=== PATIENT | female | born 1995 | race African-American/Black ===

== ENCOUNTER 2024-12-17 04:09 | Emergency (ER) | payer OTHER, SELFPAY ==
--- OUTSIDE RECORDS SUMMARY | 2024-12-17 04:13 | XMS_ITS | Encounter Summary ---
Author Organization [facility] Address [address] [place] [address] Care Team Providers Care Pizzamaker Name Role Phone No, Physician Primary Care Provider [phone] Encounter Details Date Type Department Care Team (Late st Contact Info) Description 12/14/2024 Results Follow-Up [address] [address] [address] [address] Vaginitis panel Vaginal Social History Tobacco Use Types Packs/Day Years Used Date Smoking Tobacco: Former Cigarettes 0.2 2 Smokeless Tobacco: Never Alcohol Use Standard Drinks/Week Comments Not Currently 0 (1 standard drink = 0.6 oz pur e alcohol) PHQ-2 Answer Date Recorded PHQ-2 Score 0 01/28/2019 Personal Safety Answer Date Recorded Have you ever been in or are you currently in a harmful physical or emotional relationship or is someone making you feel afraid or unsafe? 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 documented in this encounter Plan of Treatment Not on file documented as of this encounter Visit Diagnoses Not on filedocumented in this encounter Care Teams Pizzamaker Relationship Specialty Start Date End Date No, Physician PCP - General 10/07/24 documented as of this encounter
--- OUTSIDE RECORDS SUMMARY | 2024-12-17 04:13 | XMS_ITS | Patient Health Record ---
Author Organization [facility] Address [address] [place], [place] [address] Care Team Providers Care Senior Librarian Name Role Phone Melita German Primary Care Provider Rodrick Bauman Unavailable [phone] Allergies No Known Allergies Reason For Referral No Information Medications Medication SIG (Take, Route, Frequency, Duration) Notes Start Date End Date Status Vitamins 28-0.8 MG TAKE 1 TABLET BY MOUTH EVERY DAY Oral; Duration: 90 Active Prochlorperazine 25 MG UNWRAP AND _inser t 1 SUPPOSITORY RECTALLY EVERY 12 HOURS NEEDED FOR NAUSEA Rectal; Duration: 10 Not-Taking valACYclovir HCl 1 GM TAKE 1 TABLET BY M OUTH EVERY 12 HOURS Oral; Duration: 15 Active HYDROcodone-Acetaminophen 5-325 MG TAKE 1 TABLET BY MOUTH TWICE DAILY FOR 5 DAYS FOR PAIN OR COUGH. MAY CAUSE SEDATION. TAKE IT ONLY WHEN AT HOME Oral; Duration: 5 Not-Taking Famotidine 20 MG TAKE 1 TABLET BY DARIAN TH AT BEDTIME Oral; Duration: 30 Active Naproxen 500 MG Oral; Duration: 10 Not-Taking Imiquimod 5 % External; Duration: 30 Not-Taking Omeprazole 20 MG 1 capsule 30 minutes before morning meal Orally Once a day; Duration: 30 day(s) 02/13/2022 Active Ondansetron 8 MG DISSOLVE 1 TABLET ON THE TONGUE EVERY 6 HOURS NEEDED FOR NAUSEA OR VOMITING Oral; Duration: 3 Active Etonogestrel-Ethinyl Estradiol 0.12-0.015 MG/24HR _insert 1 RING VAGINALLY FOR 3 WEEKS THEN 1 WEEK OUT Diagnosis Unavailable Vaginal; Duration: 28 Not-Taking Fluconazole 150 MG TAKE 1 TABLET BY DARIAN TH ONCE TODAY AND 1 TABLET AFTER YOU FINISH MEDICATION Oral; Duration: 2 Not-Taking Nitrofurantoin Monohyd Macro 100 MG TAKE 1 CAPSULE BY MOUTH TWICE DAILY WITH THE MORNING AND EVENING MEAL Oral; Duration: 5 Not-Taking Vitamin D3 1.25 MG (52519 UT) Oral; Duration: 28 Not-Takin g Metoclopramide HCl 10 MG TAKE 1 TABLET B Y MOUTH EVERY 8 HOURS NEEDED FOR NAUSEA Oral; Duration: 6 Not-Taking RhoGAM Ultra-Filtered Plus 1500 UNIT as directed Intramuscular once; Duration: 1 days Not-Taking RhoGAM Ultra-Filtered Plus 1500 UNIT as directed Intramuscular once; Duration: 1 days Not-Taking metroNIDAZOLE 500 MG TAKE 1 TABLET BY MO UTH EVERY 12 HOURS Oral; Duration: 7 Not-Taking Social History Tobacco Use: Social History Observation Description Date Details (start date - stop date) Never Smoker NA - NA Sex Assigned At : Social History Observation Description Sex Assigned At Female Tobacco Use/Smoking Question Answer Notes Are you a: never smoker SBIRT (2018 Edition) Question Answer Notes Patient refused/declined SBIRT screening at this time? No 1. How often do you have a drink containing alco hol? Never 3. How often do you have five or more drinks on one occasion? Never SCORE 0 Interpretation Negative How many times in the past y ear have you used an illegal drug or used a prescription medication for non-medical reasons? 0 Total Count 0 Interpretation Negative Problems Problem Type SNOMED Code ICD Code Onset Dates Problem Status W/U Status Risk Notes Problem Finding related to (378939086) related conditions, unspecified, first trimester (O26.91) Active confirm Problem test equivocal (718136749) Encounter for test, result unknown (Z32.00) Active confirmed Problem care (regime/therap y) (973814462) Encntr for suprvsn of normal preg, unsp, second trimester (Z34.92) Active confirmed Problem test performed, confirmed (Z32.01) Active confirmed Plan Of Treatment Pending Test Test Name Order Date Ultrasound : (OB) First Trimester 2019 Ultrasound : OB/ Complete After 1st Trim es 03/11/2022 Insurance Providers Payer Name Payer Address Payer Phone Subscriber Number Group Number Insured Name Patient Relationship to Insured Coverage Start Date Coverage End Date [employer] Community Medicaid HMO [address] [place] [address] [id number] Nisha Millan Self - patient is the insured 9 [employer] [address] [place] [address] [id number] Nisha Chou Self - patient is the insured 2 DENTAL MEDICAID [employer] Medicaid Dental [address] [place] [address] [id number] Nisha Chou Self - patient is the insured 9 Medications Administered Medication Instructions Date of Administration Dosage Notes RhoGAM Ultra-Filtered PLUS-300ug 02/27/2022 1 Medical (General) History Surgical History Surgery Date(Month/Year) vaginal delivery vaginal delivery
--- OUTSIDE RECORDS SUMMARY | 2024-12-17 04:13 | XMS_ITS | Referral Summary ---
Author Organization [facility] Physician Office Building [address] [place] [id number] Care Team Providers Care Book Trimmer Name Role Phone No, Physician Primary Care Provider [phone] Encounters Date Type Department Care Team Description 12/15/[address] [address] Shayna Dean, RN 12/15/[address] [address] Shayna Dean, RN 12/14/[address] [address] Shayna Dean, RN 12/14/2024 Results Follow-Up [address] [address] Juan Samson PA Vaginitis panel Vaginal 12/13/2024 2:30 AM CDT - 12/13/2024 3:25 AM CDT Emergency [address] [address] Positive test (Primary Dx); Vaginal irritation Discharge Disposition: Discharge to home or self care 10/07/2024 8:42 AM CDT - 10/07/2024 10:26 AM CDT Emergency [facility] Emergency Department 1 [place] [address] Darryl Glover MD Dysfunctional uterine bleeding (Primary Dx); Dizziness Discharge Disposition: Discharge to home or self care from Last 3 Months Allergies Active Allergy Reactions Criticality Noted Date Comments Adhesive Rash Medium 09/16/2023 Surgical adhesive tape Penicillins Hives Medium 09/16/2023 Medications HYDROcodone-lilian taminophen (NORCO) 5-325 mg per tabletIndicatio ns:Pain Take 1 tablet by mouth every 6 (six) hours as needed for pain for up to 10 doses 10 tablet 4 Active ondansetron (ZOFRAN) 4 mg tablet Take 1 tablet (4 mg total) by mouth every 4 (four) hours as needed for nausea or vomiting 15 tablet 4 Active ibuprofen (ADVIL,MOTRIN) 800 mg tablet Take 1 tablet (800 mg total) by mouth 3 (three) times a day Take with food. 30 tablet 2 12/14/19 25 Discontinu ed(Pregnan danny) Active Problems Problem Noted Date Diagnosed Date Splinter 07/20/2021 Foreign body of thumb, right 07/20/2021 Periumbilical abdominal pain 12/21/2018 Encounter for psychiatric assessment 12/24/2017 Overview (12/24/2017): Initial appointment on 12/24/2017. Chronic post-traumatic stress disorder (PTSD) Assessment & Plan (12/24/2017 5:22 PM CDT): Chronic, persistent, needs to be linked with therapist. Her Referred to [facility] for trauma focused therapy. Start Prozac 20 mg daily and follow-up in six weeks. Full informed consent provided by the patient to initiate these medications. The patient verbalized an understanding of the reason for initiate these medications including the diagnosis and target symptoms for the medication recommended, the possible benefits and/or intended outcome of treatment, and as applicable, all available procedures involved in the proposed treatment, the possible risks and side effects, (including risk of medications to women and women who are ), the possible alternatives and complementary treatments, the possible results of not taking the recommended medications, (including but not limited to worsening symptoms, psychiatric instability, and even ), the possibility that this medication dose and/or frequency may need to be adjusted over time in consultation with Dr. Guerrero. The patient verbalized an understanding of the need for ongoing medical and psychiatric monitoring on an interval basis. At this time, the patient verbalizes full consent to initiate and understands the benefits and risks and wishes to proceed with full, informed consent. Persistent depressive disorder 12/24/2017 Assessment & Plan (12/24/2017 5:24 PM CDT): The F34.1 - Persistent Depressive Disorder - moderate - chronic, persistent symptoms including several of the following: depressed mood for most of the day, for more days than not, as indicated by either subjective account or observation by others for at least 2 years, and at least the presence, while depressed, of 2 or more of the following: poor appetite or overeating, insomnia or hypersomnia, low energy or fatigue, low self-esteem, poor concentration or difficulty making decisions, feelings of hopelessness. It is additionally noted that the patient has never been without the symptoms for more than 2 months at a time. Additionally, it is noted that there has never been a manic episode or a hypomanic episode, and criteria have never been met for cyclothymic disorder. The disturbance is not better explained by a persistent schizoaffective disorder, schizophrenia, delusional disorder, or other specified or unspecified schizophrenia spectrum and other psychotic disorder. The symptoms are not attributable to the physiological effects of a substance (e.g., a drug of abuse, a medication) or another medical condition (e.g., hypothyroidism). The patient does report that the symptoms cause clinically significant distress or impairment in social, occupational, or other important areas of functioning. The patient denies current suicidal ideation. The patient denies current homicidal ideation. The patient does not endorse any symptoms of psychosis, yrn, or hypomania. Up to 3 times daily as needed for anxiety Supportive, insight-oriented counseling provided in the office today I discussed the importance of lifestyle modification with the patient today. The patient will focus on lifestyle modification including changes to diet, incorporate regularly scheduled exercise, obtain sufficient sleep/maintaining proper sleep hygiene, and reduce overall level of stress. The patient will continue the following medication (or medications): Prozac 20 mg daily hydroxyzine 25 mg The patient will return to the office in six weeks for follow-up and to continue to monitor efficacy of treatment. If the patient has any worsening symptoms, he or she will contact the office to schedule an urgent appointment - or if symptoms warrant, the patient will proceed to the nearest emergency department for evaluation. 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 Gender Identity Female 07/10/2020 2:40 PM ELECTRONIC DEVELOPMENT TECHNICIAN Sexual Orientation Straight 07/10/2020 2: 40 PM ELECTRONIC DEVELOPMENT TECHNICIAN Last Filed Vital Signs Vital Sign Reading Time Taken Comments Blood Pressure 122/89 12/13/2024 3:00 AM CDT Pulse 81 12/13/2024 3:15 AM CDT Temperature 36.9 C (98.4 F) 12/13/2024 2:08 AM CDT Respiratory Rate 16 12/13/2024 2:08 AM CDT Oxygen Saturation 100% 12/13/2024 3:15 AM CDT Inhaled Oxygen Concentration - - Weight 71.2 kg (157 lb) 10/07/2024 8:37 AM CDT Height 157.5 cm (5' 2) 10/07/2024 8:37 AM CDT Body Mass Index 28.72 10/07/2024 8:37 AM CDT Plan of Treatment Not on file Procedures Procedure Name Priority Date/Time Associated Diagnosis Comments URINALYSIS, MICROSCOPIC ONLY STAT 12/13/2024 2:30 AM CDT URINE CULTURE Routine 12/13/2024 2:30 AM CDT N. GONORRHOEAE/C. TRACHOMATIS AMPLIFICATION STAT 12/13/2024 2:30 AM CDT VAGINITIS PANEL STAT 12/13/2024 2:30 AM CDT URINALYSIS AND REFLEX TO MICROSCOPIC AND CULTURE STAT 12/13/2024 2:30 AM CDT POCT HCG, URINE Routine 12/13/2024 2:27 AM CDT HCG, BLOOD, QUANTITATIVE Add-On 10/07/2024 9:32 AM CDT ECG 12-LEAD STAT 10/07/2024 8:59 AM CDT EGFR STAT 10/07/2024 8:50 AM CDT DIFFERENTIAL AUTO STAT 10/07/2024 8: 50 AM CDT ANTIBODY SCREEN STAT 10/07/2024 8:50 AM CDT ABO/RH STAT 10/07/2024 8:50 AM CDT TYPE AND SCREEN STAT 10/07/2024 8:50 AM CDT BASIC METABOLIC PANEL STAT 10/07/2024 8:50 AM CDT CBC WITH AUTO DIFFERENTIAL STAT 10/07/2024 8:50 AM CDT from Last 3 Months Results * N. gonorrhoeae/C. trachomatis Amplification Vaginal (12/13/2024 2:30 AM CDT) C. trachomatis Not Detected Not Detected N. gonorrhoeae Not Detected Not Detected [facility] Comment: Interpretive Data This assay detects Chlamydia trachomatis and Neisseria gonorrhoeae by nucleic acid amplification testing (NAAT). This assay has been cleared by the [place] Food and Drug administration. The performance characteristics of this test have been verified by the [facility]. The performance characteristics of this test have not been evaluated in individuals less than 14 years of age. Current Interpretive Data last revised 2023. Vaginal (None) 12/13/2024 2: 30 AM CDT 12/13/2024 2:34 AM CDT us Juan COLIN LAB MICROBIOLOGY - GENERAL O RDERABLES Final Result [facility] [address] [facility] Department [place] [address] * (ABNORMAL) Vaginitis panel Vaginal (12/13/2024 2:30 AM CDT) Bacterial Vaginosis Not Detected Not Detected Comment:A negative result do es not preclude a possible infection. Results should be considered in conjunction with clinical presentation to determine the disease status. Jada group Detected(A) Not Detected [facility] Comment:Jada species can be present as commensal organisms in women; results should be considered in conjunction with clinical presentation to determine the disease status. Jada glabrata/ krusei Not Detected Not Detected [facility] Trichomonas DNA Not Detected Not Detected [facility] Vaginal 12/13/2024 2:30 AM CDT 12/13/2024 2:34 AM CDT Narrative [facility] - 12/13/2024 3:34 AM CDT The Cepheid Xpert Xpress MVP test detects DNA targets from anaerobic bacteria associated with bacterial vaginosis, Jada species associated with vulvovaginal candidiasis, and Trichomonas vaginalis by nucleic acid amplification testing (NAAT). Results should be interpreted in conjunction with other clinical data. This test cannot be used to assess therapeutic success or failure because target nucleic acids may persist following antimicrobial therapy. This test has been cleared by the [place] Food and Drug Administration to aid in the diagnosis of vaginal infections in symptomatic women ages 14 and older. The performance characteristics of this test have been verified by the [facility]. The Cepheid Xpert Xpress MVP test detects DNA targets from anaerobic bacteria associated with bacterial vaginosis, Jada species associated with vulvovaginal candidiasis, and Trichomonas vaginalis by nucleic acid amplification testing (NAAT). Results should be interpreted in conjunction with other clinical data. This test cannot be used to assess therapeutic success or failure because target nucleic acids may persist following antimicrobial therapy. This test has been cleared by the [place] Food and Drug Administration to aid in the diagnosis of vaginal infections in symptomatic women ages 14 and older. The performance characteristics of this test have been verified by the [facility]. Juan COLIN LAB MICROBIOLOGY - GENERAL O RDERABLES Final Result Performing Organization Address [facility] Co de Phone Number [facility] [address] [place] [address] * (ABNORMAL) Urinalysis reflex to microscopic and culture Urine (12/13/2024 2:30 AM CDT) Color, ur Straw Yellow Clarity, ur Cloudy(A) Clear [facility] Specific gravity, ur 1.018 1.003 - 1.030 [facility] pH, urine 6.0 [facility] Comment: Interpretive Data U rine pH is affected by diet, medications, systemic acid-base disturbances, and renal tubular function. pH may affect urinary stone formation. For example, urine pH below 6.0 may help reduce the tendency for calcium phosphate stones and pH greater than 6.0 may reduce the tendency for uric acid stone formation. Source: [facility] Current Interpretive Data was last revised on 2017 Protein, ur ql Negative Negative [facility] Glucose, ur ql Negative Negative [facility] Ketones, ur Negative Negative [facility] Bilirubin, ur Negative Negative [facility] Blood, ur 1+(A) Negative [facility] Urobilinogen, ur <2.0 <2.0 mg/dL [facility] Nitrite, ur Negative Negative [facility] Leukocyte esterase, ur 4+(A) Negative [facility] UA reflex comment Reflex to microscopic UA will be performed. [facility] Urine 12/13/2024 2:30 AM CDT 12/13/2024 2:34 AM CDT Juan Manuel Avitia DO LAB MICROBIOLOGY - GENERAL ORDERABLES Final Result Performing Organization Address [facility]/ZIP Co de Phone Number [facility] [address] [facility] [place] [address] * (ABNORMAL) Urinalysis, microscopic only (12/13/2024 2:30 AM CDT) WBC, ur 0-5 0 - 5 /HPF RBC, ur 11-20(A) 0 - 2 /HPF [facility] Epithelial cells, squamous, ur 11-20(A) 0 - 5 /HPF [facility] Comment:Suggestive of contam ination. Consider recollection by clean catch. Mucous, ur Present(A) [facility] Culture Reflex Comment Reflex conditions for urine culture (WBC >10) not met. [facility] Urine 12/13/2024 2:30 AM CDT 12/13/2024 2:34 AM CDT Juan Manuel Avitia DO LAB URINE ORDERABLES Final Result Performing Organization Address [facility] Co de Phone Number [address] [employer] [place], [place] [id number] * Urine culture Urine (12/13/2024 2:30 AM CDT) [facility] Report Final Report: Growth indicative of contamination with periurethral slava. Please submit a new specimen with special attention given to the collection process and to prompt transport to the laboratory. Comment:Testing performed by : [facility], [address] [facility], [place]., [address] Organism GROWTH INDICATES CONTAM WITH PERIURETHRAL SLAVA. [facility] Urine 12/13/2024 2:30 AM CDT 12/13/2024 9:22 AM CDT Narrative [facility] - 12/14/2024 2:33 PM CDT Testing performed by [facility]biology Laboratory ([phone]) Juan COLIN LAB MICROBIOLOGY - GENERAL O RDERABLES Final Result Performing Organization Address [facility]/ZIP Co de Phone Number [address] [employer] [address] * (ABNORMAL) POCT hCG, urine (12/13/2024 2:27 AM CDT) [facility] HCG, ur, POC Positive(A) Negative Lot Number [id number] QC Backgroud Clear Acceptable QC Control Line Acceptable Urine 12/13/2024 2:27 AM CDT Juan Manuel Avitia DO POINT OF CARE TEST ORDERABL ES Final Result * hCG, blood, quantitative (10/07/2024 9:32 AM CDT) hCG, quant <5.0 0.0 - 5.0 IUnits/L Comment: Interpretive Data Male: < 5 IU/L Non- premenopausal Female: <5 IU/L The Karl hCG Beta Quant assay procedure was used. Results from different manufacturers or methods may not be comparable. Serial testing should be performed using the same method. Interpretive Data was last revised on 2023 Blood 10/07/2024 9:32 AM CDT 10/07/2024 9:37 AM CDT Darryl Glover MD LAB BLOOD ORDERABLE S Edited Result - Final Performing Organization Address [facility] Co de Phone Number [facility] [address] Department [place] [address] * ECG 12 lead (10/07/2024 8:59 AM CDT) 10/07/2024 8:59 AM CDT Narrative [facility] - 10/07/2024 10:23 AM CDT Vent Rate: 68 bpm RR Interval: 870 msec [place] Interval: 131 msec QRS Duration: 80 msec QT Interval: 374 msec QTC Interval: 392 msec P-R-T [place]: 11 - 30 - 19 degrees IMPRESSION: SINUS RHYTHM NORMAL ECG Electronically Signed By: Antolin Min MD Darryl Glover MD ECG ORDERABLES Fin al Result Performing Organization Address [facility] Co de Phone Number [facility] [employer] [facility] * eGFR (10/07/2024 8:50 AM CDT) eGFR >90 >=60 mL/min/1. 73 m2 Comment: Interpretive Data Reference Interval Normal >/= 90 mL/min/1.73m2 Mildly decreased* 60 - 89 mL/min/1.73m2 Mildly to moderately decreased 45 - 59 mL/min/1.73m2 Moderately to severely decreased 30 - 44 mL/min/1.73m2 Severely decreased 15 - 29 mL/min/1.73m2 Kidney Failure < 15 mL/min/1.73m2 *Relative to young adult level Estimated glomerular filtration rate is determined by the 2020 CKD-EPI equation recommended by the National Kidney Foundation (A Unifying Approach to GFR Estimation: Recommendations of the NKF-ASK Task Force on Reassessing the Inclusion of Race in Diagnosing Kidney Disease, JASN 2020). The CKD-EPI equation should not be used for patients with unstable renal function and has not been validated in children and those over 70. Current interpretive data was last reviewed 2021. Blood 10/07/2024 8:50 AM CDT 10/07/2024 9:03 AM CDT us Darryl Glover MD LAB BLOOD ORDERABLE S Final Result [facility] [address] [facility] Department [place] [address] * Differential, auto (10/07/2024 8:50 AM CDT) Neutrophil abs 2.58 1.50 - 6.50 K/cumm Imm gran abs 0.01 0.00 - 0.10 K/cumm [facility] ([place]) Lymphocyte abs 1.78 0.80 - 3.30 K/cumm [facility] ([place]) Monocyte abs 0.42 0.20 - 0.80 K/cumm [facility] ([place]) Eosinophil abs 0.21 0.00 - 0.50 K/cumm [facility] ([place]) Basophil abs 0.02 0.00 - 0.10 K/cumm [facility] ([place]) Neutrophil pct 51.3 % [facility] ([place]) Comment: Interpretive Data Percent cell count reference ranges are not reported, since discordance with absolute values may lead to misinterpretation of CBC data. Current Interpretive Data was last revised on 2017. Imm gran pct 0.2 % [facility] ([place]) Comment: Interpretive Data Percent cell count reference ranges are not reported, since discordance with absolute values may lead to misinterpretation of CBC data. Current Interpretive Data was last revised on 2017. Lymphocyte pct 35.5 % [facility] ([place]) Comment: Interpretive Data Percent cell count reference ranges are not reported, since discordance with absolute values may lead to misinterpretation of CBC data. Current Interpretive Data was last revised on 2017. Monocyte pct 8.4 % [facility] ([place]) Comment: Interpretive Data Percent cell count reference ranges are not reported, since discordance with absolute values may lead to misinterpretation of CBC data. Current Interpretive Data was last revised on 2017. Eosinophil pct 4.2 % [facility] ([place]) Comment: Interpretive Data Percent cell count reference ranges are not reported, since discordance with absolute values may lead to misinterpretation of CBC data. Current Interpretive Data was last revised on 2017. Basophil pct 0.4 % [facility] ([place]) Comment: Interpretive Data Percent cell count reference ranges are not reported, since discordance with absolute values may lead to misinterpretation of CBC data. Current Interpretive Data was last revised on 2017. Blood 10/07/2024 8:50 AM CDT 10/07/2024 9:03 AM CDT us Darryl Glover MD LAB BLOOD ORDERABLE S Final Result [facility] ([place]) [address] [facility] [place] [address] * (ABNORMAL) CBC with auto differential (10/07/2024 8:50 AM CDT) WBC 5.02 3.80 - 9.90 K/cumm Hgb 12.4 11.9 - 15.5 g/dL [facility] ([place]) Hct 38.0 35.6 - 45.5 % [facility] ([place]) Plt 267 150 - 400 K/cumm [facility] ([place]) MPV 9.8 9.1 - 12.3 fL [facility] RBC 4.59 3.90 - 5.20 M/cumm [facility] MCV 82.8 81.3 - 96.4 fL [facility] MCH 27.0(L) 27.1 - 33.3 pg [facility] ([place]) MCHC 32.6 32.3 - 35.7 g/dL [facility] ([place]) RDW CV 15.5(H) 11.1 - 14.9 % [facility] RDW SD 47.3 35.7 - 48.1 fL [facility] ([place]) NRBC abs 0.00 0.00 - 0.01 K/cumm [facility] ([place]) Blood 10/07/2024 8:50 AM CDT 10/07/2024 9:03 AM CDT us Darryl Glover MD LAB BLOOD ORDERABLE S Final Result [facility] ([place]) [address] [facility] [place] [place] [address] * ABO/Rh (10/07/2024 8:50 AM CDT) ABO/Rh B Negative Blood 10/07/2024 8:50 AM CDT 10/07/2024 9:03 AM CDT Narrative [facility] ([place]) - 10/07/2024 9:40 AM CDT Has the patient had Daratumumab or Isatuximab in the past 6 months?->Unknown Darryl Glover MD LAB BLOOD BANK TEST ORDERABLES Final Result [facility] ([place]) [address] [facility] [place] [place] [address] * Antibody screen (10/07/2024 8:50 AM CDT) Pam, indirect, Gel Interpretation Negative ABSC Blood 10/07/2024 8:50 AM CDT 10/07/2024 9:03 AM CDT Narrative [facility] ([place]) - 10/07/2024 9:40 AM CDT Has the patient had Daratumumab or Isatuximab in the past 6 months?->Unknown Darryl Glover MD LAB BLOOD BANK TEST ORDERABLES Final Result Performing Organization Address City/State/[facility] Co de Phone Number [facility] ([place]) [address] [facility] [place] [address] * Basic metabolic panel (10/07/2024 8:50 AM CDT) Sodium 137 135 - 145 mmol/L Potassium, pl 4.1 3.3 - 4.9 mmol/L [facility] ([place]) Chloride 104 97 - 110 mmol/L [facility] ([place]) CO2 22 22 - 32 mmol/L [facility]) Anion gap 11 2 - 15 mmol/L [facility] ([place]) BUN 11 6 - 25 mg/dL [facility] ([place]) Creatinine 0.64 0.60 - 1.10 mg/dL [facility] ([place]) Glucose 96 70 - 199 mg/dL [facility] ([place]) Comment: Interpretive Data Fasting glucose >/= 126 mg/dl is diagnostic for diabetes. Fasting is defined as no caloric intake for at least 8 hours. Fasting glucose between 100 mg/dl to 125 mg/dl is diagnostic of prediabetes. In a patient with classic symptoms of hyperglycemia or hyperglycemic crisis, a random glucose >/= 200 mg/dl is diagnostic for diabetes. In the absence of unequivocal hyperglycemia, results should be confirmed by repeat testing. The classification and Diagnosis of Diabetes Diabetes Care 202; 46: S19-S40. Current interpretive data was last revised 2022. Calcium 9.0 8.5 - 10.3 mg/dL [facility] ([place]) Blood 10/07/2024 8:50 AM CDT 10/07/2024 9:03 AM CDT Darryl Glover MD LAB BLOOD ORDERABLE S Final Result [facility] ([place]) [address] [facility] [place] [address] from Last 3 Months Insurance [employer] Care Teams Book Trimmer Relationship Specialty Start Date End Date No, Physician PCP - General 10/07/24
--- OUTSIDE RECORDS SUMMARY | 2024-12-17 04:13 | XMS_ITS | Continuity of Care Document ---
Author Organization [id number] Address [address] [place] [address] Phone Care Team Providers Care Obstetrics Teacher Name Role Phone Hernan Lloyd DMD Unavailable [...] AN CARE, AT-RISK ENHANCED SERVICE PACKAGE (INCLUDES [id number]) OFFICE/OUTPATIENT VISIT, EST PRESCRIPTION DRUG, ORAL, NON CHEMOTHERAP EUTIC, NOS AZITHROMYCIN DIHYDRATE, ORAL, CAPSULES/P OWDER, 1 GRAM Wet beka, including preparations of va ginal, cervical or skin specimens COLLECTION OF VENOUS BLOOD BY VENIPUNCTU RE OFFICE/OUTPATIENT VISIT, EST CARE, AT-RISK ENHANCED SERVICE PACKAGE (INCLUDES [id number]) OFFICE/OUTPATIENT VISIT, EST COLLECTION OF VENOUS BLOOD BY VENIPUNCTU RE Voided Encounter care, at-risk assessment care, at-risk enhanced service; antepartum management MENTAL HEALTH ASSESSMENT, BY NON-PHYSICI AN SKIN TEST; TUBERCULOSIS, INTRADERMAL Dec OFFICE/OUTPATIENT VISIT, NEW Advance Directives Directive Yes / No Effective Date File Name No Information Encounters Encounter Description Practice Location Reason(s) For Visit Diagnoses Date Provider Providers Copied on Encounter [facility] , [address], [place], [place], [address], tel:[phone] [facility] Encounter for dental exam and cleaning w abnormal findings 7 Gabino Becerra. [address], [place], [place], [address]. tel:[phone] Referring Provider: Hernan Lloyd, [address], [place], [address]. tel:[phone] [facility] , [address], [place], [place], [address], tel:[phone] [facility] home visit (chief complaint) Routine follow-up [facility]. [address], [place], [place], [address], . tel:[phone] [facility] , [address], [place], [place], [address], tel:[phone] [facility] [place] No Information 2 [facility]. [address], [place], [place], [address], . tel:[phone] Consulting Provider: Arianne Samuels, [address], [place], [address]. tel:[phone] OFFICE/OUTPAT IENT VISIT, EST [facility] , [address], [place], [place], [address], [place] tel:[phone] [facility] [place] No Information 1 Bianca Bauman. [address], [place], [place], [address], . tel:[phone] OFFICE/OUTPAT IENT VISIT, EST [facility] , [address], [place], [place], [address], [place] tel:[phone] [facility] [place] Supervision of normal first 1 Rico Navas [address], [place], [place], [address], . tel:[phone] [facility] , [address], [place], [place], [address], tel:[phone] [facility] [place] No Information 1 Management [facility]. [address], [place], [place], [address] [place] [address], . tel:[phone] Consulting Provider: Arianne Samuels, [address], [place], [address]. tel:[phone] OFFICE/OUTPAT IENT VISIT, [facility] , [address], [place], [place], [address], tel:[phone] [facility] [place] Supervision of other normal 1 Rico Navas [address], [place], [place], [address], . tel:[phone] [facility] , [address], [place], [place], [address], [place] tel:[phone] [facility] [place] Supervision of normal first 1 Rico Navas [address], [place], [place], [address], . tel:[phone] [facility] , [address], [place], [place], [address], tel:[phone] [facility] [place] pn intake (chief complaint) No Information No Information OFFICE/OUTPAT IENT VISIT, [facility] , [address], [place], [place], [address], [place] tel:[phone] [facility] [place] Test (chief complaint)No te for school-Pregn italo (chief complaint) Irregular menstrual cycle Bianca Bauman. [address], [place], [place], [address], [place]. tel:[phone] Family History Family Member Type Diagnosis Age At Onset Father Problem (finding) hypertension Mother Problem (finding) hypertension Father Problem (finding) Maternal history of alice betes mellitus Payers Payer name Insurance type Covered constitution party ID Alpa pool(s) D Medicaid - Dental CI [id number] Social History Type Description Quantity Date Captured Comments Sex Female Smoking Status No Information Chief Complaint And Reason For Visit No Information Reason For Referral Reason For Referral No Information Plan Of Treatment Date Type Action Status Goal BMP fasting. Due on 011 due Referral Referred To: [facility] [address] [place], [phone] Ordered: Referral: [facility] [...]
--- OUTSIDE RECORDS SUMMARY | 2024-12-17 04:13 | XMS_ITS ---
Author Organization [facility] Address [address] [place], [place] [address] Care Team Providers Care Retoucher Name Role Phone German Hua Primary Care Provider [phone] Rodrick Bauman Unavailable [phone] Abran Fitzpatrick Unavailable [phone] REASON FOR VISIT WWE Social History Sex Assigned At : Social History Observation Description Sex Assigned At Female Encounters Encounter Location Date Provider Diagnosis [facility] [place], [place] [id number] 08/04/2023 Abran Fitzpatrick Plan Of Treatment No Information Progress Notes * Nisha BARNETT :1995 (29 yo F)Acc No.[id number]:08/04/2023 Patient: Nisha KLEIN Appointment Provider: SUSY Pastrana :1995 A ge:28 Y S ex:Female Date:08/04/2023 [place] [place] Pcp:German Hua Subjective: * Chief Complaints: * 1 . WWE. * Medical History: Objective: * Vitals: Assessment: Plan: * Treatment: * Billing Information: * Visit Code: * Procedure Codes: * Electronic signature of SUSY Tellez chi on 12/17/2024 at 04:12 AM CDT Sign off status: Pending * Appointment Provider: SUSY Pastrana Date: 0 08/04/2023 Generated for Molina ramirez/Betty/Micky on: 0 12/17/2024 04:12 AM CDT
--- OUTSIDE RECORDS SUMMARY | 2024-12-17 04:13 | XMS_ITS ---
Author Organization [facility] Address [address] [place], [place] [address] Care Team Providers Care Instant Print Operator Name Role Phone German Hua Primary Care Provider [phone] Rodrick Bauman Unavailable [phone] Abran Fitzpatrick Unavailable [phone] REASON FOR VISIT wwe Social History Sex Assigned At : Social History Observation Description Sex Assigned At Female Encounters Encounter Location Date Provider Diagnosis [facility] [place], [place] [address] 07/23/2023 Abran Fitzpatrick Plan Of Treatment No Information Progress Notes * Nisha BARNETT :1995 (29 yo F)Acc No.[id number]:07/23/2023 Patient: Nisha KLEIN Appointment Provider: SUSY Pastrana :1995 A ge:28 Y S ex:Female Date:07/23/2023 Address:[facility] [place], [place] Pcp:German Hua Subjective: * Chief Complaints: * 1 . Wwe. * Medical History: Objective: * Vitals: Assessment: Plan: * Treatment: * Billing Information: * Visit Code: * Procedure Codes: * Electronic signature of SUSY Tellez chi on 12/17/2024 at 04:13 AM CDT Sign off status: Pending * Appointment Provider: SUSY Pastrana Date: 0 07/23/2023 Generated for Molina ramirez/Betty/Micky on: 0 12/17/2024 04:13 AM CDT
--- OUTSIDE RECORDS SUMMARY | 2024-12-17 04:13 | XMS_ITS | Clinical Summary ---
Author Organization [facility] Address [address] [place] [address] Care Team Providers Care Water Chaser Name Role Phone [facility] Primary Care Pro vider Source Comments [facility],non-[facility] Affiliates and Associated Physician Practices is amultiple site organization consisting of ambulatory clinics and hospital sitesin [place], [place], [place] and [place]. This disclosure is being madepursuant to the Care Everywhere program and may not contain all information available regarding this patient. Last updated 18.[facility] Allergies Active Allergy Reactions Criticality Noted Date Comments Penicillins Urticaria Medium 03/25/2022 Skin Adhesives Urticaria Medium 04/18/2022 White and clear tape Medications * This document contains information received from the source organization and may not represent a complete record from that organization. * Be aware that medications may not be up to date on this document. Alwaysverify current medications with the patient. fluticasone propionate (Flonase) 50 MCG/ACT nasal spray [place] 2 (two) sprays into each nostril once daily 1 Each 03/21/2024 Active guaiFENesin ER 12hr (Mucinex) 600 MG tablet Take 1 (one) tablet by mouth every 12 hours 60 tablet 03/21/2024 Active naproxen (Naprosyn) 500 MG tablet Take 1 (one) tablet by mouth 2 times daily 30 tablet 03/21/2024 Active ondansetron (Zofran) 4 MG tablet Take 1 (one) tablet by mouth every 6 hours as needed for Nausea/Vomit ing 20 tablet 03/28/2024 Active HYDROcodone-lilian taminophen (Logan) 5-325 MG tabletIndicatio ns:Acute maxillary sinusitis, recurrence not specified Take 1 (one) tablet by mouth every 6 hours as needed for Pain 12 tablet 03/28/2024 Active diclofenac sodium EC (Voltaren) 75 MG tablet Take 1 (one) tablet by mouth every 12 hours as needed 20 tablet 05/29/2024 Active cyclobenzaprine (Flexeril) 10 MG tablet Take 1 (one) tablet by mouth every 12 hours as needed for Muscle Spasms 10 tablet 05/29/2024 Active Active Problems Problem Noted Date Diagnosed Date Encounter for test, result unknown test positive 10/22/2023 Encntr for suprvsn of normal preg, unsp, second trimester 10/22/2023 related conditions, unspecified, first trimester 10/22/2023 Uterine contractions 05/08/2022 Decreased movement aff ecting management of in third trimester 05/05/2022 36 weeks gestation of 05/05/2022 Indication for care or intervention in labor or delivery 04/19/2022 34 weeks gestation of 04/19/2022 uterine contractions in third trimester, antepartum 04/19/2022 state, incidental 04/18/2022 32 weeks gestation of 04/07/2022 Lower abdominal pain 04/07/2022 Anxiety 03/26/2022 History of shoulder dystocia in prior 03/26/2022 Hx vacuum assisted vaginal delivery 03/26/2022 Chronic migraines 03/26/2022 Intermittent asthma 03/26/2022 Rh negative state in antepartum period Rubella non-immune status, antepartum 03/26/2022 Passive anti-D from Rhogam 03/25/2022 Mild Polyhydramnios 03/25/2022 Bipolar Depression 12/24/2017 Resolved Problems Problem Noted Date Diagnosed Date Resolved Date GERD (gastroesophageal reflux disease) 04/23/2022 04/23/2022 Functional diarrhea 04/07/2022 05/05/20 Nausea and vomiting during 10/30/2021 04/23/2022 Viral illness 05/15/2021 03/25/2022 Possible exposure to STD 05/15/2021 Spontaneous 12/01/2019 022 Abdominal pain during pregna ncy in third trimester 02/23/2017 04/08/2017 Underweight 01/13/2017 04/08/2017 Anemia affecting in third trimester 12/11/19 17 04/08/2017 Overview (12/10/2016): Niferex Erx Discussed high iron diet OTC stool softner; colace, fiber Increase water intake Positive urine drug screen 08/07/2016 1 06/08/2016 Overview (09/02/2016): + MJ. Legal and social implications discussed. Supervision of other normal , antepartum 08/05/2016 04/08/2017 Overview (02/17/2017): Datinw2d ultrasound PNL: B-/I/-/-/HIV=NR Ab scr: neg Pap: NILM GC/CT: neg Urine cx: wnl UDS: + MJ H/H/P: 10.4/33.6/207 HgbE: wnl Genetics: Nuchal translucency and sequential screen. Negative. Anatomy US: female, complete, rpt 4 wks GCT: 109 GBS: 01/23 Tdap:12/10 Flu shot: Declined. Recently had influenza Feeding: Breast Contraception: Bipolar affective disorder 08/05/2016 1 06/08/2016 Overview (11/11/2016): She sees Dr. Jean at [facility]. She discontinued Seroquel with positive test. She saw her therapist on 07/24 and was started on Sertraline. Not tolerated due to nausea. She will continue her care there during this . Next appt is 11/12/16. Herpes simplex vulvovaginitis 08/05/2016 04/08/2017 Overview (08/05/2016): Treated episodically with Valtrex. Rh negative state in antepartum period 08/05/2016 04/08/2017 Overview (02/24/2017): Rhogam given: 12/10 and 02/22 post abdominal trauma Nausea and vomiting during p regnancy prior to 22 weeks gestation 08/05/2016 04/08/2017 Overview (08/05/2016): OB Triage evaluation, IV fluids, antiemetic Immunizations Immunization Administration Dates Next Due DTP, HISTORIC VACCINE 11/20/1994, 994,1993,08/08 DTaP VACCINE IM (6wk-6yrs) 01/21/1999 HEP A PED/ADULT VACCINE 06/19/2010 HEP B VACCINE 1993,1993,1993 HIB-PRP-T 4 DOSE 11/20/1994, 4,1993,08/08 INFLUENZA VACCINE 06/20/2011 INFLUENZA VACCINE, QUADR. (F LUZONE; FLULAVAL; FLUARIX; AFLURIA QUADRIVALENT; 6MO+), 0.5 ML (IIV4) 05/13/2022,02/26/2017 MENINGOCOCCAL ACWY (MCV4P) VAC IM 06/19/2010 MMR 05/13/2022 MMR VACCINE 10/12/1997,08/28/1994 POLIO OPV 1993,1993,1993 Rho D Immune Globulin 09/28/2023, 023,05/13/2022,10/15,01/28/2020,12/01/2019,02/26/2017 ,02/22/2017,12/10/2016,06/20/2011 TDAP (7yrs+) 05/13/2022(Deferred: Patient Refused - received per pt),12/10/2016,06/20/2011 TDAP, HISTORIC VACCINE 07/20/2021,02/23/2009,05/2009 VARICELLA 01/21/1999 Family History Medical History Relation Name Comments Bipolar Disorder Father Depression Father Diabetes Father Heart Failure Father Depression Mother Hypertension Mother Relation Name Status Comments Brother Alive Father Alive Mother Alive Sister Alive Social History Tobacco Use Types Packs/Day Years Used Date Smoking Tobacco: Former Cigarettes Q uit: 06/08/2018 Smokeless Tobacco: Never Alcohol Use Standard Drinks/Week Comments Yes 0 (1 standard drink = 0.6 oz pur e alcohol) about once a month AUDIT-C Answer Date Recorded Q1: How often do you have a drink containing alcohol? Never 02/10/2024 Q2: How many drinks containi ng alcohol do you have on a typical day when you are drinking? Patient does not drink Q3: How often do you have si x or more drinks on one occasion? Never 02/10/2024 Overall Financial Resource Strain (CARDIA) Answe r Date Recorded How hard is it for you to pa y for the very basics like food, housing, medical care, and heating? Not hard at all 05/11/2022 Hunger Vital Sign Answer Date Recorded Within the past 12 months, y ou worried that your food would run out before you got the money to buy more. Never true 05/11/20 22 Within the past 12 months, t he food you bought just didn't last and you didn't have money to get more. Never true 05/11/2022 PRAPARE - Transportation Answer Date Re corded In the past 12 months, has l ack of transportation kept you from medical appointments or from getting medications? No 09/2021 In the past 12 months, has l ack of transportation kept you from meetings, work, or from getting things needed for daily living? No 05/11/2022 Housing Stability Vital Sign Answer Balaji e Recorded In the last 12 months, was t here a time when you were not able to pay the mortgage or rent on time? No 05/11/2022 In the last 12 months, how many places have you lived? 1 05/11/2022 In the last 12 months, was t here a time when you did not have a steady place to sleep or slept in a [place] (including now)? No 05/11/2022 [place] Depression Scale Answer Date Recorded RETIRED: Total Score 0 05/08/2022 Last EPDS Self Harm Result Not on file 05/08 Comments No Sex and Gender Information Value Date Recorded Sex Assigned at Not on file Legal Sex Female 6:05 AM [facility] Gender Identity Not on file Sexual Orientation Not on file Last Filed Vital Signs Vital Sign Reading Time Taken Comments Blood Pressure 147/96 05/28/2024 11:26 PM [facility]TER Pulse 65 05/28/2024 11:26 PM [facility] Temperature 36.7 C (98.1 F) 05/28/2024 11:26 PM [facility]TER Respiratory Rate 18 05/28/2024 11:26 PM [facility] Oxygen Saturation 95% 05/28/2024 11:26 PM [facility] Inhaled Oxygen Concentration - - Weight 70.8 kg (156 lb) 05/28/2024 11:26 PM [facility] S[facility]TER Height 157.5 cm (5' 2) 05/28/2024 11:26 PM [facility] Body Mass Index 28.53 05/28/2024 11:26 PM [facility] Plan of Treatment Health Maintenance Due Date Last Done Comments HEPATITIS C SCREENING 05/29/2011 PNEUMOCOCCAL VACCINE (1 of 2 - PCV) 2012 PAP SMEAR 08/05/2019 08/05/2016 HPV VACCINE (1 - 3-dose SCDM series) 2020 COVID-19 VACCINE (2 - season) 2024 09/20/2020 DEPRESSION SCREENING 06/08/2024 INFLUENZA VACCINE (#1) 2025 , 02/26/2017, 06/20/2011 DTAP/TDAP/TD VACCINES (11 - Td or Tdap) 07/20/2031 07/20/2021, 12/10/2016, 06/20/2011, Additional history exists ZOSTER VACCINE (1 of 2) 2043 HEPATITIS B VACCINE Completed 1993, 1993, 1993 HIB VACCINE Completed 11/20/1994, 11/08, 1993, Additional history exists MENINGOCOCCAL GROUPS A/C/Y/W VACCINE Completed 06/19/2010 HIV SCREENING Completed 08/05/2016 MENINGOCOCCAL (Group B) VACCINE SHARED DECISION-MAKING Aged Out No longer eligible based on patient's age to complete this topic Procedures Procedure Name Priority Date/Time Associated Diagnosis Comments PAP IG RFLX HPV ASCU Routine 08/05/2016 12:37 PM CR[facility] S[facility]TER 10 weeks gestation of HIV-1 HIV-2 ANTIBODY + HIV P24 AG PANEL Routine 08/05/2016 12:35 PM CRUST S[facility]TER 10 weeks gestation of from Last 3 Months or Most Recently Relevant to Health Maintenance Results * PAP SMEAR IG RFLX HPV ASCU (PO REF LAB) (08/05/2016 12:37 PM CRUST SORTER) Diagnosis Comment 08/06/2016 9:08 PM CRUST S[facility]TER [facility] Comment:NEGATIVE FOR INTRAEP ITHELIAL LESION AND MALIGNANCY. Specimen Adequacy Comment 017 9:08 PM CRUST S[facility]TER [facility] Comment: Satisfactory for evaluation. Endocervical and/or squamous metaplastic cells (endocervical component) are present. Performed by Comment 08/06/2016 9:08 PM CRUST SORTER [facility] Comment:Rubi Medley [employer] hnologist (ASCP) Comment . 08/06/2016 9:08 PM CRUST SORTER [facility] Note Comment 08/06/2016 9:08 PM CRUST SORTER [facility] Comment: The Pap smear is a screening test designed to aid in the detection of premalignant and malignant conditions of the uterine cervix. It is not a diagnostic procedure and should not be used as the sole means of detecting cervical cancer. Both false-positive and false-negative reports do occur. IGLBP CPT Code Automation Comment 08/06/2016 9:08 PM CRUST SORTER [facility] Comment: This liquid based ThinPrep(R) pap test was screened with the use of an image guided system. Note Comment 08/06/2016 9:08 PM CRUST SORTER [facility] Comment: The HPV DNA reflex criteria were not met with this specimen result therefore, no HPV testing was performed. Pathology/Cytolo gy PART OF UTERINE CERVIX / Unknown 08/05/2016 12:37 PM CRUST SORTER 08/05/2016 1:19 PM CRUST SORTER Narrative [facility] - 08/06/2016 9:08 PM CRUST SORTER Performed at: [address] [place] [id number] Stick Inserter: Rayna Cuevas MD, Phone: [phone] Specimen Comment: Source.............Cervix Specimen Comment: No. of containers..01 CYTYC Thin Prep Vial us Gaye Stephens MD LAB - PATHOLOGY/CYTOLOGY ORDE RABILIANA Final Result [facility] ([facility]) [address] [place] [address] * HIV-1 HIV-2 ANTIBODY + HIV P24 AG PANEL (08/05/2016 12:35 PM CRUST SORTER) HIV1/2 Ab + P24 Ag Non Reactive Non Reactive 08/05/2016 6:49 PM CRUST SORTER [facility] Blood BLOOD SPECIMEN / Unknown 08/05/2016 12:35 PM CRUST SORTER 08/05/2016 1:10 PM CRUST SORTER Narrative [facility] - 08/05/2016 6:49 PM CRUST SORTER No Laboratory evidence of HIV infection. us Gaye Stephens MD LAB - CHEMISTRY ORDERABLES Fi nal Result [facility] [address] [place] [address] from Last 3 Months or Most Recently Relevant to Health Maintenance [place] [facility] COMMUNITY PLAN [place] Advance Directives * Full Code (Latest Code Status on File) Date Activated Date Inactivated Comments 05/11/2022 10:25 AM 05/13/2022 3:02 PM * Full Code Date Activated Date Inactivated Comments 04/18/2022 7:58 PM 04/19/2022 12:11 AM * Full Code Date Activated Date Inactivated Comments 04/07/2022 6:00 PM 04/07/2022 9:46 PM * Full Code Date Activated Date Inactivated Comments 10/30/2021 12:38 PM 10/30/2021 4:02 PM * Full Code Date Activated Date Inactivated Comments 02/25/2017 12:53 PM 02/27/2017 12:50 PM Care Teams Water Chaser Relationship Specialty Start Date End Date [facility] [address] [place] [address] PCP - General Clerk Funeral Detail 01/30/22
--- OUTSIDE RECORDS SUMMARY | 2024-12-17 04:13 | XMS_ITS | Clinical Summary ---
Author Organization [facility] Address [address] [place] [address] Care Team Providers Care Assistant Production Manager Name Role Phone Unavailable Primary Care Provider Unavailabl e Allergies No known active allergies Medications imiquimod (ALDARA) 5 % Cream in PacketIndicatio ns:condylomata acuminata 1 Packet by See Admin Instructions route every Thursday, Thursday, and Thursday. 12 Packet 2 2 Active Active Problems No known active problems Immunizations Immunization Administration Dates Next Due (ACTHIB/HIBERIX)(2 MOS-5 YRS /6 WKS-4 YRS) HAEMOPHILUS INFLUENZAE TYPE B VACCINE (HIB), PRP-T CONJUGATE, 4 DOSE, 0.5 ML IM 11/20/1994,1993,1993,08/08 (ADACEL/BOOSTRIX)(10 YR UP) TDAP VACCINE, 0.5ML, IM 07/20/2021,12/10/2016,06/20/2011,02/23,01/17/2009 (INFANRIX)(6 WKS-6 YRS) DIPT HERIA, TETANUS TOXOIDS, AND ACCELLULAR PERTUSSIS VACCINE (DTAP), 0.5 ML IM 01/21/1999 (M-M-R II/PRIORIX)(12 MO UP) MEASLES, MUMPS AND RUBELLA VIRUS VACCINE, 0.5 ML IM/SUBCUT 10/12/1997,08/28/1994 (VARIVAX)(12 MOS UP)VARICELL A VIRUS VACCINE (PF) 0.5 ML, SUB CUT 01/21/1999 Hepatitis A Vaccine, Unspeci fied Formulation 06/19/2010 Hepatitis B Vaccine, Unspeci fied Formulation 1993,1993,1993 INFLUENZA VACCINE QUADRIVALE NT 6 MOS UP PF IM 02/26/2017 Influenza, Unspecified Formulation 06/20/2011 Meningococcal MCV4, Unspecif ied Formulation 06/19/2010 Poliovirus Vaccine Live Oral 1993,10/10/18 94,1993 Rho (D) IMMUNE GLOBULIN 1,50 0 UNIT(300 MCG) INJECTION 01/28/2020,12/01/2019,02/26/2017,02/22,12/10/2016,06/20/2011 Social History Tobacco Use Types Packs/Day Years Used Date Smoking Tobacco: Some Days Cigarettes 0.3 5 Tobacco Cessation:Ready to Q uit: Yes Alcohol Use Standard Drinks/Week Comments Not Currently 0 (1 standard drink = 0.6 oz pur e alcohol) Comments No Sex and Gender Information Value Date Recorded Sex Assigned at Not on file Legal Sex Female 8:57 AM CDT Gender Identity Not on file Sexual Orientation Not on file Last Filed Vital Signs Vital Sign Reading Time Taken Comments Blood Pressure 110/80 08/26/2021 9:20 AM CDT Pulse 77 08/26/2021 9:20 AM CDT Temperature 37 C (98.6 F) 08/26/2021 9:20 AM CDT Respiratory Rate 16 08/26/2021 9:20 AM CDT Oxygen Saturation 99% 08/26/2021 9:20 AM CDT Inhaled Oxygen Concentration - - Weight 62.6 kg (138 lb) 08/26/2021 9:20 AM CDT Height 156.2 cm (5' 1.5) 08/26/2021 9:20 AM CDT Body Mass Index 25.65 08/26/2021 9:20 AM CDT Plan of Treatment Health Maintenance Due Date Last Done Comments HPV/Cotest (21-29) 2014 HPV/Cotest (30-65) 2023 CERVICAL CANCER SCREENING 08/26/2024 PAP SMEAR 08/26/2024 08/26/2021 INFLUENZA VACCINE (#1) 2025 02/26/2017 DTAP/TDAP/TD VACCINES (6 - Td or Tdap) 07/20/2031 07/20/2021, 12/10/2016, 06/20/2011, Additional history exists HEPATITIS B VACCINES Completed 1993, 1993, 1993 HPV VACCINES Aged Out No longer eligi ble based on patient's age to complete this topic Procedures Procedure Name Priority Date/Time Associated Diagnosis Comments CERV/VAG CYTO AGE BASED SCREEN PAP W CT/NG, TRICH Routine 08/26/2021 10:22 AM CDT Encounter for gynecological examination with abnormal finding from Last 3 Months or Most Recently Relevant to Health Maintenance Results * CERV/VAG CYTO AGE BASED SCREEN PAP W CT/NG, TRICH (08/26/2021 10:22 AM CDT) SEE NOTE [facility] Comment: This order for age-based cervical cancer and STI screening follows ACOG guidelines(PB 168, 140, FYK620). See individual assays for performing site location. CLINICAL INFORMATION [facility] Comment:Information not prov ided LAST MENSTRUAL PERIOD [facility] Comment:INFORMATION NOT PROV IDED PREV PAP: [facility] Comment:INFORMATION NOT PROV IDED PREV BX: [facility] Comment:INFORMATION NOT PROV IDED SOURCE [facility] Comment:Endocervix ADEQUACY: [facility] Comment: Satisfactory for evaluation. Endocervical/transformation zone component present. Age and/or menstrual status not provided PAP INTERP [facility] Comment:Negative for intraep ithelial lesion or malignancy. COMMENT (PAP TEST) [facility] Comment: This Pap test has been evaluated with computer assisted technology. 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 [address] SEE NOTE [facility] Comment: EXPLANATORY NOTE: The Pap is a screening test for cervical cancer. It is not a diagnostic test and is subject to false negative and false positive results. It is most reliable when a satisfactory sample, regularly obtained, is submitted with relevant clinical findings and history, and when the Pap result is evaluated along with historic and current clinical information. C TRAC RNA NOT DETECTED NOT DETECTED [facility] N.GONORRHOEAE RNA, TMA NOT DETECTED NOT DETECTED [facility] SEE NOTE [facility] Comment: The analytical performance characteristics of this assay, when used to test SurePath(TM) specimens have been determined by [employer]. The modifications have not been cleared or approved by the FDA. This assay has been validated pursuant to the CLIA regulations and is used for clinical purposes. For additional information, please refer to https://v2 Ratings.Amulyte/faq/WZQ789 (This link is being provided for information/ educational purposes only.) TRICHOMONAS VAGINALIS,QUALITAT LAYNE,PAP VIAL NOT DETECTED NOT DETECTED [facility] Comment: The analytical performance characteristics of this assay have been determined by [employer]. The modifications have not been cleared or approved by the FDA. This assay has been validated pursuant to the CLIA regulations and is used for clinical purposes. For additional information, please refer to http://v2 Ratings.Amulyte/ faq/Trichomonastma (This link is being provided for information/ educational purposes only.) Test Performed at: [facility] [address] [place] [address] Andrea Mix D.O., MPH SL Genital SWAB OF ENDOCERVIX / Unknown 08/26/2021 10:22 AM CDT 08/27/2021 4:04 AM CDT Aba Gutierrez MD PATHOLOGY/CYTOLOGY ORDERABLES Final Result Performing Organization Address City/State/[facility] Co de Phone Number [facility] [address] [place] [address] from Last 3 Months or Most Recently Relevant to Health Maintenance Insurance [facility] TRUE BLUE PPO EXCHANGE
--- OUTSIDE RECORDS SUMMARY | 2024-12-17 04:13 | XMS_ITS | Clinical Summary ---
Author Organization [facility] [address] [place] [id number] Care Team Providers Care Service Consultant Name Role Phone No, Physician Primary Care Provider [phone] Allergies Active Allergy Reactions Criticality Noted Date [...] 30 tablet 2 12/14/19 25 Discontinu ed(Pregnan cy) Active Problems Problem Noted Date Diagnosed Date Splinter 07/20/2021 Foreign body of thumb, right 07/20/2021 Periumbilical abdominal pain 12/21/2018 Encounter for psychiatric assessment 12/24/2017 Overview (12/24/2017): Initial appointment on 12/24/2017. Chronic post-traumatic stress disorder (PTSD) Assessment & Plan (12/24/2017 5:22 PM CDT): Chronic, persistent, needs to be linked with therapist. Her Referred to [facility] for trauma focused therapy. Start Prozac 20 [...] to the nearest emergency department for evaluation. Encounters Date Type Department Care Team Description 12/15/[address] [address] Shayna Dean RN 12/15/[address] [address] Shayna Dean, RN 12/14/[address] [address] Shayna Dena, RN 12/14/2024 Results Follow-Up [address] [address] Juan Samson PA Vaginitis panel Vaginal 12/13/2024 2:30 AM CDT - 12/13/2024 3:25 AM CDT Emergency [address] [address] Positive test (Primary Dx); Vaginal irritation Discharge Disposition: Discharge to home or self care 10/07/2024 8:42 AM CDT - 10/07/2024 10:26 AM CDT Emergency [facility] Emergency Department [address] [place] [address] Darryl Glover MD Dysfunctional uterine bleeding (Primary Dx); Dizziness Discharge Disposition: Discharge to home or self care from Last 3 Months Immunizations Immunization Administration Dates Next Due Tdap 07/20/2021 Surgical History Surgery Date Site/Laterality Comments DILATION AND CURETTAGE OF UTERUS 06/08/2019 - 06/07/2020 After spontaneous Ab Medical History Medical History Date Comments Bipolar 1 disorder (HCC) Depression History of gestational hypertension Trichomoniasis HSV infection Anxiety Asthma Migraine Genital warts Family History Medical History Relation Name Comments Down syndrome Brother Heart attack Father Cervical cancer Maternal Grandmother Relation Name Status Comments Brother Father Alive Maternal Grandmother Alive Mother Alive Social History Tobacco Use Types Packs/Day [...] on file Legal Sex Female 9:34 AM 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 Gender Identity Female 07/10/2020 2:40 PM 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 Sexual Orientation Straight 07/10/2020 2: 40 PM 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 Obstetrics History Para Term AB IAB SAB Ectopic Multiple Livin g Live Births 10 4 4 5 2 2 4 4 Date Outcome GA Total Labor Labor/2nd/3rd Weight Sex Type Anes PTL Sheila A1 A5 Name Clin SAB 2011 Term 40w 2d 3.121 kg (6 lb 14.1 oz) F Vag-V acuum Epidur al Livin g 8 9 WALKER ,BABY GIRL NIRANJAN Pacheco Delivery Location:[facility] 2014 AB 2016 IAB 2016 Term 39w 3d 0h 17m 0h 13m/0h 04m 2.91 kg (6 lb 6.7 oz) F Vag-S pont Epidur al N Livin g 8 9 WALKER ,BABY GIRL NIRANJAN Nj MD Complications:None Delivery Location:[facility] 2019 IAB 2020 SAB 2021 Term 37w 4d 2.745 kg (6 lb 0.8 oz) F Vag-S pont Epidur al Kathy wood Complications: Karla yamileth Hypertension Delivery Location:[facility] 2021 Term 37w 4d 0h 07m 0h 07m 2.745 kg (6 lb 0.8 oz) F Vag-S pont Epidur al N Livin g 9 9 WALKER ,BABY GIRL NIRANJAN Martino Mara wood MD Complications:None Delivery Location:[facility] ([facility] 5 LDR) Last Filed Vital Signs Vital Sign Reading [...] 10/07/2024 8:37 AM CDT Plan of Treatment Health Maintenance Due Date Last Done Comments Cervical Cancer Screening 1993 Hepatitis C Screening 1993 Varicella Vaccines (2 of 2 - 2-dose childhood series) 04/15/1999 01/21/1999 Regular Well Visit/Exam 18-64 2011 Pneumococcal vaccine <65 (1 of 2 - PCV) 2012 Depression Screening 12/22/2019 12/21/2018 Covid-19 Vaccine (2 - season) 2024 09/20/2020 Influenza Vaccine (#1) 2025 2, 02/26/2017, 06/20/2011 DTaP/Tdap/Td Vaccine (11 - Td or Tdap) 07/20/2031 07/20/2021, 12/10/2016, 06/20/2011, Additional history exists Hepatitis B Screening Completed 1993 , 1993, 1993 HPV Vaccines Aged Out No longer eligi ble based [...] 8:50 AM CDT DIFFERENTIAL AUTO STAT 10/07/2024 8:5 0 AM CDT ANTIBODY SCREEN STAT 10/07/2024 8:50 [...] Detected N. gonorrhoeae Not Detected Not Detected [facility] Comment: Interpretive Data This assay detects Chlamydia trachomatis and Neisseria gonorrhoeae by nucleic acid amplification testing (NAAT). This assay has been cleared by the [place] Food and Drug administration. The performance characteristics of this test have been verified by the [facility]. The performance characteristics of this test have not been evaluated in individuals less than 14 years of age. Current Interpretive Data last revised 2023. Vaginal (None) 12/13/2024 2: 30 AM CDT 12/13/2024 2:34 AM CDT us Juan COLIN LAB MICROBIOLOGY - GENERAL O RDERABLES Final Result [facility] [address] [facility] [place] [address] * (ABNORMAL) Vaginitis panel Vaginal (12/13/2024 2:30 AM CDT) Bacterial Vaginosis Not Detected Not Detected Comment:A negative result do es not preclude a possible infection. Results should be considered in conjunction with clinical presentation to determine the disease status. Jada group Detected(A) Not Detected [facility] Comment:Jada species can be present as commensal organisms in women; results should be considered in conjunction with clinical presentation to determine the disease status. Jada glabrata/ krusei Not Detected Not Detected [facility] Trichomonas DNA Not Detected Not Detected [facility] Vaginal 12/13/2024 2:30 AM CDT 12/13/2024 2:34 AM CDT Narrative [facility] - 12/13/2024 3:34 AM CDT The [employer] Xpert Xpress MVP test detects DNA targets [...] this test have been verified by the [facility]. The [employer] Xpert Xpress MVP test detects DNA targets [...] this test have been verified by the [facility]. Juan COLIN LAB MICROBIOLOGY - GENERAL O RDERABLES Final Result [facility] [address] [facility] [place] [address] * (ABNORMAL) Urinalysis reflex to microscopic and culture Urine (12/13/2024 2:30 AM CDT) Color, ur Straw Yellow Clarity, ur Cloudy(A) Clear [facility] Specific gravity, ur 1.018 1.003 - 1.030 [facility] pH, urine 6.0 [facility] Comment: Interpretive Data U rine pH is affected by diet, medications, systemic acid-base disturbances, and renal tubular function. pH may affect urinary stone formation. For example, urine pH below 6.0 may help reduce the tendency for calcium phosphate stones and pH greater than 6.0 may reduce the tendency for uric acid stone formation. Source: [facility] Current Interpretive Data was last revised on 2017 Protein, ur ql Negative Negative [facility] Glucose, ur ql Negative Negative [facility] Ketones, ur Negative Negative [facility] Bilirubin, ur Negative Negative [facility] Blood, ur 1+(A) Negative [facility] Urobilinogen, ur <2.0 <2.0 mg/dL [facility] Nitrite, ur Negative Negative [facility] Leukocyte esterase, ur 4+(A) Negative [facility] UA reflex comment Reflex to microscopic UA will be performed. [facility] Urine 12/13/2024 2:30 AM CDT 12/13/2024 2:34 AM CDT Juan Manuel [facility]son [facility] MICROBIOLOGY - GENERAL ORDERABLES Final Result Performing Organization Address [facility] Co de Phone Number [address] [address] * (ABNORMAL) Urinalysis, microscopic only (12/13/2024 2:30 AM CDT) WBC, ur 0-5 0 - 5 /HPF RBC, ur 11-20(A) 0 - 2 /HPF [facility] Epithelial cells, squamous, ur 11-20(A) 0 - 5 /HPF [facility] Comment:Suggestive of contam ination. Consider recollection by clean catch. Mucous, ur Present(A) [facility] Culture Reflex Comment Reflex conditions for urine culture (WBC >10) not met. [facility] Urine 12/13/2024 2:30 AM CDT 12/13/2024 2:34 AM CDT Juan Manuel Carlson [facility] URINE ORDERABLES Final Result Performing Organization Address [facility] de Phone Number [address] [address] * Urine culture Urine (12/13/2024 2:30 AM CDT) Report Final Report: Growth indicative of contamination with periurethral slava. Please submit a new specimen with special attention given to the collection process and to prompt transport to the laboratory. Comment:Testing performed by : [facility], [address] [facility], [place]., [address] Organism GROWTH INDICATES CONTAM WITH PERIURETHRAL SLAVA. [facility] Urine 12/13/2024 2:30 AM CDT 12/13/2024 9:22 AM CDT Narrative [facility] - 12/14/2024 2:33 PM CDT Testing performed by [facility] Microbiology Laboratory ([phone]) Juan COLIN LAB MICROBIOLOGY - GENERAL O RDERABLES Final Result [facility] [address] [facility] [place] [address] * (ABNORMAL) POCT hCG, urine (12/13/2024 2:27 AM CDT) Pathologist [facility] HCG, ur, POC Positive(A) Negative Lot Number [id number] QC Backgroud Clear Acceptable QC Control Line Acceptable Urine 12/13/2024 2:27 AM CDT Juan Manuel Avitia DO POINT OF CARE TEST ORDERABL ES Final Result * hCG, blood, quantitative (10/07/2024 9:32 AM CDT) Pathologist [facility] hCG, quant <5.0 0.0 - 5.0 IUnits/L [...] BLOOD ORDERABLE S Edited Result - Final [facility] [address] [facility] Department [place] [address] * ECG 12 lead (10/07/2024 8:59 AM CDT) 10/07/2024 8:59 AM CDT Narrative [facility] - 10/07/2024 10:23 AM CDT Vent Rate: 68 bpm RR Interval: 870 msec VT Interval: 131 msec QRS Duration: 80 msec QT Interval: 374 msec QTC Interval: 392 msec P-R-T [place]: 11 - 30 - 19 degrees IMPRESSION: SINUS RHYTHM NORMAL ECG Electronically Signed By: Antolin Min MD us Darryl Glover MD ECG ORDERABLES Fin al Result [facility] * eGFR (10/07/2024 8:50 AM CDT) eGFR [...] LAB BLOOD ORDERABLE S Final Result [facility] ([facility]) [address] [facility] Department of Laboratories [place], [place] [id number] * Differential, auto (10/07/2024 8:50 AM CDT) [...] LAB BLOOD ORDERABLE S Final Result [facility] [address] [facility] [place] [address] * (ABNORMAL) CBC with auto differential (10/07/2024 8:50 AM CDT) WBC 5.02 3.80 - 9.90 K/cumm Hgb 12.4 11.9 - 15.5 g/dL [facility] ([place] Hct 38.0 35.6 - 45.5 % [facility] Plt 267 150 - 400 K/cumm [facility] MPV 9.8 9.1 - 12.3 fL [facility] RBC 4.59 3.90 - 5.20 M/cumm [facility] ([place] MCV 82.8 81.3 - 96.4 fL [facility] ([place] MCH 27.0(L) 27.1 - 33.3 pg [facility] ([place] MCHC 32.6 32.3 - 35.7 g/dL [facility] ([place] RDW CV 15.5(H) 11.1 - 14.9 % [facility] ([place] RDW SD 47.3 35.7 - 48.1 fL [facility] ([place] NRBC abs 0.00 0.00 - 0.01 K/cumm [facility] ([place] Blood 10/07/2024 8:50 AM CDT 10/07/2024 9:03 AM CDT us Darryl Glover MD LAB BLOOD ORDERABLE S Final Result [facility] [address] [facility] [place] [place] [address] * ABO/Rh (10/07/2024 8:50 AM CDT) ABO/Rh B Negative Blood 10/07/2024 8:50 AM CDT 10/07/2024 9:03 AM CDT Narrative [facility] - 10/07/2024 9:40 AM CDT Has the patient had Daratumumab or Isatuximab in the past 6 months?->Unknown Darryl Glover MD LAB BLOOD BANK TEST ORDERABLES Final Result [facility] ([place]) [address] [facility] [place] [address] * Antibody screen (10/07/2024 8:50 AM CDT) Pam, indirect, Gel Interpretation Negative [facility] Blood 10/07/2024 8:50 AM CDT 10/07/2024 9:03 AM CDT Narrative [facility] ([place]) - 10/07/2024 9:40 AM CDT Has the patient had Daratumumab or Isatuximab in the past 6 months?->Unknown Darryl Glover MD LAB BLOOD BANK TEST ORDERABLES Final Result Performing Organization Address City/[facility]/ZIP Co de Phone Number [facility] ([place]) [address] [facility] [place] [address] * Basic metabolic panel (10/07/2024 8:50 AM CDT) Sodium 137 135 - 145 mmol/L Potassium, pl 4.1 3.3 - 4.9 mmol/L [facility] ([place]) Chloride 104 97 - 110 mmol/L [facility] ([place]) CO2 22 22 - 32 mmol/L [facility]) Anion gap 11 2 - 15 mmol/L [facility] ([place]) BUN 11 6 - 25 mg/dL [facility] ([place]) Creatinine 0.64 0.60 - 1.10 mg/dL [facility] ([place]) Glucose 96 70 - 199 mg/dL [facility] ([place]) Comment: Interpretive Data Fasting glucose [...] classification and Diagnosis of Diabetes Diabetes Care 2021; 46: S19-S40. Current interpretive data was last revised 2022. Calcium 9.0 8.5 - 10.3 mg/dL [facility] ([place]) Blood 10/07/2024 8:50 AM CDT 10/07/2024 9:03 AM CDT us Darryl Glover MD LAB BLOOD ORDERABLE S Final Result [facility] ([place]) [address] [facility] Department [place] [address] from Last 3 Months Insurance [employer] EXCHANGE [employer] Care Teams Service Consultant Relationship Specialty Start Date End Date No, Physician PCP - General 10/07/24
[2024-12-17 04:21] VITALS: BP 117/66; PULSE 82; RESP 13; O2SAT 100
--- OUTSIDE RECORDS SUMMARY | 2024-12-17 04:37 | XMS_ITS | Clinical Summary ---
Author Organization [facility] Physician Office Building [address] [place] [id number] Care Team Providers Care Airborne Operations Superintendent Name Role Phone No, Physician Primary Care Provider [phone] Allergies Active Allergy Reactions Criticality Noted Date [...] be linked with therapist. Her Referred to [facility] for trauma focused therapy. Start Prozac [...] Type Department Care Team Description 12/15/[address] [address] Shayna Dean RN 12/15/[address] [address] Shayna Dean, RN 12/14/[address] [address] Shayna Dean, RN 12/14/2024 Results Follow-Up [address] [address] Juan Samson PA Vaginitis panel Vaginal 12/13/2024 2:30 AM CDT - 12/13/2024 3:25 AM CDT Emergency [address] [address] Positive test (Primary Dx); Vaginal irritation Discharge Disposition: Discharge to home or self care 10/07/2024 8:42 AM CDT - 10/07/2024 10:26 AM CDT Emergency [facility] 1 [place] [address] Darryl Glover MD Dysfunctional uterine bleeding (Primary [...] on file Legal Sex Female 9:34 AM 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 Gender Identity Female 07/10/2020 2:40 PM 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 Sexual Orientation Straight 07/10/2020 2: 40 PM 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 Obstetrics History Para Term AB IAB SAB Ectopic Multiple Livin g Live Births 10 4 4 5 2 2 4 4 Date Outcome GA Total Labor Labor/2nd/3rd Weight Sex Type Anes PTL Sheila A1 A5 Name Clin SAB 2011 Term 40w 2d 3.121 kg (6 lb 14.1 oz) F Vag-V acuum Epidur al Livin g 8 9 WALKER ,BABY GIRL NIRANJAN Pacheco Delivery Location:[facility] 2014 AB 2016 IAB 2016 Term 39w 3d 0h 17m 0h 13m/0h 04m 2.91 kg (6 lb 6.7 oz) F Vag-S pont Epidur al N Livin g 8 9 WALKER ,BABY GIRL NIRANJAN Nj MD Complications:None Delivery Location:[facility] 2019 IAB 2020 SAB 2021 Term 37w 4d 2.745 kg (6 lb 0.8 oz) F Vag-S pont Epidur al Kathy wood Complications: Karla yamileth Hypertension Delivery Location:[facility] 2021 Term 37w 4d 0h 07m 0h 07m 2.745 kg (6 lb 0.8 oz) F Vag-S pont Epidur al N Livin g 9 9 WALKER ,BABY GIRL NIRANJAN Martino Mara wood MD Complications:None Delivery Location:[facility] ([facility] 5 LDR) Last Filed Vital Signs Vital [...] Detected N. gonorrhoeae Not Detected Not Detected [facility] Comment: Interpretive Data This assay detects Chlamydia trachomatis and Neisseria gonorrhoeae by nucleic acid amplification testing (NAAT). This assay has been cleared by the [place] Food and Drug administration. The performance characteristics of this test have been verified by the [facility]. The performance characteristics of this test have not been evaluated in individuals less than 14 years of age. Current Interpretive Data last revised 2023. Vaginal (None) 12/13/2024 2: 30 AM CDT 12/13/2024 2:34 AM CDT us Juan COLIN LAB MICROBIOLOGY - GENERAL O RDERABLES Final Result [facility] [address] Department [place] [address] * (ABNORMAL) Vaginitis panel Vaginal (12/13/2024 2:30 AM CDT) Bacterial Vaginosis Not Detected Not Detected Comment:A negative result do es not preclude a possible infection. Results should be considered in conjunction with clinical presentation to determine the disease status. Jada group Detected(A) Not Detected [facility] Comment:Jada species can be present as commensal organisms in women; results should be considered in conjunction with clinical presentation to determine the disease status. Jada glabrata/ krusei Not Detected Not Detected [facility] Trichomonas DNA Not Detected Not Detected [facility] Vaginal 12/13/2024 2:30 AM CDT 12/13/2024 2:34 AM CDT Narrative [facility] - 12/13/2024 3:34 AM CDT The CepSwipe Telecom[employer] Xpert Xpress MVP test detects DNA targets [...] have been verified by the [facility]. The [employer] Xpert Xpress MVP test detects DNA targets [...] have been verified by the [facility]. Juan COLIN LAB MICROBIOLOGY - GENERAL O RDERABLES Final Result [facility] [address] Department [place] [address] * (ABNORMAL) Urinalysis reflex to microscopic and culture Urine (12/13/2024 2:30 AM CDT) Color, ur Straw Yellow Clarity, ur Cloudy(A) Clear [facility] Specific gravity, ur 1.018 1.003 - 1.030 [facility] pH, urine 6.0 [facility] Comment: Interpretive Data U rine pH is affected by diet, medications, systemic acid-base disturbances, and renal tubular function. pH may affect urinary stone formation. For example, urine pH below 6.0 may help reduce the tendency for calcium phosphate stones and pH greater than 6.0 may reduce the tendency for uric acid stone formation. Source: [facility] Current Interpretive Data was last revised on 2017 Protein, ur ql Negative Negative [facility] Glucose, ur ql Negative Negative [facility] Ketones, ur Negative Negative [facility] Bilirubin, ur Negative Negative [facility] Blood, ur 1+(A) Negative [facility] Urobilinogen, ur <2.0 <2.0 mg/dL [facility] Nitrite, ur Negative Negative [facility] Leukocyte esterase, ur 4+(A) Negative [facility] UA reflex comment Reflex to microscopic UA will be performed. [facility] Urine 12/13/2024 2:30 AM CDT 12/13/2024 2:34 AM CDT Juan Manuel Carlson [facility] MICROBIOLOGY - GENERAL ORDERABLES Final Result Performing Organization Address [facility] Co de Phone Number [address] [address] * (ABNORMAL) Urinalysis, microscopic only (12/13/2024 2:30 AM CDT) WBC, ur 0-5 0 - 5 /HPF RBC, ur 11-20(A) 0 - 2 /HPF [facility] Epithelial cells, squamous, ur 11-20(A) 0 - 5 /HPF [facility] Comment:Suggestive of contam ination. Consider recollection by clean catch. Mucous, ur Present(A) [facility] Culture Reflex Comment Reflex conditions for urine culture (WBC >10) not met. [facility] Urine 12/13/2024 2:30 AM CDT 12/13/2024 2:34 AM CDT Juan Manuel Carlson [facility] URINE ORDERABLES Final Result Performing Organization Address [facility] de Phone Number [address] [address] * Urine culture Urine (12/13/2024 2:30 AM CDT) Report Final Report: Growth indicative of contamination with periurethral slava. Please submit a new specimen with special attention given to the collection process and to prompt transport to the laboratory. Comment:Testing performed by : [facility], [address] [facility], [place]., [address] Organism GROWTH INDICATES CONTAM WITH PERIURETHRAL SLAVA. [facility] Urine 12/13/2024 2:30 AM CDT 12/13/2024 9:22 AM CDT Narrative [facility] - 12/14/2024 2:33 PM CDT Testing performed by [facility] Microbiology Laboratory ([phone]) Juan COLIN LAB MICROBIOLOGY - GENERAL O RDERABLES Final Result [facility] [address] Department [place] [address] * (ABNORMAL) POCT hCG, urine (12/13/2024 2:27 AM CDT) Pathologist [facility] HCG, ur, POC Positive(A) Negative Lot Number [id number] QC Backgroud Clear Acceptable QC Control Line Acceptable Urine 12/13/2024 2:27 AM CDT Juan Manuel Avitia DO POINT OF CARE TEST ORDERABL ES Final Result * hCG, blood, quantitative (10/07/2024 9:32 AM CDT) Pathologist [facility] hCG, quant <5.0 0.0 - [...] ORDERABLE S Edited Result - Final [facility] [address] Department [place] [address] * ECG 12 lead (10/07/2024 8:59 AM CDT) 10/07/2024 8:59 AM CDT Narrative [facility] - 10/07/2024 10:23 AM CDT Vent Rate: 68 bpm RR Interval: 870 msec [place] Interval: 131 msec QRS Duration: 80 msec QT Interval: 374 msec QTC Interval: 392 msec P-R-T [place]: 11 - 30 - 19 degrees IMPRESSION: SINUS RHYTHM NORMAL ECG Electronically Signed By: Antolin Min MD us Darryl Glover MD ECG ORDERABLES Fin al Result [facility] * eGFR (10/07/2024 8:50 AM [...] BLOOD ORDERABLE S Final Result [facility] ([place]) [address] Department of Laboratories [place], [place] [id number] * Differential, auto (10/07/2024 8:50 AM CDT) [...] S Final Result [facility] ([place]) 1 [facility] [place] [address] * (ABNORMAL) CBC with auto differential (10/07/2024 [...] S Final Result [facility] ([place]) 1 [facility] [place] [address] * ABO/Rh (10/07/2024 8:50 AM CDT) ABO/Rh B Negative Blood 10/07/2024 8:50 AM CDT 10/07/2024 9:03 AM CDT Narrative [facility] ([place]) - 10/07/2024 9:40 AM CDT Has the patient had Daratumumab or Isatuximab in the past 6 months?->Unknown Darryl Glover MD LAB BLOOD BANK TEST ORDERABLES Final Result [facility] ([place]) 1 [facility] [place] [address] * Antibody screen (10/07/2024 8:50 AM CDT) Pam, indirect, Gel Interpretation Negative ABSC Blood 10/07/2024 8:50 AM CDT 10/07/2024 9:03 AM CDT Narrative [facility] ([place]) - 10/07/2024 9:40 AM CDT Has the patient had Daratumumab or Isatuximab in the past 6 months?->Unknown Darryl Glover MD LAB BLOOD BANK TEST ORDERABLES Final Result Performing Organization Address City/[facility]/ZIP Co de Phone Number [facility] ([place]) 1 [facility] [place] [address] * Basic metabolic panel (10/07/2024 8:50 AM CDT) Sodium 137 135 - 145 mmol/L Potassium, pl 4.1 3.3 - 4.9 mmol/L [facility] ([place]) Chloride 104 97 - 110 mmol/L [facility] ([place]) CO2 22 22 - 32 mmol/L [facility] ([place]) Anion gap 11 2 - 15 mmol/L [facility] ([place]) BUN 11 6 - 25 mg/dL [facility] ([place]) Creatinine 0.64 0.60 - 1.10 mg/dL [facility] ([place]) Glucose 96 70 - 199 mg/dL [facility] ([place]) Comment: Interpretive Data Fasting glucose [...] S Final Result [facility] ([place]) [address] Department [place] [address] from Last 3 Months Insurance [employer] EXCHANGE [employer] Care Teams Airborne Operations Superintendent Relationship Specialty Start Date End Date No, Physician PCP - General 10/07/24
--- OUTSIDE RECORDS SUMMARY | 2024-12-17 04:37 | XMS_ITS | Referral Summary ---
Author Organization [facility] Physician Office Building [address] [place] [id number] Care Team Providers Care Food Service Agent Name Role Phone No, Physician Primary Care Provider [phone] Encounters Date Type Department Care Team Description 12/15/[address] [address] Shayna Dean, RN 12/15/[address] [address] Shayna Dean, RN 12/14/[address] [address] Shayna Dean, RN 12/14/2024 Results Follow-Up [address] [address] Juan Samson PA Vaginitis panel Vaginal 12/13/2024 2:30 AM CDT - 12/13/2024 3:25 AM CDT Emergency [address] [address] Positive test (Primary Dx); Vaginal irritation Discharge Disposition: Discharge to home or self care 10/07/2024 8:42 AM CDT - 10/07/2024 10:26 AM CDT Emergency [facility] Emergency Department 1 [place] [address] Darryl Glover MD Dysfunctional uterine bleeding (Primary [...] be linked with therapist. Her Referred to [facility] for trauma focused therapy. 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 The performance characteristics of this test have not been evaluated in individuals less than 14 years of age. Current Interpretive Data last revised 2023. Vaginal (None) 12/13/2024 2: 30 AM CDT 12/13/2024 2:34 AM CDT us Juan COLIN LAB MICROBIOLOGY - GENERAL O RDERABLES Final Result [facility] [address] [facility] Department [place] [address] * (ABNORMAL) Vaginitis panel Vaginal (12/13/2024 2:30 AM CDT) Bacterial Vaginosis Not Detected Not Detected Comment:A negative result do es not preclude a possible infection. Results should be considered in conjunction with clinical presentation to determine the disease status. Jada group Detected(A) Not Detected [facility] Comment:Jada species can be present as commensal organisms in women; results should be considered in conjunction with clinical presentation to determine the disease status. Jada glabrata/ krusei Not Detected Not Detected [facility] Trichomonas DNA Not Detected Not Detected [facility] Vaginal 12/13/2024 2:30 AM CDT 12/13/2024 2:34 AM CDT Narrative [facility] - 12/13/2024 3:34 AM CDT [...] have been verified by the [facility]. The Cepheid Xpert Xpress MVP test [...] have been verified by the [facility]. Juan COLIN LAB MICROBIOLOGY - GENERAL O RDERABLES Final Result Performing Organization Address [facility] Co de Phone Number [facility] [address] [place] [address] * (ABNORMAL) Urinalysis reflex to microscopic and culture Urine (12/13/2024 2:30 AM CDT) Color, ur Straw Yellow Clarity, ur Cloudy(A) Clear [facility] Specific gravity, ur 1.018 1.003 - 1.030 [facility] pH, urine 6.0 [facility] Comment: Interpretive Data U rine pH is affected by diet, medications, systemic acid-base disturbances, and renal tubular function. pH may affect urinary stone formation. For example, urine pH below 6.0 may help reduce the tendency for calcium phosphate stones and pH greater than 6.0 may reduce the tendency for uric acid stone formation. Source: [facility] Current Interpretive Data was last revised on 2017 Protein, ur ql Negative Negative [facility] Glucose, ur ql Negative Negative [facility] Ketones, ur Negative Negative [facility] Bilirubin, ur Negative Negative [facility] Blood, ur 1+(A) Negative [facility] Urobilinogen, ur <2.0 <2.0 mg/dL [facility] Nitrite, ur Negative Negative [facility] Leukocyte esterase, ur 4+(A) Negative [facility] UA reflex comment Reflex to microscopic UA will be performed. [facility] Urine 12/13/2024 2:30 AM CDT 12/13/2024 2:34 AM CDT Juan Manuel Avitia DO LAB MICROBIOLOGY - GENERAL ORDERABLES Final Result Performing Organization Address [facility]/ZIP Co de Phone Number [facility] [address] [facility] [place] [address] * (ABNORMAL) Urinalysis, microscopic only (12/13/2024 2:30 AM CDT) WBC, ur 0-5 0 - 5 /HPF RBC, ur 11-20(A) 0 - 2 /HPF [facility] Epithelial cells, squamous, ur 11-20(A) 0 - 5 /HPF [facility] Comment:Suggestive of contam ination. Consider recollection by clean catch. Mucous, ur Present(A) [facility] Culture Reflex Comment Reflex conditions for urine culture (WBC >10) not met. [facility] Urine 12/13/2024 2:30 AM CDT 12/13/2024 2:34 AM CDT Juan Manuel Avitia DO LAB URINE ORDERABLES Final Result Performing Organization Address [facility] Co de Phone Number [address] [employer] [place], [place] [id number] * Urine culture Urine (12/13/2024 2:30 AM CDT) [facility] Report Final Report: Growth indicative of contamination with periurethral slava. Please submit a new specimen with special attention given to the collection process and to prompt transport to the laboratory. Comment:Testing performed by : [facility], [address], [place]., [address] Organism GROWTH INDICATES CONTAM WITH PERIURETHRAL SLAVA. [facility] Urine 12/13/2024 2:30 AM CDT 12/13/2024 9:22 AM CDT Narrative [facility] - 12/14/2024 2:33 PM CDT Testing performed by [facility] Microbiology Laboratory ([phone]) Juan COLIN LAB MICROBIOLOGY - GENERAL O RDERABLES Final Result Performing Organization Address City/[facility]/ZIP Co de Phone Number [address] [place] [address] * (ABNORMAL) POCT hCG, urine (12/13/2024 2:27 AM CDT) [facility] HCG, ur, POC Positive(A) Negative Lot Number [...] Edited Result - Final Performing Organization Address City/[facility] Co de Phone Number [facility] [address] Department [place] [address] * ECG 12 lead (10/07/2024 8:59 AM CDT) 10/07/2024 8:59 AM CDT Narrative [facility] - 10/07/2024 10:23 AM CDT Vent Rate: 68 bpm RR Interval: 870 msec [place] Interval: 131 msec QRS Duration: 80 msec QT Interval: 374 msec QTC Interval: 392 msec P-R-T [place]: 11 - 30 - 19 degrees IMPRESSION: SINUS RHYTHM NORMAL ECG Electronically Signed By: Antolin Min MD Darryl Glover MD ECG ORDERABLES Fin al Result Performing Organization Address City/[facility] Co de Phone Number [facility] * eGFR (10/07/2024 8:50 AM CDT) [...] MD LAB BLOOD ORDERABLE S Final Result [facility] ([place]) [address] [facility] [place] [address] * Differential, auto (10/07/2024 8:50 AM CDT) [...] BLOOD ORDERABLE S Final Result [facility] ([place]) 1 [facility] Department [place] [address] * (ABNORMAL) CBC with auto differential (10/07/2024 8:50 AM CDT) WBC 5.02 3.80 - 9.90 K/cumm Hgb 12.4 11.9 - 15.5 g/dL [facility] ([place]) Hct 38.0 35.6 - 45.5 % [facility] ([place]) Plt 267 150 - 400 K/cumm [facility] ([place]) MPV 9.8 9.1 - 12.3 fL [facility] ([place]) RBC 4.59 3.90 - 5.20 M/cumm [facility] ([place]) MCV 82.8 81.3 - 96.4 fL [facility] ([place]) MCH 27.0(L) 27.1 - 33.[address] [facility] ([place]) MCHC 32.6 32.3 - 35.7 g/dL [facility] ([place]) RDW CV 15.5(H) 11.1 - 14.9 % [facility] ([place]) RDW SD 47.3 35.7 - 48.[address] [facility] ([place]) NRBC abs 0.00 0.00 - 0.01 K/cumm [facility] ([place]) Blood 10/07/2024 8:50 AM CDT 10/07/2024 9:03 AM CDT us Darryl Glover MD LAB BLOOD ORDERABLE S Final Result [facility] ([place]) [address] [facility] [place] [address] * ABO/Rh (10/07/2024 8:50 AM CDT) ABO/Rh B Negative Blood 10/07/2024 8:50 AM CDT 10/07/2024 9:03 AM CDT Narrative [facility] ([place]) - 10/07/2024 9:40 AM CDT Has the patient had Daratumumab or Isatuximab in the past 6 months?->Unknown Darryl Glover MD LAB BLOOD BANK TEST ORDERABLES Final Result [facility] ([place]) [address] [facility] [place] [address] * Antibody screen (10/07/2024 8:50 AM CDT) Pam, indirect, Gel Interpretation Negative ABSC Blood 10/07/2024 8:50 AM CDT 10/07/2024 9:03 AM CDT Narrative [facility] ([place]) - 10/07/2024 9:40 AM CDT Has the patient had Daratumumab or Isatuximab in the past 6 months?->Unknown Darryl Glover MD LAB BLOOD BANK TEST ORDERABLES Final Result Performing Organization Address City/State/[facility] Co de Phone Number [facility] ([place]) 1 [facility] Department [place] [address] * Basic metabolic panel (10/07/2024 8:50 AM [...] S Final Result [facility] ([place]) [address] [facility] [place] [address] from Last 3 Months Insurance [employer] EXCHANGE [employer] Care Teams Food Service Agent Relationship Specialty Start Date End Date No, Physician PCP - General 10/07/24
--- OUTSIDE RECORDS SUMMARY | 2024-12-17 04:37 | XMS_ITS | Continuity of Care Document ---
Author Organization [facility] Address [address] [place] [address] Phone Care Team Providers Care Physician Assistant Name Role Phone Hernan Lloyd DMD Unavailable [...] AN CARE, AT-RISK ENHANCED SERVICE PACKAGE (INCLUDES [id number]) OFFICE/OUTPATIENT VISIT, EST PRESCRIPTION DRUG, ORAL, NON CHEMOTHERAP EUTIC, NOS AZITHROMYCIN DIHYDRATE, ORAL, CAPSULES/P OWDER, 1 GRAM Wet beka, including preparations of va ginal, cervical or skin specimens COLLECTION OF VENOUS BLOOD BY VENIPUNCTU RE OFFICE/OUTPATIENT VISIT, EST CARE, AT-RISK ENHANCED SERVICE PACKAGE (INCLUDES [id number]) OFFICE/OUTPATIENT VISIT, EST COLLECTION OF VENOUS BLOOD BY VENIPUNCTU RE Voided Encounter care, at-risk assessment care, at-risk enhanced service; antepartum management MENTAL HEALTH ASSESSMENT, BY NON-PHYSICI AN SKIN TEST; TUBERCULOSIS, INTRADERMAL Dec OFFICE/OUTPATIENT VISIT, NEW Advance Directives Directive Yes / No Effective Date File Name No Information Encounters Encounter Description Practice Location Reason(s) For Visit Diagnoses Date Provider Providers Copied on Encounter [facility] , [address], [place], [place], [address], tel:[phone] [facility] Encounter for dental exam and cleaning w abnormal findings 7 Gabino Becerra. [address], [place], [place], [address]. tel:[phone] Referring Provider: Hernan Lloyd, [address], [place], [address]. tel:[phone] [facility] , [address], [place], [place], [address], tel:[phone] [facility] home visit (chief complaint) Routine follow-up [facility]. [address], [place], [place], [address], . tel:[phone] [facility] , [address], [place], [place], [address], tel:[phone] [facility] No Information 2 [facility]. [address], [place], [place], [address], . tel:[phone] Consulting Provider: Arianne Samuels, [address], [place], [address]. tel:[phone] OFFICE/OUTPAT IENT VISIT, EST [facility] , [address], [place], [place], [address], [place] tel:[phone] [facility] No Information 1 Bianca Bauman. [address], [place], [place], [address], . tel:[phone] OFFICE/OUTPAT IENT VISIT, EST [facility] , [address], [place], [place], [address], [place] tel:[phone] [facility] Supervision of normal first 1 Rico Navas [address], [place], [place], [address], . tel:[phone] [facility] , [address], [place], [place], [address], tel:[phone] [facility] No Information 1 [facility]. [address], [place], [place], [address] [place] [address], . tel:[phone] Consulting Provider: Arianne Samuels, [address], [place], [address]. tel:[phone] OFFICE/OUTPAT IENT VISIT, [facility] , [address], [place], [place], [address], tel:[phone] [facility] [place] Supervision of other normal 1 Rico Navas [address], [place], [place], [address], . tel:[phone] [facility] , [address], [place], [place], [address], [place] tel:[phone] [facility] [place] Supervision of normal first 1 Rico Navas [address], [place], [place], [address], . tel:[phone] [facility] , [address], [place], [place], [address], tel:[phone] [facility] [place] pn intake (chief complaint) No Information No Information OFFICE/OUTPAT IENT VISIT, [facility] , [address], [place], [place], [address], [place] tel:[phone] [facility] [place] Test (chief complaint)No te for school-Pregn italo (chief complaint) Irregular menstrual cycle Bianca Bauman. [address], [place], [place], [address], [place]. tel:[phone] Family History Family Member Type Diagnosis Age At Onset Father Problem (finding) hypertension Mother Problem (finding) hypertension Father Problem (finding) Maternal history of alice betes mellitus Payers Payer name Insurance type Covered libertarian ID Alpa pool(s) D Medicaid - Dental CI [id number] Social History Type Description Quantity Date Captured Comments Sex Female Smoking Status No Information Chief Complaint And Reason For Visit No Information Reason For Referral Reason For Referral No Information Plan Of Treatment Date Type Action Status Goal BMP fasting. Due on 011 due Referral Referred To: [facility] [address] [place], [id number] Ordered: Referral: [facility]. Radiology. ordered Future Order: Lab [...]
--- OUTSIDE RECORDS SUMMARY | 2024-12-17 04:37 | XMS_ITS | Encounter Summary ---
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 documented in this encounter Plan of Treatment Not on file documented as of this encounter Visit Diagnoses Not on filedocumented in this encounter Care Teams Form Worker Relationship Specialty Start Date End Date No, Physician PCP - General 10/07/24 documented as of this encounter
--- OUTSIDE RECORDS SUMMARY | 2024-12-17 04:37 | XMS_ITS | Clinical Summary ---
Author Organization [facility] Address [address] [place] [address] Care Team Providers Care Transportation Job Titles Name Role Phone [facility] Primary Care Pro vider Source Comments [facility],non-[facility] Affiliates and Associated Physician Practices is amultiple site organization consisting of ambulatory clinics and hospital sitesin [place], [place], [place] and [place]. This disclosure is being madepursuant to the Care Everywhere program and may not contain all information available regarding this patient. Last updated 18.[facility] Allergies Active Allergy Reactions Criticality Noted Date [...] fluticasone propionate (Flonase) 50 MCG/ACT nasal spray [place] 2 (two) sprays into each nostril once [...] ing 20 tablet 03/28/2024 Active HYDROcodone-lilian taminophen ([place]) 5-325 MG tabletIndicatio ns:Acute maxillary sinusitis, recurrence [...] Overview (11/11/2016): She sees Dr. Jean at [facility]. She discontinued Seroquel with positive test. [...] place to sleep or slept in a senior living (including now)? No 05/11/2022 [place] Depression Scale Answer Date Recorded RETIRED: Total Score 0 05/08/2022 Last EPDS Self Harm Result Not on file 05/08 Comments No Sex and Gender Information Value Date Recorded Sex Assigned at Not on file Legal Sex Female 6:05 AM EXECUTIVE SOUS CHEF Gender Identity Not on file Sexual Orientation Not on file Last Filed Vital Signs Vital Sign Reading Time Taken Comments Blood Pressure 147/96 05/28/2024 11:26 PM EXECUTIVE SOUS CHEF Pulse 65 05/28/2024 11:26 PM EXECUTIVE SOUS CHEF Temperature 36.7 C (98.1 F) 05/28/2024 11:26 PM EXECUTIVE SOUS CHEF Respiratory Rate 18 05/28/2024 11:26 PM EXECUTIVE SOUS CHEF Oxygen Saturation 95% 05/28/2024 11:26 PM EXECUTIVE SOUS CHEF Inhaled Oxygen Concentration - - Weight 70.8 kg (156 lb) 05/28/2024 11:26 PM EXECUTIVE SOUS CHEF Height 157.5 cm (5' 2) 05/28/2024 11:26 PM EXECUTIVE SOUS CHEF Body Mass Index 28.53 05/28/2024 11:26 PM EXECUTIVE SOUS CHEF Plan of Treatment Health Maintenance Due Date [...] RFLX HPV ASCU Routine 08/05/2016 12:37 PM EXECUTIVE SOUS CHEF 10 weeks gestation of HIV-1 HIV-2 ANTIBODY + HIV P24 AG PANEL Routine 08/05/2016 12:35 PM EXECUTIVE SOUS CHEF 10 weeks gestation of from Last 3 Months or Most Recently Relevant to Health Maintenance Results * PAP SMEAR IG RFLX HPV ASCU (PO REF LAB) (08/05/2016 12:37 PM EXECUTIVE SOUS CHEF) Diagnosis Comment 08/06/2016 9:08 PM EXECUTIVE SOUS CHEF [facility] Comment:NEGATIVE FOR INTRAEP ITHELIAL LESION AND MALIGNANCY. Specimen Adequacy Comment 017 9:08 PM EXECUTIVE SOUS CHEF [facility] Comment: Satisfactory for evaluation. Endocervical and/or squamous metaplastic cells (endocervical component) are present. Performed by Comment 08/06/2016 9:08 PM EXECUTIVE SOUS CHEF [facility] Comment:Rubi Medley [employer] hnologist (ASCP) Comment . 08/06/2016 9:08 PM EXECUTIVE SOUS CHEF [facility] Note Comment 08/06/2016 9:08 PM EXECUTIVE SOUS CHEF [facility] Comment: The Pap smear is a screening test designed to aid in the detection of premalignant and malignant conditions of the uterine cervix. It is not a diagnostic procedure and should not be used as the sole means of detecting cervical cancer. Both false-positive and false-negative reports do occur. IGLBP CPT Code Automation Comment 08/06/2016 9:08 PM EXECUTIVE SOUS CHEF [facility] Comment: This liquid based ThinPrep(R) pap test was screened with the use of an image guided system. Note Comment 08/06/2016 9:08 PM EXECUTIVE SOUS CHEF [facility] Comment: The HPV DNA reflex criteria were not met with this specimen result therefore, no HPV testing was performed. Pathology/Cytolo gy PART OF UTERINE CERVIX / Unknown 08/05/2016 12:37 PM EXECUTIVE SOUS CHEF 08/05/2016 1:19 PM EXECUTIVE SOUS CHEF Narrative [facility] - 08/06/2016 9:08 PM EXECUTIVE SOUS CHEF Performed at: [address] [place] [id number] Line Fixer: Rayna Cuevas MD, Phone: [phone] Specimen Comment: Source.............Cervix Specimen Comment: No. of containers..01 CYTYC Thin Prep Vial us Gaye Stephens MD LAB - PATHOLOGY/CYTOLOGY ORDE RABILIANA Final Result [facility] ([facility]) [address] [place] [address] * HIV-1 HIV-2 ANTIBODY + HIV P24 AG PANEL (08/05/2016 12:35 PM EXECUTIVE SOUS CHEF) HIV1/2 Ab + P24 Ag Non Reactive Non Reactive 08/05/2016 6:49 PM EXECUTIVE SOUS CHEF [facility] Blood BLOOD SPECIMEN / Unknown 08/05/2016 12:35 PM EXECUTIVE SOUS CHEF 08/05/2016 1:10 PM EXECUTIVE SOUS CHEF Narrative [facility] - 08/05/2016 6:49 PM EXECUTIVE SOUS CHEF No Laboratory evidence of HIV infection. us Gaye Stephens MD LAB - CHEMISTRY ORDERABLES Fi nal Result [facility] [address] [place] [address] from Last 3 Months or Most Recently Relevant to Health Maintenance [place] MEDICA[place] - [facility] COMMUNITY PLAN [place] [...] 12:53 PM 02/27/2017 12:50 PM Care Teams Transportation Job Titles Relationship Specialty Start Date End Date [facility] [address] [place] [address] PCP - General Spanish Interpreter 01/30/22
--- OUTSIDE RECORDS SUMMARY | 2024-12-17 04:37 | XMS_ITS | Clinical Summary ---
Author Organization [facility] Address [address] [place] [address] Care Team Providers Care Studio Potter Name Role Phone Unavailable Primary Care Provider [...] TRICH (08/26/2021 10:22 AM CDT) SEE NOTE [facility] Comment: This order for age-based cervical cancer and STI screening follows ACOG guidelines(PB 168, 140, QNO629). See individual assays for performing site location. CLINICAL INFORMATION [facility] Comment:Information not prov ided LAST MENSTRUAL PERIOD [...] ithelial lesion or malignancy. COMMENT (PAP TEST) [facility] Comment: This Pap test has been evaluated with computer assisted technology. LUBRICATION SUPERVISOR: [facility] Comment: SAMAGNES(ASCP) CT screening location: [place] [address] [place] [address] SEE NOTE [facility] Comment: EXPLANATORY NOTE: [...] C TRAC RNA NOT DETECTED NOT DETECTED [facility] N.GONORRHOEAE RNA, TMA NOT DETECTED NOT DETECTED [facility] SEE NOTE [facility] Comment: The analytical performance characteristics of this assay, when used to test SurePath(TM) specimens have been determined by [facility]. The modifications have not been cleared or approved by the FDA. This assay has been validated pursuant to the CLIA regulations and is used for clinical purposes. For additional information, please refer to https://Nexgence.9facts/faq/EXT713 (This link is being provided for information/ educational purposes only.) TRICHOMONAS VAGINALIS,QUALITAT LAYNE,PAP VIAL NOT DETECTED NOT DETECTED [facility] Comment: The analytical performance characteristics of this assay have been determined by [facility]. The modifications have not been cleared or approved by the FDA. This assay has been validated pursuant to the CLIA regulations and is used for clinical purposes. For additional information, please refer to http://Nexgence.9facts/ faq/Trichomonastma (This link is being provided for information/ educational purposes only.) Test [facility]formed [facility]: [facility] [address] [place] [address] Andrea Mix D.O., MPH SL Genital SWAB OF ENDOCERVIX / Unknown 08/26/2021 10:22 AM CDT 08/27/2021 4:04 AM CDT Aba Gutierrez MD PATHOLOGY/CYTOLOGY ORDERABLES Final Result Performing Organization Address City/State/[facility] Co de Phone Number [facility] [address] [place] [address] from Last 3 Months or Most Recently Relevant to Health Maintenance Insurance [facility] TRUE BLUE PPO EXCHANGE
[2024-12-17 05:17] LABS: Hematocrit 38.6 % (37.0-47.0); Hemoglobin 12.1 g/dL (12.0-15.0); Immature Granulocyte Percent A 0.3 % (0-0.5); Immature Platelet Fraction Pct 1.8 % (0.9-11.2); Lymphocytes Absolute Auto 2.71 K/mm3 (0.9-3.2); Mean Corpuscular HGB Conc 31.3 g/dl (32-36); Mean Corpuscular Hemoglobin 26.4 pg (26-34); Mean Corpuscular Volume 84.3 fl (80-100); Nucleated Red Blood Cells Absolute Auto 0.000 K/mm3 (0.0-0.012); Nucleated Red Blood Cells Perc 0.0 % (0.0-0.2); Platelet Count Result 256 k/mm3 (150-375); Red Blood Count 4.58 M/mm3 (4.2-5.4); White Blood Count 7.1 K/mm3 (4.5-10.0)
[2024-12-17 05:22] LABS: BEDSIDEPREGUCG Positive (Negative)
[2024-12-17 05:49] LABS: Add Urine Microscopic? YES; Appearance Urine Turbid (Clear); Glucose Urine UA Negative (Negative); Leukocyte Esterase Ur Negative LEU/UL (Negative); Need Manual Microscopic Reviewed; Nitrate Urine Negative (Negative); Non Pathogenic Casts 0-2; Specific Grav Ur 1.010 (1.001-1.035)
--- NOTE | 2024-12-17 06:09 | ED_ITS ---
HPI - Female Genitourinary General Chief complaint: Vaginal Bleeding Stated complaint: Spotting / Time Seen by Provider: 12/17/24 04:15 History of Present Illness HPI Narrative: Patient is a 29-year-old female who presents to the emergency department this evening complaining of vaginal bleeding. Patient believes that she is currently , stating that her last menstrual cycle was sometime at the end of October. States that she has already had an ultrasound for this , which ruled out ectopic, but it was too early to see much in the intrauterine cavity. Patient states that she just noticed very light spotting when she wiped. She states that she has 3 kids into past miscarriages. States the bleeding started this morning but have now stopped. Denies any additional symptoms or concerns. Patient knows that she is Rh negative. Related Data Allergies Allergy/AdvReac Type Severity Reaction Status Date / Time Penicillins AdvReac edema Verified 12/17/24 04:12 Review of Systems 2 Review of Systems: All systems are reviewed and are negative unless stated otherwise in the HPI. Exam 2 Narrative: General: Alert, awake, afebrile, in no acute distress. HEENT: PERRL, no rhinorrhea, no post nasal drip, oropharynx clear. Neck: Trachea midline, no JVD, no lymphadenopathy. Cardiovascular: Regular rate and rhythm, no murmurs, rubs or gallops, no peripheral edema. Respiratory: Clear to auscultation bilaterally, no tachypnea, no wheezing, no rhonchi, no rubs, no respiratory distress. Abdomen: Soft, nontender, nondistended, no rebound, no guarding, no peritoneal signs. Musculoskeletal: No joint swelling or deformity, normal muscle tone. Skin: No rashes or petechia, no signs of infection. Psychiatric: Alert and oriented, normal behavior and judgment for situation. Neurological: Alert and oriented to person, place, and time. Follows all commands. No focal deficits, speech is clear and fluent. Course Vital Signs Vital signs: Vital Signs Pulse Rate 82 12/17/24 04:21 Respiratory Rate 12/17/24 04:21 Blood Pressure 117/66 12/17/24 04:21 Pulse Oximetry 100 12/17/24 04:21 Oxygen Delivery Room Air 12/17/24 04:21 Pulse Rate 82 12/17/24 04:21 Respiratory Rate 13 12/17/24 04:21 Blood Pressure 117/66 12/17/24 04:21 Pulse Oximetry 100 12/17/24 04:21 Oxygen Delivery Room Air 12/17/24 04:21 MDM - Female Genitourinary MDM Narrative Medical decision making narrative: The patient was evaluated by myself in the emergency department. History is obtained from patient who is an independent historian and physical exam was performed. External medical records were reviewed at this time. IV was established and pertinent tests were ordered. Patient was administered a dose of RhoGAM in the emergency department this time. Laboratory results obtained revealing no acute process. Urinalysis revealed 1+ blood and 2+ bacteria otherwise unremarkable. Beta hCG today was noted to be 6216. Differential diagnosis considerations include normal first-trimester bleeding, threatened miscarriage, missed . Comorbidities impacting this visit include history of previous miscarriages. I have evaluated and discussed social determinants of health with the patient that could potentially impact subsequent diagnosis and treatment plans. On repeat assessment of the patient, reevaluation revealed that the patient is doing well and is in no acute distress. Patient symptoms have improved since she arrived to our emergency department. Repeat vital signs were all reviewed and noted to be stable. Differential diagnosis and treatment plan were discussed with the patient at bedside. Patient agrees with discussion and after shared medical decision making agrees with discharge. All questions were answered to the patient's satisfaction. Patient will follow up with her OB as scheduled for her upcoming appointment on Thursday in 2 days. Script for nitrofurantoin was sent to patient's pharmacy to take as prescribed for her bacteriuria. Patient was provided with strict return precautions and instructed to return to the emergency department if any new or worsening symptoms develop. The patient was discharged in stable condition. Lab Data 12/17/24 05:07 12/17/24 06:02 Labs: Lab Results 12/17/24 12/17/24 12/17/24 Range/Units 05:07 05:18 05:20 WBC 7.1 (4.5-10.0) K/mm3 RBC 4.58 (4.2-5.4) M/mm3 Hgb 12.1 (12.0-15.0) g/dL Hct 38.6 (37.0-47.0) % MCV 84.3 (80-100) fl MCH 26.4 (26-34) pg MCHC 31.3 L (32-36) g/dl RDW 17.1 H (11.5-14.5) % Plt Count 256 (150-375) k/mm3 MPV 10.4 (7.4-10.4) fl Immature Gran % (Auto) 0.3 (0-0.5) % Neut % (Auto) 51.6 (45.5-73.1) % Lymph % (Auto) 38.3 (18.3-44.2) % [place] % (Auto) 7.1 (2.6-8.5) % Eos % (Auto) 2.3 (0-4.4) % Baso % (Auto) 0.4 (0.2-1.2) % Lymph # (Auto) 2.71 (0.9-3.2) K/mm3 [place] # (Auto) 0.5 (0.1-0.6) K/mm3 Eos # (Auto) 0.2 (0-0.3) K/mm3 Baso # (Auto) 0.0 (0.0-0.1) K/mm3 Abs Immat Gran (auto) 0.02 (0.00-0.031) K/mm3 Absolute Neuts (auto) 3.7 (1.3-6.7) K/mm3 Absolute Nucleated RBC 0.000 (0.0-0.012) K/mm3 Nucleated RBC % 0.0 (0.0-0.2) % % Immature Plt Fraction 1.8 (0.9-11.2) % Sodium (137-145) mmol/L Potassium (3.4-5.0) mmol/L Chloride (98-107) mmol/L Carbon Dioxide (22-30) mmol/L Anion Gap (4-12) mmol/L BUN (7-17) mg/dL Creatinine (0.7-1.0) mg/dL Estim Creat Clear Calc ml/min Estimated GFR (59 - ) Glucose (65-110) mg/dL Calcium (8.4-10.2) mg/dL Magnesium (1.6-2.3) mg/dL Total Bilirubin (0.2-1.3) mg/dL AST (14-36) U/L ALT (6-35) U/L Alkaline Phosphatase (38-126) U/L Total Protein (6.3-8.2) g/dL Albumin (3.5-5.1) g/dL Lipase (23-300) U/L Beta HCG, Quant mIU/ML Urine Color Yellow (Yellow) Urine Appearance Turbid H (Clear) Urine pH 6.0 (5.0-9.0) Ur Specific [place] 1.010 (1.001-1.035) Urine Protein Negative (Negative) mg/dL Urine Glucose (UA) Negative (Negative) mg/dL Urine Ketones Negative (Negative) mg/dL Ur Blood (Man) 1+ H (Negative) Urine Nitrate Negative (Negative) Urine Bilirubin Negative (Negative) Urine Urobilinogen 0.2 (<2.0) mg/dL Add Ur Microanalysis Reviewed Leukocyte Esterase Rfl Negative (Negative) TYE/UL Urine RBC >100 H (0-2) /hpf Urine WBC 0-5 (0-3) /hpf Ur Squamous Epith Cells Few (Few) /hpf Urine Bacteria 2+ H /hpf Urine Casts 0-2 Urine Mucus Present /lpf POC Urine HCG, Qual Positive (Negative) Blood Type B Negative Antibody Screen Negative Screen Not Reportable Baby's Blood Type Not Reportable Baby's RONALD Not Reportable Doses of RhIg Required 1 12/17/24 Range/Units 06:02 WBC (4.5-10.0) K/mm3 RBC (4.2-5.4) M/mm3 Hgb (12.0-15.0) g/dL Hct (37.0-47.0) % MCV (80-100) fl MCH (26-34) pg MCHC (32-36) g/dl RDW (11.5-14.5) % Plt Count (150-375) k/mm3 MPV (7.4-10.4) fl Immature Gran % (Auto) (0-0.5) % Neut % (Auto) (45.5-73.1) % Lymph % (Auto) (18.3-44.2) % [place] % (Auto) (2.6-8.5) % Eos % (Auto) (0-4.4) % Baso % (Auto) (0.2-1.2) % Lymph # (Auto) (0.9-3.2) K/mm3 [place] # (Auto) (0.1-0.6) K/mm3 Eos # (Auto) (0-0.3) K/mm3 Baso # (Auto) (0.0-0.1) K/mm3 Abs Immat Gran (auto) (0.00-0.031) K/mm3 Absolute Neuts (auto) (1.3-6.7) K/mm3 Absolute Nucleated RBC (0.0-0.012) K/mm3 Nucleated RBC % (0.0-0.2) % % Immature Plt Fraction (0.9-11.2) % Sodium 136 L (137-145) mmol/L Potassium 4.1 (3.4-5.0) mmol/L Chloride 108 H (98-107) mmol/L Carbon Dioxide 21 L (22-30) mmol/L Anion Gap 7 (4-12) mmol/L BUN 5 L (7-17) mg/dL Creatinine 0.57 L (0.7-1.0) mg/dL Estim Creat Clear Calc 112 ml/min Estimated GFR > 60 (59 - ) Glucose 97 (65-110) mg/dL Calcium 8.7 (8.4-10.2) mg/dL Magnesium 1.9 (1.6-2.3) mg/dL Total Bilirubin 0.2 (0.2-1.3) mg/dL AST 24 (14-36) U/L ALT 17 (6-35) U/L Alkaline Phosphatase 55 (38-126) U/L Total Protein 6.5 (6.3-8.2) g/dL Albumin 3.6 (3.5-5.1) g/dL Lipase 49 (23-300) U/L Beta HCG, Quant 6216.60 mIU/ML Urine Color (Yellow) Urine Appearance (Clear) Urine pH (5.0-9.0) Ur Specific [place] (1.001-1.035) Urine Protein (Negative) mg/dL Urine Glucose (UA) (Negative) mg/dL Urine Ketones (Negative) mg/dL Ur Blood (Man) (Negative) Urine Nitrate (Negative) Urine Bilirubin (Negative) Urine Urobilinogen (<2.0) mg/dL Add Ur Microanalysis Leukocyte Esterase Rfl (Negative) TYE/UL Urine RBC (0-2) /hpf Urine WBC (0-3) /hpf Ur Squamous Epith Cells (Few) /hpf Urine Bacteria /hpf Urine Casts Urine Mucus /lpf POC Urine HCG, Qual (Negative) Blood Type Antibody Screen Screen Baby's Blood Type Baby's RONALD Doses of RhIg Required Discharge Plan Discharge Clinical Impression: Threatened miscarriage, Bacteria in urine Patient Disposition: Home Condition: Improved Instructions: Antibiotic Form, Threatened Miscarriage (ED), Urinary Tract Infection in (ED) Additional Instructions: Please follow-up with your OB as scheduled for your upcoming appointment in 2 days. Your urine did have bacteria Na and this will need to be treated with antibiotics so please take the prescribed antibiotic as instructed. Return to the emergency department if any new or worsening symptoms develop. Your beta hCG today level was noted to be 6216. Patient Language: Setswana Prescriptions: New nitrofurantoin monohyd/m-cryst [Macrobid] 100 mg capsule 100 mg PO Q12H 5 Days Qty: 10 0RF Rx Instructions: must administer with a meal/food Follow-up/Referrals: Maribel Guerrero MD [Physician] - 2 Days PHYSICIAN,EQUAL OPPORTUNITY DIRECTOR [Primary Care Provider] - Time of Disposition: 06:13
[2024-12-17 06:25] LABS: Alanine Aminotransferase 17 U/L (6-35); Albumin Level 3.6 g/dL (3.5-5.1); Alkaline Phosphatase 55 U/L (38-126); Anion Gap 7 mmol/L (4-12); Aspartate Amino Transferase 24 U/L (14-36); Bilirubin,Total 0.2 mg/dL (0.2-1.3); Blood Urea Nitrogen 5 mg/dL (7-17); Calcium 8.7 mg/dL (8.4-10.2); Carbon Dioxide 21 mmol/L (22-30); Chloride 108 mmol/L (98-107); Estimated CRCL calculation 112 ml/min; Estimated Glomerular Filt Rate > 60; Glucose 97 mg/dL (65-110); Lipase 49 U/L (23-300); Magnesium 1.9 mg/dL (1.6-2.3); Potassium 4.1 mmol/L (3.4-5.0); Sodium 136 mmol/L (137-145); Total Protein 6.5 g/dL (6.3-8.2)
[2024-12-17 06:41] LABS: Beta HCG Quantitative 6216.60 mIU/ML
[2024-12-17] MEDS: RHO(D) IMMUNE GLOBULIN 300 MCG/2 ML SYRINGE IM (07:23)
[2024-12-17 07:26] VITALS: BP 122/79; PULSE 76; RESP 20; O2SAT 100
== END 2024-12-17 07:27 | disposition home or self-care (01) ==
PROVIDERS: Emergency Provider Emergency Medicine
DX: O20.0 Threatened abortion (principal); Z3A.00 Weeks of gestation of pregnancy not specified
CPT/HCPCS: 36415; 80053; 81001; 81025; 83690; 83735; 84702; 85025; 85055; 85461; 86850; 86900; 86901; 90384; 96372; 99283; J2790

== ENCOUNTER 2025-01-04 07:12 | Emergency (ER) | payer OTHER, MEDICAID, SELFPAY ==
--- NOTE | ~2025-01-04 | US_ITS ---
EXAMINATION: US OB <=14 wk fetus w TV DATE: 01/04/2025 08:33 INDICATION: Vaginal bleeding TECHNIQUE: Real-time transabdominal and transvaginal obstetric ultrasound. FINDINGS: No prior studies for comparison. The uterus measures 12 x 5.1 x 7.9 cm. There is an intrauterine gestational sac, with pole iden tified. There is a large subchorionic hemorrhage. The crown rump length measures 1.38 cm, which corre lates with a estimated gestational age of 7 weeks 5 days. heart tones are identified measurin g 155. Right ovary measures 2.9 x 2.7 x 1.9 cm. Left ovary measures 2.5 x 2.1 x 1.9 cm. There is a uterine f ibroid measuring 2.1 cm. IMPRESSION: 1. SL IUP with an EGA of 7 weeks, 5 days (EDC by current ultrasound of 08/18/2025). 2: Large subchorionic hemorrhage. 3: Uterine fibroid measuring 2.1 cm. Reviewed, dictated and finalized at location [] IMPRESSION: 1. SL IUP with an EGA of 7 weeks, 5 days (EDC by current ultrasound of ). 2: Large subchorionic hemorrhage. 3: Uterine fibroid measuring 2.1 cm.
--- OUTSIDE RECORDS SUMMARY | 2025-01-04 07:14 | XMS_ITS ---
Author Organization [facility] Address [address] [place], [place] [address] Care Team Providers Care Remedy Developer Name Role Phone German Hua Primary Care Provider Rodrick Bauman Unavailable [phone] Abran Fitzpatrick Unavailable [phone] REASON FOR VISIT WWE Social History Sex Assigned At : Social History Observation Description Sex Assigned At Female Encounters Encounter [facility] Date [facility] [address] [place], [place] [address] 08/04/2023 Abran Fitzpatrick Plan Of Treatment No Information Progress Notes * Nisha BARNETT :1995 (29 yo F)Acc No.[id number]:08/04/2023 Patient: Nisha KLEIN Appointment Provider: SUSY Pastrana :1995 A ge:28 Y S ex:Female Date:08/04/2023 Address:[facility] [place], [place] Pcp:German Hua Subjective: * Chief Complaints: * 1 . WWE. * Medical History: Objective: * Vitals: Assessment: Plan: * Treatment: * Billing Information: * Visit Code: * Procedure Codes: * Electronic signature of SUSY Tellez chi on 01/04/2025 at 07:14 AM CDT Sign off status: Pending * Appointment Provider: SUSY Pastrana Date: 0 08/04/2023 Generated for Molina ramirez/Betty/Micky on: 0 01/04/2025 07:14 AM CDT
--- OUTSIDE RECORDS SUMMARY | 2025-01-04 07:15 | XMS_ITS | Continuity of Care Document ---
Author Organization [facility] Address [address] [place] [address] Phone Care Team Providers Care Supervisor Costuming Name Role Phone Hernan Lloyd DMD Unavailable [...] AN CARE, AT-RISK ENHANCED SERVICE PACKAGE (INCLUDES [id number]) OFFICE/OUTPATIENT VISIT, EST PRESCRIPTION DRUG, ORAL, NON CHEMOTHERAP EUTIC, NOS AZITHROMYCIN DIHYDRATE, ORAL, CAPSULES/P OWDER, 1 GRAM Wet beka, including preparations of va ginal, cervical or skin specimens COLLECTION OF VENOUS BLOOD BY VENIPUNCTU RE OFFICE/OUTPATIENT VISIT, EST CARE, AT-RISK ENHANCED SERVICE PACKAGE (INCLUDES [id number]) OFFICE/OUTPATIENT VISIT, EST COLLECTION OF VENOUS BLOOD BY VENIPUNCTU RE Voided Encounter care, at-risk assessment care, at-risk enhanced service; antepartum management MENTAL HEALTH ASSESSMENT, BY NON-PHYSICI AN SKIN TEST; TUBERCULOSIS, INTRADERMAL Dec OFFICE/OUTPATIENT VISIT, NEW Advance Directives Directive Yes / No Effective Date File Name No Information Encounters Encounter Description Practice Location Reason(s) For Visit Diagnoses Date Provider Providers Copied on Encounter [facility] , [address], [place], [place], [address], tel:[phone] [facility] [place] Encounter for dental exam and cleaning w abnormal findings 7 Gabino Becerra. [address], [place], [place], [address]. tel:[phone] Referring Provider: Hernan Lloyd, [address], [place], [address]. tel:[phone] [facility] , [address], [place], [place], [address], tel:[phone] [facility] home visit (chief complaint) Routine follow-up [facility]. [address], [place], [place], [address], . tel:[phone] [facility] , [address], [place], [place], [address], tel:[phone] [facility] No Information 2 [facility]. [address], [place], [place], [address], . tel:[phone] Consulting Provider: Arianne Samuels, [address], [place], [address]. tel:[phone] OFFICE/OUTPAT IENT VISIT, EST [facility] , [address], [place], [place], [address], [place] tel:[phone] [facility] No Information 1 Bianca Bauman. [address], [place], [place], [address], . tel:[phone] OFFICE/OUTPAT IENT VISIT, EST [facility] , [address], [place], [place], [address], [place] tel:[phone] [facility] Supervision of normal first 1 Rico Navas [address], [place], [place], [address], . tel:[phone] [facility] , [address], [place], [place], [address], tel:[phone] [facility] [place] No Information 1 Management [facility]. [address], [place], [place], [address] [place] [address], . tel:[phone] Consulting Provider: Arianne Samuels, [address], [place], [address]. tel:[phone] OFFICE/OUTPAT IENT VISIT, [facility] , [address], [place], [place], [address], tel:[phone] [facility] [place] Supervision of other normal 1 Rico Navas [address], [place], [place], [address], . tel:[phone] [facility] , [address], [place], [place], [address], [place] tel:[phone] [facility] Supervision of normal first 1 Rico Navas [address], [place], [place], [address], . tel:[phone] [employer] , [address], [place], [place], [address], tel:[phone] [facility] pn intake (chief complaint) No Information No Information OFFICE/OUTPAT IENT VISIT, [facility] , [address], [place], [place], [address], [place] tel:[phone] [facility] Test (chief complaint)No te for school-Pregn italo (chief complaint) Irregular menstrual cycle Bianca Bauman. [address], [place], [place], [address], [place]. tel:[phone] Family History Family Member Type Diagnosis Age At Onset Father Problem (finding) hypertension Mother Problem (finding) hypertension Father Problem (finding) Maternal history of alice betes mellitus Payers Payer name Insurance type Covered alliance party ID Alpa pool(s) D Medicaid - Dental CI [id number] Social History Type Description Quantity Date Captured Comments Sex Female Smoking Status No Information Chief Complaint And Reason For Visit No Information Reason For Referral Reason For Referral No Information Plan Of Treatment Date Type Action Status Goal BMP fasting. Due on 011 due Referral Referred To: [facility] [address] [place], [phone] Ordered: Referral: [facility] [...]
--- OUTSIDE RECORDS SUMMARY | 2025-01-04 07:15 | XMS_ITS | Clinical Summary ---
Author Organization [facility] Address [address] [place] [address] Care Team Providers Care Yoker Name Role Phone Unavailable Primary Care Provider [...] Health Maintenance Due Date Last Done Comments HPV VACCINES (1 - 3-dose series) 2008 HPV/Cotest (21-29) 2014 HPV/Cotest (30-65) 2023 CERVICAL CANCER SCREENING 08/26/2024 PAP SMEAR 08/26/2024 08/26/2021 INFLUENZA VACCINE (#1) 2025 02/26/2017 DTAP/TDAP/TD VACCINES (6 - T d or Tdap) 07/20/2031 07/20/2021, 12/10/2016, 06/20/2011, Additional history exists HEPATITIS B VACCINES Completed 1993, 1995, 1995 Procedures Procedure Name Priority Date/Time Associated Diagnosis Comments CERV/VAG CYTO AGE BASED SCREEN PAP W CT/NG, TRICH Routine 08/26/2021 10:22 AM CDT Encounter for gynecological examination with abnormal finding from Last 3 Months or Most Recently Relevant to Health Maintenance Results * CERV/VAG CYTO AGE BASED SCREEN PAP W CT/NG, TRICH (08/26/2021 10:22 AM CDT) SEE NOTE [facility] Comment: This order for age-based cervical cancer and STI screening follows ACOG guidelines(PB 168, 140, SYO772). See individual assays for performing site location. CLINICAL INFORMATION [facility] Comment:Information not prov ided LAST MENSTRUAL PERIOD [facility] Comment:INFORMATION NOT PROV IDED PREV PAP: [facility] Comment:INFORMATION NOT PROV IDED PREV BX: [facility] Comment:INFORMATION NOT PROV IDED SOURCE [facility] Comment:Endocervix ADEQUACY: [facility] Comment: Satisfactory for evaluation. Endocervical/transformation zone component present. Age and/or menstrual status not provided PAP INTERP [facility] Comment:Negative for intraep ithelial lesion or malignancy. COMMENT (PAP TEST) [facility] Comment: This Pap test has been evaluated with computer assisted technology. KINDERGARTEN CLASSROOM TEACHER: [facility] Comment: SAMAGNES(ASCP) CT screening location: [place] [address] [place] [address] SEE NOTE [facility] Comment: EXPLANATORY NOTE: The Pap is [...] C TRAC RNA NOT DETECTED NOT DETECTED [facility] N.GONORRHOEAE RNA, TMA NOT DETECTED NOT DETECTED [facility] SEE NOTE [facility] Comment: The analytical performance characteristics of this assay, when used to test SurePath(TM) specimens have been determined by [employer]. The modifications have not been cleared or approved by the FDA. This assay has been validated pursuant to the CLIA regulations and is used for clinical purposes. For additional information, please refer to https://1234ENTER.Snaapiq/faq/YUF817 (This link is being provided for information/ educational purposes only.) TRICHOMONAS VAGINALIS,QUALITAT LAYNE,PAP VIAL NOT DETECTED NOT DETECTED [facility] Comment: The analytical performance characteristics of this assay have been determined by [facility] [employer] The modifications have not been cleared or approved by the FDA. This assay has been validated pursuant to the CLIA regulations and is used for clinical purposes. For additional information, please refer to http://1234ENTER.Snaapiq/ faq/Trichomonastma (This link is being provided for information/ educational purposes only.) [facility]: [facility] [address] [place] [address] nAdrea Mix D.O., MPH Genital SWAB OF ENDOCERVIX / Unknown 08/26/2021 10:22 AM CDT 08/27/2021 4:04 AM CDT Aba Gutierrez MD PATHOLOGY/CYTOLOGY ORDERABLES Final Result Performing Organization Address City/State/[facility] Co de Phone Number [facility] [address] [place] [address] from Last 3 Months or Most Recently Relevant to Health Maintenance Insurance BCBS TRUE BLUE PPO EXCHANGE
--- OUTSIDE RECORDS SUMMARY | 2025-01-04 07:15 | XMS_ITS | Clinical Summary ---
Author Organization [facility] Address [address] [place] [address] Care Team Providers Care Senior Animator Name Role Phone [facility] Primary Care Pro vider Source Comments [facility],non-[facility] Affiliates and Associated Physician Practices is amultiple site organization consisting of ambulatory clinics and hospital sitesin [place], [place], [place] and [place]. This disclosure is being madepursuant to the Care Everywhere program and may not contain all information available regarding this patient. Last updated 18.[facility] Allergies Active Allergy Reactions Criticality Noted [...] fluticasone propionate (Flonase) 50 MCG/ACT nasal spray [place] 2 (two) sprays into each nostril once [...] ing 20 tablet 03/28/2024 Active HYDROcodone-lilian taminophen (Hitchita) 5-325 MG tabletIndicatio ns:Acute maxillary sinusitis, recurrence [...] Overview (11/11/2016): She sees Dr. Jean at [facility]. She discontinued Seroquel with positive test. [...] place to sleep or slept in a halfway (including now)? No 05/11/2022 [place] Depression Scale Answer Date Recorded RETIRED: Total Score 0 05/08/2022 Last EPDS Self Harm Result Not on file 05/08 Comments No Sex and Gender Information Value Date Recorded Sex Assigned at Not on file Legal Sex Female 6:05 AM LAUNDRETTE OWNER Gender Identity Not on file Sexual Orientation Not on file Last Filed Vital Signs Vital Sign Reading Time Taken Comments Blood Pressure 147/96 05/28/2024 11:26 PM LAUNDRETTE OWNER Pulse 65 05/28/2024 11:26 PM LAUNDRETTE OWNER Temperature 36.7 C (98.1 F) 05/28/2024 11:26 PM LAUNDRETTE OWNER Respiratory Rate 18 05/28/2024 11:26 PM LAUNDRETTE OWNER Oxygen Saturation 95% 05/28/2024 11:26 PM LAUNDRETTE OWNER Inhaled Oxygen Concentration - - Weight 70.8 kg (156 lb) 05/28/2024 11:26 PM LAUNDRETTE OWNER Height 157.5 cm (5' 2) 05/28/2024 11:26 PM LAUNDRETTE OWNER Body Mass Index 28.53 05/28/2024 11:26 PM LAUNDRETTE OWNER Plan of Treatment Health Maintenance Due Date [...] RFLX HPV ASCU Routine 08/05/2016 12:37 PM LAUNDRETTE OWNER 10 weeks gestation of HIV-1 HIV-2 ANTIBODY + HIV P24 AG PANEL Routine 08/05/2016 12:35 PM LAUNDRETTE OWNER 10 weeks gestation of from Last 3 Months or Most Recently Relevant to Health Maintenance Results * PAP SMEAR IG RFLX HPV ASCU (PO REF LAB) (08/05/2016 12:37 PM LAUNDRETTE OWNER) Diagnosis Comment 08/06/2016 9:08 PM LAUNDRETTE OWNER [facility] Comment:NEGATIVE FOR INTRAEP ITHELIAL LESION AND MALIGNANCY. Specimen Adequacy Comment 017 9:08 PM LAUNDRETTE OWNER [facility] Comment: Satisfactory for evaluation. Endocervical and/or squamous metaplastic cells (endocervical component) are present. Performed by Comment 08/06/2016 9:08 PM LAUNDRETTE OWNER [facility] Comment:Rubi Medley [employer] hnologist (ASCP) Comment . 08/06/2016 9:08 PM LAUNDRETTE OWNER [facility] Note Comment 08/06/2016 9:08 PM LAUNDRETTE OWNER [facility] Comment: The Pap smear is a screening test designed to aid in the detection of premalignant and malignant conditions of the uterine cervix. It is not a diagnostic procedure and should not be used as the sole means of detecting cervical cancer. Both false-positive and false-negative reports do occur. IGLBP CPT Code Automation Comment 08/06/2016 9:08 PM LAUNDRETTE OWNER [facility] Comment: This liquid based ThinPrep(R) pap test was screened with the use of an image guided system. Note Comment 08/06/2016 9:08 PM LAUNDRETTE OWNER [facility] Comment: The HPV DNA reflex criteria were not met with this specimen result therefore, no HPV testing was performed. Pathology/Cytolo gy PART OF UTERINE CERVIX / Unknown 08/05/2016 12:37 PM LAUNDRETTE OWNER 08/05/2016 1:19 PM LAUNDRETTE OWNER Narrative [facility] - 08/06/2016 9:08 PM LAUNDRETTE OWNER Performed at: [address] [place] [id number] Residential Support Specialist: Rayna Cuevas MD, Phone: [phone] Specimen Comment: Source.............Cervix Specimen Comment: No. of containers..01 CYTYC Thin Prep Vial us Gaye Stephens MD LAB - PATHOLOGY/CYTOLOGY ORDE RABILIANA Final Result [facility] ([facility]) [address] [place] [address] * HIV-1 HIV-2 ANTIBODY + HIV P24 AG PANEL (08/05/2016 12:35 PM LAUNDRETTE OWNER) HIV1/2 Ab + P24 Ag Non Reactive Non Reactive 08/05/2016 6:49 PM LAUNDRETTE OWNER [facility] Blood BLOOD SPECIMEN / Unknown 08/05/2016 12:35 PM LAUNDRETTE OWNER 08/05/2016 1:10 PM LAUNDRETTE OWNER Narrative [facility] - 08/05/2016 6:49 PM LAUNDRETTE OWNER No Laboratory evidence of HIV infection. us Gaye Stephens MD LAB - CHEMISTRY ORDERABLES Fi nal Result [facility] [address] [place] [address] from Last 3 Months or Most Recently Relevant to Health Maintenance [place] MEDICA[place] - [facility] COMM[facility]AN MEDICAID - [place] MED[place] - [...] 12:53 PM 02/27/2017 12:50 PM Care Teams Senior Animator Relationship Specialty Start Date End Date [facility] [address] [place] [address] PCP - General Child Nutrition Manager 01/30/22
--- OUTSIDE RECORDS SUMMARY | 2025-01-04 07:15 | XMS_ITS | Encounter Summary ---
Author Organization [facility] Address [address] [place] [address] Care Team Providers Care Program Project Manager Name Role Phone No, Physician Primary Care Provider [phone] Encounter Details Date Type Department Care Team (Late st Contact Info) Description 12/14/2024 Results Follow-Up [address] [address] [address] Vaginitis panel Vaginal Social History Tobacco Use [...] on file Legal Sex Female 9:34 AM SENIOR TECHNICAL BUSINESS ANALYST Gender Identity Female 07/10/2020 2:40 PM SENIOR TECHNICAL BUSINESS ANALYST Sexual Orientation Straight 07/10/2020 2: 40 PM SENIOR TECHNICAL BUSINESS ANALYST documented as of this encounter Miscellaneous Notes * Result Encounter Note - Shayna Dean RN - 12/15/2024 12:40 PM CDT This RN spoke to patient about abnormal test results and plan of care , called prescription [facility] to [facility] [place] per patients request. documented in this encounter Plan of Treatment Not on file documented as of this encounter Visit Diagnoses Not on filedocumented in this encounter Care Teams Program Project Manager Relationship Specialty Start Date End Date No, Physician PCP - General 10/07/24 documented as of this encounter
--- OUTSIDE RECORDS SUMMARY | 2025-01-04 07:15 | XMS_ITS ---
Author Organization [facility] Address [address] [place], [place] [address] Care Team Providers Care Arson And Bomb Investigator Name Role Phone German Hua Primary Care Provider Rodrick Bauman Unavailable [phone] Abran Fitzpatrick Unavailable [phone] REASON FOR VISIT wwe Social History Sex Assigned At : Social History Observation Description Sex Assigned At Female Encounters Encounter Location Date [facility] [place], [place] [address] 07/23/2023 Abran Fitzpatrick Plan Of Treatment No Information Progress Notes * Nisha BARNETT :1995 (29 yo F)Acc No.[id number]:07/23/2023 Patient: Nisha KLEIN Appointment Provider: SUSY Pastrana :1995 A ge:28 Y S ex:Female Date:07/23/2023 Address:[facility] [place] Pcp:German Hua Subjective: * Chief Complaints: * 1 . Wwe. * Medical History: Objective: * Vitals: Assessment: Plan: * Treatment: * Billing Information: * Visit Code: * Procedure Codes: * Electronic signature of SUSY Tellez chi on 01/04/2025 at 07:15 AM CDT Sign off status: Pending * Appointment Provider: SUSY Pastrana Date: 0 07/23/2023 Generated for Molina ramirez/Betty/Micky on: 0 01/04/2025 07:15 AM CDT
--- OUTSIDE RECORDS SUMMARY | 2025-01-04 07:15 | XMS_ITS | Patient Health Record ---
Author Organization [facility] Address [address] [place], [place] [address] Care Team Providers Care Plane Tender Name Role Phone Melita German Primary Care Provider [phone] Rodrick Bauman Unavailable [phone] Allergies No Known Allergies Reason For Referral [...] Duration: 5 Not-Taking Vitamin D3 1.25 MG (51161 UT) Oral; Duration: 28 Not-Takin g Metoclopramide [...] Status Risk Notes Problem Finding related to (835779246) related conditions, unspecified, first trimester (O26.91) Active confirm Problem test equivocal (607175662) Encounter for test, result unknown (Z32.00) Active confirmed Problem care (regime/therap y) (008535415) Encntr for suprvsn of normal preg, unsp, [...] Date [employer] Community Medicaid HMO [address] [place] [address] [id number] Nisha Millan Self - patient is the insured [employer] [address] [place] [address] [id number] Nisha Chou Self - patient is the insured 2 DENTAL MEDICAID [employer] Medicaid Dental [address] [place] [address] [id number] Nisha Chou Self - patient is the insured 9 Medications Administered Medication Instructions Date of Administration Dosage Notes RhoGAM Ultra-Filtered PLUS-300ug 02/27/2022 1 Medical (General) History Surgical History Surgery Date(Month/Year) vaginal delivery vaginal delivery
--- OUTSIDE RECORDS SUMMARY | 2025-01-04 07:16 | XMS_ITS | Referral Summary ---
Author Organization [facility] Physician Office Building [address] [place] [id number] Care Team Providers Care Veterinary Epidemiologist Name Role Phone No, Physician Primary Care Provider [phone] Encounters Date Type Department Care Team Description 12/24/2024 8:46 AM CDT - 12/24/2024 11:57 AM CDT Emergency [facility] Emergency Department [address] [place] [address] Nausea and vomiting in (Primary Dx) Discharge Disposition: Discharge to home or self care 12/15/[address] [address] Shayna Dean, RN 12/15/[address] [address] Shayna Dean, RN 12/14/[address] [address] Shayna Dean RN 12/14/2024 Results Follow-Up [address] [address] Juan Samson PA Vaginitis panel Vaginal 12/13/2024 2:30 AM CDT - 12/13/2024 3:25 AM CDT Emergency [address] [address] Positive test (Primary Dx); Vaginal irritation Discharge Disposition: Discharge to home or self care 10/07/2024 8:42 AM CDT - 10/07/2024 10:26 AM CDT Emergency [facility] Emergency Department [address] [place] [id number] Darryl Glover MD Dysfunctional uterine bleeding (Primary Dx); Dizziness Discharge Disposition: Discharge to home or self care from Last 3 Months Allergies Active Allergy Reactions Criticality Noted Date Comments Adhesive Rash Medium 09/16/2023 Surgical adhesive tape Penicillins Hives Medium 09/16/2023 Medications HYDROcodone-ac etaminophen (NORCO) 5-325 mg per tabletIndicati ons:Pain Take 1 tablet by mouth every 6 (six) hours as needed for pain for up to 10 doses 10 tablet 10/16/19 24 Active ondansetron (ZOFRAN) 4 mg tablet Take 1 tablet (4 mg total) by mouth every 4 (four) hours as needed for nausea or vomiting 15 tablet 12/25/19 25 Active famotidine (PEPCID) 20 mg tablet Take 1 tablet (20 mg total) by mouth 2 (two) times a day 30 tablet 12/25/19 25 026 Active ibuprofen (ADVIL,MOTRIN) 800 mg tablet Take 1 tablet (800 mg total) by mouth 3 (three) times a day Take with food. 30 tablet 07/20/19 22 025 Discontinued(Pr egnancy) ondansetron (ZOFRAN) 4 mg tablet Take 1 tablet (4 mg total) by mouth every 4 (four) hours as needed for nausea or vomiting 15 tablet 10/16/19 24 025 Discontinued Active Problems Problem Noted Date Diagnosed Date Splinter 07/20/2021 Foreign body of thumb, right 07/20/2021 Periumbilical abdominal pain 12/21/2018 Encounter for psychiatric assessment 12/24/2017 Overview (12/24/2017): Initial appointment on 12/24/2017. Chronic post-traumatic stress disorder (PTSD) Assessment & Plan (12/24/2017 5:22 PM CDT): Chronic, persistent, needs to be linked with therapist. Her Referred to [facility] for trauma focused therapy. Start Prozac [...] to the nearest emergency department for evaluation. Comments Yes Immunizations Immunization Administration Dates Next Due Tdap [...] making you feel afraid or unsafe? 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 Sexual Orientation Straight 07/10/2020 2: 40 PM FILTERING MACHINE TENDER HELPER Last Filed Vital Signs Vital Sign Reading Time Taken Comments Blood Pressure 110/75 12/24/2024 11:40 AM CDT Pulse 73 12/24/2024 11:40 AM CDT Temperature 36.9 C (98.5 F) 12/24/2024 8:39 AM CDT Respiratory Rate 16 12/24/2024 8:39 AM CDT Oxygen Saturation 97% 12/24/2024 11:40 AM CDT Inhaled Oxygen Concentration - - Weight 70.8 kg (156 lb) 12/24/2024 8:39 AM CDT Height 157.5 cm (5' 2) 12/24/2024 8:39 AM CDT Body Mass Index 28.53 12/24/2024 8:39 AM CDT Plan of Treatment Not on file Procedures Procedure Name Priority Date/Time Associated Diagnosis Comments ED PELVIC ULTRASOUND Routine 12/24/2024 9:35 AM CDT EGFR STAT 12/24/2024 9:26 AM CDT DIFFERENTIAL AUTO STAT 12/24/2024 9:2 6 AM CDT HCG, BLOOD, QUANTITATIVE STAT 12/24/2024 9:26 AM CDT LIPASE STAT 12/24/2024 9:26 AM CDT COMPREHENSIVE METABOLIC PANEL STAT 12/24/2024 9:26 AM CDT CBC WITH AUTO DIFFERENTIAL STAT 12/24/2024 9:26 AM CDT POCT HCG, URINE Routine 12/24/2024 9:24 AM CDT URINALYSIS AND REFLEX TO MICROSCOPIC AND CULTURE STAT 12/24/2024 9:06 AM CDT URINALYSIS, MICROSCOPIC ONLY STAT 12/13/2024 2:30 AM [...] CDT from Last 3 Months Results * US Pelvic (12/24/2024 9:35 AM CDT) Narrative Yusra Wiseman NP - 12/24/2024 9:35 AM CDT Yusra Wiseman NP 12/24/2024 11:21 AM US Pelvic Date/Time: 12/24/2024 9:35 AM Performed by: Yusra Wiseman NP Authorized by: Yusra Wiseman NP Procedure details: Indications: evaluate for IUP Assess: Intrauterine Technique: Transabdominal obstetric (HCG+) exam Uterine findings: Gestational sac: identified pole: not identified heart rate: not identified Comments: Bedside US performed. Gestational sac identified. No pole or heartbeat seen on US. us Yusra Wiseman NP IN CLINIC/BEDSIDE ORDER CHIKA Final Result * eGFR (12/24/2024 9:26 AM CDT) eGFR >90 >=60 mL/min/1. 73 [...] Current interpretive data was last reviewed 2021. [facility]: [facility] [address], [place] [address] Blood 12/24/2024 9:26 AM CDT 12/24/2024 9:32 AM CDT Yusra Wiseman NP LAB BLOOD ORDERABLES nal Result [facility] [address] [address] [place] [address] * Differential, auto (12/24/2024 9:26 AM CDT) Neutrophil abs 3.98 1.50 - 6.50 K/cumm Comment:Testing performed by : [facility], [place] [address] Imm gran abs 0.02 0.00 - 0.10 K/cumm [facility] RUSSELL Comment:Testing performed by : [facility] [address] [address], [place] [address] Lymphocyte abs 2.09 0.80 - 3.30 K/cumm [facility] RUSSELL Comment:Testing performed by : [facility] [address] [address], [place] [address] Monocyte abs 0.63 0.20 - 0.80 K/cumm [facility] RUSSELL Comment:Testing performed by : [facility] [address], [place] [address] Eosinophil abs 0.18 0.00 - 0.50 K/cumm CERNER CH Comment:Testing performed by : [facility], [address] [place] [address] Basophil abs 0.01 0.00 - 0.10 K/cumm CERNER CH Comment:Testing performed by : [facility], [address] [place] [address] Neutrophil pct 57.7 % CERNER CH Comment: Interpretive Data Percent cell count reference ranges are not reported, since discordance with absolute values may lead to misinterpretation of CBC data. Current Interpretive Data was last revised on 2017. Testing performed by: [facility], [address] [place] [address] Imm gran pct 0.3 % CERNER CH Comment: Interpretive Data Percent cell count reference ranges are not reported, since discordance with absolute values may lead to misinterpretation of CBC data. Current Interpretive Data was last revised on 2017. Testing performed by: [place] [address] [place] [address] Lymphocyte pct 30.2 % CERNER CH Comment: Interpretive Data Percent cell count reference ranges are not reported, since discordance with absolute values may lead to misinterpretation of CBC data. Current Interpretive Data was last revised on 2017. Testing performed by: [place] [address] [place] [address] Monocyte pct 9.1 % CERNER CH Comment: Interpretive Data Percent cell count reference ranges are not reported, since discordance with absolute values may lead to misinterpretation of CBC data. Current Interpretive Data was last revised on 2017. Testing performed by: [place] [address] [place] [address] Eosinophil pct 2.6 % CERNER CH Comment: Interpretive Data Percent cell count reference ranges are not reported, since discordance with absolute values may lead to misinterpretation of CBC data. Current Interpretive Data was last revised on 2017. Testing performed by: [facility], [address] [place] [address] Basophil pct 0.1 % CERNER CH Comment: Interpretive Data Percent cell count reference ranges are not reported, since discordance with absolute values may lead to misinterpretation of CBC data. Current Interpretive Data was last revised on 2017. Testing performed by: [facility] [address], [place] [address] Blood 12/24/2024 9:26 AM CDT 12/24/2024 9:32 AM CDT Yusra Wismean PSYCHOLOGICAL AIDE LAB BLOOD ORDERABLES Fi nal Result [facility] [address] [address] Department [place] [address] * (ABNORMAL) CBC with auto differential (12/24/2024 9:26 AM CDT) WBC 6.91 3.80 - 9.90 K/cumm Comment:Testing performed by : [facility] [address], [place] [address] Hgb 13.2 11.9 - 15.5 g/dL CERNER CH Comment:Testing performed by : [facility] [address], [place] [address] Hct 40.0 35.6 - 45.5 % CERNER CH Comment:Testing performed by : [facility] [address], [place] [address] Plt 259 150 - 400 K/cumm CERNER CH Comment:Testing performed by : [facility] [address], [place] [address] MPV 9.1 9.1 - 12.3 fL CERNER CH Comment:Testing performed by : [facility] [address], [place] [address] RBC 4.93 3.90 - 5.20 M/cumm CERNER CH Comment:Testing performed by : [facility] [address], [place] [address] MCV 81.1(L) 81.3 - 96.4 fL CERNER CH Comment:Testing performed by : [facility] [address], [place] [address] MCH 26.8(L) 27.1 - 33.3 pg CERNER CH Comment:Testing performed by : [facility] [address] [address], [place] [address] MCHC 33.0 32.3 - 35.7 g/dL CERNER CH Comment:Testing performed by : [facility] [address], [place] [facility] RDW CV 16.1(H) 11.1 - 14.9 % [facility] Comment:Testing performed by : [facility], [place] [address] RDW SD 47.5 35.7 - 48.1 fL [facility] Comment:Testing performed by : [facility], [place] [address] NRBC abs 0.00 0.00 - 0.01 K/cumm [facility] Comment:Testing performed by : [facility], [address] [place], [facility] Blood Venous blood specimen / Unknown 12/24/2024 9:26 AM CDT 12/24/2024 9:32 AM CDT Yusra Wiseman NP LAB BLOOD ORDERABLES Fi nal Result Performing Organization Address [facility] de Phone Number [facility] [address] [address] [facility] [place] [address] * (ABNORMAL) hCG, blood, quantitative (12/24/2024 9:26 AM CDT) [facility] hCG, quant 29,188.0( H) 0.0 - 5.0 IUnits/L Comment: Interpretive Data Male: < 5 IU/L Non- premenopausal Female: <5 IU/L The Karl hCG Beta Quant assay procedure was used. Results from different manufacturers or methods may not be comparable. Serial testing should be performed using the same method. Interpretive Data was last revised on 2023 Testing performed by: [facility], [place] [address] Blood 12/24/2024 9:26 AM CDT 12/24/2024 9:32 AM CDT Yusra Wiseman NP LAB BLOOD ORDERABLES Fi nal Result Performing Organization Address [facility] Co de Phone Number [facility] [address] [address] [facility] [place] [address] * Lipase (12/24/2024 9:26 AM CDT) Lipase 14 10 - 99 Units/L Comment:Testing performed by : [facility] [address] [place] [address] Blood 12/24/2024 9:26 AM CDT 12/24/2024 9:32 AM CDT Yusra Wiseman NP LAB BLOOD ORDERABLES Fi nal Result [facility] [address] [address] Department [place] [address] * (ABNORMAL) Comprehensive metabolic panel (12/24/2024 9:26 AM CDT) Pathologist [facility] Sodium 136 135 - 145 mmol/L Comment:Testing performed by : [facility] [address], [place] [address] Potassium, pl 3.7 3.3 - 4.9 mmol/L CERNER Comment:Testing performed by : [facility] [address] [address], [place] [address] Chloride 101 97 - 110 mmol/L CERNER Comment:Testing performed by : [facility] [address], [place] [address] CO2 17(L) 22 - 32 mmol/L CERNER Comment:Testing performed by : [facility] [address], [place] [address] Anion gap 18(H) 2 - 15 mmol/L [facility] Comment:Testing performed by : [facility] [address], [place] [address] BUN 7 6 - 25 mg/dL [facility] Comment:Testing performed by : [facility] [address], [place] [address] Creatinine 0.57(L) 0.60 - 1.10 mg/dL CERNER Comment:Testing performed by : [facility] [address], [place] [address] Glucose 85 70 - 199 mg/dL [facility] Comment: Interpretive Data Fasting glucose >/= 126 [...] Current interpretive data was last revised 2022. Testing performed by: [facility] [address] [place] [address] Calcium 9.7 8.5 - 10.3 mg/dL CERNER Comment:Testing performed by : [facility] [address] [address], [place] [address] Bilirubin, total 0.4 0.1 - 1.2 mg/dL CERNER CH Comment:Testing performed by : [facility] [address] [place] [address] Protein, pl 7.4 6.5 - 8.5 g/dL CERNER CH Comment:Testing performed by : [facility] [address] [place] [address] Albumin 4.0 3.5 - 5.0 g/dL CERNER Comment:Testing performed by : [facility] [address], [place] [address] Alk phos 76 40 - 130 Units/L CERNER Comment:Testing performed by : [facility] [address], [place] [address] ALT 18 7 - 45 Units/L CERNER Comment:Testing performed by : [facility] [address] [place] [address] AST 21 10 - 45 Units/L CERNER Comment:Testing performed by : [facility] [address] [place] [address] Blood 12/24/2024 9:26 AM CDT 12/24/2024 9:32 AM CDT us Yusra Wiseman NP LAB BLOOD ORDERABLES Fi nal Result [facility] [address] [address] Department [place] [address] * (ABNORMAL) POCT hCG, urine (12/24/2024 9:24 AM CDT) HCG, ur, POC Positive(A) Negative Lot Number [id number] QC Backgroud Clear Acceptable QC Control Line Acceptable Urine 12/24/2024 9:24 AM CDT Yusra Wiseman NP POINT OF CARE TEST REBECCA ASHLEY Final Result * (ABNORMAL) Urinalysis reflex to microscopic and culture Urine (12/24/2024 9:06 AM CDT) Color, ur Yellow Yellow Comment:Testing performed by : [facility], [place] [address] Clarity, ur Clear Clear CERNER CH Comment:Testing performed by : [facility] [address], [place] [address] Specific gravity, ur 1.026 1.003 - 1.030 CERNER CH Comment:Testing performed by : [facility] [address], [place] [address] pH, urine 8.0 CERNER CH Comment: Interpretive Data U rine pH is affected by diet, medications, systemic acid-base disturbances, and renal tubular function. pH may affect urinary stone formation. For example, urine pH below 6.0 may help reduce the tendency for calcium phosphate stones and pH greater than 6.0 may reduce the tendency for uric acid stone formation. Source: [employer] Current Interpretive Data was last revised on 2017 Testing performed by: [facility] [address], [place] [address] Protein, ur ql Trace Negative CERNER CH Comment:Testing performed by : [facility] [address], [place] [address] Glucose, ur ql Negative Negative CERNER CH Comment:Testing performed by : [facility] [address], [place] [address] Ketones, ur Trace Negative CERNER CH Comment:Testing performed by : [facility] [address], [place] [address] Bilirubin, ur Negative Negative CERNER CH Comment:Testing performed by : [facility] [address], [place] [address] Blood, ur Negative Negative CERNER CH Comment:Testing performed by : [facility] [address], [place] [address] Urobilinogen, ur 2.0(A) <2.0 mg/dL CERNER CH Comment:Testing performed by : [facility], [address], [place] [address] Nitrite, ur Negative Negative [facility] RUSSELL Comment:Testing performed by : [facility], [place] [address] Leukocyte esterase, ur Negative Negative [facility] RUSSELL Comment:Testing performed by : [facility], [address], [place] [address] UA reflex comment Reflex conditions for microscopic UA and culture not met. [facility] Comment:Testing performed by : [facility], [place] [address] Urine 12/24/2024 9:06 AM CDT 12/24/2024 9:10 AM CDT Yusra Wiseman NP LAB MICROBIOLOGY - GENE RAL ORDERABLES Final Result Performing Organization Address [facility] Co de Phone Number [facility] [address] [address] Department [place] [address] * N. gonorrhoeae/C. trachomatis Amplification Vaginal (12/13/2024 2:30 AM CDT) Pathologist [facility] C. trachomatis Not Detected Not Detected N. gonorrhoeae Not Detected Not Detected [facility] Comment: Interpretive Data This assay detects Chlamydia trachomatis and Neisseria gonorrhoeae by nucleic acid amplification testing (NAAT). This assay has been cleared by the [place] Food and Drug administration. The performance characteristics of this test have been verified by the [facility]. The performance characteristics of this test have not been evaluated in individuals less than 14 years of age. Current Interpretive Data last revised 2023. Vaginal (None) 12/13/2024 2: 30 AM CDT 12/13/2024 2:34 AM CDT Juan COLIN LAB MICROBIOLOGY - GENERAL O RDERABLES Final Result Performing Organization Address City/[facility]/ZIP Co de Phone Number [facility] [address] [facility] Department [place] [address] * (ABNORMAL) Vaginitis panel Vaginal (12/13/2024 2:30 AM CDT) Bacterial Vaginosis Not Detected Not Detected Comment:A negative result do es not preclude a possible infection. Results should be considered in conjunction with clinical presentation to determine the disease status. Jada group Detected(A) Not Detected [facility] Comment:Jada species can be present as commensal organisms in women; results should be considered in conjunction with clinical presentation to determine the disease status. Jada glabrata/ krusei Not Detected Not Detected [facility] Trichomonas DNA Not Detected Not Detected [facility] Vaginal 12/13/2024 2:30 AM CDT 12/13/2024 2:34 AM CDT Narrative [facility] - 12/13/2024 3:34 AM CDT The Cepheid [...] this test have been verified by the [facility]. The Cepheid Xpert Xpress MVP test [...] this test have been verified by the [facility]. us Juan COLIN LAB MICROBIOLOGY - GENERAL O RDERABLES Final Result [facility] [address] [facility] Department [place] [address] * (ABNORMAL) Urinalysis reflex to microscopic and culture Urine (12/13/2024 2:30 AM CDT) Color, ur Straw Yellow Clarity, ur Cloudy(A) Clear [facility] Specific gravity, ur 1.018 1.003 - 1.030 [facility] pH, urine 6.0 [facility] Comment: Interpretive Data U rine [...] on 2017 Protein, ur ql Negative Negative [facility] Glucose, ur ql Negative Negative [facility] Ketones, ur Negative Negative [facility] Bilirubin, ur Negative Negative [facility] Blood, ur 1+(A) Negative [facility] Urobilinogen, ur <2.0 <2.0 mg/dL [facility] Nitrite, ur Negative Negative [facility] Leukocyte esterase, ur 4+(A) Negative [facility] UA reflex comment Reflex to microscopic UA will be performed. [facility] Urine 12/13/2024 2:30 AM CDT 12/13/2024 2:34 AM CDT Juan Manuel Avitia DO LAB MICROBIOLOGY - GENERAL ORDERABLES Final Result [place] [id number] [facility] [place] [address] * (ABNORMAL) Urinalysis, microscopic only (12/13/2024 2:30 AM CDT) WBC, ur 0-5 0 - 5 /HPF RBC, ur 11-20(A) 0 - 2 /HPF [facility] Epithelial cells, squamous, ur 11-20(A) 0 - 5 /HPF [facility] Comment:Suggestive of contam ination. Consider recollection by clean catch. Mucous, ur Present(A) [facility] Culture Reflex Comment Reflex conditions for urine culture (WBC >10) not met. [facility] Urine 12/13/2024 2:30 AM CDT 12/13/2024 2:34 AM CDT Juan Manuel Avitia DO LAB URINE ORDERABLES Final Result [facility] [place] [address] [facility] [place] [address] * Urine culture Urine (12/13/2024 2:30 AM CDT) Report Final Report: Growth indicative of contamination with periurethral slava. Please submit a new specimen with special attention given to the collection process and to prompt transport to the laboratory. Comment:Testing performed by : [facility], [address] [place] [address] Organism GROWTH INDICATES CONTAM WITH PERIURETHRAL SLAVA. [facility] Urine 12/13/2024 2:30 AM CDT 12/13/2024 9:22 AM CDT Narrative [facility] - 12/14/2024 2:33 PM CDT Testing performed by [facility] Microbiology Laboratory ([phone]) Juan COLIN LAB MICROBIOLOGY - GENERAL O RDERABLES Final Result [facility] [place] [address] [facility] Department [place] [address] * (ABNORMAL) POCT hCG, urine (12/13/2024 2:27 AM CDT) [facility] HCG, ur, POC Positive(A) Negative Lot Number [id number] QC Backgroud Clear Acceptable QC Control Line Acceptable Urine 12/13/2024 2:27 AM CDT Juan Manuel Avitia DO POINT OF CARE TEST ORDERABL ES Final Result * hCG, blood, quantitative (10/07/2024 9:32 AM CDT) [facility] hCG, quant <5.0 0.0 - [...] ORDERABLE S Edited Result - Final [facility] NARANJO (TRAPPE) [address] [facility] Department of Laboratories [place] [id number] * ECG 12 lead (10/07/2024 8:59 AM CDT) 10/07/2024 8:59 AM CDT Narrative [facility] - 10/07/2024 10:23 AM CDT Vent Rate: 68 bpm RR Interval: 870 msec OK Interval: 131 msec QRS Duration: 80 msec QT Interval: 374 msec QTC Interval: 392 msec P-R-T [place]: 11 - 30 - 19 degrees IMPRESSION: SINUS RHYTHM NORMAL ECG Electronically Signed By: Antolin Min MD Darryl Glover MD ECG ORDERABLES Fin al Result Performing Organization Address [facility] Co de Phone Number [facility] [email or web address] * eGFR (10/07/2024 [...] S Final Result [facility] (JAMES) [facility] Department [place] [address] * Differential, auto (10/07/2024 8:50 AM CDT) [...] S Final Result [facility] (JAMES) [address] [facility] Department [place] [address] * (ABNORMAL) CBC with auto differential (10/07/2024 [...] RDW SD 47.3 35.7 - 48.1 fL [facility] ([facility]) NRBC abs 0.00 0.00 - 0.01 K/cumm [facility] ([place]) Blood 10/07/2024 8:50 AM CDT 10/07/2024 9:03 AM CDT Darryl Glover MD LAB BLOOD ORDERABLE S Final Result [facility] ([place]) [address] [facility] [place] [address] * ABO/Rh (10/07/2024 8:50 AM CDT) ABO/Rh B Negative Blood 10/07/2024 8:50 AM CDT 10/07/2024 9:03 AM CDT Narrative [facility] ([place]) - 10/07/2024 9:40 AM CDT Has the patient had Daratumumab or Isatuximab in the past 6 months?->Unknown us Darryl Glover MD LAB BLOOD BANK TEST ORDERABLES Final Result Performing Organization Address [facility] Co de Phone Number [facility] ([place]) 1 [facility] [place] [address] * Antibody screen (10/07/2024 8:50 AM CDT) Pam, indirect, Gel Interpretation Negative ABSC Blood 10/07/2024 8:50 AM CDT 10/07/2024 9:03 AM CDT Narrative GAYATRILAUREN [facility] ([place]) - 10/07/2024 9:40 AM CDT Has the patient had Daratumumab or Isatuximab in the past 6 months?->Unknown Darryl Glover MD LAB BLOOD BANK TEST ORDERABLES Final Result Performing Organization Address City/[facility]/ZIP Co de Phone Number [facility] (TRAP[place]) [address] [facility] [place] [address] * Basic metabolic panel (10/07/2024 8:50 AM CDT) Sodium 137 135 - 145 mmol/L Potassium, pl 4.1 3.3 - 4.9 mmol/L [facility] ([facility]AMES) Chloride 104 97 - 110 mmol/L [facility] ([place]) CO2 22 22 - 32 mmol/L [facility] ([place]) Anion gap 11 2 - 15 mmol/L [facility] ([place]) BUN 11 6 - 25 mg/dL [facility] ([place]) Creatinine 0.64 0.60 - 1.10 mg/dL [facility] ([place]) Glucose 96 70 - 199 mg/dL [facility] ([facility]) Comment: Interpretive Data Fasting glucose [...] 2022. Calcium 9.0 8.5 - 10.3 mg/dL [facility] (JAMES) Blood 10/07/2024 8:50 AM CDT 10/07/2024 9:03 AM CDT us Darryl Glover MD LAB BLOOD ORDERABLE S Final Result [facility] (JAMES) [address] [facility] Department [place] [address] from Last 3 Months Insurance [employer] EXCHANGE BLUE [employer] EXCHANGE Care Teams Veterinary Epidemiologist Relationship Specialty Start Date End Date No, Physician PCP - General 10/07/24
--- OUTSIDE RECORDS SUMMARY | 2025-01-04 07:16 | XMS_ITS | Clinical Summary ---
Author Organization [facility] Physician [facility] [address] [place] [id number] Care Team Providers Care Internet Researcher Name Role Phone No, Physician Primary Care Provider [phone] Allergies Active Allergy Reactions Criticality Noted Date [...] with therapist. Her Referred to [facility] for trauma focused therapy. Start Prozac 20 [...] nearest emergency department for evaluation. Comments Yes Encounters Date Type Department Care Team Description 12/24/2024 8:46 AM CDT - 12/24/2024 11:57 AM CDT Emergency [facility] Emergency Department [facility] [place] [address] Nausea and vomiting in (Primary Dx) Discharge Disposition: Discharge to home or self care 12/15/[address] [address] Shayna Dean RN 12/15/[address] [address] Shayna Dean RN 12/14/[address] [address] Shayna Dean RN 12/14/2024 Results Follow-Up [place] [id number] [place] [address] Juan Samson PA Vaginitis panel Vaginal 12/13/2024 2:30 AM CDT - 12/13/2024 3:25 AM CDT Emergency [address] [address] Positive test (Primary Dx); Vaginal irritation Discharge Disposition: Discharge to home or self care 10/07/2024 8:42 AM CDT - 10/07/2024 10:26 AM CDT Emergency [facility] Emergency Department [address] [place] [address] Darryl Glover MD Dysfunctional uterine bleeding (Primary [...] on file Legal Sex Female 9:34 AM WARNING COORDINATION METEOROLOGIST Gender Identity Female 07/10/2020 2:40 PM WARNING COORDINATION METEOROLOGIST Sexual Orientation Straight 07/10/2020 2: 40 PM WARNING COORDINATION METEOROLOGIST Obstetrics History Para Term AB IAB SAB Ectopic Multiple Livin g Live Births 11 4 4 5 2 2 4 4 Date Outcome GA Total Labor Labor/2nd/3rd Weight Sex Type Anes PTL Sheila A1 A5 Name Clin SAB 2011 Term 40w 2d 3.121 kg (6 lb 14.1 oz) F Vag-V acuum Epidur al Livin g 8 9 WALKER ,BABY GIRL FRANCH ESCA Tara Delivery Location:[facility] 2013 AB 2015 IAB 2016 Term 39w 3d 0h 17m 0h 13m/0h 04m 2.91 kg (6 lb 6.7 oz) F Vag-S pont Epidur al N Livin g 8 9 WALKER ,BABY GIRL NIRANJAN ESCA Abhishek Nj MD Complications:None Delivery Location:[facility] 2018 IAB 2019 SAB 2021 Term 37w 4d 2.745 kg (6 lb 0.8 oz) F Vag-S pont Epidur al Livin bijan wood Complications: Karla yamileth Hypertension Delivery Location:[facility] 2021 Term 37w 4d 0h 07m 0h 07m 2.745 kg (6 lb 0.8 oz) F Vag-S pont Epidur al N Livin g 9 9 WALKER ,BABY GIRL FRANCSalvatore WALLACEA Salena wood MD Complications:None Delivery Location:[facility] ([facility] R) Current Last Filed Vital Signs Vital Sign Reading [...] 12/24/2024 8:39 AM CDT Plan of Treatment Health Maintenance Due Date Last Done Comments Cervical Cancer Screening 1993 Hepatitis C Screening 1993 Varicella Vaccines (2 of 2 - 2-dose childhood series) 04/15/1999 01/21/1999 Regular Well Visit/Exam 18-64 2011 Pneumococcal vaccine <65 (1 of 2 - PCV) 2012 Depression Screening 12/22/2019 12/21/2018 HPV Vaccines (1 - 3-dose SCD M series) 2020 Covid-19 Vaccine (2 - 2023-2 5 season) 2024 09/20/2020 Influenza Vaccine (#1) 2025 , 02/26/2017, 06/20/2011 DTaP/Tdap/Td Vaccine (11 - T d or Tdap) 07/20/2031 07/20/2021, 12/10/2016, 06/20/2011, Additional history exists Hepatitis B Screening Completed 1993 , 1993, 1993 Procedures Procedure Name Priority Date/Time [...] Result * eGFR (12/24/2024 9:26 AM CDT) Pathologist [facility] eGFR >90 >=60 mL/min/1. 73 m2 Comment: [...] was last reviewed 2021. Testing performed by: [facility], [facility] [address], [place] [address] Blood 12/24/2024 9:26 AM CDT 12/24/2024 9:32 AM CDT Yusra Wiseman NP LAB BLOOD ORDERABLES Fi nal Result [facility]SELL [address] [place] [address] * Differential, auto (12/24/2024 9:26 AM CDT) Pathologist [facility] Neutrophil abs 3.98 1.50 - 6.50 K/cumm Comment:Testing performed by : [facility], [facility] [address], [place] [address] Imm gran abs 0.02 0.00 - 0.10 K/cumm CERNER CH Comment:Testing performed by : [facility], [facility] [address], [place] [address] Lymphocyte abs 2.09 0.80 - 3.30 K/cumm CERNER CH Comment:Testing performed by : [facility], [facility] [address], [place] [address] Monocyte abs 0.63 0.20 - 0.80 K/cumm CERNER CH Comment:Testing performed by : [facility], [facility] [address], [place] [address] Eosinophil abs 0.18 0.00 - 0.50 K/cumm CERNER CH Comment:Testing performed by : [facility], [facility] [address], [place] [address] Basophil abs 0.01 0.00 - 0.10 K/cumm CERNER CH Comment:Testing performed by : [facility], [facility] [address], [place] [address] Neutrophil pct 57.7 % CERNER CH Comment: Interpretive Data Percent cell count reference ranges are not reported, since discordance with absolute values may lead to misinterpretation of CBC data. Current Interpretive Data was last revised on 2017. Testing performed by: [facility], [facility], [place] [address] Imm gran pct 0.3 % CERNER CH Comment: Interpretive Data Percent cell count reference ranges are not reported, since discordance with absolute values may lead to misinterpretation of CBC data. Current Interpretive Data was last revised on 2017. Testing performed by: [place] [address], [place] [address] Lymphocyte pct 30.2 % CERNER CH Comment: Interpretive Data Percent cell count reference ranges are not reported, since discordance with absolute values may lead to misinterpretation of CBC data. Current Interpretive Data was last revised on 2017. Testing performed by: [facility], [facility], [place] [address] Monocyte pct 9.1 % CERNER CH Comment: Interpretive Data Percent cell count reference ranges are not reported, since discordance with absolute values may lead to misinterpretation of CBC data. Current Interpretive Data was last revised on 2017. Testing performed [facility] [address], [place] [address] Eosinophil pct 2.6 % [facility] Comment: Interpretive Data Percent cell count reference ranges are not reported, since discordance with absolute values may lead to misinterpretation of CBC data. Current Interpretive Data was last revised on 2017. Testing performed by: [address], [place] [address] Basophil pct 0.1 % CERNER Comment: Interpretive Data Percent cell count reference ranges are not reported, since discordance with absolute values may lead to misinterpretation of CBC data. Current Interpretive Data was last revised on 2017. Testing performed by: [address], [place] [address] Blood 12/24/2024 9:26 AM CDT 12/24/2024 9:32 AM CDT Yusra Wiseman NP LAB BLOOD ORDERABLES nal Result [facility] [address] [address] [place] [address] * (ABNORMAL) CBC with auto differential (12/24/2024 9:26 AM CDT) WBC 6.91 3.80 - 9.90 K/cumm Comment:Testing performed by : [facility], [place] [address] Hgb 13.2 11.9 - 15.5 g/dL [facility] Comment:Testing performed by : [facility], [place] [address] Hct 40.0 35.6 - 45.5 % GAYATRINER Comment:Testing performed by : [address], [place] [address] Plt 259 150 - 400 K/cumm [facility] Comment:Testing performed by : [address], [place] [address] MPV 9.1 9.1 - 12.3 fL GAYATRINER Comment:Testing performed by : [facility], [address], [place] [address] RBC 4.93 3.90 - 5.20 M/cumm [facility] Comment:Testing performed by : [facility], [facility] [address] [place] [address] MCV 81.1(L) 81.3 - 96.4 fL [facility] Comment:Testing performed by : [facility] [address] [place] [address] MCH 26.8(L) 27.1 - 33.3 pg CERNER Comment:Testing performed by : [facility] [address] [place], [place] [address] MCHC 33.0 32.3 - 35.7 g/dL [facility] Comment:Testing performed by : [facility] [address] [place], [place] RDW CV 16.1(H) 11.1 - 14.9 % [facility] Comment:Testing performed by : [facility] [address] [place] [address] RDW SD 47.5 35.7 - 48.1 fL GAYATRINER Comment:Testing performed by : [facility] [address] [place], [place] [address] NRBC abs 0.00 0.00 - 0.01 K/cumm [facility] Comment:Testing performed by : [facility] [address] [place] [address] Blood Venous blood specimen / Unknown 12/24/2024 9:26 AM CDT 12/24/2024 9:32 AM CDT Yusra Wiseman NP LAB BLOOD ORDERABLES nal Result [facility] [address] [address] [place] [address] * (ABNORMAL) hCG, blood, quantitative (12/24/2024 9:26 AM CDT) [facility] hCG, quant 29,188.0( H) 0.0 - 5.0 IUnits/L Comment: Interpretive Data Male: < 5 IU/L Non- premenopausal Female: <5 IU/L The Karl hCG Beta Quant assay procedure was used. Results from different manufacturers or methods may not be comparable. Serial testing should be performed using the same method. Interpretive Data was last revised on 2023 Testing performed by: [facility], [place] [address] Blood 12/24/2024 9:26 AM CDT 12/24/2024 9:32 AM CDT Yusra Wiseman NP LAB BLOOD ORDERABLES Fi nal Result Performing Organization Address City/[facility]/ZIP Co de Phone Number [facility] [address] [address] [facility] [place] [address] * Lipase (12/24/2024 9:26 AM CDT) Lipase 14 10 - 99 Units/L Comment:Testing performed by : [facility], [place] [address] Blood 12/24/2024 9:26 AM CDT 12/24/2024 9:32 AM CDT Yusra Wiseman NP LAB BLOOD ORDERABLES Fi nal Result Performing Organization Address [facility] de Phone Number [facility] [address] [address] [facility] [place] [address] * (ABNORMAL) Comprehensive metabolic panel (12/24/2024 9:26 AM CDT) Sodium 136 135 - 145 mmol/L Comment:Testing performed by : [facility], [place] [address] Potassium, pl 3.7 3.3 - 4.9 mmol/L CERNER Comment:Testing performed by : [address], [place] [address] Chloride 101 97 - 110 mmol/L CERNER Comment:Testing performed by : [facility], [place] [address] CO2 17(L) 22 - 32 mmol/L CERNER CH Comment:Testing performed by : [address], [place] [address] Anion gap 18(H) 2 - 15 mmol/L CERNER Comment:Testing performed by : [facility], [place] [address] BUN 7 6 - 25 mg/dL CERNER CH Comment:Testing performed by : [facility], [place] [address] Creatinine 0.57(L) 0.60 - 1.10 mg/dL CERNER CH Comment:Testing performed by : [address], [place] [address] Glucose 85 70 - 199 mg/dL CERNER CH Comment: Interpretive Data Fasting glucose >/= 126 [...] was last revised 2022. Testing performed by: [facility] [place] [address] Calcium 9.7 8.5 - 10.3 mg/dL CERNER CH Comment:Testing performed by : [address], [place] [address] Bilirubin, total 0.4 0.1 - 1.2 mg/dL CERNER CH Comment:Testing performed by : [address], [place] [address] Protein, pl 7.4 6.5 - 8.5 g/dL CERNER CH Comment:Testing performed by : [facility], [place] [address] Albumin 4.0 3.5 - 5.0 g/dL CERNER CH Comment:Testing performed by : [facility], [place] [address] Alk phos 76 40 - 130 Units/L CERNER CH Comment:Testing performed by : [address], [place] [address] ALT 18 7 - 45 Units/L CERNER CH Comment:Testing performed by : [address], [place] [address] AST 21 10 - 45 Units/L CERNER CH Comment:Testing performed by : [facility], [address], [place] [address] Blood 12/24/2024 9:26 AM CDT 12/24/2024 9:32 AM CDT Yusra Wiseman NP LAB BLOOD ORDERABLES Fi nal Result [facility] [address] [address] Department [place] [address] * (ABNORMAL) POCT hCG, urine (12/24/2024 9:24 AM CDT) HCG, ur, POC Positive(A) Negative Lot Number [id number] QC Backgroud Clear Acceptable QC Control Line Acceptable Urine 12/24/2024 9:24 AM CDT Yusra Wiseman NP POINT OF CARE TEST ORDE RABLES Final Result * (ABNORMAL) Urinalysis reflex to microscopic and culture Urine (12/24/2024 9:06 AM CDT) Color, ur Yellow Yellow Comment:Testing performed by : [facility] [address], [place] [address] Clarity, ur Clear Clear [facility] Comment:Testing performed by : [facility], [place] [address] Specific gravity, ur 1.026 1.003 - 1.030 [facility] Comment:Testing performed by : [address], [place] [address] pH, urine 8.0 [facility] Comment: Interpretive Data U rine pH is affected by diet, medications, systemic acid-base disturbances, and renal tubular function. pH may affect urinary stone formation. For example, urine pH below 6.0 may help reduce the tendency for calcium phosphate stones and pH greater than 6.0 may reduce the tendency for uric acid stone formation. Source: [facility] [place] Current Interpretive Data was last revised on 2017 Testing performed by: [address], [place] [address] Protein, ur ql Trace Negative [facility] Comment:Testing performed by : [facility], [address], [place] [address] Glucose, ur ql Negative Negative CERNER CH Comment:Testing performed by : [facility], [address], [place] [address] Ketones, ur Trace Negative CERNER CH Comment:Testing performed by : [facility], [address], [place] [address] Bilirubin, ur Negative Negative CERNER CH Comment:Testing performed by : [facility], [address], [place] [address] Blood, ur Negative Negative CERNER CH Comment:Testing performed by : [facility], [address], [place] [address] Urobilinogen, ur 2.0(A) <2.0 mg/dL [facility] Comment:Testing performed by : [facility], [address], [place] [address] Nitrite, ur Negative Negative CERNER CH Comment:Testing performed by : [facility], [address], [place] [address] Leukocyte esterase, ur Negative Negative CERNER CH Comment:Testing performed by : [facility], [address], [place] [address] UA reflex comment Reflex conditions for microscopic UA and culture not met. GAYATRINER Comment:Testing performed by : [facility], [address], [place] [address] Urine 12/24/2024 9:06 AM CDT 12/24/2024 9:10 AM CDT Yusra Wiseman NP LAB MICROBIOLOGY - [facility] ORDERABLES Final Result [facility] [address] [address] Department [place] [address] * N. gonorrhoeae/C. trachomatis Amplification Vaginal (12/13/2024 [...] this test have been verified by the [facility]. The performance characteristics of this test have not been evaluated in individuals less than 14 years of age. Current Interpretive Data last revised 2023. Vaginal (None) 12/13/2024 2: 30 AM CDT 12/13/2024 2:34 AM CDT us Juan COLIN LAB MICROBIOLOGY - GENERAL O RDERABLES Final Result [facility] [address] [facility] Department [place] [address] * (ABNORMAL) Vaginitis panel Vaginal (12/13/2024 2:30 AM CDT) Bacterial Vaginosis Not Detected Not Detected Comment:A negative result do es not preclude a possible infection. Results should be considered in conjunction with clinical presentation to determine the disease status. Jada group Detected(A) Not Detected [facility] Comment:Jada species can be present as commensal organisms in women; results should be considered in conjunction with clinical presentation to determine the disease status. Jada glabrata/ krusei Not Detected Not Detected [facility] Trichomonas DNA Not Detected Not Detected [facility] Vaginal 12/13/2024 2:30 AM CDT 12/13/2024 2:34 AM CDT Narrative [facility] - 12/13/2024 3:34 AM CDT The [...] have been verified by the [facility]. The Cepheid Xpert Xpress MVP test [...] have been verified by the [facility]. Juan COLIN LAB MICROBIOLOGY - GENERAL O RDERABLES Final Result Performing Organization Address [facility] Co de Phone Number [facility] [address] [place] [address] * (ABNORMAL) Urinalysis reflex to microscopic and culture Urine (12/13/2024 2:30 AM CDT) Color, ur Straw Yellow Clarity, ur Cloudy(A) Clear [facility] Specific gravity, ur 1.018 1.003 - 1.030 [facility] pH, urine 6.0 [facility] Comment: Interpretive Data U rine pH is affected by diet, medications, systemic acid-base disturbances, and renal tubular function. pH may affect urinary stone formation. For example, urine pH below 6.0 may help reduce the tendency for calcium phosphate stones and pH greater than 6.0 may reduce the tendency for uric acid stone formation. Source: [facility] Current Interpretive Data was last revised on 2017 Protein, ur ql Negative Negative [facility] Glucose, ur ql Negative Negative [facility] Ketones, ur Negative Negative [facility] Bilirubin, ur Negative Negative [facility] Blood, ur 1+(A) Negative [facility] Urobilinogen, ur <2.0 <2.0 mg/dL [facility] Nitrite, ur Negative Negative [facility] Leukocyte esterase, ur 4+(A) Negative [facility] UA reflex comment Reflex to microscopic UA will be performed. [facility] Urine 12/13/2024 2:30 AM CDT 12/13/2024 2:34 AM CDT Juan Manuel Avitia DO LAB MICROBIOLOGY - GENERAL ORDERABLES Final Result Performing Organization Address City/[facility]/ZIP Co de Phone Number [facility] [address] [place] [address] * (ABNORMAL) Urinalysis, microscopic only (12/13/2024 2:30 AM CDT) WBC, ur 0-5 0 - 5 /HPF RBC, ur 11-20(A) 0 - 2 /HPF [facility] Epithelial cells, squamous, ur 11-20(A) 0 - 5 /HPF [facility] Comment:Suggestive of contam ination. Consider recollection by clean catch. Mucous, ur Present(A) [facility] Culture Reflex Comment Reflex conditions for urine culture (WBC >10) not met. [facility] Urine 12/13/2024 2:30 AM CDT 12/13/2024 2:34 AM CDT Juan Manuel Avitia DO LAB URINE ORDERABLES Final Result Performing Organization Address [facility] de Phone Number [address] [address] * Urine culture Urine (12/13/2024 2:30 AM CDT) Report Final Report: Growth indicative of contamination with periurethral slava. Please submit a new specimen with special attention given to the collection process and to prompt transport to the laboratory. Comment:Testing performed by : [facility], [address] [facility] [place] [address] Organism GROWTH INDICATES CONTAM WITH PERIURETHRAL SLAVA. [facility] Urine 12/13/2024 2:30 AM CDT 12/13/2024 9:22 AM CDT Narrative [facility] - 12/14/2024 2:33 PM CDT Testing performed by [facility] Microbiology Laboratory ([phone]) Juan COLIN LAB MICROBIOLOGY - GENERAL O RDERABLES Final Result Performing Organization Address City/[facility]/ZIP Co de Phone Number [address] [place] [address] * (ABNORMAL) POCT hCG, urine (12/13/2024 2:27 AM CDT) Pathologist [facility] HCG, ur, POC Positive(A) Negative Lot Number [id number] QC Backgroud Clear Acceptable QC Control Line Acceptable Urine 12/13/2024 2:27 AM CDT Juan Manuel Avitia DO POINT OF CARE TEST ORDERABL ES Final Result * hCG, blood, quantitative (10/07/2024 9:32 AM CDT) Pathologist [facility] hCG, quant <5.0 0.0 - 5.0 IUnits/L [...] S Edited Result - Final [facility] [address] Department of Laboratories [place], [place] [id number] * ECG 12 lead (10/07/2024 8:59 AM CDT) 10/07/2024 8:59 AM CDT Narrative [facility] - 10/07/2024 10:23 AM CDT Vent Rate: 68 bpm RR Interval: 870 msec [place] Interval: 131 msec QRS Duration: 80 msec QT Interval: 374 msec QTC Interval: 392 msec P-R-T [place]: 11 - 30 - 19 degrees IMPRESSION: SINUS RHYTHM NORMAL ECG Electronically Signed By: Antolin Min MD Darryl Glover MD ECG ORDERABLES Fin al Result [facility] * eGFR (10/07/2024 8:50 AM CDT) Pathologist [facility] eGFR >90 >=60 mL/min/1. 73 m2 Comment: [...] LAB BLOOD ORDERABLE S Final Result [facility] ([place]) [address] [facility] Department [place] [address] * Differential, auto (10/07/2024 8:50 AM CDT) Pathologist [facility] Neutrophil abs 2.58 1.50 - 6.50 K/cumm [...] Neutrophil pct 51.3 % [facility] ([place]) Comment: Interpretive Data Percent cell count reference [...] revised on 2017. Monocyte pct 8.4 % [facility] ([place]) Comment: Interpretive Data Percent cell [...] revised on 2017. Basophil pct 0.4 % [facility] ([place]) Comment: Interpretive Data Percent cell count reference ranges are not reported, since discordance with absolute values may lead to misinterpretation of CBC data. Current Interpretive Data was last revised on 2017. Blood 10/07/2024 8:50 AM CDT 10/07/2024 9:03 AM CDT us Darryl Glover MD LAB BLOOD ORDERABLE S Final Result [facility] ([place]) [address] [facility] Department of Laboratories [place], [place] [id number] * (ABNORMAL) CBC with auto differential (10/07/2024 8:50 AM CDT) WBC 5.02 3.80 - 9.90 K/cumm Hgb 12.4 11.9 - 15.5 g/dL [facility] ([place]) Hct 38.0 35.6 - 45.5 % [...] S Final Result [facility] ([place]) [address] [facility] [employer] [place] [address] * ABO/Rh (10/07/2024 8:50 AM CDT) ABO/Rh B Negative Blood 10/07/2024 8:50 AM CDT 10/07/2024 9:03 AM CDT Narrative [facility] ([place]) - 10/07/2024 9:40 AM CDT Has the patient had Daratumumab or Isatuximab in the past 6 months?->Unknown us Darryl Glover MD LAB BLOOD BANK TEST ORDERABLES Final Result [facility] ([place]) [address] [facility] [employer] [place] [address] * Antibody screen (10/07/2024 8:50 AM CDT) Pam, indirect, Gel Interpretation Negative ABSC Blood 10/07/2024 8:50 AM CDT 10/07/2024 9:03 AM CDT Narrative [facility] ([place]) - 10/07/2024 9:40 AM CDT Has the patient had Daratumumab or Isatuximab in the past 6 months?->Unknown Darryl Glover MD LAB BLOOD BANK TEST ORDERABLES Final Result [facility] ([place]) [address] [facility] Department [place] [address] * Basic metabolic panel (10/07/2024 8:50 AM CDT) Sodium 137 135 - 145 mmol/L Potassium, pl 4.1 3.3 - 4.9 mmol/L [facility] ([place]) Chloride 104 97 - 110 mmol/L [facility] ([place]) CO2 22 22 - 32 mmol/L [facility] ([place] Anion gap 11 2 - 15 mmol/L [facility] ([place]) BUN 11 6 - 25 mg/dL [facility] ([place]) Creatinine 0.64 0.60 - 1.10 mg/dL [facility] ([place]) Glucose 96 70 - 199 mg/dL [facility] ([facility]AMES) Comment: Interpretive Data Fasting [...] 2022. Calcium 9.0 8.5 - 10.3 mg/dL [facility] ([facility]) Blood 10/07/2024 8:50 AM CDT 10/07/2024 9:03 AM CDT us Darryl Glover MD LAB BLOOD ORDERABLE S Final Result [facility] ([facility]) [facility] [place] [address] from Last 3 Months Insurance [employer] EXCHANGE [employer] Care Teams Internet Researcher Relationship Specialty Start Date End Date No, Physician PCP - General 10/07/24
[2025-01-04 07:20] VITALS: BP 113/75; PULSE 101; RESP 17; TEMP 36.7; O2SAT 100
--- NOTE | 2025-01-04 07:52 | PC.NURSE ---
patient to ultrasound at this time
[2025-01-04 07:54] LABS: Hematocrit 39.2 % (37.0-47.0); Hemoglobin 12.7 g/dL (12.0-15.0); Immature Granulocyte Percent A 0.2 % (0-0.5); Lymphocytes Absolute Auto 2.60 K/mm3 (0.9-3.2); Mean Corpuscular HGB Conc 32.4 g/dl (32-36); Mean Corpuscular Hemoglobin 26.2 pg (26-34); Mean Corpuscular Volume 80.8 fl (80-100); Nucleated Red Blood Cells Absolute Auto 0.000 K/mm3 (0.0-0.012); Nucleated Red Blood Cells Perc 0.0 % (0.0-0.2); Platelet Count Result 251 k/mm3 (150-375); Red Blood Count 4.85 M/mm3 (4.2-5.4); White Blood Count 10.3 K/mm3 (4.5-10.0)
--- OUTSIDE RECORDS SUMMARY | 2025-01-04 08:01 | XMS_ITS | Clinical Summary ---
Author Organization [facility] Address [address] [place] [address] Care Team Providers Care Oyster Fisherman Name Role Phone Unavailable Primary Care Provider [...] TRICH (08/26/2021 10:22 AM CDT) SEE NOTE [facility] Comment: This order for age-based cervical cancer and STI screening follows ACOG guidelines(PB 168, 140, PMG421). See individual assays for performing site location. CLINICAL INFORMATION [facility] Comment:Information not prov ided LAST MENSTRUAL PERIOD [facility] Comment:INFORMATION NOT PROV IDED PREV PAP: [facility] Comment:INFORMATION NOT PROV IDED PREV BX: [facility] Comment:INFORMATION NOT PROV IDED SOURCE [facility] Comment:Endocervix ADEQUACY: [facility] Comment: Satisfactory for evaluation. Endocervical/transformation zone component present. Age and/or menstrual status not provided PAP INTERP [facility] Comment:Negative for intraep ithelial lesion or malignancy. COMMENT (PAP TEST) [facility] Comment: This Pap test has been evaluated with computer assisted technology. AQUATIC PERFORMER: [facility] Comment: SAMAGNES(ASCP) CT screening location: [place] [address] [place] [address] SEE NOTE [facility] Comment: EXPLANATORY NOTE: The Pap is [...] DETECTED [facility] N.GONORRHOEAE RNA, TMA NOT DETECTED NOT DETECTED [facility] SEE NOTE [facility] Comment: The analytical performance characteristics of this assay, when used to test SurePath(TM) specimens have been determined by [employer]. The modifications have not been cleared or approved by the FDA. This assay has been validated pursuant to the CLIA regulations and is used for clinical purposes. For additional information, please refer to https://BuzzStarter.Spire/faq/IIX780 (This link is being provided for information/ educational purposes only.) TRICHOMONAS VAGINALIS,QUALITAT LAYNE,PAP VIAL NOT DETECTED NOT DETECTED [facility] Comment: The analytical performance characteristics of this assay have been determined by [facility] [employer]. The modifications have not been cleared or approved by the FDA. This assay has been validated pursuant to the CLIA regulations and is used for clinical purposes. For additional information, please refer to http://BuzzStarter.Spire/ faq/Trichomonastma (This link is being provided for information/ educational purposes only.) Test Performed at: [facility] [address] [place] [address] Andrea Mix D.O., MPH Genital SWAB OF ENDOCERVIX / Unknown 08/26/2021 10:22 AM CDT 08/27/2021 4:04 AM CDT Aba Gutierrez MD PATHOLOGY/CYTOLOGY ORDERABLES Final Result Performing Organization Address City/State/[facility] Co de Phone Number [facility] [address] [place] [address] from Last 3 Months or Most Recently Relevant to Health Maintenance Insurance BCBS TRUE BLUE PPO EXCHANGE
--- OUTSIDE RECORDS SUMMARY | 2025-01-04 08:01 | XMS_ITS | Encounter Summary ---
Author Organization [facility] Address [address] [place] [address] Care Team Providers Care Noodle Maker Name Role Phone No, Physician Primary Care Provider [phone] Encounter Details Date Type Department Care Team (Late st Contact Info) Description 12/14/2024 Results Follow-Up [address] [address] [address] Vaginitis panel Vaginal Social History Tobacco Use [...] on file Legal Sex Female 9:34 AM HEALTHCARE MARKET CONSULTANT Gender Identity Female 07/10/2020 2:40 PM HEALTHCARE MARKET CONSULTANT Sexual Orientation Straight 07/10/2020 2: 40 PM HEALTHCARE MARKET CONSULTANT documented as of this encounter Miscellaneous Notes * Result Encounter Note - Shayna Dean RN - 12/15/2024 12:40 PM CDT This RN spoke to patient about abnormal test results and plan of care , called prescription in to [facility] [address] in [place] per patients request. documented in this encounter Plan of Treatment Not on file documented as of this encounter Visit Diagnoses Not on filedocumented in this encounter Care Teams Noodle Maker Relationship Specialty Start Date End Date No, Physician PCP - General 10/07/24 documented as of this encounter
--- OUTSIDE RECORDS SUMMARY | 2025-01-04 08:01 | XMS_ITS | Clinical Summary ---
Author Organization [facility] Address [address] [place] [address] Care Team Providers Care Barrel And Receiver Aligner Name Role Phone [facility] Primary Care Pro vider Source Comments [facility],non-[facility] Affiliates and Associated Physician Practices is amultiple site organization consisting of ambulatory clinics and hospital sitesin [place], [place], [place] and [place]. This disclosure is being madepursuant to the Care Everywhere program and may not contain all information available regarding this patient. Last updated 18.[facility] Allergies Active Allergy Reactions Criticality Noted [...] fluticasone propionate (Flonase) 50 MCG/ACT nasal spray Finley 2 (two) sprays into each nostril once [...] ing 20 tablet 03/28/2024 Active HYDROcodone-lilian taminophen ([place]) 5-325 MG tabletIndicatio ns:Acute maxillary sinusitis, recurrence [...] Overview (11/11/2016): She sees Dr. Jean at [facility]. She discontinued Seroquel with positive test. [...] place to sleep or slept in a longterm (including now)? No 05/11/2022 Butler Depression Scale Answer Date Recorded RETIRED: Total Score 0 05/08/2022 Last EPDS Self Harm Result Not on file 05/08 Comments No Sex and Gender Information Value Date Recorded Sex Assigned at Not on file Legal Sex Female 6:05 AM FLOOR COVERINGS SALESPERSON Gender Identity Not on file Sexual Orientation Not on file Last Filed Vital Signs Vital Sign Reading Time Taken Comments Blood Pressure 147/96 05/28/2024 11:26 PM FLOOR COVERINGS SALESPERSON Pulse 65 05/28/2024 11:26 PM FLOOR COVERINGS SALESPERSON Temperature 36.7 C (98.1 F) 05/28/2024 11:26 PM FLOOR COVERINGS SALESPERSON Respiratory Rate 18 05/28/2024 11:26 PM FLOOR COVERINGS SALESPERSON Oxygen Saturation 95% 05/28/2024 11:26 PM FLOOR COVERINGS SALESPERSON Inhaled Oxygen Concentration - - Weight 70.8 kg (156 lb) 05/28/2024 11:26 PM FLOOR COVERINGS SALESPERSON Height 157.5 cm (5' 2) 05/28/2024 11:26 PM FLOOR COVERINGS SALESPERSON Body Mass Index 28.53 05/28/2024 11:26 PM FLOOR COVERINGS SALESPERSON Plan of Treatment Health Maintenance Due Date [...] RFLX HPV ASCU Routine 08/05/2016 12:37 PM FLOOR COVERINGS SALESPERSON 10 weeks gestation of HIV-1 HIV-2 ANTIBODY + HIV P24 AG PANEL Routine 08/05/2016 12:35 PM FLOOR COVERINGS SALESPERSON 10 weeks gestation of from Last 3 Months or Most Recently Relevant to Health Maintenance Results * PAP SMEAR IG RFLX HPV ASCU (PO REF LAB) (08/05/2016 12:37 PM FLOOR COVERINGS SALESPERSON) Diagnosis Comment 08/06/2016 9:08 PM FLOOR COVERINGS SALESPERSON [facility] Comment:NEGATIVE FOR INTRAEP ITHELIAL LESION AND MALIGNANCY. Specimen Adequacy Comment 017 9:08 PM FLOOR COVERINGS SALESPERSON [facility] Comment: Satisfactory for evaluation. Endocervical and/or squamous metaplastic cells (endocervical component) are present. Performed by Comment 08/06/2016 9:08 PM FLOOR COVERINGS SALESPERSON [facility] Comment:Rubi Medley [employer] hnologist (ASCP) Comment . 08/06/2016 9:08 PM FLOOR COVERINGS SALESPERSON [facility] Note Comment 08/06/2016 9:08 PM FLOOR COVERINGS SALESPERSON [facility] Comment: The Pap smear is a screening test designed to aid in the detection of premalignant and malignant conditions of the uterine cervix. It is not a diagnostic procedure and should not be used as the sole means of detecting cervical cancer. Both false-positive and false-negative reports do occur. IGLBP CPT Code Automation Comment 08/06/2016 9:08 PM FLOOR COVERINGS SALESPERSON [facility] Comment: This liquid based ThinPrep(R) pap test was screened with the use of an image guided system. Note Comment 08/06/2016 9:08 PM FLOOR COVERINGS SALESPERSON [facility] Comment: The HPV DNA reflex criteria were not met with this specimen result therefore, no HPV testing was performed. Pathology/Cytolo gy PART OF UTERINE CERVIX / Unknown 08/05/2016 12:37 PM FLOOR COVERINGS SALESPERSON 08/05/2016 1:19 PM FLOOR COVERINGS SALESPERSON Narrative [facility] - 08/06/2016 9:08 PM FLOOR COVERINGS SALESPERSON Performed at: [address] [place] [id number] Mercantile Reporter: Rayna Cuevas MD, Phone: [phone] Specimen Comment: Source.............Cervix Specimen Comment: No. of containers..01 CYTYC Thin Prep Vial us Gaye Stephens MD LAB - PATHOLOGY/CYTOLOGY ORDE RABILIANA Final Result [facility] ([facility]) [address] [place] [address] * HIV-1 HIV-2 ANTIBODY + HIV P24 AG PANEL (08/05/2016 12:35 PM FLOOR COVERINGS SALESPERSON) HIV1/2 Ab + P24 Ag Non Reactive Non Reactive 08/05/2016 6:49 PM FLOOR COVERINGS SALESPERSON [facility] Blood BLOOD SPECIMEN / Unknown 08/05/2016 12:35 PM FLOOR COVERINGS SALESPERSON 08/05/2016 1:10 PM FLOOR COVERINGS SALESPERSON Narrative [facility] - 08/05/2016 6:49 PM FLOOR COVERINGS SALESPERSON No Laboratory evidence of HIV infection. us Gaye Stephens MD LAB - CHEMISTRY ORDERABLES Fi nal Result [facility] [address] [place] [address] from Last 3 Months or Most Recently Relevant to Health Maintenance Insurance [place] [employer] [place] MEDICA[place] - [facility] COMMUNITY PLAN [place]ID - [place] MEDICAID [...] 12:53 PM 02/27/2017 12:50 PM Care Teams Barrel And Receiver Aligner Relationship Specialty Start Date End Date [facility] [address] [place] [address] PCP - General Production Team Advisor 01/30/22
--- OUTSIDE RECORDS SUMMARY | 2025-01-04 08:02 | XMS_ITS | Referral Summary ---
Author Organization [facility] Physician Office Building [address] [place] [id number] Care Team Providers Care Piano Technician Name Role Phone No, Physician Primary Care Provider [phone] Encounters Date Type Department Care Team Description 12/24/2024 8:46 AM CDT - 12/24/2024 11:57 AM CDT Emergency [facility] Emergency Department [address] [place] [id number] Nausea and vomiting in (Primary Dx) Discharge Disposition: Discharge to home or self care 12/15/[address] [address] Shayna Dean, RN 12/15/[address] [address] Shayna Dean, RN 12/14/[address] [address] Shayna Dean RN 12/14/2024 Results Follow-Up [address] [address] Juan Samson PA Vaginitis panel Vaginal 12/13/2024 2:30 AM CDT - 12/13/2024 3:25 AM CDT Emergency [address] [address] Positive test (Primary Dx); Vaginal irritation Discharge Disposition: Discharge to home or self care 10/07/2024 8:42 AM CDT - 10/07/2024 10:26 AM CDT Emergency [facility] Emergency Department [address] [place] [id number] Darryl Glover MD Dysfunctional uterine bleeding (Primary [...] linked with therapist. Her Referred to [facility] for trauma focused therapy. Start Prozac [...] on file Legal Sex Female 9:34 AM [employer] Gender Identity Female 07/10/2020 2:40 PM [employer]IL [employer]BER Sexual Orientation Straight 07/10/2020 2: 40 PM [employer]IL [employer]BER Last Filed Vital Signs Vital Sign Reading [...] was last reviewed 2021. Testing performed by: [facility] [address] [address], [place] [address] Blood 12/24/2024 9:26 AM CDT 12/24/2024 9:32 AM CDT Yusra Wiseman NP LAB BLOOD ORDERABLES nal Result [facility] [address] [address] Department [place] [address] * Differential, auto (12/24/2024 9:26 AM CDT) Neutrophil abs 3.98 1.50 - 6.50 K/cumm Comment:Testing performed by : [facility] [address], [place] [address] Imm gran abs 0.02 0.00 - 0.10 K/cumm [facility] RUSSELL Comment:Testing performed by : [facility] [address], [place] [address] Lymphocyte abs 2.09 0.80 - 3.30 K/cumm [facility] RUSSELL Comment:Testing performed by : [facility] [address], [place] [address] Monocyte abs 0.63 0.20 - 0.80 K/cumm [facility] RUSSELL Comment:Testing performed by : [facility] [address], [place] [address] Eosinophil abs 0.18 0.00 - 0.50 K/cumm CERNER CH Comment:Testing performed by : [facility], [address] [place] [address] Basophil abs 0.01 0.00 - 0.10 K/cumm CERNER CH Comment:Testing performed by : [facility], [facility] [place] [address] Neutrophil pct 57.7 % CERNER CH Comment: Interpretive Data Percent cell count reference ranges are not reported, since discordance with absolute values may lead to misinterpretation of CBC data. Current Interpretive Data was last revised on 2017. Testing performed by: [facility], [facility] [place] [address] Imm gran pct 0.3 % CERNER CH Comment: Interpretive Data Percent cell count reference ranges are not reported, since discordance with absolute values may lead to misinterpretation of CBC data. Current Interpretive Data was last revised on 2017. Testing performed by: [place] [address] [place] [address] Lymphocyte pct 30.2 % CERNER CH Comment: Interpretive Data Percent cell count reference ranges are not reported, since discordance with absolute values may lead to misinterpretation of CBC data. Current Interpretive Data was last revised on 2017. Testing performed by: [place] [address] [place] [address] Monocyte pct 9.1 % CERNER CH Comment: Interpretive Data Percent cell count reference ranges are not reported, since discordance with absolute values may lead to misinterpretation of CBC data. Current Interpretive Data was last revised on 2017. Testing performed by: [place] [address] [address] Eosinophil pct 2.6 % CERNER CH Comment: Interpretive Data Percent cell count reference ranges are not reported, since discordance with absolute values may lead to misinterpretation of CBC data. Current Interpretive Data was last revised on 2017. Testing performed by: [facility], [facility] [place] [address] Basophil pct 0.1 % CERNER CH Comment: Interpretive Data Percent cell count reference ranges are not reported, since discordance with absolute values may lead to misinterpretation of CBC data. Current Interpretive Data was last revised on 2017. Testing performed by: [facility] [address], [place] [address] Blood 12/24/2024 9:26 AM CDT 12/24/2024 9:32 AM CDT Yusra Wiseman MANAGER PAYMENT LAB BLOOD ORDERABLES Fi nal Result [facility] [address] [address] Department [place] [address] * (ABNORMAL) CBC with auto differential (12/24/2024 9:26 AM CDT) WBC 6.91 3.80 - 9.90 K/cumm Comment:Testing performed by : [facility] [address], [place] [address] Hgb 13.2 11.9 - 15.5 g/dL CERNER CH Comment:Testing performed by : [facility] [address], [place] [address] Hct 40.0 35.6 - 45.5 % CERNER CH Comment:Testing performed by : [facility] [address], [place] [address] Plt 259 150 - 400 K/cumm CERNER CH Comment:Testing performed by : [facility] [address] [address], [place] [address] MPV 9.1 9.1 - 12.3 fL CERNER CH Comment:Testing performed by : [facility] [address], [place] [address] RBC 4.93 3.90 - 5.20 M/cumm CERNER CH Comment:Testing performed by : [facility] [address] [address], [place] [address] MCV 81.1(L) 81.3 - 96.4 fL CERNER CH Comment:Testing performed by : [facility] [address] [address], [place] [address] MCH 26.8(L) 27.1 - 33.3 pg CERNER CH Comment:Testing performed by : [facility] [address], [place] [address] MCHC 33.0 32.3 - 35.7 g/dL CERNER CH Comment:Testing performed by : [facility] [address] [address], [place] [facility] RDW CV 16.1(H) 11.1 - 14.9 % [facility] Comment:Testing performed by : [facility], [place] [address] RDW SD 47.5 35.7 - 48.1 fL [facility] Comment:Testing performed by : [facility], [place] [address] NRBC abs 0.00 0.00 - 0.01 K/cumm [facility] Comment:Testing performed by : [facility], [address] [place], [facility]31 Blood Venous blood specimen / Unknown 12/24/2024 9:26 AM CDT 12/24/2024 9:32 AM CDT Yusra Wiseman NP LAB BLOOD ORDERABLES Fi nal Result Performing Organization Address [facility] de Phone Number [facility] [address] [address] [facility] [place] [place] [address] * (ABNORMAL) hCG, blood, quantitative (12/24/2024 9:26 AM CDT) [facility] hCG, quant 29,188.0( H) 0.0 - 5.0 IUnits/L Comment: Interpretive Data Male: < 5 IU/L Non- premenopausal Female: <5 IU/L The Karl hCG Beta Quant assay procedure was used. Results from different manufacturers or methods may not be comparable. Serial testing should be performed using the same method. Interpretive Data was last revised on 2023 Testing performed by: [facility], [place] [address] Blood 12/24/2024 9:26 AM CDT 12/24/2024 9:32 AM CDT Yusra Wiseman NP LAB BLOOD ORDERABLES Fi nal Result Performing Organization Address [facility] Co de Phone Number [facility] [address] [address] [facility] [place] [place] [address] * Lipase (12/24/2024 9:26 AM CDT) Lipase 14 10 - 99 Units/L Comment:Testing performed by : [facility] [address] [place] [address] Blood 12/24/2024 9:26 AM CDT 12/24/2024 9:32 AM CDT Yusra Wiseman NP LAB BLOOD ORDERABLES Fi nal Result [facility] [address] [address] Department [place] [address] * (ABNORMAL) Comprehensive metabolic panel (12/24/2024 9:26 AM CDT) Pathologist [facility] Sodium 136 135 - 145 mmol/L Comment:Testing performed by : [facility] [address] [address], [place] [address] Potassium, pl 3.7 3.3 - 4.9 mmol/L CERNER Comment:Testing performed by : [facility] [address], [place] [address] Chloride 101 97 - 110 mmol/L CERNER Comment:Testing performed by : [facility] [address], [place] [address] CO2 17(L) 22 - 32 mmol/L CERNER Comment:Testing performed by : [facility] [address] [address], [place] [address] Anion gap 18(H) 2 - 15 mmol/L [facility] Comment:Testing performed by : [facility] [address], [place] [address] BUN 7 6 - 25 mg/dL [facility] Comment:Testing performed by : [facility] [address], [place] [address] Creatinine 0.57(L) 0.60 - 1.10 mg/dL CERNER Comment:Testing performed by : [facility] [address], [place] [address] Glucose 85 70 - 199 mg/dL [facility] Comment: Interpretive Data Fasting glucose >/= 126 [...] was last revised 2022. Testing performed by: [facility] [place] [address] Calcium 9.7 8.5 - 10.3 mg/dL CERNER Comment:Testing performed by : [facility] [address] [address], [place] [address] Bilirubin, total 0.4 0.1 - 1.2 mg/dL CERNER CH Comment:Testing performed by : [facility] [place] [address] Protein, pl 7.4 6.5 - 8.5 g/dL CERNER CH Comment:Testing performed by : [facility] [place] [address] Albumin 4.0 3.5 - 5.0 g/dL CERNER Comment:Testing performed by : [facility] [address], [place] [address] Alk phos 76 40 - 130 Units/L CERNER Comment:Testing performed by : [facility] [address], [place] [address] ALT 18 7 - 45 Units/L CERNER Comment:Testing performed by : [facility] [address] [place] [address] AST 21 10 - 45 Units/L CERNER Comment:Testing performed by : [facility] [place] [address] Blood 12/24/2024 9:26 AM CDT 12/24/2024 9:32 AM CDT us Yusra Wiseman NP LAB BLOOD ORDERABLES Fi nal Result [facility] [address] [address] Department [place] [address] * (ABNORMAL) POCT hCG, urine [...] ur Yellow Yellow Comment:Testing performed by : [facility], [place] [address] Clarity, ur Clear Clear CERNER CH Comment:Testing performed by : [facility] [address] [address], [place] [address] Specific gravity, ur 1.026 1.003 - 1.030 CERNER CH Comment:Testing performed by : [facility] [address], [place] [address] pH, urine 8.0 CERNER CH Comment: Interpretive Data U rine pH is affected by diet, medications, systemic acid-base disturbances, and renal tubular function. pH may affect urinary stone formation. For example, urine pH below 6.0 may help reduce the tendency for calcium phosphate stones and pH greater than 6.0 may reduce the tendency for uric acid stone formation. Source: [employer] Current Interpretive Data was last revised on 2017 Testing performed by: [facility] [address], [place] [address] Protein, ur ql Trace Negative CERNER CH Comment:Testing performed by : [facility] [address] [address], [place] [address] Glucose, ur ql Negative Negative CERNER CH Comment:Testing performed by : [facility] [address], [place] [address] Ketones, ur Trace Negative CERNER CH Comment:Testing performed by : [facility] [address], [place] [address] Bilirubin, ur Negative Negative CERNER CH Comment:Testing performed by : [facility] [address] [address], [place] [address] Blood, ur Negative Negative CERNER CH Comment:Testing performed by : [facility] [address], [place] [address] Urobilinogen, ur 2.0(A) <2.0 mg/dL CERNER CH Comment:Testing performed by : [facility], [address], [place] [address] Nitrite, ur Negative Negative [facility] RUSSELL Comment:Testing performed by : [facility], [place] [address] Leukocyte esterase, ur Negative Negative [facility] RUSSELL Comment:Testing performed by : [facility], [address], [place] [address] UA reflex comment Reflex conditions for microscopic UA and culture not met. [facility] Comment:Testing performed by : [facility], [place] [address] Urine 12/24/2024 9:06 AM CDT 12/24/2024 9:10 AM CDT Yusra Wiseman NP LAB MICROBIOLOGY - GENE RAL ORDERABLES Final Result Performing Organization Address [facility] Co de Phone Number [facility] [address] [address] Department [place] [address] * N. gonorrhoeae/C. trachomatis Amplification Vaginal (12/13/2024 2:30 AM CDT) Pathologist [facility] C. trachomatis Not Detected Not Detected N. gonorrhoeae Not Detected Not Detected [facility] Comment: Interpretive Data This assay detects Chlamydia trachomatis and Neisseria gonorrhoeae by nucleic acid amplification testing (NAAT). This assay has been cleared by the [place] Food and Drug administration. The performance characteristics of this test have been verified by the [facility]. The performance characteristics of this test have not been evaluated in individuals less than 14 years of age. Current Interpretive Data last revised 2023. Vaginal (None) 12/13/2024 2: 30 AM CDT 12/13/2024 2:34 AM CDT Juan COLIN LAB MICROBIOLOGY - GENERAL O RDERABLES Final Result Performing Organization Address City/[facility]/ZIP Co de Phone Number [facility] [address] [facility] Department [place] [address] * (ABNORMAL) Vaginitis panel Vaginal (12/13/2024 2:30 AM CDT) Bacterial Vaginosis Not Detected Not Detected Comment:A negative result do es not preclude a possible infection. Results should be considered in conjunction with clinical presentation to determine the disease status. Jada group Detected(A) Not Detected [facility] Comment:Jada species can be present as commensal organisms in women; results should be considered in conjunction with clinical presentation to determine the disease status. Jada glabrata/ krusei Not Detected Not Detected [facility] Trichomonas DNA Not Detected Not Detected [facility] Vaginal 12/13/2024 2:30 AM CDT 12/13/2024 2:34 AM CDT Narrative [facility] - 12/13/2024 3:34 AM CDT The Cepheid [...] this test have been verified by the [facility]. The Cepheid Xpert Xpress MVP [...] this test have been verified by the [facility]. us Juan COLIN LAB MICROBIOLOGY - GENERAL O RDERABLES Final Result [facility] [address] [facility] Department [place] [address] * (ABNORMAL) Urinalysis reflex to microscopic and culture Urine (12/13/2024 2:30 AM CDT) Color, ur Straw Yellow Clarity, ur Cloudy(A) Clear [facility] Specific gravity, ur 1.018 1.003 - 1.030 [facility] pH, urine 6.0 [facility] Comment: Interpretive Data U rine pH is affected by diet, medications, systemic acid-base disturbances, and renal tubular function. pH may affect urinary stone formation. For example, urine pH below 6.0 may help reduce the tendency for calcium phosphate stones and pH greater than 6.0 may reduce the tendency for uric acid stone formation. Source: [facility] Current Interpretive Data was last revised on 2017 Protein, ur ql Negative Negative [facility] Glucose, ur ql Negative Negative [facility] Ketones, ur Negative Negative [facility] Bilirubin, ur Negative Negative [facility] Blood, ur 1+(A) Negative [facility] Urobilinogen, ur <2.0 <2.0 mg/dL [facility] Nitrite, ur Negative Negative [facility] Leukocyte esterase, ur 4+(A) Negative [facility] UA reflex comment Reflex to microscopic UA will be performed. [facility] Urine 12/13/2024 2:30 AM CDT 12/13/2024 2:34 AM CDT Juan Manuel Avitia DO LAB MICROBIOLOGY - GENERAL ORDERABLES Final Result [place] [address] [facility] Department [place] [address] * (ABNORMAL) Urinalysis, microscopic only (12/13/2024 2:30 AM CDT) WBC, ur 0-5 0 - 5 /HPF RBC, ur 11-20(A) 0 - 2 /HPF [facility] Epithelial cells, squamous, ur 11-20(A) 0 - 5 /HPF [facility] Comment:Suggestive of contam ination. Consider recollection by clean catch. Mucous, ur Present(A) [facility] Culture Reflex Comment Reflex conditions for urine culture (WBC >10) not met. [facility] Urine 12/13/2024 2:30 AM CDT 12/13/2024 2:34 AM CDT Juan Manuel Avitia DO LAB URINE ORDERABLES Final Result [facility] [place] [address] [facility] Department [place] [address] * Urine culture Urine (12/13/2024 2:30 AM CDT) Report Final Report: Growth indicative of contamination with periurethral slava. Please submit a new specimen with special attention given to the collection process and to prompt transport to the laboratory. Comment:Testing performed by : [facility], [address] [place] [address] Organism GROWTH INDICATES CONTAM WITH PERIURETHRAL SLAVA. [facility] Urine 12/13/2024 2:30 AM CDT 12/13/2024 9:22 AM CDT Narrative [facility] - 12/14/2024 2:33 PM CDT Testing performed by [facility] Microbiology Laboratory ([phone]) Juan COLIN LAB MICROBIOLOGY - GENERAL O RDERABLES Final Result [facility] [place] [address] [facility] Department [place] [address] * (ABNORMAL) POCT hCG, urine (12/13/2024 2:27 AM CDT) [facility] HCG, ur, POC Positive(A) Negative Lot Number [id number] QC Backgroud Clear Acceptable QC Control Line Acceptable Urine 12/13/2024 2:27 AM CDT Juan Manuel Avitia DO POINT OF CARE TEST ORDERABL ES Final Result * hCG, blood, quantitative (10/07/2024 9:32 AM CDT) [facility] hCG, quant <5.0 0.0 - 5.0 IUnits/L [...] S Edited Result - Final [facility] [place] ([place]) [address] [facility] Department of Laboratories [place] [id number] * ECG 12 lead (10/07/2024 8:59 AM CDT) 10/07/2024 8:59 AM CDT Narrative [facility] - 10/07/2024 10:23 AM CDT Vent Rate: 68 bpm RR Interval: 870 msec HI Interval: 131 msec QRS Duration: 80 msec QT Interval: 374 msec QTC Interval: 392 msec P-R-T Cutler: 11 - 30 - 19 degrees IMPRESSION: SINUS RHYTHM NORMAL ECG Electronically Signed By: Antolin Min MD Darryl Glover MD ECG ORDERABLES Fin al Result Performing Organization Address [facility] Co de Phone Number [facility] * eGFR (10/07/2024 8:50 AM CDT) eGFR [...] S Final Result [facility] ([place]) [address] [facility] [place] [address] * Differential, auto (10/07/2024 8:50 AM CDT) [...] S Final Result [facility] ([place]) [address] [facility] [place] [address] * (ABNORMAL) CBC with auto differential (10/07/2024 [...] 47.3 35.7 - 48.1 fL [facility] [place] ([place]) NRBC abs 0.00 0.00 - 0.01 K/cumm [facility] [place] ([place]) Blood 10/07/2024 8:50 AM CDT 10/07/2024 9:03 AM CDT Darryl Glvoer MD LAB BLOOD ORDERABLE S Final Result [facility] [place] ([place]) [address] [facility] [place] [address] * ABO/Rh (10/07/2024 8:50 AM CDT) ABO/Rh B Negative Blood 10/07/2024 8:50 AM CDT 10/07/2024 9:03 AM CDT Narrative [facility] [place] ([place]) - 10/07/2024 9:40 AM CDT Has the patient had Daratumumab or Isatuximab in the past 6 months?->Unknown us Darryl Glover MD LAB BLOOD BANK TEST ORDERABLES Final Result Performing Organization Address [facility] Co de Phone Number [facility] [place] ([place]) [address] [facility] [place] [address] * Antibody screen (10/07/2024 8:50 AM CDT) Pam, indirect, Gel Interpretation Negative ABSC Blood 10/07/2024 8:50 AM CDT 10/07/2024 9:03 AM CDT Narrative [facility] ([place]) - 10/07/2024 9:40 AM CDT Has the patient had Daratumumab or Isatuximab in the past 6 months?->Unknown Darryl Glover MD LAB BLOOD BANK TEST ORDERABLES Final Result Performing Organization Address City/[facility]/ZIP Co de Phone Number [facility] [place] ([place]) [address] [facility] [place] [address] * Basic metabolic panel (10/07/2024 8:50 AM CDT) Sodium 137 135 - 145 mmol/L Potassium, pl 4.1 3.3 - 4.9 mmol/L [facility] Chloride 104 97 - 110 mmol/L [facility] ([place]) CO2 22 22 - 32 mmol/L [facility] ([place]) Anion gap 11 2 - 15 mmol/L [facility] ([place]) BUN 11 6 - 25 mg/dL [facility] ([place]) Creatinine 0.64 0.60 - 1.10 mg/dL [facility] ([place]) Glucose 96 70 - 199 mg/dL [facility] ([place]) Comment: Interpretive Data Fasting glucose [...] Calcium 9.0 8.5 - 10.3 mg/dL [facility] ([place]) Blood 10/07/2024 8:50 AM CDT 10/07/2024 9:03 AM CDT us Darryl Glover MD LAB BLOOD ORDERABLE S Final Result [facility] NARANJO ([place]) [address] [facility] [place] [address] from Last 3 Months Insurance [employer] EXCHANGE BLUE [employer] EXCHANGE Care Teams Piano Technician Relationship Specialty Start Date End Date No, Physician PCP - General 10/07/24
--- OUTSIDE RECORDS SUMMARY | 2025-01-04 08:02 | XMS_ITS | Continuity of Care Document ---
Author Organization [employer] [facility] Address [address] [place] [address] Phone Care Team Providers Care Supervisor Lamp Shades Name Role Phone Hernan Lloyd DMD Unavailable [...] AN CARE, AT-RISK ENHANCED SERVICE PACKAGE (INCLUDES [id number]) OFFICE/OUTPATIENT VISIT, EST PRESCRIPTION DRUG, ORAL, NON CHEMOTHERAP EUTIC, NOS AZITHROMYCIN DIHYDRATE, ORAL, CAPSULES/P OWDER, 1 GRAM Wet beka, including preparations of va ginal, cervical or skin specimens COLLECTION OF VENOUS BLOOD BY VENIPUNCTU RE OFFICE/OUTPATIENT VISIT, EST CARE, AT-RISK ENHANCED SERVICE PACKAGE (INCLUDES [id number]) OFFICE/OUTPATIENT VISIT, EST COLLECTION OF VENOUS BLOOD BY VENIPUNCTU RE Voided Encounter care, at-risk assessment care, at-risk enhanced service; antepartum management MENTAL HEALTH ASSESSMENT, BY NON-PHYSICI AN SKIN TEST; TUBERCULOSIS, INTRADERMAL Dec OFFICE/OUTPATIENT VISIT, NEW Advance Directives Directive Yes / No Effective Date File Name No Information Encounters Encounter Description Practice Location Reason(s) For Visit Diagnoses Date Provider Providers Copied on Encounter [facility] , [address], [place], [place], [address], tel:[phone] [facility] Encounter for dental exam and cleaning w abnormal findings 7 Gabino Becerra. [address], [place], [place], [address]. tel:[phone] Referring Provider: Hernan Lloyd, [address], [place], [address]. tel:[phone] [facility] , [address], [place], [place], [address], tel:[phone] [facility] home visit (chief complaint) Routine follow-up [facility]. [address], [place], [place], [address], . tel:[phone] [facility] , [address], [place], [place], [address], tel:[phone] [facility] [place] No Information 2 [facility]. [address], [place], [place], [address], . tel:[phone] Consulting Provider: Arianne Samuels, [address], [place], [address]. tel:[phone] OFFICE/OUTPAT IENT VISIT, EST [employer] [facility] , [address], [place], [place], [address], [place] tel:[phone] [facility] [place] No Information 1 Bianca Bauman. [address], [place], [place], [address], . tel:[phone] OFFICE/OUTPAT IENT VISIT, EST [employer] [facility] , [address], [place], [place], [address], [place] tel:[phone] [facility] [place] Supervision of normal first 1 Rico Navas [address], [place], [place], [address], . tel:[phone] [employer] [facility] , [address], [place], [place], [address], tel:[phone] [facility] [place] No Information 1 [facility]. [address], [place], [address] [place] [address], . tel:[phone] Consulting Provider: Arianne Samuels, [address], [place], [address]. tel:[phone] OFFICE/OUTPAT IENT VISIT, [facility] [employer] [facility] , [address], [place], [place], [address], tel:[phone] [facility] [place] Supervision of other normal 1 Rico Navas [address], [place], [place], [address], . tel:[phone] [employer] [facility] , [address], [place], [place], [address], [place] tel:[phone] [facility] [place] Supervision of normal first 1 Rico Navas [address], [place], [place], [address], . tel:[phone] [employer] , [address], [place], [place], [address], tel:[phone] [facility] [place] pn intake (chief complaint) No Information No Information OFFICE/OUTPAT IENT VISIT, [facility] Alexandra [facility] , [address], [place], [place], [address], [place] tel:[phone] [facility] [place] Test (chief complaint)No te for school-Pregn italo (chief complaint) Irregular menstrual cycle Bianca Bauman. [address], [place], [place], [address], [place]. tel:[phone] Family History Family Member Type Diagnosis Age At Onset Father Problem (finding) hypertension Mother Problem (finding) hypertension Father Problem (finding) Maternal history of alice betes mellitus Payers Payer name Insurance type Covered green party ID [employer] pool(s) D Medicaid - Dental CI [id number] Social History Type Description Quantity Date Captured Comments Sex Female Smoking Status No Information Chief Complaint And Reason For Visit No Information Reason For Referral Reason For Referral No Information Plan Of Treatment Date Type Action Status Goal BMP fasting. Due on 011 due Referral Referred To: [facility] [address] [place], [id number] Ordered: Referral: [facility]. Radiology. ordered Future Order: Lab [...]
--- OUTSIDE RECORDS SUMMARY | 2025-01-04 08:02 | XMS_ITS | Clinical Summary ---
Author Organization [facility] Physician Office Building [address] [place] [id number] Care Team Providers Care Tree Feller Name Role Phone No, Physician Primary Care Provider [phone] Allergies Active Allergy Reactions Criticality Noted Date [...] be linked with therapist. Her Referred to [facility] for trauma focused therapy. Start Prozac [...] CDT - 12/24/2024 11:57 AM CDT Emergency [facility] Emergency Department [facility] [place] [address] Nausea and vomiting in (Primary Dx) Discharge Disposition: Discharge to home or self care 12/15/[address] [address] Shayna Dean RN 12/15/[address] [address] Shayna Dean RN 12/14/[address] [address] Shayna Dena RN 12/14/2024 Results Follow-Up [id number] [place] [address] Juan Samson PA Vaginitis panel Vaginal 12/13/2024 2:30 AM CDT - 12/13/2024 3:25 AM CDT Emergency [address] [address] Positive test (Primary Dx); Vaginal irritation Discharge Disposition: Discharge to home or self care 10/07/2024 8:42 AM CDT - 10/07/2024 10:26 AM CDT Emergency [facility] Emergency Department 1 [place] [address] Darryl Glover MD Dysfunctional uterine bleeding (Primary [...] on file Legal Sex Female 9:34 AM TUB TENDER Gender Identity Female 07/10/2020 2:40 PM TUB TENDER Sexual Orientation Straight 07/10/2020 2: 40 PM TUB TENDER Obstetrics History Para Term AB IAB SAB [...] WALKER ,BABY GIRL FRANCH ESCA Tara Delivery Location:[facility] 2013 AB 2015 IAB 2016 Term 39w 3d 0h 17m 0h 13m/0h 04m 2.91 kg (6 lb 6.7 oz) F Vag-S pont Epidur al N Livin g 8 9 WALKER ,BABY GIRL NIRANJAN ESCA Abhishek Nj MD Complications:None Delivery Location:[facility] 2018 IAB 2019 SAB 2021 Term 37w 4d 2.745 kg (6 lb 0.8 oz) F Vag-S pont Epidur al Livin bijan wood Complications: Karla yamileth Hypertension Delivery Location:[facility] 2021 Term 37w 4d 0h 07m 0h 07m 2.745 kg (6 lb 0.8 oz) F Vag-S pont Epidur al N Livin g 9 9 WALKER ,BABY GIRL FRANCSalvatore WALLACEA Salena wood MD Complications:None Delivery Location:[facility] ([facility] 5 R) Current Last Filed Vital [...] * eGFR (12/24/2024 9:26 AM CDT) Pathologist [facility] eGFR >90 >=60 mL/min/1. 73 m2 Comment: [...] was last reviewed 2021. Testing performed by: [facility], [facility] [address], [place] [address] Blood 12/24/2024 9:26 AM CDT 12/24/2024 9:32 AM CDT Yusra Wiseman NP LAB BLOOD ORDERABLES Fi nal Result [facility] R[facility]SELL [address] Department [place] [address] * Differential, auto (12/24/2024 9:26 AM CDT) Pathologist [facility] Neutrophil abs 3.98 1.50 - 6.50 K/cumm Comment:Testing performed by : [facility], [facility], [place] [address] Imm gran abs 0.02 0.00 - 0.10 K/cumm CERNER CH Comment:Testing performed by : [facility], [facility] [address], [place] [address] Lymphocyte abs 2.09 0.80 - 3.30 K/cumm CERNER CH Comment:Testing performed by : [facility], [facility] [address], [place] [address] Monocyte abs 0.63 0.20 - 0.80 K/cumm CERNER CH Comment:Testing performed by : [facility], [facility] [address], [place] [address] Eosinophil abs 0.18 0.00 - 0.50 K/cumm CERNER CH Comment:Testing performed by : [facility], [facility] [address], [place] [address] Basophil abs 0.01 0.00 - 0.10 K/cumm CERNER CH Comment:Testing performed by : [facility], [facility] [address], [place] [address] Neutrophil pct 57.7 % CERNER CH Comment: Interpretive Data Percent cell count reference ranges are not reported, since discordance with absolute values may lead to misinterpretation of CBC data. Current Interpretive Data was last revised on 2017. Testing performed by: [facility], [facility], [place] [address] Imm gran pct 0.3 % C[facility]ER CH Comment: Interpretive Data Percent cell count reference ranges are not reported, since discordance with absolute values may lead to misinterpretation of CBC data. Current Interpretive Data was last revised on 2017. Testing performed by: [address], [place] [address] Lymphocyte pct 30.2 % [facility]ER CH Comment: Interpretive Data Percent cell count reference ranges are not reported, since discordance with absolute values may lead to misinterpretation of CBC data. Current Interpretive Data was last revised on 2017. Testing performed by: [facility], [facility], [place] [address] Monocyte pct 9.1 % C[facility]ER CH Comment: Interpretive Data Percent cell count reference ranges are not reported, since discordance with absolute values may lead to misinterpretation of CBC data. Current Interpretive Data was last revised on 2017. Testing performed by: [address], [place] [address] Eosinophil pct 2.6 % [facility] Comment: Interpretive Data Percent cell count reference ranges are not reported, since discordance with absolute values may lead to misinterpretation of CBC data. Current Interpretive Data was last revised on 2017. Testing performed by: [address], [place] [address] Basophil pct 0.1 % CERNER Comment: Interpretive Data Percent cell count reference ranges are not reported, since discordance with absolute values may lead to misinterpretation of CBC data. Current Interpretive Data was last revised on 2017. Testing performed by: [address], [place] [address] Blood 12/24/2024 9:26 AM CDT 12/24/2024 9:32 AM CDT Yusra Wiseman NP LAB BLOOD ORDERABLES nal Result [facility] [address] [address] Department [place] [address] * (ABNORMAL) CBC with auto differential (12/24/2024 9:26 AM CDT) WBC 6.91 3.80 - 9.90 K/cumm Comment:Testing performed by : [address], [place] [address] Hgb 13.2 11.9 - 15.5 g/dL [facility] Comment:Testing performed by : [address], [place] [address] Hct 40.0 35.6 - 45.5 % GAYATRINER Comment:Testing performed by : [address], [place] [address] Plt 259 150 - 400 K/cumm [facility] Comment:Testing performed by : [address], [place] [address] MPV 9.1 9.1 - 12.3 fL GAYATRINER Comment:Testing performed by : [facility], [address], [place] [address] RBC 4.93 3.90 - 5.20 M/cumm [facility] Comment:Testing performed by : [facility], [facility] Dooley [address] [place] [address] MCV 81.1(L) 81.3 - 96.4 fL [facility] Comment:Testing performed by : [facility] [address] [place] [address] MCH 26.8(L) 27.1 - 33.3 pg CERNER Comment:Testing performed by : [facility] [address] [place], [place] [address] MCHC 33.0 32.3 - 35.7 g/dL [facility] Comment:Testing performed by : [facility] [address] [place], [place] Best31 RDW CV 16.1(H) 11.1 - 14.9 % [facility] Comment:Testing performed by : [facility] Do[facility] [place] [address] RDW SD 47.5 35.7 - 48.1 fL GAYATRINER Comment:Testing performed by : [facility] [address]oley [address] [place], [place] [address] NRBC abs 0.00 0.00 - 0.01 K/cumm [facility] Comment:Testing performed by : [facility] [address] [place] [address] Blood Venous blood specimen / Unknown 12/24/2024 9:26 AM CDT 12/24/2024 9:32 AM CDT Yusra Wiseman NP LAB BLOOD ORDERABLES nal Result [facility] [address] [address] Department [place] [address] * (ABNORMAL) hCG, blood, quantitative (12/24/2024 9:26 AM CDT) [facility] hCG, quant 29,188.0( H) 0.0 - 5.0 IUnits/L Comment: Interpretive Data Male: < 5 IU/L Non- premenopausal Female: <5 IU/L The Karl hCG Beta Quant assay procedure was used. Results from different manufacturers or methods may not be comparable. Serial testing should be performed using the same method. Interpretive Data was last revised on 2023 Testing performed by: [address], [place] [address] Blood 12/24/2024 9:26 AM CDT 12/24/2024 9:32 AM CDT Yusra Wiseman NP LAB BLOOD ORDERABLES Fi nal Result Performing Organization Address City/[facility]/ZIP Co de Phone Number [facility] [address] [address] [facility] [place] [address] * Lipase (12/24/2024 9:26 AM CDT) Lipase 14 10 - 99 Units/L Comment:Testing performed by : [address], [place] [address] Blood 12/24/2024 9:26 AM CDT 12/24/2024 9:32 AM CDT Yusra Wiseman NP LAB BLOOD ORDERABLES Fi nal Result Performing Organization Address [facility] de Phone Number [place] [address] [address] [facility] [place] [address] * (ABNORMAL) Comprehensive metabolic panel (12/24/2024 9:26 AM CDT) Sodium 136 135 - 145 mmol/L Comment:Testing performed by : [address], [place] [address] Potassium, pl 3.7 3.3 - 4.9 mmol/L CERNER Comment:Testing performed by : [address], [place] [address] Chloride 101 97 - 110 mmol/L CERNER Comment:Testing performed by : [address], [place] [address] CO2 17(L) 22 - 32 mmol/L [facility] CH Comment:Testing performed by : [address], [place] [address] Anion gap 18(H) 2 - 15 mmol/L CERNER Comment:Testing performed by : [facility], [place] [address] BUN 7 6 - 25 mg/dL C[facility] CH Comment:Testing performed by : [address], [place] [address] Creatinine 0.57(L) 0.60 - 1.10 mg/dL [facility] CH Comment:Testing performed by : [address], [place] [address] Glucose 85 [...] was last revised 2022. Testing performed by: [facility] [place] [address] Calcium 9.7 8.5 - 10.3 mg/dL CERN[facility] CH Comment:Testing performed by : [address], [place] [address] Bilirubin, total 0.4 0.1 - 1.2 mg/dL [facility] CH Comment:Testing performed by : [address], [place] [address] Protein, pl 7.4 6.5 - 8.5 g/dL [facility] CH Comment:Testing performed by : [address], [place] [address] Albumin 4.0 3.5 - 5.0 g/dL [facility] CH Comment:Testing performed by : [address], [place] [address] Alk phos 76 40 - 130 Units/L [facility] CH Comment:Testing performed by : [address], [place] [address] ALT 18 7 - 45 Units/L [facility] CH Comment:Testing performed by : [address], [place] [address] AST 21 10 - 45 Units/L [facility] CH Comment:Testing performed by : [facility], [address], [place] [address] Blood 12/24/2024 9:26 AM CDT 12/24/2024 9:32 AM CDT Yusra Wiseman NP LAB BLOOD ORDERABLES Fi nal Result [facility] [address] Department [place] [address] * (ABNORMAL) POCT hCG, urine (12/24/2024 9:24 AM CDT) HCG, ur, POC Positive(A) Negative Lot Number [id number] QC Backgroud Clear Acceptable QC Control Line Acceptable Urine 12/24/2024 9:24 AM CDT Yusra Wiseman NP POINT OF CARE TEST ORDE RABLES Final Result * (ABNORMAL) Urinalysis reflex to microscopic and culture Urine (12/24/2024 9:06 AM CDT) Color, ur Yellow Yellow Comment:Testing performed by : [address], [place] [address] Clarity, ur Clear Clear [facility] Comment:Testing performed by : [address], [place] [address] Specific gravity, ur 1.026 1.003 - 1.030 [facility] Comment:Testing performed by : [address], [place] [address] pH, urine 8.0 [facility] Comment: Interpretive Data U rine pH is affected by diet, medications, systemic acid-base disturbances, and renal tubular function. pH may affect urinary stone formation. For example, urine pH below 6.0 may help reduce the tendency for calcium phosphate stones and pH greater than 6.0 may reduce the tendency for uric acid stone formation. Source: [facility] i[employer]TV Current Interpretive Data was last revised on 2017 Testing performed by: [address], [place] [address] Protein, ur ql Trace Negative [facility] Comment:Testing performed by : [facility], [address], [place] [address] Glucose, ur ql Negative Negative CERNER CH Comment:Testing performed by : [facility], [address], [place] [address] Ketones, ur Trace Negative CERNER CH Comment:Testing performed by : [facility], [address], [place] [address] Bilirubin, ur Negative Negative C[facility]ER CH Comment:Testing performed by : [facility], [address], [place] [address] Blood, ur Negative Negative CERNER CH Comment:Testing performed by : [facility], [address], [place] [address] Urobilinogen, ur 2.0(A) <2.0 mg/dL [facility] Comment:Testing performed by : [facility], [address], [place] [address] Nitrite, ur Negative Negative CERNER CH Comment:Testing performed by : [facility], [address], [place] [address] Leukocyte esterase, ur Negative Negative CERNER CH Comment:Testing performed by : [facility], [address], [place] [address] UA reflex comment Reflex conditions for microscopic UA and culture not met. GAYATRINER Comment:Testing performed by : [facility], [address], [place] [address] Urine 12/24/2024 9:06 AM CDT 12/24/2024 9:10 AM CDT Yusra Wiseman NP LAB MICROBIOLOGY - [facility] ORDERABLES Final Result [place] [address] Department [place] [address] * N. gonorrhoeae/C. trachomatis Amplification Vaginal (12/13/2024 [...] have been verified by the [facility]. The performance characteristics of this test have not been evaluated in individuals less than 14 years of age. Current Interpretive Data last revised 2023. Vaginal (None) 12/13/2024 2: 30 AM CDT 12/13/2024 2:34 AM CDT us Juan COILN LAB MICROBIOLOGY - GENERAL O RDERABLES Final Result [facility] [address] [facility] Department [place] [address] * (ABNORMAL) Vaginitis panel Vaginal (12/13/2024 2:30 AM CDT) Bacterial Vaginosis Not Detected Not Detected Comment:A negative result do es not preclude a possible infection. Results should be considered in conjunction with clinical presentation to determine the disease status. Jdaa group Detected(A) Not Detected [facility] Comment:Jada species can be present as commensal organisms in women; results should be considered in conjunction with clinical presentation to determine the disease status. Jada glabrata/ krusei Not Detected Not Detected [facility] Trichomonas DNA Not Detected Not Detected [facility] Vaginal 12/13/2024 2:30 AM CDT 12/13/2024 2:34 AM CDT Narrative [facility] - 12/13/2024 3:34 AM CDT The Cepheid [...] this test have been verified by the [facility]. The Cepheid Xpert Xpress MVP [...] this test have been verified by the [facility]. Juan COLIN LAB MICROBIOLOGY - GENERAL O RDERABLES Final Result Performing Organization Address [facility] Co de Phone Number [facility] [address] [place] [address] * (ABNORMAL) Urinalysis reflex to microscopic and culture Urine (12/13/2024 2:30 AM CDT) Color, ur Straw Yellow Clarity, ur Cloudy(A) Clear [facility] Specific gravity, ur 1.018 1.003 - 1.030 [facility] pH, urine 6.0 [facility] Comment: Interpretive Data U rine pH is affected by diet, medications, systemic acid-base disturbances, and renal tubular function. pH may affect urinary stone formation. For example, urine pH below 6.0 may help reduce the tendency for calcium phosphate stones and pH greater than 6.0 may reduce the tendency for uric acid stone formation. Source: [facility] Current Interpretive Data was last revised on 2017 Protein, ur ql Negative Negative [facility] Glucose, ur ql Negative Negative [facility] Ketones, ur Negative Negative [facility] Bilirubin, ur Negative Negative [facility] Blood, ur 1+(A) Negative [facility] Urobilinogen, ur <2.0 <2.0 mg/dL [facility] Nitrite, ur Negative Negative [facility] Leukocyte esterase, ur 4+(A) Negative [facility] UA reflex comment Reflex to microscopic UA will be performed. [facility] Urine 12/13/2024 2:30 AM CDT 12/13/2024 2:34 AM CDT Juan Manuel Avitia DO LAB MICROBIOLOGY - GENERAL ORDERABLES Final Result Performing Organization Address City/[facility]/ZIP Co de Phone Number [facility] [address] [place] [address] * (ABNORMAL) Urinalysis, microscopic only (12/13/2024 2:30 AM CDT) WBC, ur 0-5 0 - 5 /HPF RBC, ur 11-20(A) 0 - 2 /HPF [facility] Epithelial cells, squamous, ur 11-20(A) 0 - 5 /HPF [facility] Comment:Suggestive of contam ination. Consider recollection by clean catch. Mucous, ur Present(A) [facility] Culture Reflex Comment Reflex conditions for urine culture (WBC >10) not met. [facility] Urine 12/13/2024 2:30 AM CDT 12/13/2024 2:34 AM CDT Juan Manuel Avitia DO LAB URINE ORDERABLES Final Result Performing Organization Address [facility] de Phone Number [address] [address] * Urine culture Urine (12/13/2024 2:30 AM CDT) Report Final Report: Growth indicative of contamination with periurethral slava. Please submit a new specimen with special attention given to the collection process and to prompt transport to the laboratory. Comment:Testing performed by : [facility], [address] [facility] [place]., [address] Organism GROWTH INDICATES CONTAM WITH PERIURETHRAL SLAVA. [facility] Urine 12/13/2024 2:30 AM CDT 12/13/2024 9:22 AM CDT Narrative [facility] - 12/14/2024 2:33 PM CDT Testing performed by [facility] Microbiology Laboratory ([phone]) Juan COLIN LAB MICROBIOLOGY - GENERAL O RDERABLES Final Result Performing Organization Address City/[facility]/ZIP Co de Phone Number [address] [place] [address] * (ABNORMAL) POCT hCG, urine (12/13/2024 2:27 AM CDT) Pathologist [facility] HCG, ur, POC Positive(A) Negative Lot Number [id number] QC Backgroud Clear Acceptable QC Control Line Acceptable Urine 12/13/2024 2:27 AM CDT Juan Manuel Avitia DO POINT OF CARE TEST ORDERABL ES Final Result * hCG, blood, quantitative (10/07/2024 9:32 AM CDT) Pathologist [facility] hCG, quant <5.0 0.0 - 5.0 IUnits/L [...] S Edited Result - Final [facility] [address] Department of Laboratories [place], [place] [id number] * ECG 12 lead (10/07/2024 8:59 AM CDT) 10/07/2024 8:59 AM CDT Narrative [facility] - 10/07/2024 10:23 AM CDT Vent Rate: 68 bpm RR Interval: 870 msec IA Interval: 131 msec QRS Duration: 80 msec QT Interval: 374 msec QTC Interval: 392 msec P-R-T [place]: 11 - 30 - 19 degrees IMPRESSION: SINUS RHYTHM NORMAL ECG Electronically Signed By: Antolin Min MD Darryl Glover MD ECG ORDERABLES Fin al Result [facility] * eGFR (10/07/2024 8:50 AM CDT) Pathologist [facility] eGFR >90 >=60 mL/min/1. 73 m2 Comment: [...] ORDERABLE S Final Result [facility] ([place]) 1 [facility] Department [place] [address] * Differential, auto (10/07/2024 8:50 AM CDT) Pathologist [facility] Neutrophil abs 2.58 1.50 - 6.50 K/cumm [...] Neutrophil pct 51.3 % [facility] ([place]) Comment: Interpretive Data Percent cell count reference [...] S Final Result [facility] ([place]) 1 [facility] Department of Laboratories [place], [place] [id number] * (ABNORMAL) CBC with auto differential (10/07/2024 [...] S Final Result [facility] ([place]) 1 [facility] [employer] [place] [address] * ABO/Rh (10/07/2024 8:50 AM CDT) ABO/Rh B Negative Blood 10/07/2024 8:50 AM CDT 10/07/2024 9:03 AM CDT Narrative [facility] ([place]) - 10/07/2024 9:40 AM CDT Has the patient had Daratumumab or Isatuximab in the past 6 months?->Unknown us Darryl Glover MD LAB BLOOD BANK TEST ORDERABLES Final Result [facility] ([place]) 1 [facility] [place] [address] * Antibody screen (10/07/2024 8:50 AM CDT) Pam, indirect, Gel Interpretation Negative ABSC Blood 10/07/2024 8:50 AM CDT 10/07/2024 9:03 AM CDT Narrative [facility] ([place]) - 10/07/2024 9:40 AM CDT Has the patient had Daratumumab or Isatuximab in the past 6 months?->Unknown Darryl Glover MD LAB BLOOD BANK TEST ORDERABLES Final Result [facility] ([place]) 1 [facility] Department [place] [address] * Basic metabolic panel (10/07/2024 8:50 AM CDT) Sodium 137 135 - 145 mmol/L Potassium, pl 4.1 3.3 - 4.9 mmol/L [facility] ([place]) Chloride 104 97 - 110 mmol/L [facility] ([place]) CO2 22 22 - 32 mmol/L [facility] ([place] Anion gap 11 2 - 15 mmol/L [facility] ([place]) BUN 11 6 - 25 mg/dL [facility] ([place]) Creatinine 0.64 0.60 - 1.10 mg/dL [facility] ([place]) Glucose 96 70 - 199 mg/dL [facility] ([place]) Comment: Interpretive Data Fasting [...] 2022. Calcium 9.0 8.5 - 10.3 mg/dL [facility] ([place]) Blood 10/07/2024 8:50 AM CDT 10/07/2024 9:03 AM CDT us Darryl Glover MD LAB BLOOD ORDERABLE S Final Result [facility] ([place]) 1 [facility] Department [place] [address] from Last 3 Months Insurance [employer] Care Teams Tree Feller Relationship Specialty Start Date End Date No, Physician PCP - General 10/07/24
--- NOTE | 2025-01-04 08:19 | ED_ITS ---
HPI - General Adult General Chief complaint: Vaginal Bleeding Stated complaint: vaginal bleed 8wks preg Time Seen by Provider: 01/04/25 07:27 History of Present Illness HPI narrative: Pain patient is a 29-year-old female who presents ER with vaginal bleeding. She is 8 weeks . She had a confirmation ultrasound few weeks ago. She does not yet have an Ob. LMP 11/14/2024. She is . No abdominal pain or cramping. She was in the shower nose bright red bleeding. Since then she has had spotting. She reports that she is Rh negative. No additional concerns. Related Data Allergies Allergy/AdvReac Type Severity Reaction Status Date / Time Penicillins AdvReac edema Verified 01/04/25 07:13 Review of Systems 2 Review of Systems: All systems reviewed & are unremarkable except as noted in HPI and below Constitutional: Constitutional: Reports no additional constitutional complaints Gastrointestinal: Gastrointestinal: Reports no additional gastrointestinal complaints Genitourinary: Genitourinary: Reports no additional female genitourinary complaints [facility] Past Medical History Medical History (Updated 01/04/25 @ 09:45 by Bay Delarosa MD) Healthy female adult Surgical History Surgical History (Updated 01/04/25 @ 08:21 by Bay Delarosa MD) No history of previous surgery Exam 2 Narrative: GENERAL: Well-appearing, well-nourished, and in no acute distress. HEAD: Normocephalic, atraumatic. ENT: Mucous membranes moist. CHEST: Clear to auscultation. No respiratory distress. HEART: Regular rate and rhythm. Normal peripheral pulses. ABDOMEN: Soft, nontender, nondistended. Pelvic: Normal external genitalia. Cervix closed, scant dark blood within the vaginal vault. No vaginal discharge. EXTREMITIES: Normal range of motion. No edema. SKIN: Warm, dry, no rash. NEURO: Alert and oriented x3. PSYCH: Normal mood and affect. Course Course Emergency Course: Patient had RhoGAM on 12/17/2024. Discussed with OB on-call and they do not recommend an additional dose. They would like the patient follow up in 1 week. Discussed pelvic rest and bleeding precautions. Patient verbalized understanding of diagnosis and treatment plan. Vital Signs Vital signs: Vital Signs Temperature 98.1 F 01/04/25 07:20 Pulse Rate 101 H 01/04/25 07:20 Respiratory Rate 17 01/04/25 07:20 Blood Pressure 113/75 01/04/25 07:20 Pulse Oximetry 100 01/04/25 07:20 Oxygen Delivery Room Air 01/04/25 07:20 Temperature 98.1 F 01/04/25 07:20 Pulse Rate 101 H 01/04/25 07:20 Respiratory Rate 17 01/04/25 07:20 Blood Pressure 113/75 01/04/25 07:20 Pulse Oximetry 100 01/04/25 07:20 Oxygen Delivery Room Air 01/04/25 07:20 Medical Decision Making Vital Signs Vital Signs: Vital Signs Temperature 98.1 F 01/04/25 07:20 Pulse Rate 101 H 01/04/25 07:20 Respiratory Rate 17 01/04/25 07:20 Blood Pressure 113/75 01/04/25 07:20 Pulse Oximetry 100 01/04/25 07:20 Oxygen Delivery Room Air 01/04/25 07:20 Temperature 98.1 F 01/04/25 07:20 Pulse Rate 101 H 01/04/25 07:20 Respiratory Rate 17 01/04/25 07:20 Blood Pressure 113/75 01/04/25 07:20 Pulse Oximetry [facility] 01/04/25 07:20 Oxygen Delivery Room Air 01/04/25 07:20 Lab Data 01/04/25 07:44 01/04/25 07:44 Labs: Lab Results 01/04/25 01/04/25 Range/Units 07:44 08:41 WBC 10.3 H (4.5-10.0) K/mm3 RBC 4.85 (4.2-5.4) M/mm3 Hgb 12.7 (12.0-15.0) g/dL Hct 39.2 (37.0-47.0) % MCV 80.8 (80-100) fl MCH 26.2 (26-34) pg MCHC 32.4 (32-36) g/dl RDW 15.9 H (11.5-14.5) % Plt Count 251 (150-375) k/mm3 MPV 9.6 (7.4-10.4) fl Immature Gran % (Auto) 0.2 (0-0.5) % Neut % (Auto) 64.6 (45.5-73.1) % Lymph % (Auto) 25.2 (18.3-44.2) % [place] % (Auto) 8.1 (2.6-8.5) % Eos % (Auto) 1.5 (0-4.4) % Baso % (Auto) 0.4 (0.2-1.2) % Lymph # (Auto) 2.60 (0.9-3.2) K/mm3 [place] # (Auto) 0.8 H (0.1-0.6) K/mm3 Eos # (Auto) 0.2 (0-0.3) K/mm3 Baso # (Auto) 0.0 (0.0-0.1) K/mm3 Abs Immat Gran (auto) 0.02 (0.00-0.031) K/mm3 Absolute Neuts (auto) 6.7 (1.3-6.7) K/mm3 Absolute Nucleated RBC 0.000 (0.0-0.012) K/mm3 Nucleated RBC % 0.0 (0.0-0.2) % PT 13.5 (11.1-14.7) Seconds INR 1.0 APTT 24.1 (22.3-36.8) Seconds Sodium 136 L (137-145) mmol/L Potassium 3.8 (3.4-5.0) mmol/L Chloride 106 (98-107) mmol/L Carbon Dioxide 21 L (22-30) mmol/L Anion Gap 9 (4-12) mmol/L BUN 5 L (7-17) mg/dL Creatinine 0.54 L (0.7-1.0) mg/dL Estim Creat Clear Calc 109 ml/min Estimated GFR > 60 (59 - ) Glucose 90 (65-110) mg/dL Calcium 9.3 (8.4-10.2) mg/dL Total Bilirubin 0.2 (0.2-1.3) mg/dL AST 29 (14-36) U/L ALT 19 (6-35) U/L Alkaline Phosphatase 65 (38-126) U/L Total Protein 7.3 (6.3-8.2) g/dL Albumin 4.2 (3.5-5.1) g/dL Beta HCG, Quant 307619.00 mIU/ML Urine Color Dark yellow (Yellow) Urine Appearance Clear (Clear) Urine pH 6.0 (5.0-9.0) Ur Specific [place] 1.005 (1.001-1.035) Urine Protein 1+ H (Negative) mg/dL Urine Glucose (UA) Negative (Negative) mg/dL Urine Ketones 1+ H (Negative) mg/dL Ur Blood (Man) 3+ H (Negative) Urine Nitrate Negative (Negative) Urine Bilirubin Negative (Negative) Urine Urobilinogen 1.0 (<2.0) mg/dL Leukocyte Esterase Rfl Trace H (Negative) TYE/UL Urine RBC >100 H (0-2) /hpf Urine WBC 0-5 (0-3) /hpf Ur Squamous Epith Cells Occasional (Few) /hpf Urine Bacteria None seen /hpf Urine Casts 0-2 Blood Type B Negative Antibody Screen Positive Antibody Identification Pending Antigen Identification Pending RONALD, IgG Interpret TNP RONALD, Poly Interpret Negative RONALD, Complement Interp TNP Doses of RhIg Required Pending Imaging Data Radiologist's impression: ITS Impressions Obstetrics Ultrasound 01/04/25 08:53 IMPRESSION: 1. SL IUP with an EGA of 7 weeks, 5 days (EDC by current ultrasound of 08/18/2025). 2: Large subchorionic hemorrhage. 3: Uterine fibroid measuring 2.1 cm. Discharge Plan Discharge Clinical Impression: Subchorionic hematoma in first trimester, Threatened miscarriage Patient Disposition: Home Condition: Stable Instructions: Threatened Miscarriage (ED), Subchorionic Hemorrhage (ED) Additional Instructions: Follow-up with your OB in 1 week. Return the ER if your bleeding through 1 pad an hour for 3 continuous hours, you develop severe lower abdominal pain, or you have lightheadedness or loss of consciousness. Abstain from sexual intercourse. Avoid heavy lifting until cleared by your OB. Patient Language: Slovak Prescriptions: No Action nitrofurantoin monohyd/m-cryst [Macrobid] 100 mg capsule 100 mg PO Q12H 5 Days Qty: 10 0RF Rx Instructions: must administer with a meal/food Follow-up/Referrals: Mitul Bhandari MD [Physician] - 1 Week PHYSICIAN,FAA CERTIFIED POWERPLANT MECHANIC [Primary Care Provider] -
[2025-01-04 08:24] LABS: INR 1.0; Prothrombin Time 13.5 Seconds (11.1-14.7)
[2025-01-04 08:25] LABS: Partial Thromboplastin Time 24.1 Seconds (22.3-36.8)
[2025-01-04 08:29] LABS: Alanine Aminotransferase 19 U/L (6-35); Albumin Level 4.2 g/dL (3.5-5.1); Alkaline Phosphatase 65 U/L (38-126); Anion Gap 9 mmol/L (4-12); Aspartate Amino Transferase 29 U/L (14-36); Bilirubin,Total 0.2 mg/dL (0.2-1.3); Blood Urea Nitrogen 5 mg/dL (7-17); Calcium 9.3 mg/dL (8.4-10.2); Carbon Dioxide 21 mmol/L (22-30); Chloride 106 mmol/L (98-107); Estimated CRCL calculation 109 ml/min; Estimated Glomerular Filt Rate > 60; Glucose 90 mg/dL (65-110); Potassium 3.8 mmol/L (3.4-5.0); Sodium 136 mmol/L (137-145); Total Protein 7.3 g/dL (6.3-8.2)
[2025-01-04 08:55] LABS: Non Pathogenic Casts 0-2
[2025-01-04 08:58] LABS: Beta HCG Quantitative 107950.00 mIU/ML
[2025-01-04 09:01] LABS: Add Urine Microscopic? YES; Appearance Urine Clear (Clear); Glucose Urine UA Negative (Negative); Leukocyte Esterase Ur Trace LEU/UL (Negative); Nitrate Urine Negative (Negative); Specific Grav Ur 1.005 (1.001-1.035)
[2025-01-04 09:49] VITALS: BP 128/76; PULSE 86; RESP 16; TEMP 36.6; O2SAT 100
== END 2025-01-04 09:51 | disposition home or self-care (01) ==
PROVIDERS: Emergency Provider Emergency Medicine
DX: O20.0 Threatened abortion (principal); O34.11 Maternal care for benign tumor of corpus uteri, first trimester; D25.9 Leiomyoma of uterus, unspecified; Z3A.01 Less than 8 weeks gestation of pregnancy
CPT/HCPCS: 36415; 76801; 76817; 80053; 81001; 84702; 85025; 85461; 85610; 85730; 86850; 86880; 86900; 86901; 86902; 99284

== ENCOUNTER 2025-01-07 22:17 | Emergency (ER) | payer OTHER, SELFPAY ==
--- NOTE | ~2025-01-07 | XR_ITS ---
EXAMINATION: XR foot LT min 3V DATE: 01/07/2025 23:11 INDICATION: Great toe injury TECHNIQUE: Dorsoplantar, two oblique and lateral views of the left foot were obtained. COMPARISON: None. FINDINGS: Alignment is normal. No fracture. Joint spaces are normal. Soft tissues are unremarkable. IMPRESSION: 1. Negative left foot radiographs. Reviewed, dictated and finalized at location A.
--- OUTSIDE RECORDS SUMMARY | 2025-01-07 22:19 | XMS_ITS ---
Author Organization [facility] Address [address] [place], [place] [id number] Care Team Providers Care Tar Pot Man Name Role Phone German Hua Primary Care Provider Rodrick Bauman Unavailable [phone] Abran Fitzpatrick Unavailable [phone] REASON FOR VISIT WWE Social History Sex Assigned At : Social History Observation Description Sex Assigned At Female Encounters Encounter Location Date Provider Diagnosis [facility] [place], [place] [address] 08/04/2023 Abran Fitzpatrick Plan Of Treatment No Information Progress Notes * Nisha BARNETT :1995 (29 yo F)Acc No.[id number]:08/04/2023 Patient: Nisha KLEIN Appointment Provider: SUSY Pastrana :1995 A ge:28 Y S ex:Female Date:08/04/2023 Address:[facility] [address] [place], [place] Pcp:German Hua Subjective: * Chief Complaints: * 1 . WWE. * Medical History: Objective: * Vitals: Assessment: Plan: * Treatment: * Billing Information: * Visit Code: * Procedure Codes: * Electronic signature of SUSY Tellez chi on 01/07/2025 at 10:19 PM CDT Sign off status: Pending * Appointment Provider: SUSY Pastrana Date: 0 08/04/2023 Generated for Molina ramirez/Betty/Micky on: 0 01/07/2025 10:19 PM CDT
--- OUTSIDE RECORDS SUMMARY | 2025-01-07 22:20 | XMS_ITS | Clinical Summary ---
Author Organization [facility] Address [address] [place] [address] Care Team Providers Care Workday Manager Name Role Phone Unavailable Primary Care [...] TRICH (08/26/2021 10:22 AM CDT) SEE NOTE [facility] Comment: This order for age-based cervical cancer and STI screening follows ACOG guidelines(PB 168, 140, QHM266). See individual assays for performing site location. CLINICAL INFORMATION [facility] Comment:Information not prov ided LAST MENSTRUAL PERIOD [facility] Comment:INFORMATION NOT PROV IDED PREV PAP: [facility] Comment:INFORMATION NOT PROV IDED PREV BX: [facility] Comment:INFORMATION NOT PROV IDED SOURCE [facility] Comment:Endocervix ADEQUACY: [facility] Comment: Satisfactory for evaluation. Endocervical/transformation zone component present. Age and/or menstrual status not provided PAP INTERP [facility] Comment:Negative for intraep ithelial lesion or malignancy. COMMENT (PAP TEST) [facility] Comment: This Pap test has been evaluated with computer assisted technology. REMOTE SENSING ANALYST: [facility] Comment: SAMAGNES(ASCP) CT screening location: [place] [address] [place] [address] SEE NOTE [facility] Comment: EXPLANATORY NOTE: The Pap [...] C TRAC RNA NOT DETECTED NOT DETECTED [facility] N.GONORRHOEAE RNA, TMA NOT DETECTED NOT DETECTED [facility] SEE NOTE [facility] Comment: The analytical performance characteristics of this assay, when used to test SurePath(TM) specimens have been determined by [facility]. The modifications have not been cleared or approved by the FDA. This assay has been validated pursuant to the CLIA regulations and is used for clinical purposes. For additional information, please refer to [email or web address]/WPE847 (This link is being provided for information/ educational purposes only.) TRICHOMONAS VAGINALIS,QUALITAT LAYNE,PAP VIAL NOT DETECTED NOT DETECTED [facility] Comment: The analytical performance characteristics of this assay have been determined by [facility]. The modifications have not been cleared or approved by the FDA. This assay has been validated pursuant to the CLIA regulations and is used for clinical purposes. For additional information, please refer to [email or web address]/ faq/Trichomonastma (This link is being provided for information/ educational purposes only.) Test [facility]formed at: [facility] [address] [place] [address] Andrea Mix D.O., MPH Genital SWAB OF ENDOCERVIX / Unknown 08/26/2021 10:22 AM CDT 08/27/2021 4:04 AM CDT Aba Gutierrez MD PATHOLOGY/CYTOLOGY ORDERABLES Final Result Performing Organization Address City/State/[facility] Co de Phone Number [facility] [address] [place] [address] from Last 3 Months or Most Recently Relevant to Health Maintenance Insurance BCBS TRUE BLUE PPO EXCHANGE
--- OUTSIDE RECORDS SUMMARY | 2025-01-07 22:20 | XMS_ITS | Patient Health Record ---
Author Organization [facility] Address [address] [place], [place] [address] Care Team Providers Care Technical Writer And Editor Name Role Phone Melita German Primary Care Provider Rodrick Bauman Unavailable [phone] Allergies No Known Allergies Reason For Referral [...] Duration: 5 Not-Taking Vitamin D3 1.25 MG (75929 UT) Oral; Duration: 28 Not-Takin g Metoclopramide [...] Status Risk Notes Problem Finding related to (058564300) related conditions, unspecified, first trimester (O26.91) Active confirm Problem test equivocal (047751661) Encounter for test, result unknown (Z32.00) Active confirmed Problem care (regime/therap y) (550826552) Encntr for suprvsn of normal preg, unsp, [...] Date [employer] Community Medicaid HMO [address] [place] [address] [id number] Nisha Millan Self - patient is the insured 9 [employer] [address] [place] [address] [id number] Nisha Chou Self - patient is the insured 2 DENTAL MEDICAID [employer] Medicaid Dental [address] [place] [address] [id number] Nisha Chou Self - patient is the insured 9 Medications Administered Medication Instructions Date of Administration Dosage Notes RhoGAM Ultra-Filtered PLUS-300ug 02/27/2022 1 Medical (General) History Surgical History Surgery Date(Month/Year) vaginal delivery vaginal delivery
--- OUTSIDE RECORDS SUMMARY | 2025-01-07 22:20 | XMS_ITS | Clinical Summary ---
Author Organization [facility] Address [address] [place] [address] Care Team Providers Care Director Facilities Maintenance Name Role Phone [facility] Primary Care Pro vider Source Comments [facility],non[facility] Affiliates and Associated Physician Practices is amultiple site organization consisting of ambulatory clinics and hospital sitesin [place], [place], [place]. This disclosure is being madepursuant to the Care Everywhere program and may not contain all information available regarding this patient. Last updated 18.[facility] Allergies Active Allergy Reactions Criticality Noted [...] fluticasone propionate (Flonase) 50 MCG/ACT nasal spray Newsoms 2 (two) sprays into each nostril once [...] ing 20 tablet 03/28/2024 Active HYDROcodone-lilian taminophen (Bethany) 5-325 MG tabletIndicatio ns:Acute maxillary sinusitis, recurrence [...] Overview (11/11/2016): She sees Dr. Jean at [facility]. She discontinued Seroquel with positive test. [...] place to sleep or slept in a chcf (including now)? No 05/11/2022 Stur[place]vant Depression Scale Answer Date Recorded RETIRED: Total Score 0 05/08/2022 Last EPDS Self Harm Result Not on file 05/08 Comments No Sex and Gender Information Value Date Recorded Sex Assigned at Not on file Legal Sex Female 6:05 AM SCANNING MANAGER Gender Identity Not on file Sexual Orientation Not on file Last Filed Vital Signs Vital Sign Reading Time Taken Comments Blood Pressure 147/96 05/28/2024 11:26 PM SCANNING MANAGER Pulse 65 05/28/2024 11:26 PM SCANNING MANAGER Temperature 36.7 C (98.1 F) 05/28/2024 11:26 PM SCANNING MANAGER Respiratory Rate 18 05/28/2024 11:26 PM SCANNING MANAGER Oxygen Saturation 95% 05/28/2024 11:26 PM SCANNING MANAGER Inhaled Oxygen Concentration - - Weight 70.8 kg (156 lb) 05/28/2024 11:26 PM SCANNING MANAGER Height 157.5 cm (5' 2) 05/28/2024 11:26 PM SCANNING MANAGER Body Mass Index 28.53 05/28/2024 11:26 PM SCANNING MANAGER Plan of Treatment Health Maintenance Due Date [...] RFLX HPV ASCU Routine 08/05/2016 12:37 PM SCANNING MANAGER 10 weeks gestation of HIV-1 HIV-2 ANTIBODY + HIV P24 AG PANEL Routine 08/05/2016 12:35 PM SCANNING MANAGER 10 weeks gestation of from Last 3 Months or Most Recently Relevant to Health Maintenance Results * PAP SMEAR IG RFLX HPV ASCU (PO REF LAB) (08/05/2016 12:37 PM SCANNING MANAGER) Diagnosis Comment 08/06/2016 9:08 PM SCANNING MANAGER [facility] Comment:NEGATIVE FOR INTRAEP ITHELIAL LESION AND MALIGNANCY. Specimen Adequacy Comment 017 9:08 PM SCANNING MANAGER [facility] Comment: Satisfactory for evaluation. Endocervical and/or squamous metaplastic cells (endocervical component) are present. Performed by Comment 08/06/2016 9:08 PM SCANNING MANAGER [facility] Comment:Rubi Medley [employer] hnologist (ASCP) Comment . 08/06/2016 9:08 PM SCANNING MANAGER [facility] Note Comment 08/06/2016 9:08 PM SCANNING MANAGER [facility] Comment: The Pap smear is a screening test designed to aid in the detection of premalignant and malignant conditions of the uterine cervix. It is not a diagnostic procedure and should not be used as the sole means of detecting cervical cancer. Both false-positive and false-negative reports do occur. IGLBP CPT Code Automation Comment 08/06/2016 9:08 PM SCANNING MANAGER [facility] Comment: This liquid based ThinPrep(R) pap test was screened with the use of an image guided system. Note Comment 08/06/2016 9:08 PM SCANNING MANAGER [facility] Comment: The HPV DNA reflex criteria were not met with this specimen result therefore, no HPV testing was performed. Pathology/Cytolo gy PART OF UTERINE CERVIX / Unknown 08/05/2016 12:37 PM SCANNING MANAGER 08/05/2016 1:19 PM SCANNING MANAGER Narrative [facility] - 08/06/2016 9:08 PM SCANNING MANAGER Performed at: [address] [place] [id number] Embedded Systems Designer: Rayna Cuevas MD, Phone: [phone] Specimen Comment: Source.............Cervix Specimen Comment: No. of containers..01 CYTYC Thin Prep Vial us Gaye Stephens MD LAB - PATHOLOGY/CYTOLOGY ORDE RABILIANA Final Result [facility] ([facility]) [address] [place] [address] * HIV-1 HIV-2 ANTIBODY + HIV P24 AG PANEL (08/05/2016 12:35 PM SCANNING MANAGER) HIV1/2 Ab + P24 Ag Non Reactive Non Reactive 08/05/2016 6:49 PM SCANNING MANAGER [facility] Blood BLOOD SPECIMEN / Unknown 08/05/2016 12:35 PM SCANNING MANAGER 08/05/2016 1:10 PM SCANNING MANAGER Narrative [facility] - 08/05/2016 6:49 PM SCANNING MANAGER No Laboratory evidence of HIV infection. us Gaye Stephens MD LAB - CHEMISTRY ORDERABLES Fi nal Result [facility] [address] [place] [address] from Last 3 Months or Most Recently Relevant to Health Maintenance Insurance [place] [employer] [place] - [facility] COMMUNITY PLAN MEDICAID - [place] [...] 12:53 PM 02/27/2017 12:50 PM Care Teams Director Facilities Maintenance Relationship Specialty Start Date End Date [facility] [address] [place] [address] PCP - General Columnist/Commentator 01/30/22
[2025-01-07 22:21] VITALS: BP 121/71; PULSE 95; RESP 18; TEMP 36.4; O2SAT 99
--- OUTSIDE RECORDS SUMMARY | 2025-01-07 22:21 | XMS_ITS | Continuity of Care Document ---
Author Organization [facility] Address [address] [place] [address] Phone Care Team Providers Care Geographic Information System Surveyor Name Role Phone Hernan Lloyd DMD Unavailable [...] AN CARE, AT-RISK ENHANCED SERVICE PACKAGE (INCLUDES [id number]) OFFICE/OUTPATIENT VISIT, EST PRESCRIPTION DRUG, ORAL, NON CHEMOTHERAP EUTIC, NOS AZITHROMYCIN DIHYDRATE, ORAL, CAPSULES/P OWDER, 1 GRAM Wet beka, including preparations of va ginal, cervical or skin specimens COLLECTION OF VENOUS BLOOD BY VENIPUNCTU RE OFFICE/OUTPATIENT VISIT, EST CARE, AT-RISK ENHANCED SERVICE PACKAGE (INCLUDES [id number]) OFFICE/OUTPATIENT VISIT, EST COLLECTION OF VENOUS BLOOD BY VENIPUNCTU RE Voided Encounter care, at-risk assessment care, at-risk enhanced service; antepartum management MENTAL HEALTH ASSESSMENT, BY NON-PHYSICI AN SKIN TEST; TUBERCULOSIS, INTRADERMAL Dec OFFICE/OUTPATIENT VISIT, NEW Advance Directives Directive Yes / No Effective Date File Name No Information Encounters Encounter Description Practice Location Reason(s) For Visit Diagnoses Date Provider Providers Copied on Encounter [facility] , [address], [place], [place], [address], tel:[phone] [facility] Encounter for dental exam and cleaning w abnormal findings 7 Gabino Becerra. [address], [place], [place], [address]. tel:[phone] Referring Provider: Hernan Lloyd, [address], [place], [address]. tel:[phone] [facility] , [address], [place], [place], [address], tel:[phone] [facility] home visit (chief complaint) Routine follow-up [facility]. [address], [place], [place], [address], . tel:[phone] [facility] , [address], [place], [place], [address], tel:[phone] [facility] [place] No Information 2 [facility]. [address], [place], [place], [address], . tel:[phone] Consulting Provider: Arianne Samuels, [address], [place], [address]. tel:[phone] OFFICE/OUTPAT IENT VISIT, EST [facility] , [address], [place], [place], [address], [place] tel:[phone] [facility] [place] No Information 1 Bianca Bauman. [address], [place], [place], [address], . tel:[phone] OFFICE/OUTPAT IENT VISIT, EST [facility] , [address], [place], [place], [address], [place] tel:[phone] [facility] [place] Supervision of normal first 1 Rico Navas [address], [place], [place], [address], . tel:[phone] [facility] , [address], [place], [place], [address], tel:[phone] [facility] No Information 1 Management [facility]. [address], [place], [place], [address] [place] [address], . tel:[phone] Consulting Provider: Arianne Samuels, [address], [place], [address]. tel:[phone] OFFICE/OUTPAT IENT VISIT, [facility] , [address], [place], [place], [address], tel:[phone] [facility] [place] Supervision of other normal 1 Rico Navas [address], [place], [place], [address], . tel:[phone] [facility] , [address], [place], [place], [address], [place] tel:[phone] [facility] [place] Supervision of normal first 1 Rico Navas [address], [place], [place], [address], . tel:[phone] [facility] , [address], [place], [place], [address], tel:[phone] [facility] [place] pn intake (chief complaint) No Information No Information OFFICE/OUTPAT IENT VISIT, [facility] , [address], [place], [place], [address], [place] tel:[phone] [facility] [place] Test (chief complaint)No te for school-Pregn italo (chief complaint) Irregular menstrual cycle Bianca Bauman. [address], [place], [place], [address], [place]. tel:[phone] Family History Family Member Type Diagnosis Age At Onset Father Problem (finding) hypertension Mother Problem (finding) hypertension Father Problem (finding) Maternal history of alice betes mellitus Payers Payer name Insurance type Covered green party ID Alpa pool(s) D Medicaid - Dental CI [id number] Social History Type Description Quantity Date Captured Comments Sex Female Smoking Status No Information Chief Complaint And Reason For Visit No Information Reason For Referral Reason For Referral No Information Plan Of Treatment Date Type Action Status Goal BMP fasting. Due on 011 due Referral Referred To: [facility] [address] [place], [phone] Ordered: Referral: [facility]. Radiology. ordered Future Order: [...]
--- OUTSIDE RECORDS SUMMARY | 2025-01-07 22:21 | XMS_ITS | Clinical Summary ---
Author Organization [facility] Physician Office Building [address] [place] [id number] Care Team Providers Care Dinkey Operator Slate Name Role Phone No, Physician Primary Care Provider [phone] Allergies Active Allergy Reactions Criticality Noted Date [...] with therapist. Her Referred to [facility] for trauma focused therapy. Start Prozac 20 [...] CDT - 12/24/2024 11:57 AM CDT Emergency [facility] Emergency Department [facility] [place] [address] Nausea and vomiting in (Primary Dx) Discharge Disposition: Discharge to home or self care 12/15/[address] [address] Shayna Dean RN 12/15/[address] [address] Shayna Dean RN 12/14/[address] [address] Shayna Dean RN 12/14/2024 Results Follow-Up [place] [address] [place] [address] Juan Samson PA Vaginitis panel Vaginal 12/13/2024 2:30 AM CDT - 12/13/2024 3:25 AM CDT Emergency [address] [address] Positive test (Primary Dx); Vaginal irritation Discharge Disposition: Discharge to home or self care 10/07/2024 8:42 AM CDT - 10/07/2024 10:26 AM CDT Emergency [facility] Emergency Department 1 [place] [address] Darryl Glover MD Dysfunctional uterine bleeding (Primary [...] on file Legal Sex Female 9:34 AM DIRECTOR PROJECT MANAGEMENT Gender Identity Female 07/10/2020 2:40 PM DIRECTOR PROJECT MANAGEMENT Sexual Orientation Straight 07/10/2020 2: 40 PM DIRECTOR PROJECT MANAGEMENT Obstetrics History Para Term AB IAB SAB [...] WALKER ,BABY GIRL FRANCH ESCA Tara Delivery Location:[facility] 2013 AB 2015 IAB 2016 Term 39w 3d 0h 17m 0h 13m/0h 04m 2.91 kg (6 lb 6.7 oz) F Vag-S pont Epidur al N Livin g 8 9 WALKER ,BABY GIRL NIRANJAN ESCA Abhishek Nj MD Complications:None Delivery Location:[facility] 2018 IAB 2019 SAB 2021 Term 37w 4d 2.745 kg (6 lb 0.8 oz) F Vag-S pont Epidur al Livin bijan wood Complications: Karla yamileth Hypertension Delivery Location:[facility] 2021 Term 37w 4d 0h 07m 0h 07m 2.745 kg (6 lb 0.8 oz) F Vag-S pont Epidur al N Livin g 9 9 WALKER ,BABY GIRL FRANCSalvatore WALLACEA Salena wood MD Complications:None Delivery Location:[facility] ([facility] R) Current Last Filed Vital Signs [...] eGFR (12/24/2024 9:26 AM CDT) Pathologist [facility] eGFR >90 >=60 mL/min/1. 73 m2 Comment: [...] was last reviewed 2021. Testing performed by: [facility], [facility] [address], [place] [address] Blood 12/24/2024 9:26 AM CDT 12/24/2024 9:32 AM CDT Yusra Wiseman NP LAB BLOOD ORDERABLES Fi nal Result [facility] [place] [address] [address] Department [place] [address] * Differential, auto (12/24/2024 9:26 AM CDT) Pathologist [facility] Neutrophil abs 3.98 1.50 - 6.50 K/cumm Comment:Testing performed by : [facility], [facility], [place] [address] Imm gran abs 0.02 0.00 - 0.10 K/cumm CERNER CH Comment:Testing performed by : [facility], [facility] [address], [place] [address] Lymphocyte abs 2.09 0.80 - 3.30 K/cumm CERNER CH Comment:Testing performed by : [facility], [facility] [address], [place] [address] Monocyte abs 0.63 0.20 - 0.80 K/cumm CERNER CH Comment:Testing performed by : [facility], [facility] [address], [place] [address] Eosinophil abs 0.18 0.00 - 0.50 K/cumm CERNER CH Comment:Testing performed by : [facility], [facility] [address], [place] [address] Basophil abs 0.01 0.00 - 0.10 K/cumm CERNER CH Comment:Testing performed by : [facility], [facility] [address], [place] [address] Neutrophil pct 57.7 % CERNER CH Comment: Interpretive Data Percent cell count reference ranges are not reported, since discordance with absolute values may lead to misinterpretation of CBC data. Current Interpretive Data was last revised on 2017. Testing performed by: [facility], [facility], [place] [address] Imm gran pct 0.3 % CERNER CH Comment: Interpretive Data Percent cell count reference ranges are not reported, since discordance with absolute values may lead to misinterpretation of CBC data. Current Interpretive Data was last revised on 2017. Testing performed by: [place] [address] [address], [place] [address] Lymphocyte pct 30.2 % CERNER CH Comment: Interpretive Data Percent cell count reference ranges are not reported, since discordance with absolute values may lead to misinterpretation of CBC data. Current Interpretive Data was last revised on 2017. Testing performed by: [facility], [facility], [place] [address] Monocyte pct 9.1 % CERNER CH Comment: Interpretive Data Percent cell count reference ranges are not reported, since discordance with absolute values may lead to misinterpretation of CBC data. Current Interpretive Data was last revised on 2017. Testing [facility]: [facility] [address], [place] [address] Eosinophil pct 2.6 % [facility] Comment: Interpretive Data Percent cell count reference ranges are not reported, since discordance with absolute values may lead to misinterpretation of CBC data. Current Interpretive Data was last revised on 2017. Testing performed [facility]: [facility] [address], [place] [address] Basophil pct 0.1 % CERNER Comment: Interpretive Data Percent cell count reference ranges are not reported, since discordance with absolute values may lead to misinterpretation of CBC data. Current Interpretive Data was last revised on 2017. Testing performed by: [facility] [address], [place] [address] Blood 12/24/2024 9:26 AM CDT 12/24/2024 9:32 AM CDT Yusra Wiseman NP LAB BLOOD ORDERABLES nal Result [facility] [address] [address] Department [place] [address] * (ABNORMAL) CBC with auto differential (12/24/2024 9:26 AM CDT) WBC 6.91 3.80 - 9.90 K/cumm Comment:Testing performed [facility] : [facility] [address], [place] [address] Hgb 13.2 11.9 - 15.5 g/dL [facility] Comment:Testing performed by : [facility] [address], [place] [address] Hct 40.0 35.6 - 45.5 % GAYATRINER Comment:Testing performed by : [facility] [address], [place] [address] Plt 259 150 - 400 K/cumm [facility] Comment:Testing performed by : [facility] [address], [place] [address] MPV 9.1 9.1 - 12.3 fL GAYATRINER Comment:Testing performed by : [facility], [address], [place] [address] RBC 4.93 3.90 - 5.20 M/cumm [facility] Comment:Testing performed by : [facility], [facility] [address] [place] [address] MCV 81.1(L) 81.3 - 96.[address] [facility] Comment:Testing performed by : [facility] [address] [place] [address] MCH 26.8(L) 27.1 - 33.3 pg CERNER Comment:Testing performed by : [facility] [address] [place], [place] [address] MCHC 33.0 32.3 - 35.7 g/dL [facility] Comment:Testing performed by : [facility] [address] [place], [place] Best[address] RDW CV 16.1(H) 11.1 - 14.9 % [facility] Comment:Testing performed by : [facility] [address] [place] [address] RDW SD 47.5 35.7 - 48.1 fL GAYATRINER Comment:Testing performed by : [facility] [address] [place], [place] [address] NRBC abs 0.00 0.00 - 0.01 K/cumm [facility] Comment:Testing performed by : [facility] [address] [place] [address] Blood Venous blood specimen / Unknown 12/24/2024 9:26 AM CDT 12/24/2024 9:32 AM CDT Yusra Wiseman NP LAB BLOOD ORDERABLES nal Result [facility] [address] [address] Department [place] [address] * (ABNORMAL) hCG, blood, quantitative (12/24/2024 9:26 AM CDT) [facility] hCG, quant 29,188.0( H) 0.0 - 5.0 IUnits/L Comment: Interpretive Data Male: < 5 IU/L Non- premenopausal Female: <5 IU/L The Karl hCG Beta Quant assay procedure was used. Results from different manufacturers or methods may not be comparable. Serial testing should be performed using the same method. Interpretive Data was last revised on 2023 Testing performed by: [facility] [address], [place] [address] Blood 12/24/2024 9:26 AM CDT 12/24/2024 9:32 AM CDT Yusra Wiseman NP LAB BLOOD ORDERABLES Fi nal Result Performing Organization Address City/[facility]/ZIP Co de Phone Number [place] [address] [address] [facility] [place] [address] * Lipase (12/24/2024 9:26 AM CDT) Lipase 14 10 - 99 Units/L Comment:Testing performed by : [facility] [address], [place] [address] Blood 12/24/2024 9:26 AM CDT 12/24/2024 9:32 AM CDT Yusra Wiseman NP LAB BLOOD ORDERABLES Fi nal Result Performing Organization Address [facility] de Phone Number [place] [address] [address] [facility] [place] [address] * (ABNORMAL) Comprehensive metabolic panel (12/24/2024 9:26 AM CDT) Sodium 136 135 - 145 mmol/L Comment:Testing performed by : [facility] [address], [place] [address] Potassium, pl 3.7 3.3 - 4.9 mmol/L CERNER Comment:Testing performed by : [facility] [address], [place] [address] Chloride 101 97 - 110 mmol/L CERNER Comment:Testing performed by : [facility] [address], [place] [address] CO2 17(L) 22 - 32 mmol/L CERNER CH Comment:Testing performed by : [facility] [address], [place] [address] Anion gap 18(H) 2 - 15 mmol/L CERNER Comment:Testing performed by : [facility], [place] [address] BUN 7 6 - 25 mg/dL CERNER CH Comment:Testing performed by : [facility] [address], [place] [address] Creatinine 0.57(L) 0.60 - 1.10 mg/dL CERNER CH Comment:Testing performed by : [facility] [address], [place] [address] Glucose 85 70 [...] was last revised 2022. Testing performed by: [facility] [place] [address] Calcium 9.7 8.5 - 10.3 mg/dL CERNER CH Comment:Testing performed by : [facility] [address], [place] [address] Bilirubin, total 0.4 0.1 - 1.2 mg/dL C[facility] CH Comment:Testing performed by : [facility] [address], [place] [address] Protein, pl 7.4 6.5 - 8.5 g/dL CERNER CH Comment:Testing performed by : [facility] [address], [place] [address] Albumin 4.0 3.5 - 5.0 g/dL CERN[facility] CH Comment:Testing performed by : [facility] [address], [place] [address] Alk phos 76 40 - 130 Units/L CERNER CH Comment:Testing performed by : [facility] [address], [place] [address] ALT 18 7 - 45 Units/L CERN[facility] CH Comment:Testing performed by : [facility] [address], [place] [address] AST 21 10 - 45 Units/L CERNER CH Comment:Testing performed by : [facility], [address], [place] [address] Blood 12/24/2024 9:26 AM CDT 12/24/2024 9:32 AM CDT Yusra Wiseman NP LAB BLOOD ORDERABLES Fi nal Result [facility] [address] [address] Department [place] [address] * (ABNORMAL) POCT hCG, urine (12/24/2024 9:24 AM CDT) HCG, ur, POC Positive(A) Negative Lot Number [id number] QC Backgroud Clear Acceptable QC Control Line Acceptable Urine 12/24/2024 9:24 AM CDT Yusra Wiseman NP POINT OF CARE TEST ORDE RABLES Final Result * (ABNORMAL) Urinalysis reflex to microscopic and culture Urine (12/24/2024 9:06 AM CDT) Color, ur Yellow Yellow Comment:Testing performed by : [facility] [address], [place] [address] Clarity, ur Clear Clear [facility] Comment:Testing performed by : [facility] [address], [place] [address] Specific gravity, ur 1.026 1.003 - 1.030 [facility] Comment:Testing performed by : [facility] [address], [place] [address] pH, urine 8.[address] [facility] Comment: Interpretive Data U rine pH is affected by diet, medications, systemic acid-base disturbances, and renal tubular function. pH may affect urinary stone formation. For example, urine pH below 6.0 may help reduce the tendency for calcium phosphate stones and pH greater than 6.0 may reduce the tendency for uric acid stone formation. Source: [facility] [place] Current Interpretive Data was last revised on 2017 Testing performed by: [facility] [address], [place] [address] Protein, ur ql Trace Negative [facility] Comment:Testing performed by : [facility], [address], [place] [address] Glucose, ur ql Negative Negative CERNER CH Comment:Testing performed by : [facility], [address], [place] [address] Ketones, ur Trace Negative CERNER CH Comment:Testing performed by : [facility], [address], [place] [address] Bilirubin, ur Negative Negative CERNER CH Comment:Testing performed by : [facility], [address], [place] [address] Blood, ur Negative Negative CERNER CH Comment:Testing performed by : [facility], [address], [place] [address] Urobilinogen, ur 2.0(A) <2.0 mg/dL [facility] Comment:Testing performed by : [facility], [address], [place] [address] Nitrite, ur Negative Negative CERNER CH Comment:Testing performed by : [facility], [address], [place] [address] Leukocyte esterase, ur Negative Negative CERNER CH Comment:Testing performed by : [facility], [address], [place] [address] UA reflex comment Reflex conditions for microscopic UA and culture not met. GAYATRINER Comment:Testing performed by : [facility], [address], [place] [address] Urine 12/24/2024 9:06 AM CDT 12/24/2024 9:10 AM CDT Yusra Wiseman NP LAB MICROBIOLOGY - [facility] ORDERABLES Final Result [place] [address] [address] Department [place] [address] * N. gonorrhoeae/C. trachomatis Amplification Vaginal (12/13/2024 [...] this test have been verified by the [facility]. The performance characteristics of this test have not been evaluated in individuals less than 14 years of age. Current Interpretive Data last revised 2023. Vaginal (None) 12/13/2024 2: 30 AM CDT 12/13/2024 2:34 AM CDT us Juan COLIN LAB MICROBIOLOGY - GENERAL O RDERABLES Final Result [facility] [address] [facility] Department [place] [address] * (ABNORMAL) Vaginitis panel Vaginal (12/13/2024 2:30 AM CDT) Bacterial Vaginosis Not Detected Not Detected Comment:A negative result do es not preclude a possible infection. Results should be considered in conjunction with clinical presentation to determine the disease status. Jada group Detected(A) Not Detected [facility] Comment:Jada species can be present as commensal organisms in women; results should be considered in conjunction with clinical presentation to determine the disease status. Jada glabrata/ krusei Not Detected Not Detected [facility] Trichomonas DNA Not Detected Not Detected [facility] Vaginal 12/13/2024 2:30 AM CDT 12/13/2024 2:34 AM CDT Narrative [facility] - 12/13/2024 3:34 AM CDT [...] this test have been verified by the [facility]. The Cepheid Xpert Xpress MVP [...] this test have been verified by the [facility]. Juan COLIN LAB MICROBIOLOGY - GENERAL O RDERABLES Final Result Performing Organization Address [facility] Co de Phone Number [facility] [address] [place] [address] * (ABNORMAL) Urinalysis reflex to microscopic and culture Urine (12/13/2024 2:30 AM CDT) Color, ur Straw Yellow Clarity, ur Cloudy(A) Clear [facility] Specific gravity, ur 1.018 1.003 - 1.030 [facility] pH, urine 6.0 [facility] Comment: Interpretive Data U rine pH is affected by diet, medications, systemic acid-base disturbances, and renal tubular function. pH may affect urinary stone formation. For example, urine pH below 6.0 may help reduce the tendency for calcium phosphate stones and pH greater than 6.0 may reduce the tendency for uric acid stone formation. Source: [facility] Current Interpretive Data was last revised on 2017 Protein, ur ql Negative Negative [facility] Glucose, ur ql Negative Negative [facility] Ketones, ur Negative Negative [facility] Bilirubin, ur Negative Negative [facility] Blood, ur 1+(A) Negative [facility] Urobilinogen, ur <2.0 <2.0 mg/dL [facility] Nitrite, ur Negative Negative [facility] Leukocyte esterase, ur 4+(A) Negative [facility] UA reflex comment Reflex to microscopic UA will be performed. [facility] Urine 12/13/2024 2:30 AM CDT 12/13/2024 2:34 AM CDT Juan Manuel Avitia DO LAB MICROBIOLOGY - GENERAL ORDERABLES Final Result Performing Organization Address City/[facility]/ZIP Co de Phone Number [facility] [address] [place] [address] * (ABNORMAL) Urinalysis, microscopic only (12/13/2024 2:30 AM CDT) WBC, ur 0-5 0 - 5 /HPF RBC, ur 11-20(A) 0 - 2 /HPF [facility] Epithelial cells, squamous, ur 11-20(A) 0 - 5 /HPF [facility] Comment:Suggestive of contam ination. Consider recollection by clean catch. Mucous, ur Present(A) [facility] Culture Reflex Comment Reflex conditions for urine culture (WBC >10) not met. [facility] Urine 12/13/2024 2:30 AM CDT 12/13/2024 2:34 AM CDT Juan Manuel Avitia DO LAB URINE ORDERABLES Final Result Performing Organization Address [facility] de Phone Number [address] [address] * Urine culture Urine (12/13/2024 2:30 AM CDT) Report Final Report: Growth indicative of contamination with periurethral slava. Please submit a new specimen with special attention given to the collection process and to prompt transport to the laboratory. Comment:Testing performed by : [facility], [address] [place] [address] Organism GROWTH INDICATES CONTAM WITH PERIURETHRAL SLAVA. [facility] Urine 12/13/2024 2:30 AM CDT 12/13/2024 9:22 AM CDT Narrative [facility] - 12/14/2024 2:33 PM CDT Testing performed by [facility] Microbiology Laboratory ([phone]) Juan COLIN LAB MICROBIOLOGY - GENERAL O RDERABLES Final Result Performing Organization Address City/[facility]/ZIP Co de Phone Number [address] [place] [address] * (ABNORMAL) POCT hCG, urine (12/13/2024 2:27 [...] S Edited Result - Final [facility] NARANJO [address] Department of Laboratories [place], [place] [id number] * ECG 12 lead (10/07/2024 8:59 AM CDT) 10/07/2024 8:59 AM CDT Narrative [facility] - 10/07/2024 10:23 AM CDT Vent Rate: 68 bpm RR Interval: 870 msec RI Interval: 131 msec QRS Duration: 80 msec QT Interval: 374 msec QTC Interval: 392 msec P-R-T [place]: 11 - 30 - 19 degrees IMPRESSION: SINUS RHYTHM NORMAL ECG Electronically Signed By: Antolin Min MD Darryl Glover MD ECG ORDERABLES Fin al Result [facility] * eGFR (10/07/2024 8:50 AM CDT) Pathologist [facility] eGFR >90 >=60 mL/min/1. 73 m2 Comment: [...] LAB BLOOD ORDERABLE S Final Result [facility] [address] [facility] [place] [address] * Differential, auto (10/07/2024 8:50 AM CDT) Pathologist [facility] Neutrophil abs 2.58 1.50 - 6.50 K/cumm [...] Neutrophil pct 51.3 % [facility] Comment: Interpretive Data Percent cell count reference [...] Final Result [facility] NARANJO ([place]) [address] [facility] Department of Laboratories [place], [place] [id number] * (ABNORMAL) CBC with auto differential (10/07/2024 [...] Final Result [facility] NARANJO ([place]) [address] [facility] [place] [address] * ABO/Rh (10/07/2024 8:50 AM CDT) ABO/Rh B Negative Blood 10/07/2024 8:50 AM CDT 10/07/2024 9:03 AM CDT Narrative [facility] ([place]) - 10/07/2024 9:40 AM CDT Has the patient had Daratumumab or Isatuximab in the past 6 months?->Unknown us Darryl Glover MD LAB BLOOD BANK TEST ORDERABLES Final Result [facility] N[facility]ANJO ([place]) [address] [facility] [place] [address] * Antibody screen (10/07/2024 8:50 AM CDT) Pam, indirect, Gel Interpretation Negative ABSC Blood 10/07/2024 8:50 AM CDT 10/07/2024 9:03 AM CDT Narrative [facility] ([place]) - 10/07/2024 9:40 AM CDT Has the patient had Daratumumab or Isatuximab in the past 6 months?->Unknown Darryl Glover MD LAB BLOOD BANK TEST ORDERABLES Final Result [facility] ([place]) [address] [facility] Department [place] [address] * Basic metabolic panel (10/07/2024 8:50 AM CDT) Sodium 137 135 - 145 mmol/L Potassium, pl 4.1 3.3 - 4.9 mmol/L [facility] ([place]) Chloride 104 97 - 110 mmol/L [facility] ([place]) CO2 22 22 - 32 mmol/L [facility] ([place]) Anion gap 11 2 - 15 mmol/L [facility] ([place]) BUN 11 6 - 25 mg/dL [facility] ([place]) Creatinine 0.64 0.60 - 1.10 mg/dL [facility] ([place]) Glucose 96 70 - 199 mg/dL [facility] ([place]) Comment: Interpretive Data Fasting glucose [...] 2022. Calcium 9.0 8.5 - 10.3 mg/dL [facility] ([place]) Blood 10/07/2024 8:50 AM CDT 10/07/2024 9:03 AM CDT us Darryl Glover MD LAB BLOOD ORDERABLE S Final Result [facility] [address] [facility] [place] [address] from Last 3 Months Insurance [employer] Care Teams Dinkey Operator Slate Relationship Specialty Start Date End Date No, Physician PCP - General 10/07/24
--- OUTSIDE RECORDS SUMMARY | 2025-01-07 22:21 | XMS_ITS ---
Author Organization [facility] Address [address] [place], [place] [address] Care Team Providers Care Manager Community Development Name Role Phone German Hua Primary Care Provider [phone] Rodrick Bauman Unavailable [phone] Abran Fitzpatrick Unavailable [phone] REASON FOR VISIT wwe Social History Sex Assigned At : Social History Observation Description Sex Assigned At Female Encounters Encounter Location Date [facility] [place], [place] [id number] 07/23/2023 Abran Fitzpatrick Plan Of Treatment No Information Progress Notes * Nisha BARNETT :1995 (29 yo F)Acc No.[id number]:07/23/2023 Patient: Nisha KLEIN Appointment Provider: SUSY Pastrana :1995 A ge:28 Y S ex:Female Date:07/23/2023 Address:[facility] [place], [id number] Pcp:German Hua Subjective: * Chief Complaints: * 1 . Wwe. * Medical History: Objective: * Vitals: Assessment: Plan: * Treatment: * Billing Information: * Visit Code: * Procedure Codes: * Electronic signature of SUSY Tellez chi on 01/07/2025 at 10:20 PM CDT Sign off status: Pending * Appointment Provider: SUSY Pastrana Date: 0 07/23/2023 Generated for Molina ramirez/Betty/Micky on: 0 01/07/2025 10:20 PM CDT
--- OUTSIDE RECORDS SUMMARY | 2025-01-07 22:21 | XMS_ITS | Encounter Summary ---
Author Organization [facility] Address [address] [place] [id number] Care Team Providers Care Photolithographer Name Role Phone No, Physician Primary Care Provider [phone] Encounter Details Date Type Department Care Team (Late st Contact Info) Description 12/14/2024 Results Follow-Up [address] [address] [address] Vaginitis panel Vaginal Social History Tobacco Use [...] on file Legal Sex Female 9:34 AM DBA DEVELOPER Gender Identity Female 07/10/2020 2:40 PM DBA DEVELOPER Sexual Orientation Straight 07/10/2020 2: 40 PM DBA DEVELOPER documented as of this encounter Miscellaneous Notes * Result Encounter Note - Shayna Dean RN - 12/15/2024 12:40 PM CDT This RN spoke to patient about abnormal test results and plan of care , called prescription in to [facility] [address] in [place] per patients request. documented in this encounter Plan of Treatment Not on file documented as of this encounter Visit Diagnoses Not on filedocumented in this encounter Care Teams Photolithographer Relationship Specialty Start Date End Date No, Physician PCP - General 10/07/24 documented as of this encounter
--- OUTSIDE RECORDS SUMMARY | 2025-01-07 22:21 | XMS_ITS | Referral Summary ---
Author Organization [facility] Physician Office Building [address] [place] [id number] Care Team Providers Care Die Fitter Name Role Phone No, Physician Primary Care Provider [phone] Encounters Date Type Department Care Team Description 12/24/2024 8:46 AM CDT - 12/24/2024 11:57 AM CDT Emergency [facility] Emergency Department [address] [place] [address] Nausea and vomiting in (Primary Dx) Discharge Disposition: Discharge to home or self care 12/15/[address] [address] Shayna Dean, RN 12/15/[address] [address] Shayna Dean, RN 12/14/[address] [address] Shayna Dean RN 12/14/2024 Results Follow-Up [address] [address] Juan Samson PA Vaginitis panel Vaginal 12/13/2024 2:30 AM CDT - 12/13/2024 3:25 AM CDT Emergency [address] [address] Positive test (Primary Dx); Vaginal irritation Discharge Disposition: Discharge to home or self care 10/07/2024 8:42 AM CDT - 10/07/2024 10:26 AM CDT Emergency [facility] Emergency Department [address] [id number] Darryl Glover MD Dysfunctional uterine bleeding (Primary [...] be linked with therapist. Her Referred to [facility] for trauma focused therapy. Start Prozac [...] on file Legal Sex Female 9:34 AM STATE HISTORICAL SOCIETY DIRECTOR Gender Identity Female 07/10/2020 2:40 PM STATE HISTORICAL SOCIETY DIRECTOR Sexual Orientation Straight 07/10/2020 2: 40 PM STATE HISTORICAL SOCIETY DIRECTOR Last Filed Vital Signs Vital Sign Reading [...] was last reviewed 2021. [facility] [address] [place] [address] Blood 12/24/2024 9:26 AM CDT 12/24/2024 9:32 AM CDT Yusra Wiseman NP LAB BLOOD ORDERABLES nal Result [facility] [address] [place] [address] * Differential, auto (12/24/2024 9:26 AM CDT) Neutrophil abs 3.98 1.50 - 6.50 K/cumm Comment:Testing performed [facility] : [facility] [address], [place] [address] Imm gran abs 0.02 0.00 - 0.10 K/cumm [facility] RUSSELL Comment:Testing performed by : [facility] [address], [place] [address] Lymphocyte abs 2.09 0.80 - 3.30 K/cumm [facility] RUSSELL Comment:Testing performed by : [facility] [address], [place] [address] Monocyte abs 0.63 0.20 - 0.80 K/cumm [facility] RUSSELL Comment:Testing performed by : [facility] [address], [place] [address] Eosinophil abs 0.18 0.00 - 0.50 K/cumm CERNER CH Comment:Testing performed by : [facility], [address] [place] [address] Basophil abs 0.01 0.00 - 0.10 K/cumm CERNER CH Comment:Testing performed by : [facility], [facility] [place] [address] Neutrophil pct 57.7 % CERNER CH Comment: Interpretive Data Percent cell count reference ranges are not reported, since discordance with absolute values may lead to misinterpretation of CBC data. Current Interpretive Data was last revised on 2017. Testing performed by: [facility], [facility] [place] [address] Imm gran pct 0.3 % CERNER CH Comment: Interpretive Data Percent cell count reference ranges are not reported, since discordance with absolute values may lead to misinterpretation of CBC data. Current Interpretive Data was last revised on 2017. Testing performed by: [place] [address] [place] [address] Lymphocyte pct 30.2 % CERNER CH Comment: Interpretive Data Percent cell count reference ranges are not reported, since discordance with absolute values may lead to misinterpretation of CBC data. Current Interpretive Data was last revised on 2017. Testing performed by: [place] [address] [address] Monocyte pct 9.1 % CERNER CH Comment: Interpretive Data Percent cell count reference ranges are not reported, since discordance with absolute values may lead to misinterpretation of CBC data. Current Interpretive Data was last revised on 2017. Testing performed by: [place] [address] [place] [address] Eosinophil pct 2.6 % CERNER CH Comment: Interpretive Data Percent cell count reference ranges are not reported, since discordance with absolute values may lead to misinterpretation of CBC data. Current Interpretive Data was last revised on 2017. Testing performed by: [facility], [facility] [place] [address] Basophil pct 0.1 % CERNER CH Comment: Interpretive Data Percent cell count reference ranges are not reported, since discordance with absolute values may lead to misinterpretation of CBC data. Current Interpretive Data was last revised on 2017. Testing performed by: [facility] [address], [place] [address] Blood 12/24/2024 9:26 AM CDT 12/24/2024 9:32 AM CDT Yusra Wiseman [employer] LAB BLOOD ORDERABLES Fi nal Result [facility] [address] [address] Department [place] [address] * (ABNORMAL) CBC with auto differential (12/24/2024 9:26 AM CDT) WBC 6.91 3.80 - 9.90 K/cumm Comment:Testing performed by : [facility] [address], [place] [address] Hgb 13.2 11.9 - 15.5 g/dL CERNER CH Comment:Testing performed by : [facility] [address], [place] [address] Hct 40.0 35.6 - 45.5 % CERNER CH Comment:Testing performed by : [facility] [address], [place] [address] Plt 259 150 - 400 K/cumm CERNER CH Comment:Testing performed by : [facility] [address], [place] [address] MPV 9.1 9.1 - 12.3 fL CERNER CH Comment:Testing performed by : [facility] [address], [place] [address] RBC 4.93 3.90 - 5.20 M/cumm CERNER CH Comment:Testing performed by : [facility] [address], [place] [address] MCV 81.1(L) 81.3 - 96.4 fL CERNER CH Comment:Testing performed by : [facility] [address], [place] [address] MCH 26.8(L) 27.1 - 33.3 pg CERNER CH Comment:Testing performed by : [facility] [address], [place] [address] MCHC 33.0 32.3 - 35.7 g/dL CERNER CH Comment:Testing performed by : [facility] [address], [place] [facility]31 RDW CV 16.1(H) 11.1 - 14.9 % [facility] Comment:Testing performed by : [facility], [place] [address] RDW SD 47.5 35.7 - 48.1 fL [facility] Comment:Testing performed by : [facility], [place] [address] NRBC abs 0.00 0.00 - 0.01 K/cumm [facility] Comment:Testing performed by : [facility], [address] [place], [facility]31 Blood Venous blood specimen / Unknown 12/24/2024 9:26 AM CDT 12/24/2024 9:32 AM CDT Yusra Wiseman NP LAB BLOOD ORDERABLES Fi nal Result Performing Organization Address [facility] de Phone Number [facility] [address] [address] [facility] [place] [address] * (ABNORMAL) hCG, blood, quantitative (12/24/2024 9:26 AM CDT) [facility] hCG, quant 29,188.0( H) 0.0 - 5.0 IUnits/L Comment: Interpretive Data Male: < 5 IU/L Non- premenopausal Female: <5 IU/L The Karl hCG Beta Quant assay procedure was used. Results from different manufacturers or methods may not be comparable. Serial testing should be performed using the same method. Interpretive Data was last revised on 2023 Testing performed by: [facility], [place] [address] Blood 12/24/2024 9:26 AM CDT 12/24/2024 9:32 AM CDT Yusra Wiseman NP LAB BLOOD ORDERABLES Fi nal Result Performing Organization Address [facility] Co de Phone Number [facility] [address] [address] [facility] [place] [address] * Lipase (12/24/2024 9:26 AM CDT) Lipase 14 10 - 99 Units/L Comment:Testing performed by : [facility] [place] [address] Blood 12/24/2024 9:26 AM CDT 12/24/2024 9:32 AM CDT Yusra Wiseman NP LAB BLOOD ORDERABLES Fi nal Result [facility] [address] [address] [place] [address] * (ABNORMAL) Comprehensive metabolic panel (12/24/2024 9:26 AM CDT) Pathologist [facility] Sodium 136 135 - 145 mmol/L Comment:Testing performed by : [facility] [address], [place] [address] Potassium, pl 3.7 3.3 - 4.9 mmol/L CERNER Comment:Testing performed by : [facility] [address], [place] [address] Chloride 101 97 - 110 mmol/L CERNER Comment:Testing performed by : [facility] [address], [place] [address] CO2 17(L) 22 - 32 mmol/L CERNER Comment:Testing performed by : [facility] [address], [place] [address] Anion gap 18(H) 2 - 15 mmol/L [facility] Comment:Testing performed by : [facility] [address], [place] [address] BUN 7 6 - 25 mg/dL [facility] Comment:Testing performed by : [facility] [address], [place] [address] Creatinine 0.57(L) 0.60 - 1.10 mg/dL CERNER Comment:Testing performed by : [facility] [address], [place] [address] Glucose 85 70 - 199 mg/dL [facility] Comment: Interpretive Data Fasting glucose >/= 126 [...] was last revised 2022. Testing performed by: [facility] [place] [address] Calcium 9.7 8.5 - 10.3 mg/dL CERNER Comment:Testing performed by : [facility] [address], [place] [address] Bilirubin, total 0.4 0.1 - 1.2 mg/dL CERNER CH Comment:Testing performed by : [facility] [place] [address] Protein, pl 7.4 6.5 - 8.5 g/dL CERNER CH Comment:Testing performed by : [facility] [place] [address] Albumin 4.0 3.5 - 5.0 g/dL CERNER Comment:Testing performed by : [facility] [address], [place] [address] Alk phos 76 40 - 130 Units/L CERNER Comment:Testing performed by : [facility] [address], [place] [address] ALT 18 7 - 45 Units/L CERNER Comment:Testing performed by : [facility] [place] [address] AST 21 10 - 45 Units/L CERNER Comment:Testing performed by : [facility] [place] [address] Blood 12/24/2024 9:26 AM CDT 12/24/2024 9:32 AM CDT us Yusra Wiseman NP LAB BLOOD ORDERABLES Fi nal Result [facility] [address] [address] [place] [address] * (ABNORMAL) POCT hCG, urine [...] ur Yellow Yellow Comment:Testing performed by : [facility], [place] [address] Clarity, ur Clear Clear CERNER CH Comment:Testing performed by : [facility] [address], [place] [address] Specific gravity, ur 1.026 1.003 - 1.030 CERNER CH Comment:Testing performed by : [facility] [address], [place] [address] pH, urine 8.0 CERNER CH Comment: Interpretive Data U rine pH is affected by diet, medications, systemic acid-base disturbances, and renal tubular function. pH may affect urinary stone formation. For example, urine pH below 6.0 may help reduce the tendency for calcium phosphate stones and pH greater than 6.0 may reduce the tendency for uric acid stone formation. Source: [employer] Current Interpretive Data was last revised on 2017 Testing performed by: [facility] [address], [place] [address] Protein, ur ql Trace Negative CERNER CH Comment:Testing performed by : [facility] [address], [place] [address] Glucose, ur ql Negative Negative CERNER CH Comment:Testing performed by : [facility] [address], [place] [address] Ketones, ur Trace Negative CERNER CH Comment:Testing performed by : [facility] [address], [place] [address] Bilirubin, ur Negative Negative CERNER CH Comment:Testing performed by : [facility] [address], [place] [address] Blood, ur Negative Negative CERNER CH Comment:Testing performed by : [facility] [address], [place] [address] Urobilinogen, ur 2.0(A) <2.0 mg/dL CERNER CH Comment:Testing performed by : [facility], [address], [place] [address] Nitrite, ur Negative Negative CON[facility] RUSSELL Comment:Testing performed by : [facility], [place] [address] Leukocyte esterase, ur Negative Negative CON[facility]O RUSSELL Comment:Testing performed by : [facility], [address], [place] [address] UA reflex comment Reflex conditions for microscopic UA and culture not met. [facility] Comment:Testing performed by : [facility], [place] [address] Urine 12/24/2024 9:06 AM CDT 12/24/2024 9:10 AM CDT Yusra Wiseman NP LAB MICROBIOLOGY - GENE RAL ORDERABLES Final Result Performing Organization Address [facility] Co de Phone Number [facility] [address] [address] [place] [address] * N. gonorrhoeae/C. trachomatis Amplification Vaginal (12/13/2024 2:30 AM CDT) Pathologist [facility] C. trachomatis Not Detected Not Detected N. gonorrhoeae Not Detected Not Detected [facility] Comment: Interpretive Data This assay detects Chlamydia trachomatis and Neisseria gonorrhoeae by nucleic acid amplification testing (NAAT). This assay has been cleared by the [place] Food and Drug administration. The performance characteristics of this test have been verified by the [facility]. The performance characteristics of this test have not been evaluated in individuals less than 14 years of age. Current Interpretive Data last revised 2023. Vaginal (None) 12/13/2024 2: 30 AM CDT 12/13/2024 2:34 AM CDT Juan COLIN LAB MICROBIOLOGY - GENERAL O RDERABLES Final Result Performing Organization Address City/[facility]/ZIP Co de Phone Number [facility] [address] [facility] Department [place] [address] * (ABNORMAL) Vaginitis panel Vaginal (12/13/2024 2:30 AM CDT) Bacterial Vaginosis Not Detected Not Detected Comment:A negative result do es not preclude a possible infection. Results should be considered in conjunction with clinical presentation to determine the disease status. Jada group Detected(A) Not Detected [facility] Comment:Jada species can be present as commensal organisms in women; results should be considered in conjunction with clinical presentation to determine the disease status. Jada glabrata/ krusei Not Detected Not Detected [facility] Trichomonas DNA Not Detected Not Detected [facility] Vaginal 12/13/2024 2:30 AM CDT 12/13/2024 2:34 AM CDT Narrative [facility] - 12/13/2024 3:34 AM CDT The [...] this test have been verified by the [facility]. The Cepheid Xpert Xpress [...] this test have been verified by the [facility]. us Juan COLIN LAB MICROBIOLOGY - GENERAL O RDERABLES Final Result [facility] [address] [facility] Department [place] [address] * (ABNORMAL) Urinalysis reflex to microscopic and culture Urine (12/13/2024 2:30 AM CDT) Color, ur Straw Yellow Clarity, ur Cloudy(A) Clear [facility] Specific gravity, ur 1.018 1.003 - 1.030 [facility] pH, urine 6.0 [facility] Comment: Interpretive Data U rine pH is affected by diet, medications, systemic acid-base disturbances, and renal tubular function. pH may affect urinary stone formation. For example, urine pH below 6.0 may help reduce the tendency for calcium phosphate stones and pH greater than 6.0 may reduce the tendency for uric acid stone formation. Source: [facility] Current Interpretive Data was last revised on 2017 Protein, ur ql Negative Negative [facility] Glucose, ur ql Negative Negative [facility] Ketones, ur Negative Negative [facility] Bilirubin, ur Negative Negative [facility] Blood, ur 1+(A) Negative [facility] Urobilinogen, ur <2.0 <2.0 mg/dL [facility] Nitrite, ur Negative Negative [facility] Leukocyte esterase, ur 4+(A) Negative [facility] UA reflex comment Reflex to microscopic UA will be performed. [facility] Urine 12/13/2024 2:30 AM CDT 12/13/2024 2:34 AM CDT Juan Manuel Avitia DO LAB MICROBIOLOGY - GENERAL ORDERABLES Final Result [place] [id number] [facility] [place] [address] * (ABNORMAL) Urinalysis, microscopic only (12/13/2024 2:30 AM CDT) WBC, ur 0-5 0 - 5 /HPF RBC, ur 11-20(A) 0 - 2 /HPF [facility] Epithelial cells, squamous, ur 11-20(A) 0 - 5 /HPF [facility] Comment:Suggestive of contam ination. Consider recollection by clean catch. Mucous, ur Present(A) [facility] Culture Reflex Comment Reflex conditions for urine culture (WBC >10) not met. [facility] Urine 12/13/2024 2:30 AM CDT 12/13/2024 2:34 AM CDT Juan Manuel Avitia DO LAB URINE ORDERABLES Final Result [facility] [place] [address] [facility] Department [place] [address] * Urine culture Urine (12/13/2024 2:30 AM CDT) Report Final Report: Growth indicative of contamination with periurethral slava. Please submit a new specimen with special attention given to the collection process and to prompt transport to the laboratory. Comment:Testing performed by : [facility], [address] [place] [address] Organism GROWTH INDICATES CONTAM WITH PERIURETHRAL SLAVA. [facility] Urine 12/13/2024 2:30 AM CDT 12/13/2024 9:22 AM CDT Narrative [facility] - 12/14/2024 2:33 PM CDT Testing performed by [facility] Microbiology Laboratory ([phone]) Juan COLIN LAB MICROBIOLOGY - GENERAL O RDERABLES Final Result [facility] [place] [address] [facility] Department [place] [address] * (ABNORMAL) POCT hCG, urine (12/13/2024 2:27 AM CDT) [facility] HCG, ur, POC Positive(A) Negative Lot Number [id number] QC Backgroud Clear Acceptable QC Control Line Acceptable Urine 12/13/2024 2:27 AM CDT Juan Manuel Avitia DO POINT OF CARE TEST ORDERABL ES Final Result * hCG, blood, quantitative (10/07/2024 9:32 AM CDT) [facility] hCG, quant <5.0 0.0 - 5.0 IUnits/L [...] S Edited Result - Final [facility] NARANJO ([place]) [address] [facility] Department of Laboratories [place] [id number] * ECG 12 lead (10/07/2024 8:59 AM CDT) 10/07/2024 8:59 AM CDT Narrative [facility] - 10/07/2024 10:23 AM CDT Vent Rate: 68 bpm RR Interval: 870 msec VA Interval: 131 msec QRS Duration: 80 msec QT Interval: 374 msec QTC Interval: 392 msec P-R-T [place]: 11 - 30 - 19 degrees IMPRESSION: SINUS RHYTHM NORMAL ECG Electronically Signed By: Antolin Min MD Darryl Glover MD ECG ORDERABLES Fin al Result Performing Organization Address [facility] Co de Phone Number [facility] [employer] [facility] * eGFR (10/07/2024 8:50 AM CDT) eGFR [...] Result [facility] ([place]) [address] [facility] Department [place] [address] * Differential, auto (10/07/2024 8:50 AM CDT) [...] CDT 10/07/2024 9:03 AM CDT us Darryl Glovre MD LAB BLOOD ORDERABLE S Final Result [facility] ([place]) [address] [facility] Department [place] [address] * (ABNORMAL) CBC with auto differential (10/07/2024 [...] 47.3 35.7 - 48.1 fL [facility] NARANJO ([place]) NRBC abs 0.00 0.00 - 0.01 K/cumm [facility] NARAN[facility] ([place]) Blood 10/07/2024 8:50 AM CDT 10/07/2024 9:03 AM CDT Darryl Glover MD LAB BLOOD ORDERABLE S Final Result [facility] NARANJO ([place]) 1 [facility] [place] [address] * ABO/Rh (10/07/2024 8:50 AM CDT) ABO/Rh B Negative Blood 10/07/2024 8:50 AM CDT 10/07/2024 9:03 AM CDT Narrative [facility] NARANJO ([place]) - 10/07/2024 9:40 AM CDT Has the patient had Daratumumab or Isatuximab in the past 6 months?->Unknown us Darryl Glover MD LAB BLOOD BANK TEST ORDERABLES Final Result Performing Organization Address [facility] Co de Phone Number [facility] NARANJO ([place]) 1 [facility] [place] [address] * Antibody screen (10/07/2024 8:50 AM CDT) Pam, indirect, Gel Interpretation Negative ABSC Blood 10/07/2024 8:50 AM CDT 10/07/2024 9:03 AM CDT Narrative [facility] NARANJO ([place]) - 10/07/2024 9:40 AM CDT Has the patient had Daratumumab or Isatuximab in the past 6 months?->Unknown Darryl Glover MD LAB BLOOD BANK TEST ORDERABLES Final Result Performing Organization Address City/[facility]/ZIP Co de Phone Number [facility] NARANJO ([place]) [address] [facility] [place] [address] * Basic metabolic panel (10/07/2024 8:50 AM CDT) Sodium 137 135 - 145 mmol/L Potassium, pl 4.1 3.3 - 4.9 mmol/L [facility] Chloride 104 97 - 110 mmol/L [facility] ([place]) CO2 22 22 - 32 mmol/L [facility] ([place]) Anion gap 11 2 - 15 mmol/L [facility] ([place]) BUN 11 6 - 25 mg/dL [facility] ([place]) Creatinine 0.64 0.60 - 1.10 mg/dL [facility] ([place]) Glucose 96 70 - 199 mg/dL [facility] ([place]) Comment: Interpretive Data Fasting [...] 2022. Calcium 9.0 8.5 - 10.3 mg/dL [facility] ([place]) Blood 10/07/2024 8:50 AM CDT 10/07/2024 9:03 AM CDT us Darryl Glover MD LAB BLOOD ORDERABLE S Final Result [facility] NARANJO ([place]) 1 [facility] Department [place] [address] from Last 3 Months Insurance [employer] EXCHANGE BLUE [employer] EXCHANGE Care Teams Die Fitter Relationship Specialty Start Date End Date No, Physician PCP - General 10/07/24
--- OUTSIDE RECORDS SUMMARY | 2025-01-07 22:57 | XMS_ITS | Clinical Summary ---
Author Organization [facility] Address [address] [place] [address] Care Team Providers Care Client Architect Name Role Phone Unavailable Primary Care Provider [...] TRICH (08/26/2021 10:22 AM CDT) SEE NOTE [facility] Comment: This order for age-based cervical cancer and STI screening follows ACOG guidelines(PB 168, 140, [id number]). See individual assays for performing site location. CLINICAL INFORMATION [facility] Comment:Information not prov ided LAST MENSTRUAL PERIOD [facility] Comment:INFORMATION NOT PROV IDED PREV PAP: [facility] Comment:INFORMATION NOT PROV IDED PREV BX: [facility] Comment:INFORMATION NOT PROV IDED SOURCE [facility] Comment:Endocervix ADEQUACY: [facility] Comment: Satisfactory for evaluation. Endocervical/transformation zone component present. Age and/or menstrual status not provided PAP INTERP [facility] Comment:Negative for intraep ithelial lesion or malignancy. COMMENT (PAP TEST) [facility] Comment: This Pap test has been evaluated with computer assisted technology. CORPORATE DIRECTOR: [facility] Comment: SAMAGNES(ASCP) CT screening location: [place] [address] [place] [address] SEE NOTE [facility] Comment: EXPLANATORY NOTE: [...] C TRAC RNA NOT DETECTED NOT DETECTED [facility] N.GONORRHOEAE RNA, TMA NOT DETECTED NOT DETECTED [facility] SEE NOTE [facility] Comment: The analytical performance characteristics of this assay, when used to test SurePath(TM) specimens have been determined by [employer]. The modifications have not been cleared or approved by the FDA. This assay has been validated pursuant to the CLIA regulations and is used for clinical purposes. For additional information, please refer to https://[employer]faq/OAD508 (This link is being provided for information/ educational purposes only.) TRICHOMONAS VAGINALIS,QUALITAT LAYNE,PAP VIAL NOT DETECTED NOT DETECTED [facility] Comment: The analytical performance characteristics of this assay have been determined by [facility] [employer]. The modifications have not been cleared or approved by the FDA. This assay has been validated pursuant to the CLIA regulations and is used for clinical purposes. For additional information, please refer to http://[employer] faq/Trichomonastma (This link is being provided for information/ educational purposes only.) Test Performed at: [facility] [address] [place] [address] Andrea Mix D.O., MPH Genital SWAB OF ENDOCERVIX / Unknown 08/26/2021 10:22 AM CDT 08/27/2021 4:04 AM CDT Aba Gutierrez MD PATHOLOGY/CYTOLOGY ORDERABLES Final Result Performing Organization Address City/State/[facility] Co de Phone Number [facility] [address] [place] [address] from Last 3 Months or Most Recently Relevant to Health Maintenance Insurance BCBS TRUE BLUE PPO EXCHANGE
--- OUTSIDE RECORDS SUMMARY | 2025-01-07 22:57 | XMS_ITS | Clinical Summary ---
Author Organization [facility] Address [address] [place] [address] Care Team Providers Care Boom Man Name Role Phone [facility] Primary Care Pro vider Source Comments [facility],non-[place] Affiliates and Associated Physician Practices is amultiple site organization consisting of ambulatory clinics and hospital sitesin [place], [place], [place] and [place]. This disclosure is being madepursuant to the Care Everywhere program and may not contain all information available regarding this patient. Last updated 18.[facility] Allergies Active Allergy Reactions Criticality Noted [...] fluticasone propionate (Flonase) 50 MCG/ACT nasal spray [place] 2 (two) sprays into each nostril once [...] ing 20 tablet 03/28/2024 Active HYDROcodone-lilian taminophen ([place]) 5-325 MG tabletIndicatio ns:Acute maxillary sinusitis, recurrence [...] Overview (11/11/2016): She sees Dr. Jean at [facility]. She discontinued Seroquel with positive test. [...] place to sleep or slept in a fci (including now)? No 05/11/2022 Norphlet Depression Scale Answer Date Recorded RETIRED: Total Score 0 05/08/2022 Last EPDS Self Harm Result Not on file 05/08 Comments No Sex and Gender Information Value Date Recorded Sex Assigned at Not on file Legal Sex Female 6:05 AM FACILITY TECHNICIAN Gender Identity Not on file Sexual Orientation Not on file Last Filed Vital Signs Vital Sign Reading Time Taken Comments Blood Pressure 147/96 05/28/2024 11:26 PM FACILITY TECHNICIAN Pulse 65 05/28/2024 11:26 PM FACILITY TECHNICIAN Temperature 36.7 C (98.1 F) 05/28/2024 11:26 PM FACILITY TECHNICIAN Respiratory Rate 18 05/28/2024 11:26 PM FACILITY TECHNICIAN Oxygen Saturation 95% 05/28/2024 11:26 PM FACILITY TECHNICIAN Inhaled Oxygen Concentration - - Weight 70.8 kg (156 lb) 05/28/2024 11:26 PM FACILITY TECHNICIAN Height 157.5 cm (5' 2) 05/28/2024 11:26 PM FACILITY TECHNICIAN Body Mass Index 28.53 05/28/2024 11:26 PM FACILITY TECHNICIAN Plan of Treatment Health Maintenance Due Date [...] RFLX HPV ASCU Routine 08/05/2016 12:37 PM FACILITY TECHNICIAN 10 weeks gestation of HIV-1 HIV-2 ANTIBODY + HIV P24 AG PANEL Routine 08/05/2016 12:35 PM FACILITY TECHNICIAN 10 weeks gestation of from Last 3 Months or Most Recently Relevant to Health Maintenance Results * PAP SMEAR IG RFLX HPV ASCU (PO REF LAB) (08/05/2016 12:37 PM FACILITY TECHNICIAN) Diagnosis Comment 08/06/2016 9:08 PM FACILITY TECHNICIAN [facility] Comment:NEGATIVE FOR INTRAEP ITHELIAL LESION AND MALIGNANCY. Specimen Adequacy Comment 017 9:08 PM FACILITY TECHNICIAN [facility] Comment: Satisfactory for evaluation. Endocervical and/or squamous metaplastic cells (endocervical component) are present. Performed by Comment 08/06/2016 9:08 PM FACILITY TECHNICIAN [facility] Comment:Rubi Medley [employer] hnologist (ASCP) Comment . 08/06/2016 9:08 PM FACILITY TECHNICIAN [facility] Note Comment 08/06/2016 9:08 PM FACILITY TECHNICIAN [facility] Comment: The Pap smear is a screening test designed to aid in the detection of premalignant and malignant conditions of the uterine cervix. It is not a diagnostic procedure and should not be used as the sole means of detecting cervical cancer. Both false-positive and false-negative reports do occur. IGLBP CPT Code Automation Comment 08/06/2016 9:08 PM FACILITY TECHNICIAN [facility] Comment: This liquid based ThinPrep(R) pap test was screened with the use of an image guided system. Note Comment 08/06/2016 9:08 PM FACILITY TECHNICIAN [facility] Comment: The HPV DNA reflex criteria were not met with this specimen result therefore, no HPV testing was performed. Pathology/Cytolo gy PART OF UTERINE CERVIX / Unknown 08/05/2016 12:37 PM FACILITY TECHNICIAN 08/05/2016 1:19 PM FACILITY TECHNICIAN Narrative [facility] - 08/06/2016 9:08 PM FACILITY TECHNICIAN Performed at: [address] [place] [id number] Fastener Sewing Machine Operator: Rayna Cuevas MD, Phone: [phone] Specimen Comment: Source.............Cervix Specimen Comment: No. of containers..01 CYTYC Thin Prep Vial us Gaye Stephens MD LAB - PATHOLOGY/CYTOLOGY ORDE RABILIANA Final Result [facility] ([facility]) [address] [place] [address] * HIV-1 HIV-2 ANTIBODY + HIV P24 AG PANEL (08/05/2016 12:35 PM FACILITY TECHNICIAN) HIV1/2 Ab + P24 Ag Non Reactive Non Reactive 08/05/2016 6:49 PM FACILITY TECHNICIAN [facility] Blood BLOOD SPECIMEN / Unknown 08/05/2016 12:35 PM FACILITY TECHNICIAN 08/05/2016 1:10 PM FACILITY TECHNICIAN Narrative [facility] - 08/05/2016 6:49 PM FACILITY TECHNICIAN No Laboratory evidence of HIV infection. us Gaye Stephens MD LAB - CHEMISTRY ORDERABLES Fi nal Result [facility] [address] [place] [address] from Last 3 Months or Most Recently Relevant to Health Maintenance Insurance [place] [employer] [id number] [place] - [place] MEDICAID - [...] 12:53 PM 02/27/2017 12:50 PM Care Teams Boom Man Relationship Specialty Start Date End Date [facility] [address] [place] [address] PCP - General Resident Services Coordinator 01/30/22
--- OUTSIDE RECORDS SUMMARY | 2025-01-07 22:57 | XMS_ITS | Referral Summary ---
Author Organization [facility] Physician Office Building [address] [place] [id number] Care Team Providers Care Automotive Warranty Administrator Name Role Phone No, Physician Primary Care Provider [phone] Encounters Date Type Department Care Team Description 12/24/2024 8:46 AM CDT - 12/24/2024 11:57 AM CDT Emergency [facility] Emergency Department [address] [place] [address] Nausea and vomiting in (Primary Dx) Discharge Disposition: Discharge to home or self care 12/15/[address] [address] Shayna Dean, RN 12/15/[address] [address] Shayna Dean, RN 12/14/[address] [address] Shayna Dean RN 12/14/2024 Results Follow-Up [address] [address] Juan Samson PA Vaginitis panel Vaginal 12/13/2024 2:30 AM CDT - 12/13/2024 3:25 AM CDT Emergency [address] [address] Positive test (Primary Dx); Vaginal irritation Discharge Disposition: Discharge to home or self care 10/07/2024 8:42 AM CDT - 10/07/2024 10:26 AM CDT Emergency [facility] Emergency Department [address] [place] [id number] Darryl Glover MD Dysfunctional uterine bleeding (Primary [...] with therapist. Her Referred to [facility] for trauma focused therapy. Start Prozac [...] on file Legal Sex Female 9:34 AM EDGER LINER Gender Identity Female 07/10/2020 2:40 PM EDGER LINER Sexual Orientation Straight 07/10/2020 2: 40 PM EDGER LINER Last Filed Vital Signs Vital Sign Reading [...] was last reviewed 2021. [facility] [address] [place] [address] Blood 12/24/2024 9:26 AM CDT 12/24/2024 9:32 AM CDT Yusra Wiseman NP LAB BLOOD ORDERABLES nal Result [facility] [address] Department [place] [address] * Differential, auto (12/24/2024 9:26 AM CDT) Neutrophil abs 3.98 1.50 - 6.50 K/cumm Comment:Testing [facility] : [facility] [address], [place] [address] Imm gran abs 0.02 0.00 - 0.10 K/cumm CON[facility]O RUSSELL Comment:Testing performed by : [facility] [address], [place] [address] Lymphocyte abs 2.09 0.80 - 3.30 K/cumm CONRADO RUSSELL Comment:Testing performed by : [facility] [address], [place] [address] Monocyte abs 0.63 0.20 - 0.80 K/cumm CONRADO RUSSELL Comment:Testing performed by : [facility] [address], [place] [address] Eosinophil abs 0.18 0.00 - 0.50 K/cumm CERNER CH Comment:Testing performed by : [facility], [address] [place] [address] Basophil abs 0.01 0.00 - 0.10 K/cumm CERNER CH Comment:Testing performed by : [facility], [facility] [place] [address] Neutrophil pct 57.7 % CERNER CH Comment: Interpretive Data Percent cell count reference ranges are not reported, since discordance with absolute values may lead to misinterpretation of CBC data. Current Interpretive Data was last revised on 2017. Testing performed by: [facility], [facility] [place] [address] Imm gran pct 0.3 % CERNER CH Comment: Interpretive Data Percent cell count reference ranges are not reported, since discordance with absolute values may lead to misinterpretation of CBC data. Current Interpretive Data was last revised on 2017. Testing performed by: [place] [address] [place] [address] Lymphocyte pct 30.2 % CERNER CH Comment: Interpretive Data Percent cell count reference ranges are not reported, since discordance with absolute values may lead to misinterpretation of CBC data. Current Interpretive Data was last revised on 2017. Testing performed by: [place] [address] [place] [address] Monocyte pct 9.1 % CERNER CH Comment: Interpretive Data Percent cell count reference ranges are not reported, since discordance with absolute values may lead to misinterpretation of CBC data. Current Interpretive Data was last revised on 2017. Testing performed by: [place] [address] [place] [address] Eosinophil pct 2.6 % CERNER CH Comment: Interpretive Data Percent cell count reference ranges are not reported, since discordance with absolute values may lead to misinterpretation of CBC data. Current Interpretive Data was last revised on 2017. Testing performed by: [facility], [facility] [place] [address] Basophil pct 0.1 % CERNER CH Comment: Interpretive Data Percent cell count reference ranges are not reported, since discordance with absolute values may lead to misinterpretation of CBC data. Current Interpretive Data was last revised on 2017. Testing performed by: [facility] [address], [place] [address] Blood 12/24/2024 9:26 AM CDT 12/24/2024 9:32 AM CDT Yusra Wiseman EVP OPERATIONS LAB BLOOD ORDERABLES Fi nal Result [facility] [address] [address] Department [place] [address] * (ABNORMAL) CBC with auto differential (12/24/2024 9:26 AM CDT) WBC 6.91 3.80 - 9.90 K/cumm Comment:Testing performed by : [facility] [address], [place] [address] Hgb 13.2 11.9 - 15.5 g/dL CERNER CH Comment:Testing performed by : [facility] [address], [place] [address] Hct 40.0 35.6 - 45.5 % CERNER CH Comment:Testing performed by : [facility] [address], [place] [address] Plt 259 150 - 400 K/cumm CERNER CH Comment:Testing performed by : [facility], [place] [address] MPV 9.1 9.1 - 12.3 fL CERNER CH Comment:Testing performed by : [facility] [address], [place] [address] RBC 4.93 3.90 - 5.20 M/cumm CERNER CH Comment:Testing performed by : [facility] [address], [place] [address] MCV 81.1(L) 81.3 - 96.4 fL CERNER CH Comment:Testing performed by : [facility] [address], [place] [address] MCH 26.8(L) 27.1 - 33.3 pg CERNER CH Comment:Testing performed by : [facility] [address], [place] [address] MCHC 33.0 32.3 - 35.7 g/dL CERNER CH Comment:Testing performed by : [facility] [address], [place] [facility]31 RDW CV 16.1(H) 11.1 - 14.9 % [facility] Comment:Testing performed by : [facility], [place] [address] RDW SD 47.5 35.7 - 48.1 fL [facility] Comment:Testing performed by : [facility], [place] [address] NRBC abs 0.00 0.00 - 0.01 K/cumm CON[facility] Comment:Testing performed by : [facility], [address] [place], [facility]31 Blood Venous blood specimen / Unknown 12/24/2024 9:26 AM CDT 12/24/2024 9:32 AM CDT Yusra Wiseman NP LAB BLOOD ORDERABLES Fi nal Result Performing Organization Address [facility] de Phone Number [facility] [address] [facility] [place] [address] * (ABNORMAL) hCG, blood, quantitative (12/24/2024 9:26 AM CDT) [facility] hCG, quant 29,188.0( H) 0.0 - 5.0 IUnits/L Comment: Interpretive Data Male: < 5 IU/L Non- premenopausal Female: <5 IU/L The Karl hCG Beta Quant assay procedure was used. Results from different manufacturers or methods may not be comparable. Serial testing should be performed using the same method. Interpretive Data was last revised on 2023 Testing performed by: [facility], [place] [address] Blood 12/24/2024 9:26 AM CDT 12/24/2024 9:32 AM CDT Yusra Wiseman NP LAB BLOOD ORDERABLES Fi nal Result Performing Organization Address [facility] Co de Phone Number [facility] [address] [facility] [place] [address] * Lipase (12/24/2024 9:26 AM CDT) Lipase 14 10 - 99 Units/L Comment:Testing performed by : [facility] [place] [address] Blood 12/24/2024 9:26 AM CDT 12/24/2024 9:32 AM CDT Yusra Wiseman NP LAB BLOOD ORDERABLES Fi nal Result [facility] [address] [address] Department [place] [address] * (ABNORMAL) Comprehensive metabolic panel (12/24/2024 9:26 AM CDT) Pathologist [facility] Sodium 136 135 - 145 mmol/L Comment:Testing performed by : [facility] [address], [place] [address] Potassium, pl 3.7 3.3 - 4.9 mmol/L CERNER Comment:Testing performed by : [facility] [address], [place] [address] Chloride 101 97 - 110 mmol/L CERNER Comment:Testing performed by : [facility] [address], [place] [address] CO2 17(L) 22 - 32 mmol/L CERNER Comment:Testing performed by : [facility] [address], [place] [address] Anion gap 18(H) 2 - 15 mmol/L [facility] Comment:Testing performed by : [facility] [address], [place] [address] BUN 7 6 - 25 mg/dL [facility] Comment:Testing performed by : [facility] [address], [place] [address] Creatinine 0.57(L) 0.60 - 1.10 mg/dL CERNER Comment:Testing performed by : [facility] [address], [place] [address] Glucose 85 70 - 199 mg/dL [facility] Comment: Interpretive Data Fasting glucose >/= 126 [...] was last revised 2022. Testing performed by: [facility] [place] [address] Calcium 9.7 8.5 - 10.3 mg/dL CERNER Comment:Testing performed by : [facility] [address], [place] [address] Bilirubin, total 0.4 0.1 - 1.2 mg/dL CERNER CH Comment:Testing performed by : [facility] [place] [address] Protein, pl 7.4 6.5 - 8.5 g/dL CERNER CH Comment:Testing performed by : [facility] [place] [address] Albumin 4.0 3.5 - 5.0 g/dL CERNER Comment:Testing performed by : [facility] [address], [place] [address] Alk phos 76 40 - 130 Units/L CERNER Comment:Testing performed by : [facility] [address], [place] [address] ALT 18 7 - 45 Units/L CERNER Comment:Testing performed by : [facility] [address] AST 21 10 - 45 Units/L CERNER Comment:Testing performed by : [facility] [place] [address] Blood 12/24/2024 9:26 AM CDT 12/24/2024 9:32 AM CDT us Yusra Wiseman NP LAB BLOOD ORDERABLES Fi nal Result [facility] [address] [address] Department [place] [address] * (ABNORMAL) POCT hCG, urine [...] ur Yellow Yellow Comment:Testing performed by : [facility], [place] [address] Clarity, ur Clear Clear CERNER CH Comment:Testing performed by : [facility] [address], [place] [address] Specific gravity, ur 1.026 1.003 - 1.030 CERNER CH Comment:Testing performed by : [facility] [address], [place] [address] pH, urine 8.0 CERNER CH Comment: Interpretive Data U rine pH is affected by diet, medications, systemic acid-base disturbances, and renal tubular function. pH may affect urinary stone formation. For example, urine pH below 6.0 may help reduce the tendency for calcium phosphate stones and pH greater than 6.0 may reduce the tendency for uric acid stone formation. Source: [employer] Current Interpretive Data was last revised on 2017 Testing performed by: [facility], [place] [address] Protein, ur ql Trace Negative CERNER CH Comment:Testing performed by : [facility] [address], [place] [address] Glucose, ur ql Negative Negative CERNER CH Comment:Testing performed by : [facility] [address], [place] [address] Ketones, ur Trace Negative CERNER CH Comment:Testing performed by : [facility] [address], [place] [address] Bilirubin, ur Negative Negative CERNER CH Comment:Testing performed by : [facility] [address], [place] [address] Blood, ur Negative Negative CERNER CH Comment:Testing performed by : [facility], [place] [address] Urobilinogen, ur 2.0(A) <2.0 mg/dL CERNER CH Comment:Testing performed by : [facility], [address], [place] [address] Nitrite, ur Negative Negative CONRADO RUSSELL Comment:Testing performed by : [facility], [place] [address] Leukocyte esterase, ur Negative Negative CONRADO RUSSELL Comment:Testing performed by : [facility], [address], [place] [address] UA reflex comment Reflex conditions for microscopic UA and culture not met. CONRADO Comment:Testing performed by : [facility], [place] [address] Urine 12/24/2024 9:06 AM CDT 12/24/2024 9:10 AM CDT Yusra Wiseman NP LAB MICROBIOLOGY - GENE RAL ORDERABLES Final Result Performing Organization Address [facility] Co de Phone Number [facility] [address] [address] Department [place] [address] * N. gonorrhoeae/C. trachomatis Amplification Vaginal (12/13/2024 2:30 AM CDT) Pathologist [facility] C. trachomatis Not Detected Not Detected N. gonorrhoeae Not Detected Not Detected [facility]O Comment: Interpretive Data This assay detects Chlamydia trachomatis and Neisseria gonorrhoeae by nucleic acid amplification testing (NAAT). This assay has been cleared by the [place] Food and Drug administration. The performance characteristics of this test have been verified by the [facility]. The performance characteristics of this test have not been evaluated in individuals less than 14 years of age. Current Interpretive Data last revised 2023. Vaginal (None) 12/13/2024 2: 30 AM CDT 12/13/2024 2:34 AM CDT Juan COLIN LAB MICROBIOLOGY - GENERAL O RDERABLES Final Result Performing Organization Address City/[facility]/ZIP Co de Phone Number [facility] [address] [facility] Department [place] [address] * (ABNORMAL) Vaginitis panel Vaginal (12/13/2024 2:30 [...] verified by the [facility]. The Cepheid Xpert Xpress MVP [...] verified by the [facility]. us Juan COLIN LAB MICROBIOLOGY - GENERAL O RDERABLES Final Result [facility] [address] [facility] Department [place] [address] * (ABNORMAL) Urinalysis reflex to microscopic and [...] tendency for uric acid stone formation. Source: [facility] Current Interpretive Data was last revised on [...] LAB MICROBIOLOGY - GENERAL ORDERABLES Final Result [place] [id number] [facility] Department [place] [address] * (ABNORMAL) Urinalysis, microscopic only [...] LAB URINE ORDERABLES Final Result [facility] BUCKLEY [address] [facility] Department [place] [address] * Urine culture Urine (12/13/2024 2:30 AM CDT) Report Final Report: Growth indicative of contamination with periurethral slava. Please submit a new specimen with special attention given to the collection process and to prompt transport to the laboratory. Comment:Testing performed by : [facility], [address] [place] [address] Organism GROWTH INDICATES CONTAM WITH PERIURETHRAL SLAVA. [facility] Urine 12/13/2024 2:30 AM CDT 12/13/2024 9:22 AM CDT Narrative [facility] - 12/14/2024 2:33 PM CDT Testing performed by [facility] Microbiology Laboratory ([phone]) Juan COLIN LAB MICROBIOLOGY - GENERAL O RDERABLES Final Result [facility] [place]CKLEY [address] [facility] Department [place] [address] * (ABNORMAL) POCT hCG, urine (12/13/2024 2:27 AM CDT) [facility] HCG, ur, POC Positive(A) Negative Lot Number [id number] QC Backgroud Clear Acceptable QC Control Line Acceptable Urine 12/13/2024 2:27 AM CDT Juan Manuel Avitia DO POINT OF CARE TEST ORDERABL ES Final Result * hCG, blood, quantitative (10/07/2024 9:32 AM CDT) [facility] hCG, quant <5.0 0.0 - 5.0 IUnits/L [...] S Edited Result - Final [facility] NARANJO ([place]) 1 [facility] Department of Laboratories [place] [id number] * ECG 12 lead (10/07/2024 8:59 AM CDT) 10/07/2024 8:59 AM CDT Narrative [facility] - 10/07/2024 10:23 AM CDT Vent Rate: 68 bpm RR Interval: 870 msec [place] Interval: 131 msec QRS Duration: 80 msec QT Interval: 374 msec QTC Interval: 392 msec P-R-T [place]: 11 - 30 - 19 degrees IMPRESSION: SINUS RHYTHM NORMAL ECG Electronically Signed By: Antolin Min MD Darryl Glover MD ECG ORDERABLES Fin al Result Performing Organization Address [facility] Co de Phone Number [facility] [email or web address] [facility] * eGFR (10/07/2024 8:50 AM CDT) [...] S Final Result [facility] ([place]) 1 [facility] Department [place] [address] * Differential, auto (10/07/2024 8:50 AM CDT) [...] S Final Result [facility] ([place]) 1 [facility] [place] [address] * (ABNORMAL) CBC with auto differential (10/07/2024 [...] 47.3 35.7 - 48.1 fL [facility] NARANJO ([place]) NRBC abs 0.00 0.00 - 0.01 K/cumm [facility] NARANJO ([place]) Blood 10/07/2024 8:50 AM CDT 10/07/2024 9:03 AM CDT Darryl Glover MD LAB BLOOD ORDERABLE S Final Result [facility] NARANJO ([place]) 1 [facility] [place] [address] * ABO/Rh (10/07/2024 8:50 AM CDT) ABO/Rh B Negative Blood 10/07/2024 8:50 AM CDT 10/07/2024 9:03 AM CDT Narrative [facility] NARANJO ([place]) - 10/07/2024 9:40 AM CDT Has the patient had Daratumumab or Isatuximab in the past 6 months?->Unknown us Darryl Glover MD LAB BLOOD BANK TEST ORDERABLES Final Result Performing Organization Address [facility] Co de Phone Number [facility] NARANJO ([place]) 1 [facility] [place] [address] * Antibody screen (10/07/2024 8:50 AM CDT) Pam, indirect, Gel Interpretation Negative ABSC Blood 10/07/2024 8:50 AM CDT 10/07/2024 9:03 AM CDT Narrative GAYATRILAUREN NARANJO ([place]) - 10/07/2024 9:40 AM CDT Has the patient had Daratumumab or Isatuximab in the past 6 months?->Unknown Darryl Glover MD LAB BLOOD BANK TEST ORDERABLES Final Result Performing Organization Address City/[facility]/ZIP Co de Phone Number [facility] NARANJO ([place]) 1 [facility] [place] [address] * Basic metabolic panel (10/07/2024 8:50 AM CDT) Sodium 137 135 - 145 mmol/L Potassium, pl 4.1 3.3 - 4.9 mmol/L [facility] ([place]) Chloride 104 97 - 110 mmol/L [facility] ([place]) CO2 22 22 - 32 mmol/L [facility] ([place]) Anion gap 11 2 - 15 mmol/L [facility] ([place]) BUN 11 6 - 25 mg/dL [facility] ([place]) Creatinine 0.64 0.60 - 1.10 mg/dL [facility] ([place]) Glucose 96 70 - 199 mg/dL [facility] ([place]) Comment: Interpretive Data [...] 2022. Calcium 9.0 8.5 - 10.3 mg/dL [facility] ([place]) Blood 10/07/2024 8:50 AM CDT 10/07/2024 9:03 AM CDT us Darryl Glover MD LAB BLOOD ORDERABLE S Final Result [facility] NARANJO ([place]) 1 [facility] Department [place] [address] from Last 3 Months Insurance [employer]CHANGE Care Teams Automotive Warranty Administrator Relationship Specialty Start Date End Date No, Physician PCP - General 10/07/24
--- OUTSIDE RECORDS SUMMARY | 2025-01-07 22:57 | XMS_ITS | Encounter Summary ---
Author Organization [facility] Address [address] [place] [address] Care Team Providers Care Chairman And Ceo Name Role Phone No, Physician Primary Care Provider [phone] Encounter Details Date Type Department Care Team (Late st Contact Info) Description 12/14/2024 Results Follow-Up [address] [address] [address] [address] Vaginitis panel Vaginal Social History Tobacco Use [...] on file Legal Sex Female 9:34 AM CARDIAC CATH TECHNOLOGIST Gender Identity Female 07/10/2020 2:40 PM CARDIAC CATH TECHNOLOGIST Sexual Orientation Straight 07/10/2020 2: 40 PM CARDIAC CATH TECHNOLOGIST documented as of this encounter Miscellaneous Notes * Result Encounter Note - Shayna Dean RN - 12/15/2024 12:40 PM CDT This RN spoke to patient about abnormal test results and plan of care , called prescription in to [facility] [address] in [place] per patients request. documented in this encounter Plan of Treatment Not on file documented as of this encounter Visit Diagnoses Not on filedocumented in this encounter Care Teams Chairman And Ceo Relationship Specialty Start Date End Date No, Physician PCP - General 10/07/24 documented as of this encounter
--- OUTSIDE RECORDS SUMMARY | 2025-01-07 22:57 | XMS_ITS | Continuity of Care Document ---
Author Organization [facility] Address [address] [place] [address] Phone Care Team Providers Care Document Control Supervisor Name Role Phone Hernan Lloyd DMD Unavailable [...] AN CARE, AT-RISK ENHANCED SERVICE PACKAGE (INCLUDES [id number]) OFFICE/OUTPATIENT VISIT, EST PRESCRIPTION DRUG, ORAL, NON CHEMOTHERAP EUTIC, NOS AZITHROMYCIN DIHYDRATE, ORAL, CAPSULES/P OWDER, 1 GRAM Wet beka, including preparations of va ginal, cervical or skin specimens COLLECTION OF VENOUS BLOOD BY VENIPUNCTU RE OFFICE/OUTPATIENT VISIT, EST CARE, AT-RISK ENHANCED SERVICE PACKAGE (INCLUDES [id number]) OFFICE/OUTPATIENT VISIT, EST COLLECTION OF VENOUS BLOOD BY VENIPUNCTU RE Voided Encounter care, at-risk assessment care, at-risk enhanced service; antepartum management MENTAL HEALTH ASSESSMENT, BY NON-PHYSICI AN SKIN TEST; TUBERCULOSIS, INTRADERMAL Dec OFFICE/OUTPATIENT VISIT, NEW Advance Directives Directive Yes / No Effective Date File Name No Information Encounters Encounter Description Practice Location Reason(s) For Visit Diagnoses Date Provider Providers Copied on Encounter [facility] , [address], [place], [place], [id number], tel:[phone] [facility] Encounter for dental exam and cleaning w abnormal findings 7 Gabino Becerra. [address], [place], [place], [address]. tel:[phone] Referring Provider: Hernan Lloyd, [address], [place], [address]. tel:[phone] [facility] , [address], [place], [place], [address], tel:[phone] [facility] home visit (chief complaint) Routine follow-up [facility]. [address], [place], [place], [address], . tel:[phone] [facility] , [address], [place], [place], [address], tel:[phone] [facility] No Information 2 [facility]. [address], [place], [place], [address], . tel:[phone] Consulting Provider: Arianne Samuels, [address], [place], [address]. tel:[phone] OFFICE/OUTPAT IENT VISIT, EST [facility] , [address], [place], [place], [address], [place] tel:[phone] [facility] No Information 1 Bianca Bauman. [address], [place], [place], [address], . tel:[phone] OFFICE/OUTPAT IENT VISIT, EST [facility] , [address], [place], [place], [address], [place] tel:[phone] [facility] Supervision of normal first 1 Rico Navas [address], [place], [place], [address], . tel:[phone] [facility] , [address], [place], [place], [address], tel:[phone] [facility] No Information 1 [facility]. [address], [place], [address] [place] [address], . tel:[phone] Consulting Provider: Arianne Samuels, [address], [place], [address]. tel:[phone] OFFICE/OUTPAT IENT VISIT, [facility] , [address], [place], [place], [address], tel:[phone] [facility] Supervision of other normal 1 Rico Navas [address], [place], [place], [address], . tel:[phone] [facility] , [address], [place], [place], [address], [place] tel:[phone] [facility] [place] Supervision of normal first 1 Rico Navas [address], [place], [place], [address], . tel:[phone] [facility] , [address], [place], [place], [address], tel:[phone] [facility] [place] pn intake (chief complaint) No Information No Information OFFICE/OUTPAT IENT VISIT, [facility] , [address], [place], [place], [address], [place] tel:[phone] [facility] [place] Test (chief complaint)No te for school-Pregn italo (chief complaint) Irregular menstrual cycle Bianca Bauman. [address], [place], [place], [address], [place]. tel:[phone] Family History Family Member Type Diagnosis Age At Onset Father Problem (finding) hypertension Mother Problem (finding) hypertension Father Problem (finding) Maternal history of alice betes mellitus Payers Payer name Insurance type Covered libertarian ID [employer] pool(s) D Medicaid - Dental CI [id number] Social History Type Description Quantity Date Captured Comments Sex Female Smoking Status No Information Chief Complaint And Reason For Visit No Information Reason For Referral Reason For Referral No Information Plan Of Treatment Date Type Action Status Goal BMP fasting. Due on 011 due Referral Referred To: [facility] [address] [place], [phone] Ordered: Referral: [facility]. Radiology. ordered Future Order: Lab Order [...]
--- OUTSIDE RECORDS SUMMARY | 2025-01-07 22:57 | XMS_ITS | Clinical Summary ---
Author Organization [facility] Physician Office Building [address] [place] [id number] Care Team Providers Care Ship Washer Name Role Phone No, Physician Primary Care Provider [phone] Allergies Active Allergy Reactions Criticality Noted Date [...] be linked with therapist. Her Referred to [facility] for trauma focused therapy. Start Prozac 20 [...] CDT - 12/24/2024 11:57 AM CDT Emergency [facility] Emergency Department [facility] [place] [address] Nausea and vomiting in (Primary Dx) Discharge Disposition: Discharge to home or self care 12/15/[address] [address] Shayna Dean RN 12/15/[address] [address] Shayna Dean RN 12/14/[address] [address] Shayna Dean RN 12/14/2024 Results Follow-Up [place] [id number] [place] [address] Juan Samson PA Vaginitis panel Vaginal 12/13/2024 2:30 AM CDT - 12/13/2024 3:25 AM CDT Emergency [address] [address] Positive test (Primary Dx); Vaginal irritation Discharge Disposition: Discharge to home or self care 10/07/2024 8:42 AM CDT - 10/07/2024 10:26 AM CDT Emergency [facility] Emergency Department 1 [place] [address] Darryl Glover MD Dysfunctional uterine bleeding (Primary [...] on file Legal 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 Sexual Orientation Straight 07/10/2020 2: 40 PM [employer]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 Obstetrics History Para Term AB IAB SAB [...] WALKER ,BABY GIRL FRANCH ESCA Tara Delivery Location:[facility] 2013 AB 2015 IAB 2016 Term 39w 3d 0h 17m 0h 13m/0h 04m 2.91 kg (6 lb 6.7 oz) F Vag-S pont Epidur al N Livin g 8 9 WALKER ,BABY GIRL NIRAJNAN ESCA Abhishek Nj MD Complications:None Delivery Location:[facility] 2018 IAB 2019 SAB 2021 Term [...] FRANCSalvatore WALLACEA Salena wood MD Complications:None Delivery Location:[facility] ([facility] 5 R) Current Last Filed Vital [...] * eGFR (12/24/2024 9:26 AM CDT) Pathologist [facility] eGFR >90 >=60 mL/min/1. 73 m2 Comment: [...] was last reviewed 2021. Testing performed by: [facility], [facility] [address], [place] [address] Blood 12/24/2024 9:26 AM CDT 12/24/2024 9:32 AM CDT Yusra Wiseman NP LAB BLOOD ORDERABLES Fi nal Result [facility] RUSSELL [address] Department [place] [address] * Differential, auto (12/24/2024 9:26 AM CDT) Pathologist [facility] Neutrophil abs 3.98 1.50 - 6.50 K/cumm Comment:Testing performed by : [facility], [facility], [place] [address] Imm gran abs 0.02 0.00 - 0.10 K/cumm CERNER CH Comment:Testing performed by : [facility], [facility] [address], [place] [address] Lymphocyte abs 2.09 0.80 - 3.30 K/cumm CERNER CH Comment:Testing performed by : [facility], [facility] [address], [place] [address] Monocyte abs 0.63 0.20 - 0.80 K/cumm CERNER CH Comment:Testing performed by : [facility], [facility] [address], [place] [address] Eosinophil abs 0.18 0.00 - 0.50 K/cumm CERNER CH Comment:Testing performed by : [facility], [facility] [address], [place] [address] Basophil abs 0.01 0.00 - 0.10 K/cumm CERNER CH Comment:Testing performed by : [facility], [facility] [address], [place] [address] Neutrophil pct 57.7 % CERNER CH Comment: Interpretive Data Percent cell count reference ranges are not reported, since discordance with absolute values may lead to misinterpretation of CBC data. Current Interpretive Data was last revised on 2017. Testing performed by: [facility], [facility], [place] [address] Imm gran pct 0.3 % CERNER CH Comment: Interpretive Data Percent cell count reference ranges are not reported, since discordance with absolute values may lead to misinterpretation of CBC data. Current Interpretive Data was last revised on 2017. Testing performed by: [place] [address], [place] [address] Lymphocyte pct 30.2 % CERNER CH Comment: Interpretive Data Percent cell count reference ranges are not reported, since discordance with absolute values may lead to misinterpretation of CBC data. Current Interpretive Data was last revised on 2017. Testing performed by: [facility], [facility], [place] [address] Monocyte pct 9.1 % CERNER CH Comment: Interpretive Data Percent cell count reference ranges are not reported, since discordance with absolute values may lead to misinterpretation of CBC data. Current Interpretive Data was last revised on 2017. Testing performed [facility]: [facility], [place] [address] Eosinophil pct 2.6 % [facility] Comment: Interpretive Data Percent cell count reference ranges are not reported, since discordance with absolute values may lead to misinterpretation of CBC data. Current Interpretive Data was last revised on 2017. Testing performed by: [facility], [place] [address] Basophil pct 0.1 % CERNER Comment: Interpretive Data Percent cell count reference ranges are not reported, since discordance with absolute values may lead to misinterpretation of CBC data. Current Interpretive Data was last revised on 2017. Testing performed by: [facility], [place] [address] Blood 12/24/2024 9:26 AM CDT 12/24/2024 9:32 AM CDT Yusra Wiseman NP LAB BLOOD ORDERABLES nal Result [facility] [address] Department [place] [address] * (ABNORMAL) CBC with auto differential (12/24/2024 9:26 AM CDT) WBC 6.91 3.80 - 9.90 K/cumm Comment:Testing performed by : [facility] [address], [place] [address] Hgb 13.2 11.9 - 15.5 g/dL [facility] Comment:Testing performed by : [facility] [address], [place] [address] Hct 40.0 35.6 - 45.5 % GAYATRINER Comment:Testing performed by : [facility] [address], [place] [address] Plt 259 150 - 400 K/cumm [facility] Comment:Testing performed by : [facility], [place] [address] MPV 9.1 9.1 - 12.3 fL GAYATRINER Comment:Testing performed by : [facility], [address], [place] [address] RBC 4.93 3.90 - 5.20 M/cumm [facility] Comment:Testing performed by : [facility], [facility] [place] [address] MCV 81.1(L) 81.3 - 96.4 fL [facility] Comment:Testing performed by : [facility] [address] [place] [address] MCH 26.8(L) 27.1 - 33.3 pg CERNER Comment:Testing performed by : [facility] [address] [place], [place] [address] MCHC 33.0 32.3 - 35.7 g/dL [facility] Comment:Testing performed by : [facility] [address] [place], [place] RDW CV 16.1(H) 11.1 - 14.9 % [facility] Comment:Testing performed by : [facility] [place] [address] RDW SD 47.5 35.7 - 48.1 fL GAYATRINER Comment:Testing performed by : [facility] [place], [place] [address] NRBC abs 0.00 0.00 - 0.01 K/cumm [facility] Comment:Testing performed by : [facility] [address] [place] [address] Blood Venous blood specimen / Unknown 12/24/2024 9:26 AM CDT 12/24/2024 9:32 AM CDT Yusra Wiseman NP LAB BLOOD ORDERABLES nal Result [facility] [address] Department [place] [address] * (ABNORMAL) hCG, blood, quantitative (12/24/2024 9:26 AM CDT) [facility] hCG, quant 29,188.0( H) 0.0 - 5.0 IUnits/L Comment: Interpretive Data Male: < 5 IU/L Non- premenopausal Female: <5 IU/L The Karl hCG Beta Quant assay procedure was used. Results from different manufacturers or methods may not be comparable. Serial testing should be performed using the same method. Interpretive Data was last revised on 2023 Testing performed by: [facility] [address], [place] [address] Blood 12/24/2024 9:26 AM CDT 12/24/2024 9:32 AM CDT Yusra Wiseman NP LAB BLOOD ORDERABLES Fi nal Result Performing Organization Address City/[facility]/ZIP Co de Phone Number [facility] [address] [facility] [place] [address] * Lipase (12/24/2024 9:26 AM CDT) Lipase 14 10 - 99 Units/L Comment:Testing performed by : [facility] [address], [place] [address] Blood 12/24/2024 9:26 AM CDT 12/24/2024 9:32 AM CDT Yusra Wiseman NP LAB BLOOD ORDERABLES Fi nal Result Performing Organization Address [facility] de Phone Number [facility] [address] [facility] [place] [address] * (ABNORMAL) Comprehensive metabolic panel (12/24/2024 9:26 AM CDT) Sodium 136 135 - 145 mmol/L Comment:Testing performed by : [facility] [address], [place] [address] Potassium, pl 3.7 3.3 - 4.9 mmol/L CERNER Comment:Testing performed by : [facility] [address], [place] [address] Chloride 101 97 - 110 mmol/L CERNER Comment:Testing performed by : [facility] [address], [place] [address] CO2 17(L) 22 - 32 mmol/L CERNER CH Comment:Testing performed by : [facility] [address], [place] [address] Anion gap 18(H) 2 - 15 mmol/L CERNER Comment:Testing performed by : [facility], [place] [address] BUN 7 6 - 25 mg/dL CERNER CH Comment:Testing performed by : [facility] [address], [place] [address] Creatinine 0.57(L) 0.60 - 1.10 mg/dL CERNER CH Comment:Testing performed by : [facility] [address], [place] [address] Glucose 85 [...] was last revised 2022. Testing performed by: [facility] [place] [address] Calcium 9.7 8.5 - 10.3 mg/dL CERNER CH Comment:Testing performed by : [facility] [address], [place] [address] Bilirubin, total 0.4 0.1 - 1.2 mg/dL CERNER CH Comment:Testing performed by : [facility] [address], [place] [address] Protein, pl 7.4 6.5 - 8.5 g/dL CERNER CH Comment:Testing performed by : [facility] [address], [place] [address] Albumin 4.0 3.5 - 5.0 g/dL CERNER CH Comment:Testing performed by : [facility], [place] [address] Alk phos 76 40 - 130 Units/L CERNER CH Comment:Testing performed by : [facility] [address], [place] [address] ALT 18 7 - 45 Units/L CERNER CH Comment:Testing performed by : [facility] [address], [place] [address] AST 21 10 - 45 Units/L CERNER CH Comment:Testing performed by : [facility], [address], [place] [address] Blood 12/24/2024 9:26 AM CDT 12/24/2024 9:32 AM CDT Yusra Wiseman NP LAB BLOOD ORDERABLES Fi nal Result [facility] [address] Department [place] [address] * (ABNORMAL) POCT hCG, urine (12/24/2024 9:24 AM CDT) HCG, ur, POC Positive(A) Negative Lot Number [id number] QC Backgroud Clear Acceptable QC Control Line Acceptable Urine 12/24/2024 9:24 AM CDT Yusra Wiseman NP POINT OF CARE TEST ORDE RABLES Final Result * (ABNORMAL) Urinalysis reflex to microscopic and culture Urine (12/24/2024 9:06 AM CDT) Color, ur Yellow Yellow Comment:Testing performed by : [facility] [address], [place] [address] Clarity, ur Clear Clear [facility] Comment:Testing performed by : [facility] [address], [place] [address] Specific gravity, ur 1.026 1.003 - 1.030 [facility] Comment:Testing performed by : [facility] [address], [place] [address] pH, urine 8.0 [facility] Comment: Interpretive Data U rine pH is affected by diet, medications, systemic acid-base disturbances, and renal tubular function. pH may affect urinary stone formation. For example, urine pH below 6.0 may help reduce the tendency for calcium phosphate stones and pH greater than 6.0 may reduce the tendency for uric acid stone formation. Source: [facility] [place] Current Interpretive Data was last revised on 2017 Testing performed by: [facility] [address], [place] [address] Protein, ur ql Trace Negative [facility] Comment:Testing performed by : [facility], [address], [place] [address] Glucose, ur ql Negative Negative CERNER CH Comment:Testing performed by : [facility], [address], [place] [address] Ketones, ur Trace Negative CERNER CH Comment:Testing performed by : [facility], [address], [place] [address] Bilirubin, ur Negative Negative CERNER CH Comment:Testing performed by : [facility], [address], [place] [address] Blood, ur Negative Negative CERNER CH Comment:Testing performed by : [facility], [address], [place] [address] Urobilinogen, ur 2.0(A) <2.0 mg/dL [facility] Comment:Testing performed by : [facility], [address], [place] [address] Nitrite, ur Negative Negative CERNER CH Comment:Testing performed by : [facility], [address], [place] [address] Leukocyte esterase, ur Negative Negative CERNER CH Comment:Testing performed by : [facility], [address], [place] [address] UA reflex comment Reflex conditions for microscopic UA and culture not met. GAYATRINER Comment:Testing performed by : [facility], [address], [place] [address] Urine 12/24/2024 9:06 AM CDT 12/24/2024 9:10 AM CDT Yusra Wiseman NP LAB MICROBIOLOGY - [facility] ORDERABLES Final Result [place] [address] Department [place] [address] * N. gonorrhoeae/C. trachomatis Amplification Vaginal (12/13/2024 [...] this test have been verified by the [facility]. The performance characteristics of this test have not been evaluated in individuals less than 14 years of age. Current Interpretive Data last revised 2023. Vaginal (None) 12/13/2024 2: 30 AM CDT 12/13/2024 2:34 AM CDT us Juan COLIN LAB MICROBIOLOGY - GENERAL O RDERABLES Final Result [facility] [address] [facility] Department [place] [address] * (ABNORMAL) Vaginitis panel Vaginal (12/13/2024 2:30 AM CDT) Bacterial Vaginosis Not Detected Not Detected Comment:A negative result do es not preclude a possible infection. Results should be considered in conjunction with clinical presentation to determine the disease status. Jada group Detected(A) Not Detected [facility] Comment:Jada species can be present as commensal organisms in women; results should be considered in conjunction with clinical presentation to determine the disease status. Jada glabrata/ krusei Not Detected Not Detected [facility] Trichomonas DNA Not Detected Not Detected [facility] Vaginal 12/13/2024 2:30 AM CDT 12/13/2024 2:34 AM CDT Narrative [facility] - 12/13/2024 3:34 AM CDT The [...] this test have been verified by the [facility]. The Cepheid Xpert Xpress MVP test [...] this test have been verified by the [facility]. Juan COLIN LAB MICROBIOLOGY - GENERAL O RDERABLES Final Result Performing Organization Address [facility] Co de Phone Number [facility] [address] [place] [address] * (ABNORMAL) Urinalysis reflex to microscopic and culture Urine (12/13/2024 2:30 AM CDT) Color, ur Straw Yellow Clarity, ur Cloudy(A) Clear [facility] Specific gravity, ur 1.018 1.003 - 1.030 [facility] pH, urine 6.0 [facility] Comment: Interpretive Data U rine pH is affected by diet, medications, systemic acid-base disturbances, and renal tubular function. pH may affect urinary stone formation. For example, urine pH below 6.0 may help reduce the tendency for calcium phosphate stones and pH greater than 6.0 may reduce the tendency for uric acid stone formation. Source: [facility] Current Interpretive Data was last revised on 2017 Protein, ur ql Negative Negative [facility] Glucose, ur ql Negative Negative [facility] Ketones, ur Negative Negative [facility] Bilirubin, ur Negative Negative [facility] Blood, ur 1+(A) Negative [facility] Urobilinogen, ur <2.0 <2.0 mg/dL [facility] Nitrite, ur Negative Negative [facility] Leukocyte esterase, ur 4+(A) Negative [facility] UA reflex comment Reflex to microscopic UA will be performed. [facility] Urine 12/13/2024 2:30 AM CDT 12/13/2024 2:34 AM CDT Juan Manuel Avitia DO LAB MICROBIOLOGY - GENERAL ORDERABLES Final Result Performing Organization Address City/[facility]/ZIP Co de Phone Number [facility] [address] [place] [address] * (ABNORMAL) Urinalysis, microscopic only (12/13/2024 2:30 AM CDT) WBC, ur 0-5 0 - 5 /HPF RBC, ur 11-20(A) 0 - 2 /HPF [facility] Epithelial cells, squamous, ur 11-20(A) 0 - 5 /HPF [facility] Comment:Suggestive of contam ination. Consider recollection by clean catch. Mucous, ur Present(A) [facility] Culture Reflex Comment Reflex conditions for urine culture (WBC >10) not met. [facility] Urine 12/13/2024 2:30 AM CDT 12/13/2024 2:34 AM CDT Juan Manuel Avitia DO LAB URINE ORDERABLES Final Result Performing Organization Address [facility] de Phone Number [address] [address] * Urine culture Urine (12/13/2024 2:30 AM CDT) Report Final Report: Growth indicative of contamination with periurethral slava. Please submit a new specimen with special attention given to the collection process and to prompt transport to the laboratory. Comment:Testing performed by : [facility], [address] [place] [address] Organism GROWTH INDICATES CONTAM WITH PERIURETHRAL SLAVA. [facility] Urine 12/13/2024 2:30 AM CDT 12/13/2024 9:22 AM CDT Narrative [facility] - 12/14/2024 2:33 PM CDT Testing performed by [facility] Microbiology Laboratory ([phone]) Juan COLIN LAB MICROBIOLOGY - GENERAL O RDERABLES Final Result Performing Organization Address City/[facility]/ZIP Co de Phone Number [address] [place] [address] * (ABNORMAL) POCT hCG, urine (12/13/2024 2:27 AM CDT) Pathologist [facility] HCG, ur, POC Positive(A) Negative Lot Number [id number] QC Backgroud Clear Acceptable QC Control Line Acceptable Urine 12/13/2024 2:27 AM CDT Juan Manuel Avitia DO POINT OF CARE TEST ORDERABL ES Final Result * hCG, blood, quantitative (10/07/2024 9:32 AM CDT) Pathologist [facility] hCG, quant <5.0 0.0 - 5.0 IUnits/L [...] S Edited Result - Final [facility] NARANJO [address] Department of Laboratories [place], [place] [id number] * ECG 12 lead (10/07/2024 8:59 AM CDT) 10/07/2024 8:59 AM CDT Narrative [facility] - 10/07/2024 10:23 AM CDT Vent Rate: 68 bpm RR Interval: 870 msec WA Interval: 131 msec QRS Duration: 80 msec QT Interval: 374 msec QTC Interval: 392 msec P-R-T [place]: 11 - 30 - 19 degrees IMPRESSION: SINUS RHYTHM NORMAL ECG Electronically Signed By: Antolin Min MD Darryl Glover MD ECG ORDERABLES Fin al Result [facility] * eGFR (10/07/2024 8:50 AM CDT) Pathologist [facility] eGFR >90 >=60 mL/min/1. 73 m2 Comment: [...] LAB BLOOD ORDERABLE S Final Result [facility] ([place]) [address] [facility] Department [place] [address] * Differential, auto (10/07/2024 8:50 AM CDT) Pathologist [facility] Neutrophil abs 2.58 1.50 - 6.50 K/cumm [...] Neutrophil pct 51.3 % [facility] ([place]) Comment: Interpretive Data Percent cell count reference [...] [address] [facility] Department of Laboratories [place], [place] [id number] * (ABNORMAL) CBC with auto differential (10/07/2024 [...] [facility] NARANJO ([place]) [address] [facility] [address] [place] [address] * ABO/Rh (10/07/2024 8:50 AM CDT) ABO/Rh B Negative Blood 10/07/2024 8:50 AM CDT 10/07/2024 9:03 AM CDT Narrative [facility] ([place]) - 10/07/2024 9:40 AM CDT Has the patient had Daratumumab or Isatuximab in the past 6 months?->Unknown us Darryl Glover MD LAB BLOOD BANK TEST ORDERABLES Final Result [facility] N[facility]ANJO ([place]) [address] [facility] [address] [place] [address] * Antibody screen (10/07/2024 8:50 AM CDT) Pam, indirect, Gel Interpretation Negative ABSC Blood 10/07/2024 8:50 AM CDT 10/07/2024 9:03 AM CDT Narrative [facility] ([place]) - 10/07/2024 9:40 AM CDT Has the patient had Daratumumab or Isatuximab in the past 6 months?->Unknown Darryl Glover MD LAB BLOOD BANK TEST ORDERABLES Final Result [facility] ([place]) [address] [facility] Department [place] [address] * Basic metabolic panel (10/07/2024 8:50 AM CDT) Sodium 137 135 - 145 mmol/L Potassium, pl 4.1 3.3 - 4.9 mmol/L [facility] ([place]) Chloride 104 97 - 110 mmol/L [facility] ([place]) CO2 22 22 - 32 mmol/L [facility] Anion gap 11 2 - 15 mmol/L [facility] ([place]) BUN 11 6 - 25 mg/dL [facility] ([place]) Creatinine 0.64 0.60 - 1.10 mg/dL [facility] ([place]) Glucose 96 70 - 199 mg/dL [facility] ([place]) Comment: Interpretive Data Fasting [...] 2022. Calcium 9.0 8.5 - 10.3 mg/dL [facility] ([place]) Blood 10/07/2024 8:50 AM CDT 10/07/2024 9:03 AM CDT us Darryl Glover MD LAB BLOOD ORDERABLE S Final Result [facility] ([place]) [address] [facility] Department [place] [address] from Last 3 Months Insurance [employer] Care Teams Ship Washer Relationship Specialty Start Date End Date No, Physician PCP - General 10/07/24
[2025-01-07] MEDS: HYDROmorphone HCL INJ (*CRX) 2 MG/ML VIAL 0.5 MG IM (23:52)
--- NOTE | 2025-01-08 00:20 | ED_ITS ---
HPI - Extremity Injury (Lower) General Chief Complaint: Extremity Injury, Lower <Isabella Irvin PA-C - Last Filed: 01/08/25 02:52> Stated Complaint: Left big toe injury -stepped on <Isabella Irvin PA-C - Last Filed: 01/08/25 02:52> Time Seen by Provider: 01/07/25 22:24 <Isabella Irvin PA-C - Last Filed: 01/08/25 02:52> Source: patient <Isabella Irvin PA-C - Last Filed: 01/08/25 02:52> Mode of arrival: ambulatory <Isabella Irvin PA-C - Last Filed: 01/08/25 02:52> Limitations: no limitations <Isabella Irvin PA-C - Last Filed: 01/08/25 02:52> History of Present Illness HPI Narrative: Patient is a 29-year-old female who presents the ED with report of left 1st toe pain. Patient reports she was stepped on on her left 1st toe. Complains of pain throughout the toe. Reports disfiguration of the nail. Denies numbness. Denies any other injuries. <Isabella Irvin PA-C - Last Filed: 01/08/25 02:52> Related Data Allergies/Adverse Reactions: Allergies Allergy/AdvReac Type Severity Reaction Status Date / Time Penicillins AdvReac edema Verified 01/07/25 23:51 <Isabella Irvin PA-C - Last Filed: 01/08/25 02:52> Review of Systems Review of Systems: All systems reviewed & are unremarkable except as noted in HPI. <Isabella Irvin PA-C - Last Filed: 01/08/25 02:52> All systems reviewed & are unremarkable except as noted in HPI and below <Isabella Irvin PA-C - Last Filed: 01/08/25 02:52> PMFSH Past Medical History Medical History: Medical History Healthy female adult <Isabella Irvin PA-C - Last Filed: 01/08/25 02:52> Surgical History Surgical History: Surgical History No history of previous surgery <Isabella Irvin PA-C - Last Filed: 01/08/25 02:52> Exam Narrative: GENERAL: Well appearing, well-nourished, non-toxic, in no acute distress. HEAD: Normocephalic, atraumatic. RESPIRATORY: Airway patent, respirations nonlabored. CARDIOVASCULAR: Regular rate and rhythm. Pedal pulses are intact and easily palpable. MUSCULOSKELETAL: Moves all extremities. Left 1st toe with diffuse tenderness throughout distal phalanx region. The nail plate is partially avulsed and disrupted at the cuticle laterally. Nail plate is lifted and angled medially. Sensation is intact. Capillary refill is intact. SKIN: Warm, dry, normal color. NEURO: A&O X3. Speech clear. No ataxic movements. PSYCHIATRIC: Appropriate mood and affect. Normal interaction. <Isabella Irvin PA-C - Last Filed: 01/08/25 02:52> Course BUILDING DRAFTING OFFICER/PA Physician Supervision I agree with midlevel documentation; I performed the medical decision making component of this evaluation. I did personally evaluate the patient, initially did try to see if I could replace the nail however I was unsuccessful, shared decision made with patient to remove nail, see remainder of PA note. <iN Torres MD - Last Filed: 01/08/25 03:49> Vital Signs Vital signs: Vital Signs Temperature 97.6 F 01/07/25 22:21 Pulse Rate 95 01/07/25 22:21 Respiratory Rate 18 01/07/25 22:21 Blood Pressure 121/71 01/07/25 22:21 Pulse Oximetry 99 01/07/25 22:21 Oxygen Delivery Room Air 01/07/25 22:21 Temperature 97.6 F 01/07/25 22:21 Pulse Rate 95 01/07/25 22:21 Respiratory Rate 18 01/07/25 22:21 Blood Pressure 121/71 01/07/25 22:21 Pulse Oximetry 99 01/07/25 22:21 Oxygen Delivery Room Air 01/07/25 22:21 <MELISSA Carter Last Filed: 01/08/25 02:52> Vital Signs Temperature 97.6 F 01/07/25 22:21 Pulse Rate 95 01/07/25 22:21 Respiratory Rate 18 01/07/25 22:21 Blood Pressure 121/71 01/07/25 22:21 Pulse Oximetry 99 01/07/25 22:21 Oxygen Delivery Room Air 01/07/25 22:21 Temperature 97.6 F 01/07/25 22:21 Pulse Rate 95 01/07/25 22:21 Respiratory Rate 18 01/07/25 22:21 Blood Pressure 121/71 01/07/25 22:21 Pulse Oximetry 99 01/07/25 22:21 Oxygen Delivery Room Air 01/07/25 22:21 <Ni Torres MD - Last Filed: 01/08/25 03:49> Procedures Nerve Block Nerve Block 1: Nerve block date: 01/08/25 <Isabella Irvin PA-C - Last Filed: 01/08/25 02:52> Nerve block time: 00:20 <MELISSA Carter Last Filed: 01/08/25 02:52> Time out performed: Yes <MELISSA Carter Last Filed: 01/08/25 02:52> Local Anesthetic: lidocaine 1% <MELISSA Carter Last Filed: 01/08/25 02:52> Amount of anesthesia used (mL): 8 <MELISSA Carter Last Filed: 01/08/25 02:52> Side: left (1st toe) <MELISSA Carter Last Filed: 01/08/25 02:52> Nerve Blocks: digital <MELISSA Carter Last Filed: 01/08/25 02:52> Procedure Successful: Yes <MELISSA Carter Last Filed: 01/08/25 02:52> Patient Tolerated Procedure: well and no complications <MELISSA Carter Last Filed: 01/08/25 02:52> Complications: none <MELISSA Carter Last Filed: 01/08/25 02:52> MDM - Extremity Injury (Lower) MDM Narrative Medical decision making narrative: X-ray without evidence of fracture. No foreign body Digital nerve block was performed to L 1st toe. Toenail was removed without issue. I did place an artificial nail plate under cuticle to keep cuticle open, Dermabond in place. Patient was bandage. Given postop shoe. Discussed wound care. Will prescribe short course of pain medication for home. Patient believes her tetanus is up-to-date. She had a baby 2 years ago and does believe it was updated at that time. She will verify this with her primary care doctor. Given return precautions. She agrees with plan. Discharged in stable condition. <MELISSA Carter Last Filed: 01/08/25 02:52> Medical Records Attestation: I reviewed the patient's medical records. <MELISSA Carter Last Filed: 01/08/25 02:52> Imaging Data Attestation: I personally reviewed and interpreted this imaging study as follows: <MELISSA Carter Last Filed: 01/08/25 02:52> Radiologist's impression: STAT RAD XR L foot: Impression: Soft tissue swelling in the medial aspect of the foot ankle. No acute fracture dislocation is seen. No foreign body. The 1st digit is unremarkable. The phalanges, metatarsal, and tarsal bones are intact and normally aligned. The midfoot alignment is normal. Bone mineralization is normal. The ankle mortise joint appears normally aligned. No incidental findings. <Isabella Irvin PA-C - Last Filed: 01/08/25 02:52> Discharge Plan Discharge Clinical Impression: Nail avulsion of toe Qualifiers: Encounter type: initial encounter Qualified Code(s): S91.209A - Unspecified open wound of unspecified toe(s) with damage to nail, initial encounter <MELISSA Carter Last Filed: 01/08/25 02:52> Patient Disposition: Home <MELISSA Carter Last Filed: 01/08/25 02:52> Condition: Stable <MELISSA Carter Last Filed: 01/08/25 02:52> Instructions: Antibiotic Form, Nail Avulsion (ED), Nail Removal (ED) <Isabella Irvin PA-C - Last Filed: 01/08/25 02:52> Additional Instructions: Allow artificial nail plate with nail glue to fall off on its own in the next few days. Keep wound clean and dry for the next 24 hours. After 24 hours, you may wash with simple soap and water, but be very gentle around nail. Utilize post op shoe as needed for comfort/support. Recommend Tylenol and ibuprofen as needed for pain. Balko as needed for more severe pain. Follow-up with your primary care doctor and/or podiatry for further evaluation if needed. Return for new or worsening concerns. <MELISSA Carter Last Filed: 01/08/25 02:52> Patient Language: Ugandan <MELISSA Carter Last Filed: 01/08/25 02:52> Prescriptions: New hydrocodone-acetaminophen 5-325 mg tablet 1 tablet PO Q6H PRN (Reason: pain) Qty: 5 0RF No Action nitrofurantoin monohyd/m-cryst [Macrobid] 100 mg capsule 100 mg PO Q12H 5 Days Qty: 10 0RF Rx Instructions: must administer with a meal/food <MELISSA Carter Last Filed: 01/08/25 02:52> Follow-up/Referrals: Michi Mae Jr., DPM [Physician] - (PODIATRY) Emiliano Toro MD [Physician] - (PRIMARY CARE) PHYSICIAN,HEALTH CARE SPECIALIST [Primary Care Provider] - <MELISSA Carter Last Filed: 01/08/25 02:52> Time of Disposition: 00:59 <MELISSA Carter Last Filed: 01/08/25 02:52> 00:59 <Ni Torres MD - Last Filed: 01/08/25 03:49>
== END 2025-01-08 01:14 | disposition home or self-care (01) ==
PROVIDERS: Emergency Provider Physician Assistant
DX: S91.202A Unspecified open wound of left great toe with damage to nail, initial encounter (principal); W51.XXXA Accidental striking against or bumped into by another person, initial encounter
CPT/HCPCS: 11730; 64450; 73630; 96372; 99283; J1171

== ENCOUNTER 2025-01-18 15:32 | Outpatient (CLI) | payer OTHER, SELFPAY ==
--- NOTE | ~2025-01-18 | US_ITS ---
EXAMINATION: US OB <= 14 weeks fetus INDICATION: O46.90 - Antepartum hemorrhage, unspecified, unspecified ... TECHNIQUE: Sonography of the pelvis was performed by transabdominal techniques. COMPARISON: 01/04/2025 RESULT: Uterus: 13.3 x 7.1 x 7.6 cm. Anteverted. Multiple possible fibroids, largest measuring 2.7 cm. Intrauterine gestational sac: Single present. Mean Sac Diameter: 4.30 cm, corresponding gestational age 9 week 6 days. Yolk sac: 0.4 cm . Embryo: Single present. Neal rump length: 2.85 cm, corresponding gestational age 9 weeks, 5 days. Gestational heart rate: present 153 bpm. Subgestational hematoma: Heterogeneous area inferior to the gestational sac measuring 4.8 x 2.8 x 3. 9 cm (volume 16.3 mL). The collection is approximately one third the size of the gestational sac. Right ovary: 4.3 x 1.8 x 2.1 cm. Vascular flow is present. Possible corpus luteal cyst. Left ovary: 3.1 x 1.5 x 2.6 cm. Vascular flow is present. No adnexal mass. Pelvis free fluid: None. IMPRESSION: Single, live intrauterine gestation. Estimated Gestational Age: 9 weeks, 5 days by crown rump length. DONTA by ultrasound 08/18/2025. Moderate subcutaneous gestational hematoma. Multiple small fibroids. Reviewed, dictated and finalized at location K. IMPRESSION: Single, live intrauterine gestation. Estimated Gestational Age: 9 weeks, 5 days by crown rump length. DONTA by ultras ound 08/18/2025. Moderate subcutaneous gestational hematoma. Multiple small fibroids.
--- OUTSIDE RECORDS SUMMARY | 2025-01-18 15:38 | XMS_ITS | Continuity of Care Document ---
Author Organization [facility] Address [address] [place] [address] Phone Care Team Providers Care Milking Worker Name Role Phone Hernan Lloyd DMD Unavailable [...] AN CARE, AT-RISK ENHANCED SERVICE PACKAGE (INCLUDES [id number]) OFFICE/OUTPATIENT VISIT, EST PRESCRIPTION DRUG, ORAL, NON CHEMOTHERAP EUTIC, NOS AZITHROMYCIN DIHYDRATE, ORAL, CAPSULES/P OWDER, 1 GRAM Wet beka, including preparations of va ginal, cervical or skin specimens COLLECTION OF VENOUS BLOOD BY VENIPUNCTU RE OFFICE/OUTPATIENT VISIT, EST CARE, AT-RISK ENHANCED SERVICE PACKAGE (INCLUDES [id number]) OFFICE/OUTPATIENT VISIT, EST COLLECTION OF VENOUS BLOOD BY VENIPUNCTU RE Voided Encounter care, at-risk assessment care, at-risk enhanced service; antepartum management MENTAL HEALTH ASSESSMENT, BY NON-PHYSICI AN SKIN TEST; TUBERCULOSIS, INTRADERMAL Dec OFFICE/OUTPATIENT VISIT, NEW Advance Directives Directive Yes / No Effective Date File Name No Information Encounters Encounter Description Practice Location Reason(s) For Visit Diagnoses Date Provider Providers Copied on Encounter [facility] , [address], [place], [place], [id number], tel:[phone] [facility] Encounter for dental exam and cleaning w abnormal findings 7 Gabino Becerra. [address], [place], [place], [address]. tel:[phone] Referring Provider: Hernan Lloyd, [address], [place], [address]. tel:[phone] [facility] , [address], [place], [place], [address], tel:[phone] [facility] [place] home visit (chief complaint) Routine follow-up [facility]. [address], [place], [place], [address], . tel:[phone] [facility] , [address], [place], [place], [address], tel:[phone] [facility] No Information 2 [facility]. [address], [place], [place], [address], . tel:[phone] Consulting Provider: Arianne Samuels, [address], [place], [address]. tel:[phone] OFFICE/OUTPAT IENT VISIT, EST [facility] , [address], [place], [place], [address], [place] tel:[phone] [facility] [place] No Information 1 Bianca Bauman. [address], [place], [place], [address], . tel:[phone] OFFICE/OUTPAT IENT VISIT, EST [facility] , [address], [place], [place], [address], [place] tel:[phone] [facility] [place] Supervision of normal first 1 Rico Navas [address], [place], [place], [address], . tel:[phone] [facility] , [address], [place], [place], [address], tel:[phone] [facility] No Information 1 [facility]. [address], [place], [place], [address] [place] [address], . tel:[phone] Consulting Provider: Arianen Samuels, [address], [place], [address]. tel:[phone] OFFICE/OUTPAT IENT VISIT, [facility] , [address], [place], [place], [address], tel:[phone] [facility] [place] Supervision of other normal 1 Rico Navas [address], [place], [place], [address], . tel:[phone] [facility] , [address], [place], [place], [address], [place] tel:[phone] [facility] [place] Supervision of normal first 1 Rico Navas [address], [place], [place], [address], . tel:[phone] [employer] , [address], [place], [place], [address], tel:[phone] [facility] [place] pn intake (chief complaint) No Information No Information OFFICE/OUTPAT IENT VISIT, [facility] , [address], [place], [place], [address], [place] tel:[phone] [facility] [place] Test (chief complaint)No te for school-Pregn italo (chief complaint) Irregular menstrual cycle Bianca Bauman. [address], [place], [place], [address], [place]. tel:[phone] Family History Family Member Type Diagnosis Age At Onset Father Problem (finding) hypertension Mother Problem (finding) hypertension Father Problem (finding) Maternal history of alice betes mellitus Payers Payer name Insurance type Covered republican ID Alpa pool(s) D Medicaid - Dental CI [id number] Social History Type Description Quantity Date Captured Comments Sex Female Smoking Status No Information Chief Complaint And Reason For Visit No Information Reason For Referral Reason For Referral No Information Plan Of Treatment Date Type Action Status Goal BMP fasting. Due on 011 due Referral Referred To: [facility] [address] [place], [phone] Ordered: Referral: [facility]. Radiology. ordered Future Order: Lab Order [...]
--- OUTSIDE RECORDS SUMMARY | 2025-01-18 15:38 | XMS_ITS | Clinical Summary ---
Author Organization [facility] Address [address] [place] [place] [address] Care Team Providers Care Cupola Hoist Operator Name Role Phone [facility] Primary Care Pro vider Source Comments [facility],non-[facility]helps health Affiliates and Associated Physician Practices is amultiple site organization consisting of ambulatory clinics and hospital sitesin [place], [place] and [place]. This disclosure is being madepursuant to the Care Everywhere program and may not contain all information available regarding this patient. Last updated 18.[facility] Allergies Active Allergy Reactions Criticality Noted Date [...] fluticasone propionate (Flonase) 50 MCG/ACT nasal spray [place] 2 (two) sprays into each nostril once [...] for Nausea/Vomit ing 20 tablet 03/28/2024 Active HYDROcodone-liilan taminophen ([place]) 5-325 MG tabletIndicatio ns:Acute maxillary sinusitis, recurrence [...] Overview (11/11/2016): She sees Dr. Jean at [facility]. She discontinued Seroquel with positive test. [...] place to sleep or slept in a care home (including now)? No 05/11/2022 [place] Depression Scale Answer Date Recorded RETIRED: Total Score 0 05/08/2022 Last EPDS Self Harm Result Not on file 05/08 Comments No Sex and Gender Information Value Date Recorded Sex Assigned at Not on file Legal Sex Female 6:05 AM GASOLINE ENGINE ASSEMBLER Gender Identity Not on file Sexual Orientation Not on file Last Filed Vital Signs Vital Sign Reading Time Taken Comments Blood Pressure 147/96 05/28/2024 11:26 PM GASOLINE ENGINE ASSEMBLER Pulse 65 05/28/2024 11:26 PM GASOLINE ENGINE ASSEMBLER Temperature 36.7 C (98.1 F) 05/28/2024 11:26 PM GASOLINE ENGINE ASSEMBLER Respiratory Rate 18 05/28/2024 11:26 PM GASOLINE ENGINE ASSEMBLER Oxygen Saturation 95% 05/28/2024 11:26 PM GASOLINE ENGINE ASSEMBLER Inhaled Oxygen Concentration - - Weight 70.8 kg (156 lb) 05/28/2024 11:26 PM GASOLINE ENGINE ASSEMBLER Height 157.5 cm (5' 2) 05/28/2024 11:26 PM GASOLINE ENGINE ASSEMBLER Body Mass Index 28.53 05/28/2024 11:26 PM GASOLINE ENGINE ASSEMBLER Plan of Treatment Health Maintenance Due Date [...] RFLX HPV ASCU Routine 08/05/2016 12:37 PM GASOLINE ENGINE ASSEMBLER 10 weeks gestation of HIV-1 HIV-2 ANTIBODY + HIV P24 AG PANEL Routine 08/05/2016 12:35 PM GASOLINE ENGINE ASSEMBLER 10 weeks gestation of from Last 3 Months or Most Recently Relevant to Health Maintenance Results * PAP SMEAR IG RFLX HPV ASCU (PO REF LAB) (08/05/2016 12:37 PM GASOLINE ENGINE ASSEMBLER) Diagnosis Comment 08/06/2016 9:08 PM GASOLINE ENGINE ASSEMBLER [facility] Comment:NEGATIVE FOR INTRAEP ITHELIAL LESION AND MALIGNANCY. Specimen Adequacy Comment 017 9:08 PM GASOLINE ENGINE ASSEMBLER [facility] Comment: Satisfactory for evaluation. Endocervical and/or squamous metaplastic cells (endocervical component) are present. Performed by Comment 08/06/2016 9:08 PM GASOLINE ENGINE ASSEMBLER [facility] Comment:Rubi Medley [employer] hnologist (ASCP) Comment . 08/06/2016 9:08 PM GASOLINE ENGINE ASSEMBLER [facility] Note Comment 08/06/2016 9:08 PM GASOLINE ENGINE ASSEMBLER [facility] Comment: The Pap smear is a screening test designed to aid in the detection of premalignant and malignant conditions of the uterine cervix. It is not a diagnostic procedure and should not be used as the sole means of detecting cervical cancer. Both false-positive and false-negative reports do occur. IGLBP CPT Code Automation Comment 08/06/2016 9:08 PM GASOLINE ENGINE ASSEMBLER [facility] Comment: This liquid based ThinPrep(R) pap test was screened with the use of an image guided system. Note Comment 08/06/2016 9:08 PM GASOLINE ENGINE ASSEMBLER [facility] Comment: The HPV DNA reflex criteria were not met with this specimen result therefore, no HPV testing was performed. Pathology/Cytolo gy PART OF UTERINE CERVIX / Unknown 08/05/2016 12:37 PM GASOLINE ENGINE ASSEMBLER 08/05/2016 1:19 PM GASOLINE ENGINE ASSEMBLER Narrative [facility] - 08/06/2016 9:08 PM GASOLINE ENGINE ASSEMBLER Performed at: [address] [place] [id number] Clinical Research Manager: Rayna Cuevas MD, Phone: [phone] Specimen Comment: Source.............Cervix Specimen Comment: No. of containers..01 CYTYC Thin Prep Vial us Gaye Stephens MD LAB - PATHOLOGY/CYTOLOGY ORDE RABILIANA Final Result [facility] ([facility]) [address] [place] [address] * HIV-1 HIV-2 ANTIBODY + HIV P24 AG PANEL (08/05/2016 12:35 PM GASOLINE ENGINE ASSEMBLER) HIV1/2 Ab + P24 Ag Non Reactive Non Reactive 08/05/2016 6:49 PM GASOLINE ENGINE ASSEMBLER [facility] Blood BLOOD SPECIMEN / Unknown 08/05/2016 12:35 PM GASOLINE ENGINE ASSEMBLER 08/05/2016 1:10 PM GASOLINE ENGINE ASSEMBLER Narrative [facility] - 08/05/2016 6:49 PM GASOLINE ENGINE ASSEMBLER No Laboratory evidence of HIV infection. us Gaye Stephens MD LAB - CHEMISTRY ORDERABLES Fi nal Result [facility] [address] [place] [address] from Last 3 Months or Most Recently Relevant to Health Maintenance Insurance [place] [employer] [place] MEDICA[place] - [facility] COMMUNITY PLAN MEDICAID - [place] MED[place]ID - [...] 12:53 PM 02/27/2017 12:50 PM Care Teams Cupola Hoist Operator Relationship Specialty Start Date End Date [facility] [address] [place] [address] PCP - General [employer]ilab Operator 01/30/22
--- OUTSIDE RECORDS SUMMARY | 2025-01-18 15:38 | XMS_ITS | Clinical Summary ---
Author Organization [facility] [address] [place] [id number] Care Team Providers Care Pro Shop Attendant Name Role Phone No, Physician Primary Care Provider [phone] Allergies Active Allergy Reactions Criticality Noted Date [...] needed for nausea or vomiting 15 tablet 5 Active famotidine (PEPCID) 20 mg tablet Take 1 tablet (20 mg total) by mouth 2 (two) times a day 30 tablet 5 026 Active ondansetron (ZOFRAN) 4 mg tablet Take 1 tablet (4 mg total) by mouth every 4 (four) hours as needed for nausea or vomiting 15 tablet 4 025 Discontinued Active Problems Problem Noted Date Diagnosed Date Splinter 07/20/2021 Foreign body of thumb, right 07/20/2021 Periumbilical abdominal pain 12/21/2018 Encounter for psychiatric assessment 12/24/2017 Overview (12/24/2017): Initial appointment on 12/24/2017. Chronic post-traumatic stress disorder (PTSD) Assessment & Plan (12/24/2017 5:22 PM CDT): Chronic, persistent, needs to be linked with therapist. Her Referred to [facility] for trauma focused therapy. Start Prozac [...] 11:57 AM CDT Emergency [facility] [place] [address] Nausea and vomiting in (Primary Dx) Discharge Disposition: Discharge to home or self care 12/15/[address] [address] Shayna Dean RN 12/15/[address] [address] Shayna Dean RN 12/14/[address] [address] Shayna Dean RN 12/14/2024 Results Follow-Up [address] [address] Juan Samson PA Vaginitis panel Vaginal 12/13/2024 2:30 AM CDT - 12/13/2024 3:25 AM CDT Emergency [address] [address] Positive test (Primary Dx); Vaginal irritation Discharge [...] on file Legal Sex Female 9:34 AM OTM CONSULTANT Gender Identity Female 07/10/2020 2:40 PM OTM CONSULTANT Sexual Orientation Straight 07/10/2020 2: 40 PM OTM CONSULTANT Obstetrics History Para Term AB IAB SAB [...] WALKER ,BABY GIRL FRANCH ESCA Tara Delivery Location:[facility] 2014 AB 2016 IAB 2016 Term 39w 3d 0h 17m 0h 13m/0h 04m 2.91 kg (6 lb 6.7 oz) F Vag-S pont Epidur al N Livin g 8 9 WALKER ,BABY GIRL NIRANJAN NATIVIDAD Nj MD Complications:None Delivery Location:[facility] 2018 IAB 2019 SAB 2021 Term 37w 4d 2.745 kg (6 lb 0.8 oz) F Vag-S pont Epidur al Livin bijan wood Complications: Karla yamileth Hypertension Delivery Location:[facility] 2021 Term 37w 4d 0h 07m 0h 07m 2.745 kg (6 lb 0.8 oz) F Vag-S pont Epidur al N Livin g 9 9 WALKER ,BABY GIRL NIRANJAN NATIVIDAD wood MD Complications:None Delivery Location:[facility] ([facility] 5 LDR) Current Last Filed Vital Signs Vital Sign [...] HCG, URINE Routine 12/13/2024 2:27 AM CDT from Last 3 Months Results [...] was last reviewed 2021. Testing performed by: [place] [address] [address], [place] [address] Blood 12/24/2024 9:26 AM CDT 12/24/2024 9:32 AM CDT Yusra Wiseman NP LAB BLOOD ORDERABLES Fi nal Result [facility] [address] Department [place] [address] * Differential, auto (12/24/2024 9:26 AM CDT) Neutrophil abs 3.98 1.50 - 6.50 K/cumm Comment:Testing performed by : [facility] [place] [address] Imm gran abs 0.02 0.00 - 0.10 K/cumm [facility] Comment:Testing performed by : [facility] [place] [address] Lymphocyte abs 2.09 0.80 - 3.30 K/cumm CERNER Comment:Testing performed by : [facility] [place] [address] Monocyte abs 0.63 0.20 - 0.80 K/cumm CERNER Comment:Testing performed by : [facility] [place] [address] Eosinophil abs 0.18 0.00 - 0.50 K/cumm [facility] Comment:Testing performed by : [facility] [place] [address] Basophil abs 0.01 0.00 - 0.10 K/cumm CERNER Comment:Testing performed by : [facility] [address] [place], [place] [address]jcar[address] [place] [address] Neutrophil pct 57.7 % CERNER Comment: Interpretive Data Percent cell count reference ranges are not reported, since discordance with absolute values may lead to misinterpretation of CBC data. Current Interpretive Data was last revised on 2017. Testing performed by: [facility], [facility] [place] [address] Imm gran pct 0.3 % CERNER Comment: Interpretive Data Percent cell count reference ranges are not reported, since discordance with absolute values may lead to misinterpretation of CBC data. Current Interpretive Data was last revised on 2017. Testing performed by: [facility] [address], [place] [address] Lymphocyte pct 30.2 % [facility] Comment: Interpretive Data Percent cell count reference ranges are not reported, since discordance with absolute values may lead to misinterpretation of CBC data. Current Interpretive Data was last revised on 2017. Testing performed by: [facility] [address], [place] [address] Monocyte pct 9.1 % [facility] Comment: Interpretive Data Percent cell count reference ranges are not reported, since discordance with absolute values may lead to misinterpretation of CBC data. Current Interpretive Data was last revised on 2017. Testing performed by: [facility] [address], [place] [address] Eosinophil pct 2.6 % [facility] Comment: Interpretive Data Percent cell count reference ranges are not reported, since discordance with absolute values may lead to misinterpretation of CBC data. Current Interpretive Data was last revised on 2017. Testing performed by: [facility] [address], [place] [address] Basophil pct 0.1 % [facility] Comment: Interpretive Data Percent cell count reference ranges are not reported, since discordance with absolute values may lead to misinterpretation of CBC data. Current Interpretive Data was last revised on 2017. Testing performed by: [facility], [place] [address] Blood 12/24/2024 9:26 AM CDT 12/24/2024 9:32 AM CDT Yusra Wiseman ROUTING CLERK LAB BLOOD ORDERABLES Fi nal Result [facility] [address] [address] Department [place] [address] * (ABNORMAL) CBC with auto differential (12/24/2024 9:26 AM CDT) WBC 6.91 3.80 - 9.90 K/cumm Comment:Testing performed by : [facility] [address], [place] [address] Hgb 13.2 11.9 - 15.5 g/dL C[facility] CH Comment:Testing performed by : [facility] [place] [place] [address] Hct 40.0 35.6 - 45.5 % [facility] CH Comment:Testing performed by : [facility] [place] [address] Plt 259 150 - 400 K/cumm [facility] CH Comment:Testing performed by : [facility] [place] [address] MPV 9.1 9.1 - 12.3 fL [facility] CH Comment:Testing performed by : [facility] [place] [place] [address] RBC 4.93 3.90 - 5.20 M/cumm [facility] CH Comment:Testing performed by : [facility] [address] [place], [place] [address] MCV 81.1(L) 81.3 - 96.4 fL [facility] CH Comment:Testing performed by : [facility] [address] [place], [place] [address] MCH 26.8(L) 27.1 - 33.3 pg [facility] CH Comment:Testing performed by : [facility] [address] [place] [address] MCHC 33.0 32.3 - 35.7 g/dL [facility] CH Comment:Testing performed by : [place] [address] [address] [place] [address] RDW CV 16.1(H) 11.1 - 14.9 % [facility] CH Comment:Testing performed by : [facility] [address] [place], [place] [address] RDW SD 47.5 35.7 - 48.1 fL [facility] CH Comment:Testing performed by : [facility] [address] [place], [place] [address] NRBC abs 0.00 0.00 - 0.01 K/cumm [facility] CH Comment:Testing performed by : [facility] [address] [place], [place] [address] Blood Venous blood specimen / Unknown 12/24/2024 9:26 AM CDT 12/24/2024 9:32 AM CDT Yusra Wiseman ROUTING CLERK LAB BLOOD ORDERABLES Fi nal Result [facility] [address] [address] [facility] [place] [address] * (ABNORMAL) hCG, blood, quantitative (12/24/2024 9:26 AM CDT) Pathologist [facility] hCG, quant 29,188.0( H) 0.0 - 5.0 IUnits/L Comment: Interpretive Data Male: < 5 IU/L Non- premenopausal Female: <5 IU/L The Karl hCG Beta Quant assay procedure was used. Results from different manufacturers or methods may not be comparable. Serial testing should be performed using the same method. Interpretive Data was last revised on 2023 Testing performed by: [facility], [place] [address] Blood 12/24/2024 9:26 AM CDT 12/24/2024 9:32 AM CDT Yusra Wiseman NP LAB BLOOD ORDERABLES Fi nal Result Performing Organization Address City/[facility]/ZIP Co de Phone Number [facility] [place] [address] [place] [address] * Lipase (12/24/2024 9:26 AM CDT) [facility] Lipase 14 10 - 99 Units/L Comment:Testing performed by : [facility] [address] [address] Blood 12/24/2024 9:26 AM CDT 12/24/2024 9:32 AM CDT Yusra Wiseman NP LAB BLOOD ORDERABLES Fi nal Result [facility] [place] [address] [place] [address] * (ABNORMAL) Comprehensive metabolic panel (12/24/2024 9:26 AM CDT) [facility] Sodium 136 135 - 145 mmol/L Comment:Testing performed by : [facility] [address] [address] Potassium, pl 3.7 3.3 - 4.9 mmol/L [facility] CH Comment:Testing performed by : [facility], [facility] [place] [address] Chloride 101 97 - 110 mmol/L C[facility] CH Comment:Testing performed by : [facility] [place] [address] CO2 17(L) 22 - 32 mmol/L [facility] CH Comment:Testing performed by : [facility] [place] [address] Anion gap 18(H) 2 - 15 mmol/L C[facility] CH Comment:Testing performed by : [facility] [place] [address] BUN 7 6 - 25 mg/dL CERN[facility] CH Comment:Testing performed by : [facility] [place] [address] Creatinine 0.57(L) 0.60 - 1.10 mg/dL C[facility] CH Comment:Testing performed by : [facility] [place] [address] Glucose 85 70 - 199 mg/dL CERNER [...] was last revised 2022. Testing performed by: [facility] [place] [address] Calcium 9.7 8.5 - 10.3 mg/dL C[facility] CH Comment:Testing performed by : [facility] [place] [address] Bilirubin, total 0.4 0.1 - 1.2 mg/dL [facility] CH Comment:Testing performed by : [facility] [address], [place] [address] Protein, pl 7.4 6.5 - 8.5 g/dL C[facility] CH Comment:Testing performed by : [facility] [place] [address] Albumin 4.0 3.5 - 5.0 g/dL GAYATRINER Comment:Testing performed by : [facility], [place] [address] Alk phos 76 40 - 130 Units/L [facility] Comment:Testing performed by : [facility], [place] [address] ALT 18 7 - 45 Units/L CERLAUREN Comment:Testing performed by : [facility], [place] [address] AST 21 10 - 45 Units/L [facility] Comment:Testing performed by : [facility] [address], [place] [address] Blood 12/24/2024 9:26 AM CDT 12/24/2024 9:32 AM CDT Yusra Wiseman NP LAB BLOOD ORDERABLES Fi nal Result [facility] [address] [address] Department [place] [address] * (ABNORMAL) POCT hCG, urine (12/24/2024 9:24 AM CDT) HCG, ur, POC Positive(A) Negative Lot Number [id number] QC Backgroud Clear Acceptable QC Control Line Acceptable Urine 12/24/2024 9:24 AM CDT Yusra Wiseman NP POINT OF CARE TEST ORDE RABLES Final Result * (ABNORMAL) Urinalysis reflex to microscopic and culture Urine (12/24/2024 9:06 AM CDT) Color, ur Yellow Yellow Comment:Testing performed by : [facility] [address], [place] [address] Clarity, ur Clear Clear [facility] Comment:Testing performed by : [facility] [address], [place] [facility] Specific gravity, ur 1.026 1.003 - 1.030 [facility] Comment:Testing performed by : [facility] [address], [place] [facility] pH, urine 8.0 [facility] Comment: Interpretive Data U rine pH is affected by diet, medications, systemic acid-base disturbances, and renal tubular function. pH may affect urinary stone formation. For example, urine pH below 6.0 may help reduce the tendency for calcium phosphate stones and pH greater than 6.0 may reduce the tendency for uric acid stone formation. Source: [facility] Current Interpretive Data was last revised on 2017 Testing performed by: [facility], [place] [address] Protein, ur ql Trace Negative CERNER CH Comment:Testing performed by : [facility], [place] [address] Glucose, ur ql Negative Negative CERNER CH Comment:Testing performed by : [facility], [facility] [place] [address] Ketones, ur Trace Negative CERNER CH Comment:Testing performed by : [facility], [place] [address] Bilirubin, ur Negative Negative CERNER CH Comment:Testing performed by : [facility] [place] [address] Blood, ur Negative Negative CERNER CH Comment:Testing performed by : [facility], [place] [address] Urobilinogen, ur 2.0(A) <2.0 mg/dL CERNER CH Comment:Testing performed by : [facility], [place] [address] Nitrite, ur Negative Negative CERNER CH Comment:Testing performed by : [facility] [place] [address] Leukocyte esterase, ur Negative Negative CERNER CH Comment:Testing performed by : [facility], [place] [address] UA reflex comment Reflex conditions for microscopic UA and culture not met. CERNER Comment:Testing performed by : [facility], [address] [address] Urine 12/24/2024 9:06 AM CDT 12/24/2024 9:10 AM CDT us Yusra Wiseman NP LAB MICROBIOLOGY - GENE RAL ORDERABLES Final Result [facility] [address] [address] Department [place] [address] * N. gonorrhoeae/C. trachomatis Amplification Vaginal (12/13/2024 2:30 AM CDT) C. trachomatis Not Detected Not Detected N. gonorrhoeae Not Detected Not Detected [facility] Comment: Interpretive Data This assay detects Chlamydia trachomatis and Neisseria gonorrhoeae by nucleic acid amplification testing (NAAT). This assay has been cleared by the [place] Food and Drug administration. The performance characteristics of this test have been verified by the [facility]. The performance characteristics of this test have not been evaluated in individuals less than 14 years of age. Current Interpretive Data last revised 2023. Vaginal (None) 12/13/2024 2: 30 AM CDT 12/13/2024 2:34 AM CDT Juan COLIN LAB MICROBIOLOGY - GENERAL O RDERABLES Final Result [facility] [address] [facility] Department [place] [address] * (ABNORMAL) Vaginitis panel Vaginal (12/13/2024 2:30 AM CDT) Pathologist [facility] Bacterial Vaginosis Not Detected Not Detected Comment:A negative result do es not preclude a possible infection. Results should be considered in conjunction with clinical presentation to determine the disease status. Jada group Detected(A) Not Detected [facility] Comment:Jada species can be present as commensal organisms in women; results should be considered in conjunction with clinical presentation to determine the disease status. Jada glabrata/ krusei Not Detected Not Detected [facility] Trichomonas DNA Not Detected Not Detected [facility] Vaginal 12/13/2024 2:30 AM CDT 12/13/2024 2:34 AM CDT Narrative [facility] - 12/13/2024 3:34 AM CDT The [employer] Xpert Xpress MVP test detects DNA targets [...] this test have been verified by the [facility]. The [employer] Xpert Xpress MVP test detects DNA targets [...] this test have been verified by the [facility]. Juan COLIN LAB MICROBIOLOGY - GENERAL O RDERABLES Final Result [facility] [address] [facility] [place] [address] * (ABNORMAL) Urinalysis reflex to microscopic and culture Urine (12/13/2024 2:30 AM CDT) Color, ur Straw Yellow Clarity, ur Cloudy(A) Clear [facility] Specific gravity, ur 1.018 1.003 - 1.030 [facility] pH, urine 6.0 [facility] Comment: Interpretive Data U rine pH is affected by diet, medications, systemic acid-base disturbances, and renal tubular function. pH may affect urinary stone formation. For example, urine pH below 6.0 may help reduce the tendency for calcium phosphate stones and pH greater than 6.0 may reduce the tendency for uric acid stone formation. Source: [facility] Current Interpretive Data was last revised on 2017 Protein, ur ql Negative Negative [facility] Glucose, ur ql Negative Negative [facility] Ketones, ur Negative Negative [facility] Bilirubin, ur Negative Negative [facility] Blood, ur 1+(A) Negative [facility] Urobilinogen, ur <2.0 <2.0 mg/dL [facility] Nitrite, ur Negative Negative [facility] Leukocyte esterase, ur 4+(A) Negative [facility] UA reflex comment Reflex to microscopic UA will be performed. [facility] Urine 12/13/2024 2:30 AM CDT 12/13/2024 2:34 AM CDT [facility] MICROBIOLOGY - GENERAL ORDERABLES Final Result Performing Organization Address [facility] de Phone Number [address] [address] * (ABNORMAL) Urinalysis, microscopic only (12/13/2024 2:30 AM CDT) WBC, ur 0-5 0 - 5 /HPF RBC, ur 11-20(A) 0 - 2 /HPF [facility] Epithelial cells, squamous, ur 11-20(A) 0 - 5 /HPF [facility] Comment:Suggestive of contam ination. Consider recollection by clean catch. Mucous, ur Present(A) [facility] Culture Reflex Comment Reflex conditions for urine culture (WBC >10) not met. [facility] Urine 12/13/2024 2:30 AM CDT 12/13/2024 2:34 AM CDT [facility] LAB URINE ORDERABLES Final Result Performing Organization Address [facility] de Phone Number [address] [address] * Urine culture Urine (12/13/2024 2:30 AM CDT) Report Final Report: Growth indicative of contamination with periurethral slava. Please submit a new specimen with special attention given to the collection process and to prompt transport to the laboratory. Comment:Testing performed by : [facility], [address] [facility], [place]., [address] Organism GROWTH INDICATES CONTAM WITH PERIURETHRAL SLAVA. [facility] Urine 12/13/2024 2:30 AM CDT 12/13/2024 9:22 AM CDT Narrative [facility] BUCKLEY - 12/14/2024 2:33 PM CDT Testing performed by [facility] Microbiology Laboratory ([phone]) us Juan COLIN LAB MICROBIOLOGY - GENERAL O RDERABLES Final Result [facility] [address] [facility] [place] [address] * (ABNORMAL) POCT hCG, urine (12/13/2024 2:27 AM CDT) HCG, ur, POC Positive(A) Negative Lot Number [id number] QC Backgroud Clear Acceptable QC Control Line Acceptable Urine 12/13/2024 2:27 AM CDT Juan Manuel Avitia DO POINT OF CARE TEST ORDERABL ES Final Result from Last 3 Months Insurance [employer] EXCHANGE [employer] Care Teams Pro Shop Attendant Relationship Specialty Start Date End Date No, Physician PCP - General 10/07/24
--- OUTSIDE RECORDS SUMMARY | 2025-01-18 15:38 | XMS_ITS | Encounter Summary ---
Author Organization [facility] Address [address] [place] [address] Care Team Providers Care Miter Grinder Operator Name Role Phone No, Physician Primary Care Provider [phone] Encounter Details Date Type Department Care Team (Late st Contact Info) Description 12/14/2024 Results Follow-Up [address] [address] [address] [address] Vaginitis panel Vaginal Social History Tobacco Use [...] on file Legal Sex Female 9:34 AM FOCUSING MACHINE OPERATOR Gender Identity Female 07/10/2020 2:40 PM FOCUSING MACHINE OPERATOR Sexual Orientation Straight 07/10/2020 2: 40 PM FOCUSING MACHINE OPERATOR documented as of this encounter Miscellaneous Notes * Result Encounter Note - Shayna Dean RN - 12/15/2024 12:40 PM CDT This RN spoke to patient about abnormal test results and plan of care , called prescription in to [facility] [address] [facility] [place] per patients request. documented in this encounter Plan of Treatment Not on file documented as of this encounter Visit Diagnoses Not on filedocumented in this encounter Care Teams Miter Grinder Operator Relationship Specialty Start Date End Date No, Physician PCP - General 10/07/24 documented as of this encounter
--- OUTSIDE RECORDS SUMMARY | 2025-01-18 15:38 | XMS_ITS | Clinical Summary ---
Author Organization [facility] Address [address] [place] [address] Care Team Providers Care Diamond Wheel Edger Name Role Phone Unavailable Primary Care Provider [...] TRICH (08/26/2021 10:22 AM CDT) SEE NOTE [facility] Comment: This order for age-based cervical cancer and STI screening follows ACOG guidelines(PB 168, 140, HHW438). See individual assays for performing site location. CLINICAL INFORMATION [facility] Comment:Information not prov ided LAST MENSTRUAL PERIOD [facility] Comment:INFORMATION NOT PROV IDED PREV PAP: [facility] Comment:INFORMATION NOT PROV IDED PREV BX: [facility] Comment:INFORMATION NOT PROV IDED SOURCE [facility] Comment:Endocervix ADEQUACY: [facility] Comment: Satisfactory for evaluation. Endocervical/transformation zone component present. Age and/or menstrual status not provided PAP INTERP [facility] Comment:Negative for intraep ithelial lesion or malignancy. COMMENT (PAP TEST) [facility] Comment: This Pap test has been evaluated with computer assisted technology. TRANSPLANT NURSE: [facility] Comment: SAMAGNES(ASCP) CT screening location: [place] [address] [place] [address] [facility] Comment: EXPLANATORY NOTE: The [...] C TRAC RNA NOT DETECTED NOT DETECTED [facility] N.GONORRHOEAE RNA, TMA NOT DETECTED NOT DETECTED [facility] SEE NOTE [facility] Comment: The analytical performance characteristics of this assay, when used to test SurePath(TM) specimens have been determined by [employer]. The modifications have not been cleared or approved by the FDA. This assay has been validated pursuant to the CLIA regulations and is used for clinical purposes. For additional information, please refer to https://Telir[employer]/faq/QZJ235 (This link is being provided for information/ educational purposes only.) TRICHOMONAS VAGINALIS,QUALITAT LAYNE,PAP VIAL NOT DETECTED NOT DETECTED [facility] Comment: The analytical performance characteristics of this assay have been determined by [facility] [employer]. The modifications have not been cleared or approved by the FDA. This assay has been validated pursuant to the CLIA regulations and is used for clinical purposes. For additional information, please refer to [email or web address]/ faq/Trichomonastma (This link is being provided for information/ educational purposes only.) Test Performed at: [facility] [address] [place] [address] Andrea Mix D.O., MPH Genital SWAB OF ENDOCERVIX / Unknown 08/26/2021 10:22 AM CDT 08/27/2021 4:04 AM CDT Aba Gutierrez MD PATHOLOGY/CYTOLOGY ORDERABLES Final Result Performing Organization Address City/State/[facility] Co de Phone Number [facility] [address] [place] [address] from Last 3 Months or Most Recently Relevant to Health Maintenance Insurance BCBS TRUE BLUE PPO EXCHANGE
== END 2025-01-18 15:33 | disposition home or self-care (01) ==
PROVIDERS: Visit Provider Nurse Practitioner Obstetrics & Gynecology
DX: O46.90 Antepartum hemorrhage, unspecified, unspecified trimester (principal); Z3A.00 Weeks of gestation of pregnancy not specified
CPT/HCPCS: 76801

== ENCOUNTER 2025-01-26 08:34 | Emergency (ER) | payer OTHER, MEDICAID, SELFPAY ==
--- OUTSIDE RECORDS SUMMARY | 2016-09-04 06:30 | XMS_ITS | Continuity of Care Document ---
Author Organization [facility] Address [address] [place] [address] Phone Care Team Providers Care Mat Maker Name Role Phone Hernan Lloyd DMD Unavailable [...] AN CARE, AT-RISK ENHANCED SERVICE PACKAGE (INCLUDES [id number]) OFFICE/OUTPATIENT VISIT, EST PRESCRIPTION DRUG, ORAL, NON CHEMOTHERAP EUTIC, NOS AZITHROMYCIN DIHYDRATE, ORAL, CAPSULES/P OWDER, 1 GRAM Wet beka, including preparations of va ginal, cervical or skin specimens COLLECTION OF VENOUS BLOOD BY VENIPUNCTU RE OFFICE/OUTPATIENT VISIT, EST CARE, AT-RISK ENHANCED SERVICE PACKAGE (INCLUDES [id number]) OFFICE/OUTPATIENT VISIT, EST COLLECTION OF VENOUS BLOOD BY VENIPUNCTU RE Voided Encounter care, at-risk assessment care, at-risk enhanced service; antepartum management MENTAL HEALTH ASSESSMENT, BY NON-PHYSICI AN SKIN TEST; TUBERCULOSIS, INTRADERMAL Dec OFFICE/OUTPATIENT VISIT, NEW Advance Directives Directive Yes / No Effective Date File Name No Information Encounters Encounter Description Practice Location Reason(s) For Visit Diagnoses Date Provider Providers Copied on Encounter [facility] , [address], [place], [place], [address], tel:[phone] [facility] [place] Encounter for dental exam and cleaning w abnormal findings 7 Gabino Becerra. [address], [place], [place], [address]. tel:[phone] Referring Provider: Hernan Lloyd, [address], [place], [address]. tel:[phone] [facility] , [address], [place], [place], [address], tel:[phone] [facility] [place] home visit (chief complaint) Routine follow-up Management Case. [address], [place], [place], [address], . tel:[phone] [facility] , [address], [place], [place], [address], tel:[phone] [facility] [place] No Information 2 Management Case. [address], [place], [place], [address], . tel:[phone] Consulting Provider: Arianne Samuels, [address], [place], [address]. tel:[phone] OFFICE/OUTPAT IENT VISIT, EST [facility] , [address], [place], [place], [address], [place] tel:[phone] [facility] [place] No Information 1 Bianca Bauman. [address], [place], [place], [address], . tel:[phone] OFFICE/OUTPAT IENT VISIT, EST [facility] , [address], [place], [place], [address], [place] tel:[phone] [facility] [place] Supervision of normal first 1 Rico Navas [address], [place], [place], [address], . tel:[phone] [facility] , [address], [place], [place], [address], tel:[phone] [facility] [place] No Information 1 Management Case. [address], [place], [address] [place] [address], . tel:[phone] Consulting Provider: Arianne Samuels, [address], [place], [address]. tel:[phone] OFFICE/OUTPAT IENT VISIT, [facility] , [address], [place], [place], [address], tel:[phone] [facility] [place] Supervision of other normal 1 Rico Navas [address], [place], [place], [address], . tel:[phone] [facility] , [address], [place], [place], [address], [place] tel:[phone] [facility] [place] Supervision of normal first 1 Rico Navas [address], [place], [place], [address], . tel:[phone] [employer] , [address], [place], [place], [address], tel:[phone] [facility] [place] pn intake (chief complaint) No Information No Information OFFICE/OUTPAT IENT VISIT, [facility] , [address], [place], [place], [address], [place] tel:[phone] [facility] [place] Test (chief complaint)No te for school-Pregn italo (chief complaint) Irregular menstrual cycle Bianca Bauman. [address], [place], [place], [address], [place]. tel:[phone] Family History Family Member Type Diagnosis Age At Onset Father Problem (finding) hypertension Mother Problem (finding) hypertension Father Problem (finding) Maternal history of alice betes mellitus Payers Payer name Insurance type Covered democrat ID Alpa pool(s) D Medicaid - Dental CI [id number] Social History Type Description Quantity Date Captured Comments Sex Female Smoking Status No Information Chief Complaint And Reason For Visit No Information Reason For Referral Reason For Referral No Information Plan Of Treatment Date Type Action Status Goal BMP fasting. Due on 011 due Referral Referred To: [facility] Radiology [address] [place], [phone] Ordered: Referral: [facility] Radiology. Radiology. ordered Future Order: Lab [...]
--- OUTSIDE RECORDS SUMMARY | 2023-08-04 04:30 | XMS_ITS ---
Author Organization [facility] Address [address] [place], [place] [address] Care Team Providers Care Automatic Drill Operator Name Role Phone German Hua Primary Care Provider [phone] Rodrick Bauman Unavailable [phone] Abran Fitzpatrick Unavailable [phone] REASON FOR VISIT WWE Social History Sex Assigned At : Social History Observation Description Sex Assigned At Female Encounters En[facility] [place], [place] [address] 08/04/2023 Abran Fitzpatrick Plan Of Treatment No Information Progress Notes * Nisha BARNETT :1995 (29 yo F)Acc No.[id number]:08/04/2023 Patient: Nisha KLEIN Appointment Provider: SUSY Pastrana :1995 A ge:28 Y S ex:Female Date:08/04/2023 Address:[facility] [place] Pcp:German Hua Subjective: * Chief Complaints: * 1 . WWE. * Medical History: Objective: * Vitals: Assessment: Plan: * Treatment: * Billing Information: * Visit Code: * Procedure Codes: * Electronic signature of SUSY Tellez chi on 01/26/2025 at 08:47 AM CDT Sign off status: Pending * Appointment Provider: SUSY Pastrana Date: 0 08/04/2023 Generated for Molina ramirez/Betty/Micky on: 0 01/26/2025 08:47 AM CDT
--- OUTSIDE RECORDS SUMMARY | 2025-01-26 08:47 | XMS_ITS | Clinical Summary ---
Author Organization [facility] Address [address] [place] [address] Care Team Providers Care Construction Secretary Name Role Phone [facility] Primary Care Pro vider Source Comments [facility],non-[facility] Affiliates and Associated Physician Practices is amultiple site organization consisting of ambulatory clinics and hospital sitesin [place], [place], [place] and [place]. This disclosure is being madepursuant to the Care Everywhere program and may not contain all information available regarding this patient. Last updated 18.[facility] Allergies Active Allergy Reactions Criticality Noted [...] fluticasone propionate (Flonase) 50 MCG/ACT nasal spray [place] 2 (two) sprays into each nostril once [...] ing 20 tablet 03/28/2024 Active HYDROcodone-lilian taminophen ([place]) 5-325 MG tabletIndicatio ns:Acute maxillary sinusitis, recurrence [...] Overview (11/11/2016): She sees Dr. Jean at [facility]. She discontinued Seroquel with positive test. [...] a senior living (including now)? No 05/11/2022 [place] Depression Scale Answer Date Recorded RETIRED: Total Score 0 05/08/2022 Last EPDS Self Harm Result Not on file 05/08 Comments No Sex and Gender Information Value Date Recorded Sex Assigned at Not on file Legal Sex Female 6:05 AM HAND BINDER STRIPPER Gender Identity Not on file Sexual Orientation Not on file Last Filed Vital Signs Vital Sign Reading Time Taken Comments Blood Pressure 147/96 05/28/2024 11:26 PM HAND BINDER STRIPPER Pulse 65 05/28/2024 11:26 PM HAND BINDER STRIPPER Temperature 36.7 C (98.1 F) 05/28/2024 11:26 PM HAND BINDER STRIPPER Respiratory Rate 18 05/28/2024 11:26 PM HAND BINDER STRIPPER Oxygen Saturation 95% 05/28/2024 11:26 PM HAND BINDER STRIPPER Inhaled Oxygen Concentration - - Weight 70.8 kg (156 lb) 05/28/2024 11:26 PM HAND BINDER STRIPPER Height 157.5 cm (5' 2) 05/28/2024 11:26 PM HAND BINDER STRIPPER Body Mass Index 28.53 05/28/2024 11:26 PM HAND BINDER STRIPPER Plan of Treatment Health Maintenance Due Date [...] RFLX HPV ASCU Routine 08/05/2016 12:37 PM HAND BINDER STRIPPER 10 weeks gestation of HIV-1 HIV-2 ANTIBODY + HIV P24 AG PANEL Routine 08/05/2016 12:35 PM HAND BINDER STRIPPER 10 weeks gestation of from Last 3 Months or Most Recently Relevant to Health Maintenance Results * PAP SMEAR IG RFLX HPV ASCU (PO REF LAB) (08/05/2016 12:37 PM HAND BINDER STRIPPER) Diagnosis Comment 08/06/2016 9:08 PM HAND BINDER STRIPPER [facility] Comment:NEGATIVE FOR INTRAEP ITHELIAL LESION AND MALIGNANCY. Specimen Adequacy Comment 017 9:08 PM HAND BINDER STRIPPER [facility] Comment: Satisfactory for evaluation. Endocervical and/or squamous metaplastic cells (endocervical component) are present. Performed by Comment 08/06/2016 9:08 PM HAND BINDER STRIPPER [facility] Comment:Rubi Medley [employer] hnologist (ASCP) Comment . 08/06/2016 9:08 PM HAND BINDER STRIPPER [facility] Note Comment 08/06/2016 9:08 PM HAND BINDER STRIPPER [facility] Comment: The Pap smear is a screening test designed to aid in the detection of premalignant and malignant conditions of the uterine cervix. It is not a diagnostic procedure and should not be used as the sole means of detecting cervical cancer. Both false-positive and false-negative reports do occur. IGLBP CPT Code Automation Comment 08/06/2016 9:08 PM HAND BINDER STRIPPER [facility] Comment: This liquid based ThinPrep(R) pap test was screened with the use of an image guided system. Note Comment 08/06/2016 9:08 PM HAND BINDER STRIPPER [facility] Comment: The HPV DNA reflex criteria were not met with this specimen result therefore, no HPV testing was performed. Pathology/Cytolo gy PART OF UTERINE CERVIX / Unknown 08/05/2016 12:37 PM HAND BINDER STRIPPER 08/05/2016 1:19 PM HAND BINDER STRIPPER Narrative [facility] - 08/06/2016 9:08 PM HAND BINDER STRIPPER Performed at: [address] [place] [id number] Broke Handler: Rayna Cuevas MD, Phone: [phone] Specimen Comment: Source.............Cervix Specimen Comment: No. of containers..01 CYTYC Thin Prep Vial us Gaye Stephens MD LAB - PATHOLOGY/CYTOLOGY ORDE RABILIANA Final Result [facility] ([facility]) [address] [place] [address] * HIV-1 HIV-2 ANTIBODY + HIV P24 AG PANEL (08/05/2016 12:35 PM HAND BINDER STRIPPER) HIV1/2 Ab + P24 Ag Non Reactive Non Reactive 08/05/2016 6:49 PM HAND BINDER STRIPPER [facility] Blood BLOOD SPECIMEN / Unknown 08/05/2016 12:35 PM HAND BINDER STRIPPER 08/05/2016 1:10 PM HAND BINDER STRIPPER Narrative [facility] - 08/05/2016 6:49 PM HAND BINDER STRIPPER No Laboratory evidence of HIV infection. us Gaye Stephens MD LAB - CHEMISTRY ORDERABLES Fi nal Result [facility] [address] [place] [address] from Last 3 Months or Most Recently Relevant to Health Maintenance Insurance [place] [employer] [place] MEDICA[place] - [facility] COMMUNITY PLAN [place] MEDICAID [...] 12:53 PM 02/27/2017 12:50 PM Care Teams Construction Secretary Relationship Specialty Start Date End Date [facility] [address] [place] [address] PCP - General Master Merchandiser 01/30/22
--- OUTSIDE RECORDS SUMMARY | 2025-01-26 08:47 | XMS_ITS | Clinical Summary ---
Author Organization [facility] Address [address] [place] [address] Care Team Providers Care Snowsport Instructor Name Role Phone Unavailable Primary Care Provider [...] TRICH (08/26/2021 10:22 AM CDT) SEE NOTE [facility] Comment: This order for age-based cervical cancer and STI screening follows ACOG guidelines(PB 168, 140, [id number]). See individual assays for performing site location. CLINICAL INFORMATION [facility] Comment:Information not prov ided LAST MENSTRUAL PERIOD [facility] Comment:INFORMATION NOT PROV IDED PREV PAP: [facility] Comment:INFORMATION NOT PROV IDED PREV BX: [facility] Comment:INFORMATION NOT PROV IDED SOURCE [facility] Comment:Endocervix ADEQUACY: [facility] Comment: Satisfactory for evaluation. Endocervical/transformation zone component present. Age and/or menstrual status not provided PAP INTERP [facility] Comment:Negative for intraep ithelial lesion or malignancy. COMMENT (PAP TEST) [facility] Comment: This Pap test has been evaluated with computer assisted technology. 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 Comment: SAMAGNES(ASCP) CT screening location: [place] [address] [place] [address] SEE NOTE [facility] Comment: EXPLANATORY NOTE: The Pap [...] C TRAC RNA NOT DETECTED NOT DETECTED [facility] N.GONORRHOEAE RNA, TMA NOT DETECTED NOT DETECTED [facility] SEE NOTE [facility] Comment: The analytical performance characteristics of this assay, when used to test SurePath(TM) specimens have been determined by [employer]. The modifications have not been cleared or approved by the FDA. This assay has been validated pursuant to the CLIA regulations and is used for clinical purposes. For additional information, please refer to [email or web address]faq/XRE931 (This link is being provided for information/ educational purposes only.) TRICHOMONAS VAGINALIS,QUALITAT LAYNE,PAP VIAL NOT DETECTED NOT DETECTED [facility] Comment: The analytical performance characteristics of this assay have been determined by [facility] [employer]. The modifications have not been cleared or approved by the FDA. This assay has been validated pursuant to the CLIA regulations and is used for clinical purposes. For additional information, please refer to [email or web address] faq/Trichomonastma (This link is being provided for information/ educational purposes only.) Test Performed at: [facility] [address] [place] [address] Andrea Mix D.O., MPH Genital SWAB OF ENDOCERVIX / Unknown 08/26/2021 10:22 AM CDT 08/27/2021 4:04 AM CDT Aba Gutierrez MD PATHOLOGY/CYTOLOGY ORDERABLES Final Result Performing Organization Address City/State/[facility] Co de Phone Number [facility] [address] [place] [address] from Last 3 Months or Most Recently Relevant to Health Maintenance Insurance BCBS TRUE BLUE PPO EXCHANGE
--- OUTSIDE RECORDS SUMMARY | 2025-01-26 08:48 | XMS_ITS | Encounter Summary ---
Author Organization [facility] Address [address] [place] [address] Care Team Providers Care Retanner Name Role Phone No, Physician Primary Care Provider [phone] Encounter Details Date Type Department Care Team (Late st Contact Info) Description 12/14/2024 Results Follow-Up [address] [address] [address] Vaginitis panel Vaginal Social History Tobacco Use [...] on file Legal Sex Female 9:34 AM BULB BRANDER Gender Identity Female 07/10/2020 2:40 PM BULB BRANDER Sexual Orientation Straight 07/10/2020 2: 40 PM BULB BRANDER documented as of this encounter Miscellaneous Notes * Result Encounter Note - Shayna Dean RN - 12/15/2024 12:40 PM CDT This RN spoke to patient about abnormal test results and plan of care , called prescription in to [facility] [address] in [place] per patients request. documented in this encounter Plan of Treatment Not on file documented as of this encounter Visit Diagnoses Not on filedocumented in this encounter Care Teams Retanner Relationship Specialty Start Date End Date No, Physician PCP - General 10/07/24 documented as of this encounter
--- OUTSIDE RECORDS SUMMARY | 2025-01-26 08:48 | XMS_ITS | Clinical Summary ---
Author Organization [facility] Physician [facility] Building [address] [place] [id number] Care Team Providers Care Display Mechanic Name Role Phone No, Physician Primary Care Provider Allergies Active Allergy Reactions Criticality Noted Date Comments Adhesive Rash Medium 09/16/2023 Surgical adhesive tape Penicillins Hives Medium 09/16/2023 Medications HYDROcodone-lilian taminophen (NORCO) 5-325 mg per tabletIndicatio ns:Pain Take 1 tablet by mouth every 6 (six) hours as needed for pain for up to 10 doses 10 tablet 10/16/2023 Active ondansetron (ZOFRAN) 4 mg tablet Take 1 tablet (4 mg total) by mouth every 4 (four) hours as needed for nausea or vomiting 15 tablet 12/24/2024 Active famotidine (PEPCID) 20 mg tablet Take 1 tablet (20 mg total) by mouth 2 (two) times a day 30 tablet 12/24/2024 12/25/19 26 Active Active Problems Problem Noted Date Diagnosed Date Splinter 07/20/2021 Foreign body of thumb, right 07/20/2021 Periumbilical abdominal pain 12/21/2018 Encounter for psychiatric assessment 12/24/2017 Overview (12/24/2017): Initial appointment on 12/24/2017. Chronic post-traumatic stress disorder (PTSD) Assessment & Plan (12/24/2017 5:22 PM CDT): Chronic, persistent, needs to be linked with therapist. Her Referred to [facility] for trauma focused therapy. Start [...] CDT - 12/24/2024 11:57 AM CDT Emergency [facility] [address] [place], [place] [phone] Nausea and vomiting in (Primary Dx) Discharge Disposition: Discharge to home or self care 12/15/[address] [address] Shayna Dean RN 12/15/[address] [address] Shayna Dean RN 12/14/[address] [address] Shayna Dean RN 12/14/2024 Results Follow-Up [address] [address] Juan Samson PA Vaginitis panel Vaginal 12/13/2024 2:30 AM CDT - 12/13/2024 3:25 AM CDT Emergency [address] [address] Positive test (Primary Dx); Vaginal irritation Discharge [...] on file Legal Sex Female 9:34 AM PRECISION LENS GENERATOR Gender Identity Female 07/10/2020 2:40 PM PRECISION LENS GENERATOR Sexual Orientation Straight 07/10/2020 2: 40 PM PRECISION LENS GENERATOR Obstetrics History Para Term AB IAB SAB Ectopic Multiple Livin g Live Births 11 4 4 5 2 2 4 4 Date Outcome GA Total Labor Labor/2nd/3rd Weight Sex Type Anes PTL Sheila A1 A5 Name Clin SAB 2011 Term 40w 2d 3.121 kg (6 lb 14.1 oz) F Vag-V acuum Epidur al Livin g 8 9 WALKER ,BABY GIRL NIRANJAN HENSON Tara Delivery Location:[facility] 2014 AB 2016 IAB 2016 Term 39w 3d 0h 17m 0h 13m/0h 04m 2.91 kg (6 lb 6.7 oz) F Vag-S pont Epidur al N Livin g 8 9 WALKER ,BABY GIRL NIRANJAN Nj MD Complications:None Delivery Location:[facility] 2018 IAB 2019 SAB 2021 Term 37w 4d 2.745 kg (6 lb 0.8 oz) F Vag-S pont Epidur al Kathy wood Complications: Karla yamileth Hypertension Delivery Location:[facility] 2021 Term 37w 4d 0h 07m 0h 07m 2.745 kg (6 lb 0.8 oz) F Vag-S pont Epidur al N Livin g 9 9 WALKER ,BABY GIRL NIRANJAN Martino Mara wood MD Complications:None Delivery Location:[facility] [place] ([facility] 5 R) Current Last Filed Vital Signs [...] was last reviewed 2021. Testing performed by: [facility], [address], [place] [address] Blood 12/24/2024 9:26 AM CDT 12/24/2024 9:32 AM CDT us Yusra Wiseman NP LAB BLOOD ORDERABLES Fi nal Result [facility] [address] [address] Department [place] [address] * Differential, auto (12/24/2024 9:26 AM CDT) Neutrophil abs 3.98 1.50 - 6.50 K/cumm Comment:Testing performed by : [facility], [facility], [place] [address] Imm gran abs 0.02 0.00 - 0.10 K/cumm CERNER Comment:Testing performed by : [facility], [facility] [address], [place] [address] Lymphocyte abs 2.09 0.80 - 3.30 K/cumm CERNER Comment:Testing performed by : [facility], [facility], [place] [address] Monocyte abs 0.63 0.20 - 0.80 K/cumm CERNER Comment:Testing performed by : [place] [address], [place] [address] Eosinophil abs 0.18 0.00 - 0.50 K/cumm [facility] Comment:Testing performed by : [address], [place] [address] Basophil abs 0.01 0.00 - 0.10 K/cumm CERNER Comment:Testing performed by : [facility], [facility], [place] [address] Neutrophil pct 57.7 % CERNER Comment: Interpretive Data Percent cell count reference ranges are not reported, since discordance with absolute values may lead to misinterpretation of CBC data. Current Interpretive Data was last revised on 2017. Testing performed by: [facility], [address] [place] [address] Rd, [place] [address] Imm gran pct 0.3 % CERNER Comment: Interpretive Data Percent cell count reference ranges are not reported, since discordance with absolute values may lead to misinterpretation of CBC data. Current Interpretive Data was last revised on 2017. Testing performed by: [facility], [facility], [place] [address] Lymphocyte pct 30.2 % CERNER Comment: Interpretive Data Percent cell count reference ranges are not reported, since discordance with absolute values may lead to misinterpretation of CBC data. Current Interpretive Data was last revised on 2017. Testing performed [facility] [address], [place] [address] Monocyte pct 9.1 % [facility] Comment: Interpretive Data Percent cell count reference ranges are not reported, since discordance with absolute values may lead to misinterpretation of CBC data. Current Interpretive Data was last revised on 2017. Testing performed by: [facility] [address], [place] [address] Eosinophil pct 2.6 % [place] Comment: Interpretive Data Percent cell count reference ranges are not reported, since discordance with absolute values may lead to misinterpretation of CBC data. Current Interpretive Data was last revised on 2017. Testing performed [facility]: [facility] [address], [place] [address] Basophil pct 0.1 % [facility] Comment: Interpretive Data Percent cell count reference ranges are not reported, since discordance with absolute values may lead to misinterpretation of CBC data. Current Interpretive Data was last revised on 2017. Testing performed by[facility] [address], [place] [address] Blood 12/24/2024 9:26 AM CDT 12/24/2024 9:32 AM CDT Yusra Wiseman NP LAB BLOOD ORDERABLES Fi nal Result [facility] [address] [address] Department [place] [address] * (ABNORMAL) CBC with auto differential (12/24/2024 9:26 AM CDT) WBC 6.91 3.80 - 9.90 K/cumm Comment:Testing performed by : [facility] [address], [place] [address] Hgb 13.2 11.9 - 15.5 g/dL [place] Comment:Testing performed by : [facility] [address], [place] [address] Hct 40.0 35.6 - 45.5 % [place] Comment:Testing performed by : [facility], [address] [facility] Plt 259 150 - 400 K/cumm CERNER CH Comment:Testing performed by : [facility], [facility] [place] [address] MPV 9.1 9.1 - 12.3 fL CERNER CH Comment:Testing performed by : [facility], [facility] [address] [address] [place] RBC 4.93 3.90 - 5.20 M/cumm CERNER CH Comment:Testing performed by : [place] [address] [place] [address] MCV 81.1(L) 81.3 - 96.4 fL CERNER CH Comment:Testing performed by : [place] [address] [address] [place] MCH 26.8(L) 27.1 - 33.3 pg CERNER CH Comment:Testing performed by : [place] [address] [place] MCHC 33.0 32.3 - 35.7 g/dL CERNER CH Comment:Testing performed by : [place] [address] [place] [address] RDW CV 16.1(H) 11.1 - 14.9 % CERNER CH Comment:Testing performed by : [place] [address] [address] [place] [address] RDW SD 47.5 35.7 - 48.1 fL CERNER CH Comment:Testing performed by : [place] [address] [place] [address] NRBC abs 0.00 0.00 - 0.01 K/cumm CERNER CH Comment:Testing performed by : [place] [address] [place] [address] Blood Venous blood specimen / Unknown 12/24/2024 9:26 AM CDT 12/24/2024 9:32 AM CDT Yusra Wiseman NP LAB BLOOD ORDERABLES Fi nal Result [facility] [address] [address] Department [place] [address] * (ABNORMAL) hCG, blood, quantitative (12/24/2024 9:26 AM CDT) [facility] hCG, quant 29,188.0( H) 0.0 - 5.0 IUnits/L Comment: Interpretive Data Male: < 5 IU/L Non- premenopausal Female: <5 IU/L The Karl hCG Beta Quant assay procedure was used. Results from different manufacturers or methods may not be comparable. Serial testing should be performed using the same method. Interpretive Data was last revised on 2023 Testing performed by: [facility] [address], [place] [address] Blood 12/24/2024 9:26 AM CDT 12/24/2024 9:32 AM CDT Yusra Wiseman NP LAB BLOOD ORDERABLES Fi nal Result Performing Organization Address [facility] Co de Phone Number [facility] [address] [address] [facility] [place] [address] * Lipase (12/24/2024 9:26 AM CDT) [facility] Lipase 14 10 - 99 Units/L Comment:Testing performed by : [facility] [address], [place] [address] Blood 12/24/2024 9:26 AM CDT 12/24/2024 9:32 AM CDT Yusra Wiseman NP LAB BLOOD ORDERABLES Fi nal Result Performing Organization Address [facility] Co de Phone Number [facility] [address] [address] [facility] [place] [address] * (ABNORMAL) Comprehensive metabolic panel (12/24/2024 9:26 AM CDT) [facility] Sodium 136 135 - 145 mmol/L Comment:Testing performed by : [facility] [address], [place] [address] Potassium, pl 3.7 3.3 - 4.9 mmol/L [place] Comment:Testing performed by : [facility] [address], [place] [address] Chloride 101 97 - 110 mmol/L [facility] Comment:Testing performed by : [facility] [place] [address] CO2 17(L) 22 - 32 mmol/L CERNER CH Comment:Testing performed by : [facility] [place] [address] Anion gap 18(H) 2 - 15 mmol/L CERNER CH Comment:Testing performed by : [facility] [place] [address] BUN 7 6 - 25 mg/dL CERNER CH Comment:Testing performed by : [facility] [place] [address] Creatinine 0.57(L) 0.60 - 1.10 mg/dL CERNER CH Comment:Testing performed by : [place] [address] [place] [address] Glucose 85 70 - 199 mg/dL CERNER [...] was last revised 2022. Testing performed by: [facility] [place] [address] Calcium 9.7 8.5 - 10.3 mg/dL CERNER CH Comment:Testing performed by : [facility] [place] [address] Bilirubin, total 0.4 0.1 - 1.2 mg/dL CERNER CH Comment:Testing performed by : [facility] [place] [address] Protein, pl 7.4 6.5 - 8.5 g/dL CERNER CH Comment:Testing performed by : [facility] [place] [address] Albumin 4.0 3.5 - 5.0 g/dL CERNER CH Comment:Testing performed by : [facility] [place] [address] Alk phos 76 40 - 130 Units/L CERNER CH Comment:Testing performed by : [facility] [address], [place] [address] ALT 18 7 - 45 Units/L [place] Comment:Testing performed by : [facility] [address], [place] [address] AST 21 10 - 45 Units/L [place] Comment:Testing performed by : [facility] [address], [place] [address] Blood 12/24/2024 9:26 AM CDT 12/24/2024 9:32 AM CDT Yusra Wiseman NP LAB BLOOD ORDERABLES Fi nal Result [place] [address] [address] Department [place] [address] * (ABNORMAL) POCT hCG, urine [...] ur Yellow Yellow Comment:Testing performed by : [facility] [address], [place] [address] Clarity, ur Clear Clear [place] Comment:Testing performed by : [facility] [place] [address] Specific gravity, ur 1.026 1.003 - 1.030 [place] Comment:Testing performed by : [facility] [address], [place] [address] pH, urine 8.0 [place] Comment: Interpretive Data U rine pH is affected by diet, medications, systemic acid-base disturbances, and renal tubular function. pH may affect urinary stone formation. For example, urine pH below 6.0 may help reduce the tendency for calcium phosphate stones and pH greater than 6.0 may reduce the tendency for uric acid stone formation. Source: [facility] [employer] Current Interpretive Data was last revised on 2017 Testing performed by: [facility], [address], [place] [address] Protein, ur ql Trace Negative CERNER CH Comment:Testing performed by : [facility], [place] [address] Glucose, ur ql Negative Negative CERNER CH Comment:Testing performed by : [facility], [place] [address] Ketones, ur Trace Negative CERNER CH Comment:Testing performed by : [facility], [place] [address] Bilirubin, ur Negative Negative CERNER CH Comment:Testing performed by : [facility], [place] [address] Blood, ur Negative Negative CERNER CH Comment:Testing performed by : [facility], [place] [address] Urobilinogen, ur 2.0(A) <2.0 mg/dL CERNER CH Comment:Testing performed by : [facility], [place] [address] Nitrite, ur Negative Negative CERNER CH Comment:Testing performed by : [facility], [place] [address] Leukocyte esterase, ur Negative Negative CERNER CH Comment:Testing performed by : [facility], [address] [address] UA reflex comment Reflex conditions for microscopic UA and culture not met. CERNER CH Comment:Testing performed by : [facility] [address], [place], [place] [address] Urine 12/24/2024 9:06 AM CDT 12/24/2024 9:10 AM CDT us Yusra Wiseman NP LAB MICROBIOLOGY - GENE RAL ORDERABLES Final Result [place] [address] [address] Department [place] [address] * N. gonorrhoeae/C. trachomatis Amplification Vaginal (12/13/2024 2:30 AM CDT) C. trachomatis Not Detected Not Detected N. gonorrhoeae Not Detected Not Detected [facility] Comment: Interpretive Data This assay detects Chlamydia trachomatis and Neisseria gonorrhoeae by nucleic acid amplification testing (NAAT). This assay has been cleared by the [place] Food and Drug administration. The performance characteristics of this test have been verified by the [facility]. The performance characteristics of this test have not been evaluated in individuals less than 14 years of age. Current Interpretive Data last revised 2023. Vaginal (None) 12/13/2024 2: 30 AM CDT 12/13/2024 2:34 AM CDT us Juan COLIN LAB MICROBIOLOGY - GENERAL O RDERABLES Final Result [facility] [address] [facility] Department [place] [address] * (ABNORMAL) Vaginitis panel Vaginal (12/13/2024 2:30 AM CDT) Bacterial Vaginosis Not Detected Not Detected Comment:A negative result do es not preclude a possible infection. Results should be considered in conjunction with clinical presentation to determine the disease status. Jada group Detected(A) Not Detected [facility] Comment:Jada species can be present as commensal organisms in women; results should be considered in conjunction with clinical presentation to determine the disease status. Jada glabrata/ krusei Not Detected Not Detected [facility] Trichomonas DNA Not Detected Not Detected [facility] Vaginal 12/13/2024 2:30 AM CDT 12/13/2024 2:34 AM CDT Narrative [facility] - 12/13/2024 3:34 AM CDT The [place] [facility] Xpert Xpress MVP test detects DNA targets [...] this test have been verified by the [facility]. The [employer] Xpert Xpress MVP test detects DNA targets [...] this test have been verified by the [facility]. us Juan COLIN LAB MICROBIOLOGY - GENERAL O RDERABLES Final Result [facility] [address] [facility] Department [place] [address] * (ABNORMAL) Urinalysis reflex to microscopic and culture Urine (12/13/2024 2:30 AM CDT) Color, ur Straw Yellow Clarity, ur Cloudy(A) Clear [facility] Specific gravity, ur 1.018 1.003 - 1.030 [facility] pH, urine 6.0 [facility] Comment: Interpretive Data U rine pH is affected by diet, medications, systemic acid-base disturbances, and renal tubular function. pH may affect urinary stone formation. For example, urine pH below 6.0 may help reduce the tendency for calcium phosphate stones and pH greater than 6.0 may reduce the tendency for uric acid stone formation. Source: [facility] Current Interpretive Data was last revised on 2017 Protein, ur ql Negative Negative [facility] Glucose, ur ql Negative Negative [facility] Ketones, ur Negative Negative [facility] Bilirubin, ur Negative Negative [facility] Blood, ur 1+(A) Negative [facility] Urobilinogen, ur <2.0 <2.0 mg/dL [facility] Nitrite, ur Negative Negative [facility] Leukocyte esterase, ur 4+(A) Negative [facility] UA reflex comment Reflex to microscopic UA will be performed. [facility] Urine 12/13/2024 2:30 AM CDT 12/13/2024 2:34 AM CDT [facility] MICRO[facility] - GENERAL ORDERABLES Final Result Performing Organization Address [facility] de Phone Number [place] [address] [address] * (ABNORMAL) Urinalysis, microscopic only (12/13/2024 2:30 AM CDT) WBC, ur 0-5 0 - 5 /HPF RBC, ur 11-20(A) 0 - 2 /HPF [facility] Epithelial cells, squamous, ur 11-20(A) 0 - 5 /HPF [facility] Comment:Suggestive of contam ination. Consider recollection by clean catch. Mucous, ur Present(A) [facility] Culture Reflex Comment Reflex conditions for urine culture (WBC >10) not met. [facility] Urine 12/13/2024 2:30 AM CDT 12/13/2024 2:34 AM CDT Juan Manuel Avitia LAB URINE ORDERABLES Final Result Performing Organization Address [facility] de Phone Number [place] [address] [address] * Urine culture Urine (12/13/2024 2:30 AM CDT) Report Final Report: Growth indicative of contamination with periurethral slava. Please submit a new specimen with special attention given to the collection process and to prompt transport to the laboratory. Comment:Testing performed by : [facility], [address] [facility], [place]., [address] Organism GROWTH INDICATES CONTAM WITH PERIURETHRAL SLAVA. [facility] Urine 12/13/2024 2:30 AM CDT 12/13/2024 9:22 AM CDT Narrative [facility] - 12/14/2024 2:33 PM CDT Testing performed by [facility] Microbiology Laboratory ([phone]) Juan COLIN LAB MICROBIOLOGY - GENERAL O RDERABLES Final Result [place] [address] [facility] Department [place] [address] * (ABNORMAL) POCT hCG, urine (12/13/2024 2:27 AM CDT) HCG, ur, POC Positive(A) Negative Lot Number [id number] QC Backgroud Clear Acceptable QC Control Line Acceptable Urine 12/13/2024 2:27 AM CDT Juan Manuel Avitia DO POINT OF CARE TEST ORDERABL ES Final Result from Last 3 Months Insurance JIT Solaire EXCHANGE JIT Solaire EXCHANGE IDVT Care Teams Display Mechanic Relationship Specialty Start Date End Date No, Physician PCP - General 10/07/24
--- OUTSIDE RECORDS SUMMARY | 2025-01-26 08:48 | XMS_ITS | Patient Health Record ---
Author Organization [facility] Address [address] [place], [place] [id number] Care Team Providers Care Receptionist/Telephone Operator Name Role Phone Melita German Primary Care Provider Rodrick Bauman Unavailable [phone] Allergies No Known Allergies Reason For Referral [...] Duration: 5 Not-Taking Vitamin D3 1.25 MG (28344 UT) Oral; Duration: 28 Not-Takin g Metoclopramide [...] Status Risk Notes Problem Finding related to (484991293) related conditions, unspecified, first trimester (O26.91) Active confirm Problem test equivocal (282197911) Encounter for test, result unknown (Z32.00) Active confirmed Problem care (regime/therap y) (236688506) Encntr for suprvsn of normal preg, unsp, [...] Date [employer] Community Medicaid HMO [address] [place] [address] [id number] Nisha Millan Self - patient is the insured 9 [employer] [address] [place] [address] [id number] Nisha Chou Self - patient is the insured 2 DENTAL MEDICAID [employer] Medicaid Dental [address] [place] [address] [id number] Nisha Chou Self - patient is the insured 9 Medications Administered Medication Instructions Date of Administration Dosage Notes RhoGAM Ultra-Filtered [id number] 02/27/2022 1 Medical (General) History Surgical History Surgery Date(Month/Year) vaginal delivery vaginal delivery
[2025-01-26 08:50] VITALS: BP 114/73; PULSE 95; RESP 14; O2SAT 100
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
--- OUTSIDE RECORDS SUMMARY | 2025-01-26 09:30 | XMS_ITS | Clinical Summary ---
Author Organization [facility] Address [address] [address] Care Team Providers Care Physical Education Aide Name Role Phone [facility] Primary Care Pro vider Source Comments [facility] Affiliates and Associated Physician Practices is amultiple site organization consisting of ambulatory clinics and hospital sitesin [place], [place], [place] and [place]. This disclosure is being madepursuant to the Care Everywhere program and may not contain all information available regarding this patient. Last updated 18.[facility] Allergies Active Allergy Reactions [...] fluticasone propionate (Flonase) 50 MCG/ACT nasal spray [place] 2 (two) sprays into each nostril once [...] ing 20 tablet 03/28/2024 Active HYDROcodone-lilian taminophen ([place]) 5-325 MG tabletIndicatio ns:Acute maxillary sinusitis, recurrence [...] Overview (11/11/2016): She sees Dr. Jean at [facility]. She discontinued Seroquel with positive test. [...] a senior living (including now)? No 05/11/2022 [place] Depression Scale Answer Date Recorded RETIRED: Total Score 0 05/08/2022 Last EPDS Self Harm Result Not on file 05/08 Comments No Sex and Gender Information Value Date Recorded Sex Assigned at Not on file Legal Sex Female 6:05 AM CARE COORDINATOR Gender Identity Not on file Sexual Orientation Not on file Last Filed Vital Signs Vital Sign Reading Time Taken Comments Blood Pressure 147/96 05/28/2024 11:26 PM CARE COORDINATOR Pulse 65 05/28/2024 11:26 PM CARE COORDINATOR Temperature 36.7 C (98.1 F) 05/28/2024 11:26 PM CARE COORDINATOR Respiratory Rate 18 05/28/2024 11:26 PM CARE COORDINATOR Oxygen Saturation 95% 05/28/2024 11:26 PM CARE COORDINATOR Inhaled Oxygen Concentration - - Weight 70.8 kg (156 lb) 05/28/2024 11:26 PM CARE COORDINATOR Height 157.5 cm (5' 2) 05/28/2024 11:26 PM CARE COORDINATOR Body Mass Index 28.53 05/28/2024 11:26 PM CARE COORDINATOR Plan of Treatment Health Maintenance Due Date [...] RFLX HPV ASCU Routine 08/05/2016 12:37 PM CARE COORDINATOR 10 weeks gestation of HIV-1 HIV-2 ANTIBODY + HIV P24 AG PANEL Routine 08/05/2016 12:35 PM CARE COORDINATOR 10 weeks gestation of from Last 3 Months or Most Recently Relevant to Health Maintenance Results * PAP SMEAR IG RFLX HPV ASCU (PO REF LAB) (08/05/2016 12:37 PM CARE COORDINATOR) Diagnosis Comment 08/06/2016 9:08 PM CARE COORDINATOR [facility] Comment:NEGATIVE FOR INTRAEP ITHELIAL LESION AND MALIGNANCY. Specimen Adequacy Comment 017 9:08 PM CARE COORDINATOR [facility] Comment: Satisfactory for evaluation. Endocervical and/or squamous metaplastic cells (endocervical component) are present. Performed by Comment 08/06/2016 9:08 PM CARE COORDINATOR [facility] Comment:Rubi Medley Cytotec hnologist (ASCP) Comment . 08/06/2016 9:08 PM CARE COORDINATOR [facility] Note Comment 08/06/2016 9:08 PM CARE COORDINATOR [facility] Comment: The Pap smear is a screening test designed to aid in the detection of premalignant and malignant conditions of the uterine cervix. It is not a diagnostic procedure and should not be used as the sole means of detecting cervical cancer. Both false-positive and false-negative reports do occur. IGLBP CPT Code Automation Comment 08/06/2016 9:08 PM CARE COORDINATOR [facility] Comment: This liquid based ThinPrep(R) pap test was screened with the use of an image guided system. Note Comment 08/06/2016 9:08 PM CARE COORDINATOR [facility] Comment: The HPV DNA reflex criteria were not met with this specimen result therefore, no HPV testing was performed. Pathology/Cytolo gy PART OF UTERINE CERVIX / Unknown 08/05/2016 12:37 PM CARE COORDINATOR 08/05/2016 1:19 PM CARE COORDINATOR Narrative [facility] - 08/06/2016 9:08 PM CARE COORDINATOR Performed at: [address] [place] [id number] Development Analyst: Rayna Cuevas MD, Phone: [phone] Specimen Comment: Source.............Cervix Specimen Comment: No. of containers..01 CYTYC Thin Prep Vial us Gaye Stephens MD LAB - PATHOLOGY/CYTOLOGY ORDE RABILIANA Final Result [facility] ([facility]) [address] [place] [address] * HIV-1 HIV-2 ANTIBODY + HIV P24 AG PANEL (08/05/2016 12:35 PM CARE COORDINATOR) HIV1/2 Ab + P24 Ag Non Reactive Non Reactive 08/05/2016 6:49 PM CARE COORDINATOR [facility] Blood BLOOD SPECIMEN / Unknown 08/05/2016 12:35 PM CARE COORDINATOR 08/05/2016 1:10 PM CARE COORDINATOR Narrative [facility] - 08/05/2016 6:49 PM CARE COORDINATOR No Laboratory evidence of HIV infection. us Gaye Stephens MD LAB - CHEMISTRY ORDERABLES Fi nal Result [facility] [address] [place] [address] from Last 3 Months or Most Recently Relevant to Health Maintenance Insurance [place] [employer] [place] MEDICA[place] - [facility] [employer] MEDICAID - [place] MEDICAID - [...] 12:53 PM 02/27/2017 12:50 PM Care Teams Physical Education Aide Relationship Specialty Start Date End Date [facility] [address] [place] [address] PCP - General Mechanic Chief 01/30/22
--- OUTSIDE RECORDS SUMMARY | 2025-01-26 09:30 | XMS_ITS | Clinical Summary ---
Author Organization [facility] Address [address] [place] [address] Care Team Providers Care Electrician Third Name Role Phone Unavailable Primary Care Provider [...] STI screening follows ACOG guidelines(PB 168, 140, IEN940). See individual assays for performing site location. CLINICAL INFORMATION [facility] Comment:Information not prov ided LAST MENSTRUAL [...] ithelial lesion or malignancy. COMMENT (PAP TEST) [facility] Comment: This Pap test has been evaluated with computer assisted technology. DOUGH CUTTING MACHINE OPERATOR: [facility] Comment: SAMAGNES(ASCP) CT screening location: [place] [address] [place] [address] [facility] [...] C TRAC RNA NOT DETECTED NOT DETECTED [facility] N.GONORRHOEAE RNA, TMA NOT DETECTED NOT DETECTED [facility] SEE NOTE [facility] Comment: The analytical performance characteristics of this assay, when used to test SurePath(TM) specimens have been determined by [facility]. The modifications have not been cleared or approved by the FDA. This assay has been validated pursuant to the CLIA regulations and is used for clinical purposes. For additional information, please refer to https://[employer]abs/faq/MDH349 (This link is being provided for information/ educational purposes only.) TRICHOMONAS VAGINALIS,QUALITAT LAYNE,PAP VIAL NOT DETECTED NOT DETECTED [facility] Comment: The analytical performance characteristics of this assay have been determined by [facility]. The modifications have not been cleared or approved by the FDA. This assay has been validated pursuant to the CLIA regulations and is used for clinical purposes. For additional information, please refer to http://[employer]/ faq/Trichomonastma (This link is being provided for information/ educational purposes only.) Test [facility]formed [facility]: [facility] [address] [place] [address] Andrea Mix D.O., MPH Genital SWAB OF ENDOCERVIX / Unknown 08/26/2021 10:22 AM CDT 08/27/2021 4:04 AM CDT Aba Gutierrez MD PATHOLOGY/CYTOLOGY ORDERABLES Final Result Performing Organization Address City/State/[facility] Co de Phone Number [facility] [address] [place] [address] from Last 3 Months or Most Recently Relevant to Health Maintenance Insurance BCBS TRUE BLUE PPO EXCHANGE
--- OUTSIDE RECORDS SUMMARY | 2025-01-26 09:31 | XMS_ITS | Encounter Summary ---
Author Organization [facility] Address [address] [place] [address] Care Team Providers Care Pst Supervisor Name Role Phone No, Physician Primary Care Provider [phone] Encounter Details Date Type Department Care Team (Late st Contact Info) Description 12/14/2024 Results Follow-Up [address] [address] Vaginitis panel Vaginal Social History Tobacco Use [...] on file Legal Sex Female 9:34 AM POULTRY CLEANER Gender Identity Female 07/10/2020 2:40 PM POULTRY CLEANER Sexual Orientation Straight 07/10/2020 2: 40 PM POULTRY CLEANER documented as of this encounter Miscellaneous Notes * Result Encounter Note - Shayna Dean RN - 12/15/2024 12:40 PM CDT This RN spoke to patient about abnormal test results and plan of care , called prescription in to [facility] [address] [facility] [place] per patients request. documented in this encounter Plan of Treatment Not on file documented as of this encounter Visit Diagnoses Not on filedocumented in this encounter Care Teams Pst Supervisor Relationship Specialty Start Date End Date No, Physician PCP - General 10/07/24 documented as of this encounter
--- OUTSIDE RECORDS SUMMARY | 2025-01-26 09:31 | XMS_ITS | Clinical Summary ---
Author Organization [facility] [address] [place] [id number] Care Team Providers Care Head Rose Grower Name Role Phone No, Physician Primary Care Provider [phone] Allergies Active Allergy Reactions Criticality Noted Date [...] linked with therapist. Her Referred to [facility] for trauma focused therapy. Start Prozac [...] CDT - 12/24/2024 11:57 AM CDT [facility] [address] [place], [place] [id number] Nausea and vomiting in (Primary Dx) Discharge Disposition: Discharge to home or self care 12/15/[address] [address] Shayna Dean RN 12/15/[address] [address] Shayna Dean RN 12/14/[address] [address] Shayna Dean RN 12/14/2024 Results Follow-Up [address] [address] Juan Samson PA Vaginitis panel Vaginal 12/13/2024 2:30 AM CDT - 12/13/2024 3:25 AM CDT Emergency [address] [address] Positive test (Primary Dx); Vaginal irritation Discharge [...] on file Legal Sex Female 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 Gender Identity Female 07/10/2020 2:40 PM MEDICAL SECRETARY TEACHER Sexual Orientation Straight 07/10/2020 2: 40 PM MEDICAL SECRETARY TEACHER Obstetrics History Para Term AB IAB SAB [...] WALKER ,BABY GIRL NIRANJAN HENSON Tara Delivery Location:[facility] 2014 AB 2016 IAB 2016 Term 39w 3d 0h 17m 0h 13m/0h 04m 2.91 kg (6 lb 6.7 oz) F Vag-S pont Epidur al N Livin g 8 9 WALKER ,BABY GIRL NIRANJAN Nj MD Complications:None Delivery Location:[facility] 2018 IAB 2019 SAB 2021 Term 37w 4d 2.745 kg (6 lb 0.8 oz) F Vag-S pont Epidur al Kathy wood Complications: Karla yamileth Hypertension Delivery Location:[facility] 2021 Term 37w 4d 0h 07m 0h 07m 2.745 kg (6 lb 0.8 oz) F Vag-S pont Epidur al N Livin g 9 9 WALKER ,BABY GIRL NIRANJAN Martino Mara wood MD Complications:None Delivery Location:[facility] ([facility] 5 R) Current Last Filed Vital [...] was last reviewed 2021. Testing performed by: [facility], [address], [place] [address] Blood 12/24/2024 9:26 AM CDT 12/24/2024 9:32 AM CDT us Yusra Wiseman NP LAB BLOOD ORDERABLES Fi nal Result [facility] [address] [address] Department [place] [address] * Differential, auto (12/24/2024 9:26 AM CDT) Neutrophil abs 3.98 1.50 - 6.50 K/cumm Comment:Testing performed by : [facility], [facility], [place] [address] Imm gran abs 0.02 0.00 - 0.10 K/cumm CERNER Comment:Testing performed by : [facility], [facility] [address], [place] [address] Lymphocyte abs 2.09 0.80 - 3.30 K/cumm CERNER Comment:Testing performed by : [facility], [facility], [place] [address] Monocyte abs 0.63 0.20 - 0.80 K/cumm CERNER Comment:Testing performed by : [place] [address], [place] [address] Eosinophil abs 0.18 0.00 - 0.50 K/cumm [facility] Comment:Testing performed by : [address], [place] [address] Basophil abs 0.01 0.00 - 0.10 K/cumm CERNER Comment:Testing performed by : [facility], [facility], [place] [address] Neutrophil pct 57.7 % CERNER Comment: Interpretive Data Percent cell count reference ranges are not reported, since discordance with absolute values may lead to misinterpretation of CBC data. Current Interpretive Data was last revised on 2017. Testing performed by: [facility], [address] [place] [address] Rd, [place] [address] Imm gran pct 0.3 % CERNER Comment: Interpretive Data Percent cell count reference ranges are not reported, since discordance with absolute values may lead to misinterpretation of CBC data. Current Interpretive Data was last revised on 2017. Testing performed by: [facility], [facility], [place] [address] Lymphocyte pct 30.2 % CERNER Comment: Interpretive Data Percent cell count reference ranges are not reported, since discordance with absolute values may lead to misinterpretation of CBC data. Current Interpretive Data was last revised on 2017. Testing performed by: [address], [place] [address] Monocyte pct 9.1 % [facility] Comment: Interpretive Data Percent cell count reference ranges are not reported, since discordance with absolute values may lead to misinterpretation of CBC data. Current Interpretive Data was last revised on 2017. Testing performed by: [address], [place] [address] Eosinophil pct 2.6 % [facility] Comment: Interpretive Data Percent cell count reference ranges are not reported, since discordance with absolute values may lead to misinterpretation of CBC data. Current Interpretive Data was last revised on 2017. Testing performed by: [address], [place] [address] Basophil pct 0.1 % [facility] Comment: Interpretive Data Percent cell count reference ranges are not reported, since discordance with absolute values may lead to misinterpretation of CBC data. Current Interpretive Data was last revised on 2017. Testing performed by: [address], [place] [address] Blood 12/24/2024 9:26 AM CDT 12/24/2024 9:32 AM CDT Yusra Wiseman NP LAB BLOOD ORDERABLES Fi nal Result [facility] [address] [address] Department [place] [address] * (ABNORMAL) CBC with auto differential (12/24/2024 9:26 AM CDT) WBC 6.91 3.80 - 9.90 K/cumm Comment:Testing performed by : [address], [place] [address] Hgb 13.2 11.9 - 15.5 g/dL [facility] Comment:Testing performed by : [address], [place] [address] Hct 40.0 35.6 - 45.5 % [facility] Comment:Testing performed by : [facility], [address] [facility] Plt 259 150 - 400 K/cumm CERNER CH Comment:Testing performed by : [facility], [place] [address] MPV 9.1 9.1 - 12.3 fL CERNER CH Comment:Testing performed by : [facility], [facility] [address] [address] [place] RBC 4.93 3.90 - 5.20 M/cumm CERNER CH Comment:Testing performed by : [place] [address] [place] [address] MCV 81.1(L) 81.3 - 96.4 fL C[facility]ER CH Comment:Testing performed by : [place] [address] [place] MCH 26.8(L) 27.1 - 33.3 pg CERNER CH Comment:Testing performed by : [place] [address] [place] MCHC 33.0 32.3 - 35.7 g/dL C[facility]ER CH Comment:Testing performed by : [place] [address] [place] [address] RDW CV 16.1(H) 11.1 - 14.9 % CERNER CH Comment:Testing performed by : [place] [address] [address] [facility] [place] RDW SD 47.5 35.7 - 48.1 fL CERNER CH Comment:Testing performed by : [place] [address] [place] [address] NRBC abs 0.00 0.00 - 0.01 K/cumm CERNER CH Comment:Testing performed by : [place] [address] [place] [address] Blood Venous blood specimen / Unknown 12/24/2024 9:26 AM CDT 12/24/2024 9:32 AM CDT Yusra Wiseman NP LAB BLOOD ORDERABLES Fi nal Result [facility] [address] [address] Department [place] [address] * (ABNORMAL) hCG, blood, quantitative (12/24/2024 9:26 AM CDT) [facility] hCG, quant 29,188.0( H) 0.0 - 5.0 IUnits/L Comment: Interpretive Data Male: < 5 IU/L Non- premenopausal Female: <5 IU/L The Karl hCG Beta Quant assay procedure was used. Results from different manufacturers or methods may not be comparable. Serial testing should be performed using the same method. Interpretive Data was last revised on 2023 Testing performed by: [address], [place] [address] Blood 12/24/2024 9:26 AM CDT 12/24/2024 9:32 AM CDT Yusra Wiseman NP LAB BLOOD ORDERABLES Fi nal Result Performing Organization Address [facility] Co de Phone Number [facility] [address] [address] [facility] [employer] [address] * Lipase (12/24/2024 9:26 AM CDT) [facility] Lipase 14 10 - 99 Units/L Comment:Testing performed by : [address], [place] [address] Blood 12/24/2024 9:26 AM CDT 12/24/2024 9:32 AM CDT Yusra Wiseman NP LAB BLOOD ORDERABLES Fi nal Result Performing Organization Address [facility] Co de Phone Number [facility] [address] [address] [facility] [place] [address] * (ABNORMAL) Comprehensive metabolic panel (12/24/2024 9:26 AM CDT) [facility] Sodium 136 135 - 145 mmol/L Comment:Testing performed by : [address], [place] [address] Potassium, pl 3.7 3.3 - 4.9 mmol/L [place] Comment:Testing performed by : [address], [place] [address] Chloride 101 97 - 110 mmol/L [facility] Comment:Testing performed by : [facility] [place] [address] CO2 17(L) 22 - 32 mmol/L CERNER CH Comment:Testing performed by : [facility] [place] [address] Anion gap 18(H) 2 - 15 mmol/L CERNER CH Comment:Testing performed by : [facility] [place] [address] BUN 7 6 - 25 mg/dL CERNER CH Comment:Testing performed by : [facility] [place] [address] Creatinine 0.57(L) 0.60 - 1.10 mg/dL CERNER CH Comment:Testing performed by : [place] [address] [place] [address] Glucose 85 70 - 199 mg/dL CERNER [...] revised 2022. Testing performed by: [facility] [place] [address] Calcium 9.7 8.5 - 10.3 mg/dL CERNER CH Comment:Testing performed by : [facility] [place] [address] Bilirubin, total 0.4 0.1 - 1.2 mg/dL CERNER CH Comment:Testing performed by : [facility] [place] [address] Protein, pl 7.4 6.5 - 8.5 g/dL CERNER CH Comment:Testing performed by : [facility] [place] [address] Albumin 4.0 3.5 - 5.0 g/dL CERNER CH Comment:Testing performed by : [facility] [place] [address] Alk phos 76 40 - 130 Units/L CERNER CH Comment:Testing performed by : [address], [place] [address] ALT 18 7 - 45 Units/L [facility] Comment:Testing performed by : [address], [place] [address] AST 21 10 - 45 Units/L [facility] Comment:Testing performed by : [address], [place] [address] Blood 12/24/2024 9:26 AM CDT 12/24/2024 9:32 AM CDT Yusra Wiseman NP LAB BLOOD ORDERABLES Fi nal Result [place] [address] [address] Department [place] [address] * (ABNORMAL) POCT hCG, urine [...] Yellow Comment:Testing performed by : [facility], [place] [address] Clarity, ur Clear Clear [facility] Comment:Testing performed by : [facility] [place] [address] Specific gravity, ur 1.026 1.003 - 1.030 [facility] Comment:Testing performed by : [address], [place] [address] pH, urine 8.0 [facility] Comment: Interpretive Data U rine pH is affected by diet, medications, systemic acid-base disturbances, and renal tubular function. pH may affect urinary stone formation. For example, urine pH below 6.0 may help reduce the tendency for calcium phosphate stones and pH greater than 6.0 may reduce the tendency for uric acid stone formation. Source: [facility] [employer] Current Interpretive Data was last revised on 2017 Testing performed by: [facility], [address], [place] [address] Protein, ur ql Trace Negative CERNER CH Comment:Testing performed by : [facility], [place] [address] Glucose, ur ql Negative Negative CERNER CH Comment:Testing performed by : [facility], [place] [address] Ketones, ur Trace Negative CERNER CH Comment:Testing performed by : [facility], [place] [address] Bilirubin, ur Negative Negative CERNER CH Comment:Testing performed by : [facility], [place] [address] Blood, ur Negative Negative CERNER CH Comment:Testing performed by : [facility], [place] [address] Urobilinogen, ur 2.0(A) <2.0 mg/dL CERNER CH Comment:Testing performed by : [facility], [place] [address] Nitrite, ur Negative Negative CERNER CH Comment:Testing performed by : [facility], [place] [address] Leukocyte esterase, ur Negative Negative CERNER CH Comment:Testing performed by : [facility], [address] [address] UA reflex comment Reflex conditions for microscopic UA and culture not met. CERNER CH Comment:Testing performed by : [address], [place], [place] [address] Urine 12/24/2024 9:06 AM CDT 12/24/2024 9:10 AM CDT us Yusra Wiseman NP LAB MICROBIOLOGY - GENE RAL ORDERABLES Final Result [facility] [place] [address] [address] Department [place] [address] * N. gonorrhoeae/C. trachomatis Amplification Vaginal (12/13/2024 2:30 AM CDT) C. trachomatis Not Detected Not Detected N. gonorrhoeae Not Detected Not Detected [facility] Comment: Interpretive Data This assay detects Chlamydia trachomatis and Neisseria gonorrhoeae by nucleic acid amplification testing (NAAT). This assay has been cleared by the [place] Food and Drug administration. The performance characteristics of this test have been verified by the [facility]. The performance characteristics of this test have not been evaluated in individuals less than 14 years of age. Current Interpretive Data last revised 2023. Vaginal (None) 12/13/2024 2: 30 AM CDT 12/13/2024 2:34 AM CDT us Juan COLIN LAB MICROBIOLOGY - GENERAL O RDERABLES Final Result [facility] [address] [facility] Department [place] [address] * (ABNORMAL) Vaginitis panel Vaginal (12/13/2024 2:30 AM CDT) Bacterial Vaginosis Not Detected Not Detected Comment:A negative result do es not preclude a possible infection. Results should be considered in conjunction with clinical presentation to determine the disease status. Jada group Detected(A) Not Detected [facility] Comment:Jada species can be present as commensal organisms in women; results should be considered in conjunction with clinical presentation to determine the disease status. Jada glabrata/ krusei Not Detected Not Detected [facility] Trichomonas DNA Not Detected Not Detected [facility] Vaginal 12/13/2024 2:30 AM CDT 12/13/2024 2:34 AM CDT Narrative [facility] - 12/13/2024 3:34 AM CDT The CepeCertid Xpert Xpress MVP test detects DNA targets [...] this test have been verified by the [facility]. The Kickit With Xpert Xpress MVP test detects DNA targets [...] this test have been verified by the [facility]. us Juan COLIN LAB MICROBIOLOGY - GENERAL O RDERABLES Final Result [facility] [address] [facility] Department [place] [address] * (ABNORMAL) Urinalysis reflex to microscopic and culture Urine (12/13/2024 2:30 AM CDT) Color, ur Straw Yellow Clarity, ur Cloudy(A) Clear [facility] Specific gravity, ur 1.018 1.003 - 1.030 [facility] pH, urine 6.0 [facility] Comment: Interpretive Data U rine pH is affected by diet, medications, systemic acid-base disturbances, and renal tubular function. pH may affect urinary stone formation. For example, urine pH below 6.0 may help reduce the tendency for calcium phosphate stones and pH greater than 6.0 may reduce the tendency for uric acid stone formation. Source: [facility] Current Interpretive Data was last revised on 2017 Protein, ur ql Negative Negative [facility] Glucose, ur ql Negative Negative [facility] Ketones, ur Negative Negative [facility] Bilirubin, ur Negative Negative [facility] Blood, ur 1+(A) Negative [facility] Urobilinogen, ur <2.0 <2.0 mg/dL [facility] Nitrite, ur Negative Negative [facility] Leukocyte esterase, ur 4+(A) Negative [facility] UA reflex comment Reflex to microscopic UA will be performed. [facility] Urine 12/13/2024 2:30 AM CDT 12/13/2024 2:34 AM CDT Juan Manuel [facility] MICRO[facility]OLOG[facility] - GENERAL ORDERABLES Final Result Performing Organization Address [facility] de Phone Number [place] [address] [address] * (ABNORMAL) Urinalysis, microscopic only (12/13/2024 2:30 AM CDT) WBC, ur 0-5 0 - 5 /HPF RBC, ur 11-20(A) 0 - 2 /HPF [facility] Epithelial cells, squamous, ur 11-20(A) 0 - 5 /HPF [facility] Comment:Suggestive of contam ination. Consider recollection by clean catch. Mucous, ur Present(A) [facility] Culture Reflex Comment Reflex conditions for urine culture (WBC >10) not met. [facility] Urine 12/13/2024 2:30 AM CDT 12/13/2024 2:34 AM CDT Juan Manuel Avitia LAB URINE ORDERABLES Final Result Performing Organization Address [facility] de Phone Number [place] [address] [address] * Urine culture Urine (12/13/2024 2:30 AM CDT) Report Final Report: Growth indicative of contamination with periurethral slava. Please submit a new specimen with special attention given to the collection process and to prompt transport to the laboratory. Comment:Testing performed by : [facility], [address] [facility], [place]., [address] Organism GROWTH INDICATES CONTAM WITH PERIURETHRAL SLAVA. [facility] Urine 12/13/2024 2:30 AM CDT 12/13/2024 9:22 AM CDT Narrative [facility] - 12/14/2024 2:33 PM CDT Testing performed by [facility] Laboratory ([phone]) Juan COLIN LAB MICROBIOLOGY - GENERAL O RDERABLES Final Result [facility] [address] [facility] Department [place] [address] * (ABNORMAL) POCT hCG, urine (12/13/2024 2:27 AM CDT) HCG, ur, POC Positive(A) Negative Lot Number [id number] QC Backgroud Clear Acceptable QC Control Line Acceptable Urine 12/13/2024 2:27 AM CDT Juan Manuel Avitia DO POINT OF CARE TEST ORDERABL ES Final Result from Last 3 Months Insurance [employer] ID[employer] Care Teams Head Rose Grower Relationship Specialty Start Date End Date No, Physician PCP - General 10/07/24
[2025-01-26 09:32] LABS: Hematocrit 35.1 % (37.0-47.0); Hemoglobin 11.2 g/dL (12.0-15.0); Immature Granulocyte Percent A 0.3 % (0-0.5); Lymphocytes Absolute Auto 1.98 K/mm3 (0.9-3.2); Mean Corpuscular HGB Conc 31.9 g/dl (32-36); Mean Corpuscular Hemoglobin 26.5 pg (26-34); Mean Corpuscular Volume 83.0 fl (80-100); Nucleated Red Blood Cells Absolute Auto 0.000 K/mm3 (0.0-0.012); Nucleated Red Blood Cells Perc 0.0 % (0.0-0.2); Platelet Count Result 203 k/mm3 (150-375); Red Blood Count 4.23 M/mm3 (4.2-5.4); White Blood Count 5.9 K/mm3 (4.5-10.0)
[2025-01-26 09:49] LABS: Add Urine Microscopic? YES; Appearance Urine Cloudy (Clear); Glucose Urine UA Negative (Negative); Leukocyte Esterase Ur Trace LEU/UL (Negative); Need Manual Microscopic Reviewed; Nitrate Urine Negative (Negative); Non Pathogenic Casts 0-2; Specific Grav Ur 1.019 (1.001-1.035)
[2025-01-26 09:57] LABS: Alanine Aminotransferase 17 U/L (6-35); Albumin Level 3.6 g/dL (3.5-5.1); Alkaline Phosphatase 48 U/L (38-126); Anion Gap 8 mmol/L (4-12); Aspartate Amino Transferase 25 U/L (14-36); Bilirubin,Total 0.2 mg/dL (0.2-1.3); Blood Urea Nitrogen 3 mg/dL (7-17); Calcium 9.2 mg/dL (8.4-10.2); Carbon Dioxide 20 mmol/L (22-30); Chloride 106 mmol/L (98-107); Estimated Glomerular Filt Rate > 60; Glucose 78 mg/dL (65-110); Potassium 3.9 mmol/L (3.4-5.0); Sodium 134 mmol/L (137-145); Total Protein 6.4 g/dL (6.3-8.2)
[2025-01-26] MEDS: SODIUM CHLORIDE 0.9% IV 1,000 ML 999 ML IV CONT (09:59)
[2025-01-26] MEDS: ONDANSETRON INJ 4 MG/2 ML VIAL IV PUSH (10:00)
[2025-01-26] MEDS: KETOROLAC 30 MG/ML VIAL (*BKC) IV PUSH (10:00)
[2025-01-26 10:30] VITALS: TEMP 37
--- NOTE | 2025-01-26 10:33 | PC.NURSE ---
Pt c/o itching to skin underneath tegaderm at IV site. No erythema noted. Skin and IV site appear within normal limits.
[2025-01-26 11:20] VITALS: BP 100/63; PULSE 82; RESP 14; O2SAT 100
[2025-01-26 14:11] LABS: Influenza A QL RT-PCR Negative (Negative); Influenza B QL RT-PCR Negative (Negative); RSV RNA, RT-PCR Negative (Negative); SARS-CoV-2 RNA PCR Negative (Negative)
== END 2025-01-26 11:23 | disposition home or self-care (01) ==
PROVIDERS: Emergency Provider Emergency Medicine
DX: M54.9 Dorsalgia, unspecified (principal); F41.9 Anxiety disorder, unspecified; Z20.822 Contact with and (suspected) exposure to COVID-19
CPT/HCPCS: 36415; 80053; 81001; 85025; 87086; 87637; 96361; 96374; 96375; 99284; J1885; J2405; J7030

== ENCOUNTER 2025-01-31 10:37 | Emergency (ER) | payer OTHER, MEDICAID, SELFPAY ==
--- OUTSIDE RECORDS SUMMARY | 2016-09-04 06:30 | XMS_ITS | Continuity of Care Document ---
Author Organization [facility] Address [address] [place] [address] Phone Care Team Providers Care Tierce Filler Name Role Phone Hernan Lloyd DMD Unavailable [...] AN CARE, AT-RISK ENHANCED SERVICE PACKAGE (INCLUDES [id number]) OFFICE/OUTPATIENT VISIT, EST PRESCRIPTION DRUG, ORAL, NON CHEMOTHERAP EUTIC, NOS AZITHROMYCIN DIHYDRATE, ORAL, CAPSULES/P OWDER, 1 GRAM Wet beka, including preparations of va ginal, cervical or skin specimens COLLECTION OF VENOUS BLOOD BY VENIPUNCTU RE OFFICE/OUTPATIENT VISIT, EST CARE, AT-RISK ENHANCED SERVICE PACKAGE (INCLUDES [id number]) OFFICE/OUTPATIENT VISIT, EST COLLECTION OF VENOUS BLOOD BY VENIPUNCTU RE Voided Encounter care, at-risk assessment care, at-risk enhanced service; antepartum management MENTAL HEALTH ASSESSMENT, BY NON-PHYSICI AN SKIN TEST; TUBERCULOSIS, INTRADERMAL Dec OFFICE/OUTPATIENT VISIT, NEW Advance Directives Directive Yes / No Effective Date File Name No Information Encounters Encounter Description Practice Location Reason(s) For Visit Diagnoses Date Provider Providers Copied on Encounter [facility] , [address], [place], [place], [address], tel:[phone] [facility] [place] Encounter for dental exam and cleaning w abnormal findings 7 Gabino Becerra. [address], [place], [place], [address]. tel:[phone] Referring Provider: Hernan Lloyd, [address], [place], [address]. tel:[phone] [facility] , [address], [place], [place], [address], tel:[phone] [facility] [place] home visit (chief complaint) Routine follow-up Management [facility]. [address], [place], [place], [address], . tel:[phone] [facility] , [address], [place], [place], [address], tel:[phone] [facility] [place] No Information 2 Management [facility]. [address], [place], [place], [address], . tel:[phone] Consulting Provider: Arianne Samuels, [address], [place], [address]. tel:[phone] OFFICE/OUTPAT IENT VISIT, EST [facility] , [address], [place], [place], [address], [place] tel:[phone] [facility] [place] No Information 1 Bianca Bauman. [address], [place], [place], [address], . tel:[phone] OFFICE/OUTPAT IENT VISIT, EST [facility] , [address], [place], [place], [address], [place] tel:[phone] [facility] [place] Supervision of normal first 1 Rico Navas [address], [place], [place], [address], . tel:[phone] [facility] , [address], [place], [place], [address], tel:[phone] [facility] [place] No Information 1 Management Case. [address], [place], [place], [address] [place] [address], . tel:[phone] Consulting Provider: Arianne Samuels, [address], [place], [address]. tel:[phone] OFFICE/OUTPAT IENT VISIT, [facility] , [address], [place], [place], [address], tel:[phone] [facility] [place] Supervision of other normal 1 Rico Navas [address], [place], [place], [address], . tel:[phone] [facility] , [address], [place], [place], [address], [place] tel:[phone] [facility] [place] Supervision of normal first 1 Rico Navas [address], [place], [place], [address], . tel:[phone] [facility] , [address], [place], [place], [address], tel:[phone] [facility] [place] pn intake (chief complaint) No Information No Information OFFICE/OUTPAT IENT VISIT, [facility] , [address], [place], [place], [address], [place] tel:[phone] [facility] [place] Test (chief complaint)No te for school-Pregn italo (chief complaint) Irregular menstrual cycle Bianca Bauman. [address], [place], [place], [address], [place]. tel:[phone] Family History Family Member Type Diagnosis Age At Onset Father Problem (finding) hypertension Mother Problem (finding) hypertension Father Problem (finding) Maternal history of alice betes mellitus Payers Payer name Insurance type Covered libertarian ID Alpa pool(s) D Medicaid - Dental CI [id number] Social History Type Description Quantity Date Captured Comments Sex Female Smoking Status No Information Chief Complaint And Reason For Visit No Information Reason For Referral Reason For Referral No Information Plan Of Treatment Date Type Action Status Goal BMP fasting. Due on 011 due Referral Referred To: [facility] Radiology [address] [place], [phone] Ordered: Referral: [facility] Radiology. Radiology. ordered Future Order: Lab Order [...]
--- OUTSIDE RECORDS SUMMARY | 2023-08-04 04:30 | XMS_ITS ---
Author Organization [facility] Address [address] [place], [place] [address] Care Team Providers Care Classifier Operator Name Role Phone German Hua Primary Care Provider Rodrick Bauman Unavailable [phone] Abran Fitzpatrick Unavailable [phone] REASON FOR VISIT WWE Social History Sex Assigned At : Social History Observation Description Sex Assigned At Female Encounters Encounter Location Date Provider [facility] [place], [place] [address] 08/04/2023 Abran Fitzpatrick Plan Of Treatment No Information Progress Notes * Nisha BARNETT :1995 (29 yo F)Acc No.[id number]:08/04/2023 Patient: Nisha KLEIN Appointment Provider: SUSY Pastrana :1995 A ge:28 Y S ex:Female Date:08/04/2023 Address:[facility] [place] Pcp:German Hua Subjective: * Chief Complaints: * 1 . WWE. * Medical History: Objective: * Vitals: Assessment: Plan: * Treatment: * Billing Information: * Visit Code: * Procedure Codes: * Electronic signature of SUSY Tellez chi on 01/31/2025 at 11:09 AM CDT Sign off status: Pending * Appointment Provider: SUSY Pastrana Date: 0 08/04/2023 Generated for Molina ramirez/Betty/Micky on: 0 01/31/2025 11:09 AM CDT
--- NOTE | ~2025-01-31 | US_ITS ---
EXAMINATION: US OB <= 14 weeks fetus DATE: 01/31/2025 12:54 INDICATION: Bleeding and pelvic pain during first trimester TECHNIQUE: Real-time pelvic ultrasound utilizing both a transvaginal and transabdominal probe was performed. The interpreting radiologist was not present for the study. COMPARISON: None. FINDINGS: The uterus measures 14.7 x 6.3 x 9.5 cm. There is an intrauterine gestational sac. A yolk sac and pole are identified. The crown rump length measures 5.2 cm, which correlates with an 3 days of the previously estimated gestational age of 11 weeks and 4 days based upon prior ultrasounds performed on 01/04/2025 and 01/18/2025. heart motion is identified measuring 143 beats per minute (bpm) by M-mode Doppler. 2.7 x 2.5 x 2.0 cm lenticular hypoechoic region at the lower uterine segment suspicious for either a small amount of hemorrhage within the lower uterine endometrial canal versus small subchronic hematoma. 2.0 x 1.9 x 1.2 cm hypoechoic fibroid within the left anterior wall of the uterus. The right ovary measures 3.6 x 2.9 x 2.3 cm. The left ovary measures 2.5 x 2.3 x 1.6 cm. Vascular flow with arterial waveforms identified in both ovaries on color Doppler. There is no free fluid in the pelvis. IMPRESSION: 1. Single living fetus with heart of 143 bpm. 2. [place]-rump length of 5.2 cm which is concordant within 3 days of the previously estimated gestational age by ultrasound of 11 weeks 4 day(s) with ultrasound estimated date of delivery (DONTA) of 08/18/2025. 3. Small subchorionic hematoma versus small amount of blood within the endometrial canal at the lower uterine segment. 4. 2.0 cm uterine fibroid at the anterior uterine wall. Reviewed, dictated and finalized at location A. IMPRESSION: 1. Single living fetus with heart of 143 bpm. 2. [place]-rump length of 5.2 cm which is concordant within 3 days of the previou sly estimated gestational age by ultrasound of 11 weeks 4 day(s) with ultrasoun d estimated date of delivery (DONTA) of 08/18/2025. 3. Small subchorionic hematoma versus small amount of blood within the endometr ial canal at the lower uterine segment. 4. 2.0 cm uterine fibroid at the anterior uterine wall.
[2025-01-31 10:44] VITALS: BP 123/72; PULSE 83; RESP 16; TEMP 36.4; O2SAT 100
--- OUTSIDE RECORDS SUMMARY | 2025-01-31 11:10 | XMS_ITS | Clinical Summary ---
Author Organization [facility] Address [address] [place] [place] [address] Care Team Providers Care Steel Melter Name Role Phone [facility] Primary Care Pro vider Source Comments [facility],non-[facility] Affiliates and Associated Physician Practices is amultiple site organization consisting of ambulatory clinics and hospital sitesin [place], [place], [place] and [place]. This disclosure is being madepursuant to the Care Everywhere program and may not contain all information available regarding this patient. Last updated 18.[facility] Allergies Active Allergy Reactions Criticality Noted [...] fluticasone propionate (Flonase) 50 MCG/ACT nasal spray [place] 2 (two) sprays into each nostril once [...] ing 20 tablet 03/28/2024 Active HYDROcodone-lilian taminophen ([place]) 5-325 MG tabletIndicatio ns:Acute maxillary sinusitis, recurrence [...] Overview (11/11/2016): She sees Dr. Jean at [facility]. She discontinued Seroquel with positive test. [...] a care home (including now)? No 05/11/2022 [place] Depression Scale Answer Date Recorded RETIRED: Total Score 0 05/08/2022 Last EPDS Self Harm Result Not on file 05/08 Comments No Sex and Gender Information Value Date Recorded Sex Assigned at Not on file Legal Sex Female 6:05 AM CARE ASSOCIATE Gender Identity Not on file Sexual Orientation Not on file Last Filed Vital Signs Vital Sign Reading Time Taken Comments Blood Pressure 147/96 05/28/2024 11:26 PM CARE ASSOCIATE Pulse 65 05/28/2024 11:26 PM CARE ASSOCIATE Temperature 36.7 C (98.1 F) 05/28/2024 11:26 PM CARE ASSOCIATE Respiratory Rate 18 05/28/2024 11:26 PM CARE ASSOCIATE Oxygen Saturation 95% 05/28/2024 11:26 PM CARE ASSOCIATE Inhaled Oxygen Concentration - - Weight 70.8 kg (156 lb) 05/28/2024 11:26 PM CARE ASSOCIATE Height 157.5 cm (5' 2) 05/28/2024 11:26 PM CARE ASSOCIATE Body Mass Index 28.53 05/28/2024 11:26 PM CARE ASSOCIATE Plan of Treatment Health Maintenance Due Date [...] HPV ASCU Routine 08/05/2016 12:37 PM CARE ASSOCIATE 10 weeks gestation of HIV-1 HIV-2 ANTIBODY + HIV P24 AG PANEL Routine 08/05/2016 12:35 PM CARE ASSOCIATE 10 weeks gestation of from Last 3 Months or Most Recently Relevant to Health Maintenance Results * PAP SMEAR IG RFLX HPV ASCU (PO REF LAB) (08/05/2016 12:37 PM CARE ASSOCIATE) Diagnosis Comment 08/06/2016 9:08 PM CARE ASSOCIATE [facility] Comment:NEGATIVE FOR INTRAEP ITHELIAL LESION AND MALIGNANCY. Specimen Adequacy Comment 017 9:08 PM CARE ASSOCIATE [facility] Comment: Satisfactory for evaluation. Endocervical and/or squamous metaplastic cells (endocervical component) are present. Performed by Comment 08/06/2016 9:08 PM CARE ASSOCIATE [facility] Comment:Rubi Medley Cytotec hnologist (ASCP) Comment . 08/06/2016 9:08 PM CARE ASSOCIATE [facility] Note Comment 08/06/2016 9:08 PM CARE ASSOCIATE [facility] Comment: The Pap smear is a screening test designed to aid in the detection of premalignant and malignant conditions of the uterine cervix. It is not a diagnostic procedure and should not be used as the sole means of detecting cervical cancer. Both false-positive and false-negative reports do occur. IGLBP CPT Code Automation Comment 08/06/2016 9:08 PM CARE ASSOCIATE [facility] Comment: This liquid based ThinPrep(R) pap test was screened with the use of an image guided system. Note Comment 08/06/2016 9:08 PM CARE ASSOCIATE [facility] Comment: The HPV DNA reflex criteria were not met with this specimen result therefore, no HPV testing was performed. Pathology/Cytolo gy PART OF UTERINE CERVIX / Unknown 08/05/2016 12:37 PM CARE ASSOCIATE 08/05/2016 1:19 PM CARE ASSOCIATE Narrative [facility] - 08/06/2016 9:08 PM CARE ASSOCIATE Performed at: [address] [place] [id number] Speed Belt Sander Tender: Rayna Cuevas MD, Phone: [phone] Specimen Comment: Source.............Cervix Specimen Comment: No. of containers..01 CYTYC Thin Prep Vial us Gaye Stephens MD LAB - PATHOLOGY/CYTOLOGY ORDE RABILIANA Final Result [facility] ([facility]) [address] [place] [address] * HIV-1 HIV-2 ANTIBODY + HIV P24 AG PANEL (08/05/2016 12:35 PM CARE ASSOCIATE) HIV1/2 Ab + P24 Ag Non Reactive Non Reactive 08/05/2016 6:49 PM CARE ASSOCIATE [facility] Blood BLOOD SPECIMEN / Unknown 08/05/2016 12:35 PM CARE ASSOCIATE 08/05/2016 1:10 PM CARE ASSOCIATE Narrative [facility] - 08/05/2016 6:49 PM CARE ASSOCIATE No Laboratory evidence of HIV infection. us Gaye Stephens MD LAB - CHEMISTRY ORDERABLES Fi nal Result [facility] [address] [place] [address] from Last 3 Months or Most Recently Relevant to Health Maintenance Insurance [place] [employer] [place] - [facility] MEDICAID - [place] MEDICAID - [...] 12:53 PM 02/27/2017 12:50 PM Care Teams Steel Melter Relationship Specialty Start Date End Date [facility] [address] [place] [address] PCP - General Development Assistant 01/30/22
--- OUTSIDE RECORDS SUMMARY | 2025-01-31 11:10 | XMS_ITS | Clinical Summary ---
Author Organization [facility] Address [address] [place] [address] Care Team Providers Care General Freight Agent Name Role Phone Unavailable Primary Care Provider [...] TRICH (08/26/2021 10:22 AM CDT) SEE NOTE [facility] Comment: This order for age-based cervical cancer and STI screening follows ACOG guidelines(PB 168, 140, RXA182). See individual assays for performing site location. CLINICAL INFORMATION [facility] Comment:Information not prov ided LAST MENSTRUAL PERIOD [facility] Comment:INFORMATION NOT PROV IDED PREV PAP: [facility] Comment:INFORMATION NOT PROV IDED PREV BX: [facility] Comment:INFORMATION NOT PROV IDED SOURCE [facility] Comment:Endocervix ADEQUACY: [facility] Comment: Satisfactory for evaluation. Endocervical/transformation zone component present. Age and/or menstrual status not provided PAP INTERP [facility] Comment:Negative for intraep ithelial lesion or malignancy. COMMENT (PAP TEST) [facility] Comment: This Pap test has been evaluated with computer assisted technology. IT SALES CONSULTANT: [facility] Comment: SAMAGNES(ASCP) CT screening location: [place] [address] [place] [address] SEE NOTE [facility] Comment: EXPLANATORY NOTE: The Pap is [...] C TRAC RNA NOT DETECTED NOT DETECTED [facility] N.GONORRHOEAE RNA, TMA NOT DETECTED NOT DETECTED [facility] SEE NOTE [facility] Comment: The analytical performance characteristics of this assay, when used to test SurePath(TM) specimens have been determined by [email or web address]. The modifications have not been cleared or approved by the FDA. This assay has been validated pursuant to the CLIA regulations and is used for clinical purposes. For additional information, please refer to https://[employer]/faq/YGJ247 (This link is being provided for information/ educational purposes only.) TRICHOMONAS VAGINALIS,QUALITAT LAYNE,PAP VIAL NOT DETECTED NOT DETECTED [facility] Comment: The analytical performance characteristics of this assay have been determined by [facility] [employer]. The modifications have not been cleared or approved by the FDA. This assay has been validated pursuant to the CLIA regulations and is used for clinical purposes. For additional information, please refer to http://[employer]/ faq/Trichomonastma (This link is being provided for information/ educational purposes only.) Test Performed at: [email or web address] [address] [place] [address] Andrea Mix D.O., MPH Genital SWAB OF ENDOCERVIX / Unknown 08/26/2021 10:22 AM CDT 08/27/2021 4:04 AM CDT Aba Gutierrez MD PATHOLOGY/CYTOLOGY ORDERABLES Final Result Performing Organization Address City/State/[facility] Co de Phone Number [facility] [address] [place] [address] from Last 3 Months or Most Recently Relevant to Health Maintenance Insurance BCBS TRUE BLUE PPO EXCHANGE
--- OUTSIDE RECORDS SUMMARY | 2025-01-31 11:10 | XMS_ITS | Patient Health Record ---
Author Organization [facility] Address 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 Name Role Phone Melita German Primary Care Provider Rodrick Bauman Unavailable [phone] Allergies No Known Allergies Reason For Referral [...] Duration: 5 Not-Taking Vitamin D3 1.25 MG (50271 UT) Oral; Duration: 28 Not-Takin g Metoclopramide [...] Status Risk Notes Problem Finding related to (601976613) related conditions, unspecified, first trimester (O26.91) Active confirm Problem test equivocal (831744723) Encounter for test, result unknown (Z32.00) Active confirmed Problem care (regime/therap y) (356885039) Encntr for suprvsn of normal preg, unsp, second trimester (Z34.92) Active confirmed Problem test positive (437085246) test performed, confirmed (Z32.01) Active confirmed Plan Of Treatment Pending Test Test Name Order Date Ultrasound : (OB) First Trimester 2019 Ultrasound : OB/ Complete After 1st Trim es 03/11/2022 Insurance Providers Payer Name Payer Address Payer Phone Subscriber Number Group Number Insured Name Patient Relationship to Insured Coverage Start Date Coverage End Date [employer] Community Medicaid HMO [address] [place] [address] [id number] Nisha Millan Self - patient is the insured 9 [employer] [address] [place] [address] [id number] Nisha Chou Self - patient is the insured 2 DENTAL MEDICAID [employer] Medicaid Dental [address] [place] [phone] [id number] Nisha Chou Self - patient is the insured 9 Medications Administered Medication Instructions Date of Administration Dosage Notes RhoGAM Ultra-Filtered PLUS-300ug 02/27/2022 1 Medical (General) History Surgical History Surgery Date(Month/Year) vaginal delivery vaginal delivery
--- OUTSIDE RECORDS SUMMARY | 2025-01-31 11:10 | XMS_ITS | Encounter Summary ---
Author Organization [facility] Address [address] [place] [address] Care Team Providers Care Inductor Tester Name Role Phone No, Physician Primary Care Provider [phone] Encounter Details Date Type Department Care Team (Late st Contact Info) Description 12/14/2024 Results Follow-Up [address] [address] [address] [address] Vaginitis panel Vaginal Social History Tobacco Use [...] on file Legal Sex Female 9:34 AM [employer] Gender Identity Female 07/10/2020 2:40 PM [employer] Sexual Orientation Straight 07/10/2020 2: 40 PM [employer] documented as of this encounter Miscellaneous Notes * Result Encounter Note - Shayna Dean RN - 12/15/2024 12:40 PM CDT This RN spoke to patient about abnormal test results and plan of care , called prescription in to [facility] [address] [facility] [place] per patients request. documented in this encounter Plan of Treatment Not on file documented as of this encounter Visit Diagnoses Not on filedocumented in this encounter Care Teams Inductor Tester Relationship Specialty Start Date End Date No, Physician PCP - General 10/07/24 documented as of this encounter
--- OUTSIDE RECORDS SUMMARY | 2025-01-31 11:10 | XMS_ITS | Clinical Summary ---
Author Organization [facility] Physician [facility] Building [address] [place] [id number] Care Team Providers Care Coordinator Of Evaluation Name Role Phone No, Physician Primary Care Provider [phone] Allergies Active Allergy Reactions Criticality Noted Date [...] be linked with therapist. Her Referred to [facility] for trauma focused therapy. Start Prozac 20 [...] CDT - 12/24/2024 11:57 AM CDT Emergency [facility] Emergency Department [address] [place], [place] [phone] Nausea and vomiting in (Primary Dx) Discharge Disposition: Discharge to home or self care 12/15/[address] [address] Shayna Dean RN 12/15/[address] [address] Shayna Dean RN 12/14/[address] [address] Shayna Dean RN 12/14/2024 Results Follow-Up [address] [address] Juan Samson PA Vaginitis panel Vaginal 12/13/2024 2:30 AM CDT - 12/13/2024 3:25 AM CDT Emergency [address] [address] Positive test (Primary Dx); Vaginal irritation Discharge [...] on file Legal Sex Female 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 Gender Identity Female 07/10/2020 2:40 PM 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 Sexual Orientation Straight 07/10/2020 2: 40 PM 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 2021 Term 37w 4d 0h 07m 0h 07m 2.745 kg (6 lb 0.8 oz) F Vag-S pont Epidur al N Livin g 9 9 WALKER ,BABY GIRL NIRANJAN Martino Mara wood MD Complications:None Delivery Location:[facility] ([facility] 5 R) Current Last Filed Vital [...] or heartbeat seen on US. us Yusra Wismean NP IN CLINIC/BEDSIDE ORDER CHIKA Final Result [...] was last reviewed 2021. Testing performed by: [facility], [address], [place] [address] Blood 12/24/2024 9:26 AM CDT 12/24/2024 9:32 AM CDT us Yusra Wiseman NP LAB BLOOD ORDERABLES Fi nal Result [facility] [address] [address] Department [place] [address] * Differential, auto (12/24/2024 9:26 AM CDT) Neutrophil abs 3.98 1.50 - 6.50 K/cumm Comment:Testing performed by : [facility], [facility], [place] [address] Imm gran abs 0.02 0.00 - 0.10 K/cumm CERNER Comment:Testing performed by : [facility], [facility] [address], [place] [address] Lymphocyte abs 2.09 0.80 - 3.30 K/cumm CERNER Comment:Testing performed by : [facility], [facility], [place] [address] Monocyte abs 0.63 0.20 - 0.80 K/cumm CERNER Comment:Testing performed by : [place] [address], [place] [address] Eosinophil abs 0.18 0.00 - 0.50 K/cumm [facility] Comment:Testing performed by : [address], [place] [address] Basophil abs 0.01 0.00 - 0.10 K/cumm CERNER Comment:Testing performed by : [facility], [facility], [place] [address] Neutrophil pct 57.7 % CERNER Comment: Interpretive Data Percent cell count reference ranges are not reported, since discordance with absolute values may lead to misinterpretation of CBC data. Current Interpretive Data was last revised on 2017. Testing performed by: [facility], [address] [place] [address] Rd, [place] [address] Imm gran pct 0.3 % CERNER Comment: Interpretive Data Percent cell count reference ranges are not reported, since discordance with absolute values may lead to misinterpretation of CBC data. Current Interpretive Data was last revised on 2017. Testing performed by: [facility], [facility], [place] [address] Lymphocyte pct 30.2 % CERNER Comment: Interpretive Data Percent cell count reference ranges are not reported, since discordance with absolute values may lead to misinterpretation of CBC data. Current Interpretive Data was last revised on 2017. Testing performed by: [address], [place] [address] Monocyte pct 9.1 % [facility] Comment: Interpretive Data Percent cell count reference ranges are not reported, since discordance with absolute values may lead to misinterpretation of CBC data. Current Interpretive Data was last revised on 2017. Testing performed by: [address], [place] [address] Eosinophil pct 2.6 % [facility] Comment: Interpretive Data Percent cell count reference ranges are not reported, since discordance with absolute values may lead to misinterpretation of CBC data. Current Interpretive Data was last revised on 2017. Testing performed by: [address], [place] [address] Basophil pct 0.1 % [facility] Comment: Interpretive Data Percent cell count reference ranges are not reported, since discordance with absolute values may lead to misinterpretation of CBC data. Current Interpretive Data was last revised on 2017. Testing performed by: [address], [place] [address] Blood 12/24/2024 9:26 AM CDT 12/24/2024 9:32 AM CDT Yusra Wiseman NP LAB BLOOD ORDERABLES Fi nal Result [facility] [address] [address] Department [place] [address] * (ABNORMAL) CBC with auto differential (12/24/2024 9:26 AM CDT) WBC 6.91 3.80 - 9.90 K/cumm Comment:Testing performed by : [address], [place] [address] Hgb 13.2 11.9 - 15.5 g/dL [facility] Comment:Testing performed by : [address], [place] [address] Hct 40.0 35.6 - 45.5 % [facility] Comment:Testing performed by : [facility], [address] [facility]31 Plt 259 150 - 400 K/cumm CERNER CH Comment:Testing performed by : [facility], [facility] [place] [address] MPV 9.1 9.1 - 12.3 fL C[facility]ER CH Comment:Testing performed by : [facility], [facility] [address] [place] RBC 4.93 3.90 - 5.20 M/cumm CERNER CH Comment:Testing performed by : [place] [address] [place] [address] MCV 81.1(L) 81.3 - 96.4 fL C[facility] CH Comment:Testing performed by : [place] [address] [place] MCH 26.8(L) 27.1 - 33.3 pg CERNER CH Comment:Testing performed by : [place] [address] [place] MCHC 33.0 32.3 - 35.7 g/dL C[facility]ER CH Comment:Testing performed by : [place] [address] [place] [address] RDW CV 16.1(H) 11.1 - 14.9 % CERNER CH Comment:Testing performed by : [place] [address] [address] [facility] [place] RDW SD 47.5 35.7 - 48.1 fL CERNER CH Comment:Testing performed by : [place] [address] [place] [address] NRBC abs 0.00 0.00 - 0.01 K/cumm CERNER CH Comment:Testing performed by : [place] [address] [place] [address] Blood Venous blood specimen / Unknown 12/24/2024 9:26 AM CDT 12/24/2024 9:32 AM CDT Yusra Wiseman NP LAB BLOOD ORDERABLES Fi nal Result [facility] [address] [address] Department [place] [address] * (ABNORMAL) hCG, blood, quantitative (12/24/2024 9:26 AM CDT) [facility] hCG, quant 29,188.0( H) 0.0 - 5.0 IUnits/L Comment: Interpretive Data Male: < 5 IU/L Non- premenopausal Female: <5 IU/L The Karl hCG Beta Quant assay procedure was used. Results from different manufacturers or methods may not be comparable. Serial testing should be performed using the same method. Interpretive Data was last revised on 2023 Testing performed by: [address], [place] [address] Blood 12/24/2024 9:26 AM CDT 12/24/2024 9:32 AM CDT Yusra Wiseman NP LAB BLOOD ORDERABLES Fi nal Result Performing Organization Address [facility] Co de Phone Number [facility] [address] [address] [place] [address] * Lipase (12/24/2024 9:26 AM CDT) [facility] Lipase 14 10 - 99 Units/L Comment:Testing performed by : [address], [place] [address] Blood 12/24/2024 9:26 AM CDT 12/24/2024 9:32 AM CDT Yusra Wiseman NP LAB BLOOD ORDERABLES Fi nal Result Performing Organization Address [facility] Co de Phone Number [facility] [address] [address] [facility] [place] [address] * (ABNORMAL) Comprehensive metabolic panel (12/24/2024 9:26 AM CDT) [facility] Sodium 136 135 - 145 mmol/L Comment:Testing performed by : [facility] [address], [place] [address] Potassium, pl 3.7 3.3 - 4.9 mmol/L [facility] Comment:Testing performed by : [address], [place] [address] Chloride 101 97 - 110 mmol/L [facility] Comment:Testing performed by : [facility] [place] [address] CO2 17(L) 22 - 32 mmol/L CERNER CH Comment:Testing performed by : [facility] [address] Anion gap 18(H) 2 - 15 mmol/L CERNER CH Comment:Testing performed by : [facility] [address] BUN 7 6 - 25 mg/dL CERNER CH Comment:Testing performed by : [facility] [address] Creatinine 0.57(L) 0.60 - 1.10 mg/dL CERNER CH Comment:Testing performed by : [place] [address] [place] [address] Glucose 85 70 - 199 mg/dL CERNER [...] was last revised 2022. Testing performed by: [facility] [address] Calcium 9.7 8.5 - 10.3 mg/dL CERNER CH Comment:Testing performed by : [facility] [address] Bilirubin, total 0.4 0.1 - 1.2 mg/dL CERNER CH Comment:Testing performed by : [facility] [place] [address] Protein, pl 7.4 6.5 - 8.5 g/dL CERNER CH Comment:Testing performed by : [facility] [address] Albumin 4.0 3.5 - 5.0 g/dL CERNER CH Comment:Testing performed by : [facility] [address] Alk phos 76 40 - 130 Units/L CERNER CH Comment:Testing performed by : [facility] [address], [place] [address] ALT 18 7 - 45 Units/L [facility] Comment:Testing performed by : [facility] [address], [place] [address] AST 21 10 - 45 Units/L [facility] Comment:Testing performed by : [facility] [address], [place] [address] Blood 12/24/2024 9:26 AM CDT 12/24/2024 9:32 AM CDT Yusra Wiseman NP LAB BLOOD ORDERABLES Fi nal Result [facility] [address] [address] Department [place] [address] * (ABNORMAL) POCT hCG, urine [...] ur Yellow Yellow Comment:Testing performed by : [facility] [address], [place] [address] Clarity, ur Clear Clear [facility] Comment:Testing performed by : [facility] [place] [address] Specific gravity, ur 1.026 1.003 - 1.030 [facility] Comment:Testing performed by : [address], [place] [address] pH, urine 8.0 [facility] Comment: Interpretive Data U rine pH is affected by diet, medications, systemic acid-base disturbances, and renal tubular function. pH may affect urinary stone formation. For example, urine pH below 6.0 may help reduce the tendency for calcium phosphate stones and pH greater than 6.0 may reduce the tendency for uric acid stone formation. Source: [facility] Current Interpretive Data was last revised on 2017 Testing performed by: [facility], [address], [place] [address] Protein, ur ql Trace Negative CERNER CH Comment:Testing performed by : [facility], [place] [address] Glucose, ur ql Negative Negative CERNER CH Comment:Testing performed by : [facility], [place] [address] Ketones, ur Trace Negative CERNER CH Comment:Testing performed by : [facility], [place] [address] Bilirubin, ur Negative Negative CERNER CH Comment:Testing performed by : [facility], [place] [address] Blood, ur Negative Negative CERNER CH Comment:Testing performed by : [facility], [place] [address] Urobilinogen, ur 2.0(A) <2.0 mg/dL CERNER CH Comment:Testing performed by : [facility], [place] [address] Nitrite, ur Negative Negative CERNER CH Comment:Testing performed by : [facility], [place] [address] Leukocyte esterase, ur Negative Negative CERNER CH Comment:Testing performed by : [facility], [address] [address] UA reflex comment Reflex conditions for microscopic UA and culture not met. CERNER CH Comment:Testing performed by : [facility] [address], [place], [place] [address] Urine 12/24/2024 9:06 AM CDT 12/24/2024 9:10 AM CDT us Yusra Wiseman NP LAB MICROBIOLOGY - GENE RAL ORDERABLES Final Result [facility] [place] [address] [address] Department [place] [address] * N. gonorrhoeae/C. trachomatis Amplification Vaginal (12/13/2024 2:30 AM CDT) C. trachomatis Not Detected Not Detected N. gonorrhoeae Not Detected Not Detected [facility] Comment: Interpretive Data This assay detects Chlamydia trachomatis and Neisseria gonorrhoeae by nucleic acid amplification testing (NAAT). This assay has been cleared by the [place] Food and Drug administration. The performance characteristics of this test have been verified by the [facility]. The performance characteristics of this test have not been evaluated in individuals less than 14 years of age. Current Interpretive Data last revised 2023. Vaginal (None) 12/13/2024 2: 30 AM CDT 12/13/2024 2:34 AM CDT us Juan COLIN LAB MICROBIOLOGY - GENERAL O RDERABLES Final Result [facility] [address] [facility] Department [place] [address] * (ABNORMAL) Vaginitis panel Vaginal (12/13/2024 2:30 AM CDT) Bacterial Vaginosis Not Detected Not Detected Comment:A negative result do es not preclude a possible infection. Results should be considered in conjunction with clinical presentation to determine the disease status. Jada group Detected(A) Not Detected [facility] Comment:Jada species can be present as commensal organisms in women; results should be considered in conjunction with clinical presentation to determine the disease status. Jada glabrata/ krusei Not Detected Not Detected [facility] Trichomonas DNA Not Detected Not Detected [facility] Vaginal 12/13/2024 2:30 AM CDT 12/13/2024 2:34 AM CDT Narrative [facility] - 12/13/2024 3:34 AM CDT The [employer] Xpert Xpress MVP test detects DNA targets [...] test have been verified by the [facility]. The [employer] Xpert Xpress MVP test detects DNA targets [...] test have been verified by the [facility]. us Juan COLIN LAB MICROBIOLOGY - GENERAL O RDERABLES Final Result [facility] [address] [facility] Department [place] [address] * (ABNORMAL) Urinalysis reflex to microscopic and culture Urine (12/13/2024 2:30 AM CDT) Color, ur Straw Yellow Clarity, ur Cloudy(A) Clear [facility] Specific gravity, ur 1.018 1.003 - 1.030 [facility] pH, urine 6.0 [facility] Comment: Interpretive Data U rine pH is affected by diet, medications, systemic acid-base disturbances, and renal tubular function. pH may affect urinary stone formation. For example, urine pH below 6.0 may help reduce the tendency for calcium phosphate stones and pH greater than 6.0 may reduce the tendency for uric acid stone formation. Source: [facility] Current Interpretive Data was last revised on 2017 Protein, ur ql Negative Negative [facility] Glucose, ur ql Negative Negative [facility] Ketones, ur Negative Negative [facility] Bilirubin, ur Negative Negative [facility] Blood, ur 1+(A) Negative [facility] Urobilinogen, ur <2.0 <2.0 mg/dL [facility] Nitrite, ur Negative Negative [facility] Leukocyte esterase, ur 4+(A) Negative [facility] UA reflex comment Reflex to microscopic UA will be performed. [facility] Urine 12/13/2024 2:30 AM CDT 12/13/2024 2:34 AM CDT [facility] - GENERAL ORDERABLES Final Result Performing Organization Address [facility] de Phone Number [facility] [address] [address] * (ABNORMAL) Urinalysis, microscopic only (12/13/2024 2:30 AM CDT) WBC, ur 0-5 0 - 5 /HPF RBC, ur 11-20(A) 0 - 2 /HPF [facility] Epithelial cells, squamous, ur 11-20(A) 0 - 5 /HPF [facility] Comment:Suggestive of contam ination. Consider recollection by clean catch. Mucous, ur Present(A) [facility] Culture Reflex Comment Reflex conditions for urine culture (WBC >10) not met. [facility] Urine 12/13/2024 2:30 AM CDT 12/13/2024 2:34 AM CDT Juan Manuel Avitia LAB URINE ORDERABLES Final Result Performing Organization Address [facility] de Phone Number [facility] [address] [address] * Urine culture Urine (12/13/2024 2:30 AM CDT) Report Final Report: Growth indicative of contamination with periurethral slava. Please submit a new specimen with special attention given to the collection process and to prompt transport to the laboratory. Comment:Testing performed by : [facility], [address] [facility], [place]., [address] Organism GROWTH INDICATES CONTAM WITH PERIURETHRAL SLAVA. [facility] Urine 12/13/2024 2:30 AM CDT 12/13/2024 9:22 AM CDT Narrative [facility] - 12/14/2024 2:33 PM CDT Testing performed by [facility] Microbiology Laboratory ([phone]) Juan COLIN LAB MICROBIOLOGY - GENERAL O RDERABLES Final Result [facility] [address] [facility] Department [place] [address] * (ABNORMAL) POCT hCG, urine (12/13/2024 2:27 AM CDT) HCG, ur, POC Positive(A) Negative Lot Number [id number] QC Backgroud Clear Acceptable QC Control Line Acceptable Urine 12/13/2024 2:27 AM CDT Juan Manuel Avitia DO POINT OF CARE TEST ORDERABL ES Final Result from Last 3 Months Insurance [employer] EXCHANGE [employer] EX[employer]ANGE IDAZ Care Teams Coordinator Of Evaluation Relationship Specialty Start Date End Date No, Physician PCP - General 10/07/24
[2025-01-31 11:34] LABS: BEDSIDEPREGUCG Positive (Negative)
[2025-01-31 11:43] LABS: Hematocrit 36.7 % (37.0-47.0); Hemoglobin 11.9 g/dL (12.0-15.0); Immature Granulocyte Percent A 0.3 % (0-0.5); Lymphocytes Absolute Auto 2.29 K/mm3 (0.9-3.2); Mean Corpuscular HGB Conc 32.4 g/dl (32-36); Mean Corpuscular Hemoglobin 26.6 pg (26-34); Mean Corpuscular Volume 82.1 fl (80-100); Nucleated Red Blood Cells Absolute Auto 0.000 K/mm3 (0.0-0.012); Nucleated Red Blood Cells Perc 0.0 % (0.0-0.2); Platelet Count Result 217 k/mm3 (150-375); Red Blood Count 4.47 M/mm3 (4.2-5.4); White Blood Count 7.2 K/mm3 (4.5-10.0)
--- OUTSIDE RECORDS SUMMARY | 2025-01-31 11:46 | XMS_ITS | Clinical Summary ---
Author Organization [facility] Physician Office Building [address] [place] [id number] Care Team Providers Care Parcel Post Officer Name Role Phone No, Physician Primary Care [...] be linked with therapist. Her Referred to [facility] for trauma focused therapy. Start Prozac 20 [...] CDT - 12/24/2024 11:57 AM CDT Emergency [facility] Emergency Department [address] [place], [place] [phone] Nausea and vomiting in (Primary Dx) Discharge Disposition: Discharge to home or self care 12/15/[address] [address] Shayna Dean RN 12/15/[address] [address] Shayna Dean RN 12/14/[address] [address] Shayna Dean RN 12/14/2024 Results Follow-Up [address] [address] Juan Samson PA Vaginitis panel Vaginal 12/13/2024 2:30 AM CDT - 12/13/2024 3:25 AM CDT Emergency [address] [address] Positive test (Primary Dx); Vaginal irritation Discharge [...] on file Legal Sex Female 9:34 AM DECK CADET Gender Identity Female 07/10/2020 2:40 PM DECK CADET Sexual Orientation Straight 07/10/2020 2: 40 PM DECK CADET Obstetrics History Para Term AB IAB SAB [...] WALKER ,BABY GIRL NIRANJAN HENSON Tara Delivery Location:[facility] 2014 AB 2016 IAB 2016 Term 39w 3d 0h 17m 0h 13m/0h 04m 2.91 kg (6 lb 6.7 oz) F Vag-S pont Epidur al N Livin g 8 9 WALKER ,BABY GIRL NIRANJAN Nj MD Complications:None Delivery Location:[facility] 2018 IAB 2019 SAB 2021 Term 37w 4d 2.745 kg (6 lb 0.8 oz) F Vag-S pont Epidur al Kathy wood Complications: Karla yamileth Hypertension Delivery Location:[facility] 2021 Term 37w 4d 0h 07m 0h 07m 2.745 kg (6 lb 0.8 oz) F Vag-S pont Epidur al N Livin g 9 9 WALKER ,BABY GIRL NIRANJAN Martino Mara wood MD Complications:None Delivery Location:[facility] ([facility] 5 R) Current Last Filed Vital Signs [...] was last reviewed 2021. Testing performed by: [facility], [address], [place] [address] Blood 12/24/2024 9:26 AM CDT 12/24/2024 9:32 AM CDT us Yusra Wiseman NP LAB BLOOD ORDERABLES Fi nal Result [facility] [address] [address] Department [place] [address] * Differential, auto (12/24/2024 9:26 AM CDT) Neutrophil abs 3.98 1.50 - 6.50 K/cumm Comment:Testing performed by : [facility], [facility], [place] [address] Imm gran abs 0.02 0.00 - 0.10 K/cumm CERNER Comment:Testing performed by : [facility], [facility] [address], [place] [address] Lymphocyte abs 2.09 0.80 - 3.30 K/cumm CERNER Comment:Testing performed by : [facility], [facility], [place] [address] Monocyte abs 0.63 0.20 - 0.80 K/cumm CERNER Comment:Testing performed by : [place] [address], [place] [address] Eosinophil abs 0.18 0.00 - 0.50 K/cumm [facility] Comment:Testing performed by : [address], [place] [address] Basophil abs 0.01 0.00 - 0.10 K/cumm CERNER Comment:Testing performed by : [facility], [facility], [place] [address] Neutrophil pct 57.7 % CERNER Comment: Interpretive Data Percent cell count reference ranges are not reported, since discordance with absolute values may lead to misinterpretation of CBC data. Current Interpretive Data was last revised on 2017. Testing performed by: [facility], [address] [place] [address] Rd, [place] [address] Imm gran pct 0.3 % CERNER Comment: Interpretive Data Percent cell count reference ranges are not reported, since discordance with absolute values may lead to misinterpretation of CBC data. Current Interpretive Data was last revised on 2017. Testing performed by: [facility], [facility], [place] [address] Lymphocyte pct 30.2 % CERNER Comment: Interpretive Data Percent cell count reference ranges are not reported, since discordance with absolute values may lead to misinterpretation of CBC data. Current Interpretive Data was last revised on 2017. Testing performed by: [address], [place] [address] Monocyte pct 9.1 % [facility] Comment: Interpretive Data Percent cell count reference ranges are not reported, since discordance with absolute values may lead to misinterpretation of CBC data. Current Interpretive Data was last revised on 2017. Testing performed by: [facility], [place] [address] Eosinophil pct 2.6 % [facility] Comment: Interpretive Data Percent cell count reference ranges are not reported, since discordance with absolute values may lead to misinterpretation of CBC data. Current Interpretive Data was last revised on 2017. Testing performed by: [address], [place] [address] Basophil pct 0.1 % [facility] Comment: Interpretive Data Percent cell count reference ranges are not reported, since discordance with absolute values may lead to misinterpretation of CBC data. Current Interpretive Data was last revised on 2017. Testing performed by: [facility], [place] [address] Blood 12/24/2024 9:26 AM CDT 12/24/2024 9:32 AM CDT Yusra Wiseman NP LAB BLOOD ORDERABLES Fi nal Result [facility] [address] [address] Department [place] [address] * (ABNORMAL) CBC with auto differential (12/24/2024 9:26 AM CDT) WBC 6.91 3.80 - 9.90 K/cumm Comment:Testing performed by : [facility] [address], [place] [address] Hgb 13.2 11.9 - 15.5 g/dL [facility] Comment:Testing performed by : [facility] [address], [place] [address] Hct 40.0 35.6 - 45.5 % [facility] Comment:Testing performed by : [facility], [address] [facility] Plt 259 150 - 400 K/cumm CERNER CH Comment:Testing performed by : [facility], [facility] [place] [address] MPV 9.1 9.1 - 12.3 fL CERNER CH Comment:Testing performed by : [facility], [facility] [address] [address] [place] RBC 4.93 3.90 - 5.20 M/cumm CERNER CH Comment:Testing performed by : [place] [address] [place] [address] MCV 81.1(L) 81.3 - 96.4 fL CERNER CH Comment:Testing performed by : [place] [address] [place] MCH 26.8(L) 27.1 - 33.3 pg CERNER CH Comment:Testing performed by : [place] [address] [place] MCHC 33.0 32.3 - 35.7 g/dL CERNER CH Comment:Testing performed by : [place] [address] [place] [address] RDW CV 16.1(H) 11.1 - 14.9 % CERNER CH Comment:Testing performed by : [place] [address] [address] [facility] [place] RDW SD 47.5 35.7 - 48.1 fL CERNER CH Comment:Testing performed by : [place] [address] [place] [address] NRBC abs 0.00 0.00 - 0.01 K/cumm CERNER CH Comment:Testing performed by : [place] [address] [place] [address] Blood Venous blood specimen / Unknown 12/24/2024 9:26 AM CDT 12/24/2024 9:32 AM CDT Yusra Wiseman NP LAB BLOOD ORDERABLES Fi nal Result [facility] [address] [address] Department [place] [address] * (ABNORMAL) hCG, blood, quantitative (12/24/2024 9:26 AM CDT) [facility] hCG, quant 29,188.0( H) 0.0 - 5.0 IUnits/L Comment: Interpretive Data Male: < 5 IU/L Non- premenopausal Female: <5 IU/L The Karl hCG Beta Quant assay procedure was used. Results from different manufacturers or methods may not be comparable. Serial testing should be performed using the same method. Interpretive Data was last revised on 2023 Testing performed by: [facility], [place] [address] Blood 12/24/2024 9:26 AM CDT 12/24/2024 9:32 AM CDT Yusra Wiseman NP LAB BLOOD ORDERABLES Fi nal Result Performing Organization Address [facility] Co de Phone Number [facility] [address] [address] [facility] [place] [address] * Lipase (12/24/2024 9:26 AM CDT) [facility] Lipase 14 10 - 99 Units/L Comment:Testing performed by : [facility] [address], [place] [address] Blood 12/24/2024 9:26 AM CDT 12/24/2024 9:32 AM CDT Yusra Wiseman NP LAB BLOOD ORDERABLES Fi nal Result Performing Organization Address [facility] Co de Phone Number [facility] [address] [address] [facility] [place] [address] * (ABNORMAL) Comprehensive metabolic panel (12/24/2024 9:26 AM CDT) [facility] Sodium 136 135 - 145 mmol/L Comment:Testing performed by : [facility] [address], [place] [address] Potassium, pl 3.7 3.3 - 4.9 mmol/L [facility] Comment:Testing performed by : [facility] [address], [place] [address] Chloride 101 97 - 110 mmol/L [facility] Comment:Testing performed by : [facility] [place] [address] CO2 17(L) 22 - 32 mmol/L CERNER CH Comment:Testing performed by : [facility] [place] [address] Anion gap 18(H) 2 - 15 mmol/L CERNER CH Comment:Testing performed by : [facility] [place] [address] BUN 7 6 - 25 mg/dL CERNER CH Comment:Testing performed by : [facility] [place] [address] Creatinine 0.57(L) 0.60 - 1.10 mg/dL CERNER CH Comment:Testing performed by : [place] [address] [place] [address] Glucose 85 70 - 199 mg/dL CERNER [...] was last revised 2022. Testing performed by: [facility] [place] [address] Calcium 9.7 8.5 - 10.3 mg/dL CERNER CH Comment:Testing performed by : [facility] [place] [address] Bilirubin, total 0.4 0.1 - 1.2 mg/dL CERNER CH Comment:Testing performed by : [facility] [place] [address] Protein, pl 7.4 6.5 - 8.5 g/dL CERNER CH Comment:Testing performed by : [facility] [place] [address] Albumin 4.0 3.5 - 5.0 g/dL CERNER CH Comment:Testing performed by : [facility] [place] [address] Alk phos 76 40 - 130 Units/L CERNER CH Comment:Testing performed by : [facility], [place] [address] ALT 18 7 - 45 Units/L [facility] Comment:Testing performed by : [facility], [place] [address] AST 21 10 - 45 Units/L [facility] Comment:Testing performed by : [facility] [address], [place] [address] Blood 12/24/2024 9:26 AM CDT 12/24/2024 9:32 AM CDT Yusra Wiseman NP LAB BLOOD ORDERABLES Fi nal Result [place] [address] [address] Department [place] [address] * (ABNORMAL) POCT hCG, urine [...] ur Yellow Yellow Comment:Testing performed by : [facility] [address], [place] [address] Clarity, ur Clear Clear [facility] Comment:Testing performed by : [facility] [place] [address] Specific gravity, ur 1.026 1.003 - 1.030 [facility] Comment:Testing performed by : [facility], [place] [address] pH, urine 8.0 [facility] Comment: Interpretive Data U rine pH is affected by diet, medications, systemic acid-base disturbances, and renal tubular function. pH may affect urinary stone formation. For example, urine pH below 6.0 may help reduce the tendency for calcium phosphate stones and pH greater than 6.0 may reduce the tendency for uric acid stone formation. Source: [facility] [employer] Current Interpretive Data was last revised on 2017 Testing performed by: [facility], [address], [place] [address] Protein, ur ql Trace Negative CERNER CH Comment:Testing performed by : [facility], [place] [address] Glucose, ur ql Negative Negative CERNER CH Comment:Testing performed by : [facility], [place] [address] Ketones, ur Trace Negative CERNER CH Comment:Testing performed by : [facility], [place] [address] Bilirubin, ur Negative Negative CERNER CH Comment:Testing performed by : [facility], [place] [address] Blood, ur Negative Negative CERNER CH Comment:Testing performed by : [facility], [place] [address] Urobilinogen, ur 2.0(A) <2.0 mg/dL CERNER CH Comment:Testing performed by : [facility], [place] [address] Nitrite, ur Negative Negative CERNER CH Comment:Testing performed by : [facility], [place] [address] Leukocyte esterase, ur Negative Negative CERNER CH Comment:Testing performed by : [facility], [address] [address] UA reflex comment Reflex conditions for microscopic UA and culture not met. CERNER CH Comment:Testing performed by : [facility] [address], [place], [place] [address] Urine 12/24/2024 9:06 AM CDT 12/24/2024 9:10 AM CDT us Yusra Wiseman NP LAB MICROBIOLOGY - GENE RAL ORDERABLES Final Result [facility] [place] [address] [address] Department [place] [address] * N. gonorrhoeae/C. trachomatis Amplification Vaginal (12/13/2024 2:30 AM CDT) C. trachomatis Not Detected Not Detected N. gonorrhoeae Not Detected Not Detected [facility] Comment: Interpretive Data This assay detects Chlamydia trachomatis and Neisseria gonorrhoeae by nucleic acid amplification testing (NAAT). This assay has been cleared by the [place] Food and Drug administration. The performance characteristics of this test have been verified by the [facility]. The performance characteristics of this test have not been evaluated in individuals less than 14 years of age. Current Interpretive Data last revised 2023. Vaginal (None) 12/13/2024 2: 30 AM CDT 12/13/2024 2:34 AM CDT us Juan COLIN LAB MICROBIOLOGY - GENERAL O RDERABLES Final Result [facility] [address] [facility] Department [place] [address] * (ABNORMAL) Vaginitis panel Vaginal (12/13/2024 2:30 AM CDT) Bacterial Vaginosis Not Detected Not Detected Comment:A negative result do es not preclude a possible infection. Results should be considered in conjunction with clinical presentation to determine the disease status. Jada group Detected(A) Not Detected [facility] Comment:Jada species can be present as commensal organisms in women; results should be considered in conjunction with clinical presentation to determine the disease status. Jada glabrata/ krusei Not Detected Not Detected [facility] Trichomonas DNA Not Detected Not Detected [facility] Vaginal 12/13/2024 2:30 AM CDT 12/13/2024 2:34 AM CDT Narrative [facility] - 12/13/2024 3:34 AM CDT The CepOdiloid Xpert Xpress MVP test detects DNA targets [...] this test have been verified by the [facility]. The SoundCloud Xpert Xpress MVP test detects DNA targets [...] this test have been verified by the [facility]. us Juan COLIN LAB MICROBIOLOGY - GENERAL O RDERABLES Final Result [facility] [address] [facility] Department [place] [address] * (ABNORMAL) Urinalysis reflex to microscopic and culture Urine (12/13/2024 2:30 AM CDT) Color, ur Straw Yellow Clarity, ur Cloudy(A) Clear [facility] Specific gravity, ur 1.018 1.003 - 1.030 [facility] pH, urine 6.0 [facility] Comment: Interpretive Data U rine pH is affected by diet, medications, systemic acid-base disturbances, and renal tubular function. pH may affect urinary stone formation. For example, urine pH below 6.0 may help reduce the tendency for calcium phosphate stones and pH greater than 6.0 may reduce the tendency for uric acid stone formation. Source: [facility] Current Interpretive Data was last revised on 2017 Protein, ur ql Negative Negative [facility] Glucose, ur ql Negative Negative [facility] Ketones, ur Negative Negative [facility] Bilirubin, ur Negative Negative [facility] Blood, ur 1+(A) Negative [facility] Urobilinogen, ur <2.0 <2.0 mg/dL [facility] Nitrite, ur Negative Negative [facility] Leukocyte esterase, ur 4+(A) Negative [facility] UA reflex comment Reflex to microscopic UA will be performed. [facility] Urine 12/13/2024 2:30 AM CDT 12/13/2024 2:34 AM CDT [facility] - GENERAL ORDERABLES Final Result Performing Organization Address [facility] de Phone Number [facility] [address] [address] * (ABNORMAL) Urinalysis, microscopic only (12/13/2024 2:30 AM CDT) WBC, ur 0-5 0 - 5 /HPF RBC, ur 11-20(A) 0 - 2 /HPF [facility] Epithelial cells, squamous, ur 11-20(A) 0 - 5 /HPF [facility] Comment:Suggestive of contam ination. Consider recollection by clean catch. Mucous, ur Present(A) [facility] Culture Reflex Comment Reflex conditions for urine culture (WBC >10) not met. [facility] Urine 12/13/2024 2:30 AM CDT 12/13/2024 2:34 AM CDT Juan Manuel Avitia LAB URINE ORDERABLES Final Result Performing Organization Address [facility] de Phone Number [facility] [address] [address] * Urine culture Urine (12/13/2024 2:30 AM CDT) Report Final Report: Growth indicative of contamination with periurethral slava. Please submit a new specimen with special attention given to the collection process and to prompt transport to the laboratory. Comment:Testing performed by : [facility], [address] [facility], [place]., [address] Organism GROWTH INDICATES CONTAM WITH PERIURETHRAL SLAVA. [facility] Urine 12/13/2024 2:30 AM CDT 12/13/2024 9:22 AM CDT Narrative [facility] - 12/14/2024 2:33 PM CDT Testing performed by [facility]biology Laboratory ([phone]) Juan COLIN LAB MICROBIOLOGY - GENERAL O RDERABLES Final Result [facility] [address] [facility] Department [place] [address] * (ABNORMAL) POCT hCG, urine (12/13/2024 2:27 AM CDT) HCG, ur, POC Positive(A) Negative Lot Number [id number] QC Backgroud Clear Acceptable QC Control Line Acceptable Urine 12/13/2024 2:27 AM CDT Juan Manuel Avitia DO POINT OF CARE TEST ORDERABL ES Final Result from Last 3 Months Insurance [employer] EX[employer]ANGE [employer] IDVT Care Teams Parcel Post Officer Relationship Specialty Start Date End Date No, Physician PCP - General 10/07/24
--- OUTSIDE RECORDS SUMMARY | 2025-01-31 11:46 | XMS_ITS | Encounter Summary ---
Author Organization [facility] Healthcare Address [address] [place] [address] Care Team Providers Care Kerrick Kleaner Operator Name Role Phone No, Physician Primary Care Provider [phone] Encounter Details Date Type Department Care Team (Late st Contact Info) Description 12/14/2024 Results Follow-Up [address] [address] [address] [address] Vaginitis panel Vaginal Social History Tobacco Use [...] on file Legal Sex Female 9:34 AM EDUCATION ADMINISTRATOR Gender Identity Female 07/10/2020 2:40 PM EDUCATION ADMINISTRATOR Sexual Orientation Straight 07/10/2020 2: 40 PM EDUCATION ADMINISTRATOR documented as of this encounter Miscellaneous Notes * Result Encounter Note - Shayna Dean RN - 12/15/2024 12:40 PM CDT This RN spoke to patient about abnormal test results and plan of care , called prescription in to [facility] [address] in [place] per patients request. documented in this encounter Plan of Treatment Not on file documented as of this encounter Visit Diagnoses Not on filedocumented in this encounter Care Teams Kerrick Kleaner Operator Relationship Specialty Start Date End Date No, Physician PCP - General 10/07/24 documented as of this encounter
--- OUTSIDE RECORDS SUMMARY | 2025-01-31 11:46 | XMS_ITS | Clinical Summary ---
Author Organization [facility] Address [address] [place] [address] Care Team Providers Care Sales Compensation Analyst Name Role Phone [facility] Primary Care Pro vider Source Comments [facility],non-kindred hospital Affiliates and Associated Physician Practices is amultiple site organization consisting of ambulatory clinics and hospital sitesin [place], [place], [place] and [place]. This disclosure is being madepursuant to the Care Everywhere program and may not contain all information available regarding this patient. Last updated 18.[facility] Allergies Active Allergy Reactions [...] fluticasone propionate (Flonase) 50 MCG/ACT nasal spray [place] 2 (two) sprays into each nostril once [...] ing 20 tablet 03/28/2024 Active HYDROcodone-lilian taminophen ([place]) 5-325 MG tabletIndicatio ns:Acute maxillary sinusitis, recurrence [...] Overview (11/11/2016): She sees Dr. Jean at [facility]. She discontinued Seroquel with positive test. [...] place to sleep or slept in a jail (including now)? No 05/11/2022 [place] Depression Scale Answer Date Recorded RETIRED: Total Score 0 05/08/2022 Last EPDS Self Harm Result Not on file 05/08 Comments No Sex and Gender Information Value Date Recorded Sex Assigned at Not on file Legal Sex Female 6:05 AM MEDICAL REFERRAL COORDINATOR Gender Identity Not on file Sexual Orientation Not on file Last Filed Vital Signs Vital Sign Reading Time Taken Comments Blood Pressure 147/96 05/28/2024 11:26 PM MEDICAL REFERRAL COORDINATOR Pulse 65 05/28/2024 11:26 PM MEDICAL REFERRAL COORDINATOR Temperature 36.7 C (98.1 F) 05/28/2024 11:26 PM MEDICAL REFERRAL COORDINATOR Respiratory Rate 18 05/28/2024 11:26 PM MEDICAL REFERRAL COORDINATOR Oxygen Saturation 95% 05/28/2024 11:26 PM MEDICAL REFERRAL COORDINATOR Inhaled Oxygen Concentration - - Weight 70.8 kg (156 lb) 05/28/2024 11:26 PM MEDICAL REFERRAL COORDINATOR Height 157.5 cm (5' 2) 05/28/2024 11:26 PM MEDICAL REFERRAL COORDINATOR Body Mass Index 28.53 05/28/2024 11:26 PM MEDICAL REFERRAL COORDINATOR Plan of Treatment Health Maintenance Due [...] RFLX HPV ASCU Routine 08/05/2016 12:37 PM MEDICAL REFERRAL COORDINATOR 10 weeks gestation of HIV-1 HIV-2 ANTIBODY + HIV P24 AG PANEL Routine 08/05/2016 12:35 PM MEDICAL REFERRAL COORDINATOR 10 weeks gestation of from Last 3 Months or Most Recently Relevant to Health Maintenance Results * PAP SMEAR IG RFLX HPV ASCU (PO REF LAB) (08/05/2016 12:37 PM MEDICAL REFERRAL COORDINATOR) Diagnosis Comment 08/06/2016 9:08 PM MEDICAL REFERRAL COORDINATOR [facility] Comment:NEGATIVE FOR INTRAEP ITHELIAL LESION AND MALIGNANCY. Specimen Adequacy Comment 017 9:08 PM MEDICAL REFERRAL COORDINATOR [facility] Comment: Satisfactory for evaluation. Endocervical and/or squamous metaplastic cells (endocervical component) are present. Performed by Comment 08/06/2016 9:08 PM MEDICAL REFERRAL COORDINATOR [facility] Comment:Rubi Medley Cytotec hnologist (ASCP) Comment . 08/06/2016 9:08 PM MEDICAL REFERRAL COORDINATOR [facility] Note Comment 08/06/2016 9:08 PM MEDICAL REFERRAL COORDINATOR [facility] Comment: The Pap smear is a screening test designed to aid in the detection of premalignant and malignant conditions of the uterine cervix. It is not a diagnostic procedure and should not be used as the sole means of detecting cervical cancer. Both false-positive and false-negative reports do occur. IGLBP CPT Code Automation Comment 08/06/2016 9:08 PM MEDICAL REFERRAL COORDINATOR [facility] Comment: This liquid based ThinPrep(R) pap test was screened with the use of an image guided system. Note Comment 08/06/2016 9:08 PM MEDICAL REFERRAL COORDINATOR [facility] Comment: The HPV DNA reflex criteria were not met with this specimen result therefore, no HPV testing was performed. Pathology/Cytolo gy PART OF UTERINE CERVIX / Unknown 08/05/2016 12:37 PM MEDICAL REFERRAL COORDINATOR 08/05/2016 1:19 PM MEDICAL REFERRAL COORDINATOR Narrative [facility] - 08/06/2016 9:08 PM MEDICAL REFERRAL COORDINATOR Performed at: [address] [place] [id number] Correctional Therapy Director: Rayna Cuevas MD, Phone: [phone] Specimen Comment: Source.............Cervix Specimen Comment: No. of containers..01 CYTYC Thin Prep Vial us Gaye Stephens MD LAB - PATHOLOGY/CYTOLOGY ORDE RABILIANA Final Result [facility] ([facility]) [address] [place] [address] * HIV-1 HIV-2 ANTIBODY + HIV P24 AG PANEL (08/05/2016 12:35 PM MEDICAL REFERRAL COORDINATOR) HIV1/2 Ab + P24 Ag Non Reactive Non Reactive 08/05/2016 6:49 PM MEDICAL REFERRAL COORDINATOR [facility] Blood BLOOD SPECIMEN / Unknown 08/05/2016 12:35 PM MEDICAL REFERRAL COORDINATOR 08/05/2016 1:10 PM MEDICAL REFERRAL COORDINATOR Narrative [facility] - 08/05/2016 6:49 PM MEDICAL REFERRAL COORDINATOR No Laboratory evidence of HIV infection. us Gaye Stephens MD LAB - CHEMISTRY ORDERABLES Fi nal Result [facility] [address] [place] [address] from Last 3 Months or Most Recently Relevant to Health Maintenance Insurance [place] [employer] [place]ICA[place] - [facility] COMMUN[facility] PLAN MEDICAID - [place] MED[place] - [...] 12:53 PM 02/27/2017 12:50 PM Care Teams Sales Compensation Analyst Relationship Specialty Start Date End Date [facility] [address] [place] [address] PCP - General Personal Consultant 01/30/22
--- OUTSIDE RECORDS SUMMARY | 2025-01-31 11:46 | XMS_ITS | Clinical Summary ---
Author Organization [facility] Address [address] [place] [address] Care Team Providers Care Solar Photovoltaic Designer Name Role Phone Unavailable Primary Care Provider [...] TRICH (08/26/2021 10:22 AM CDT) SEE NOTE [facility] Comment: This order for age-based cervical cancer and STI screening follows ACOG guidelines(PB 168, 140, COA201). See individual assays for performing site location. CLINICAL INFORMATION [facility] Comment:Information not prov ided LAST MENSTRUAL PERIOD [facility] Comment:INFORMATION NOT PROV IDED PREV PAP: [facility] Comment:INFORMATION NOT PROV IDED PREV BX: [facility] Comment:INFORMATION NOT PROV IDED SOURCE [facility] Comment:Endocervix ADEQUACY: [facility] Comment: Satisfactory for evaluation. Endocervical/transformation zone component present. Age and/or menstrual status not provided PAP INTERP [facility] Comment:Negative for intraep ithelial lesion or malignancy. COMMENT (PAP TEST) [facility] Comment: This Pap test has been evaluated with computer assisted technology. MARKETING OPERATIONS MANAGER: [facility] Comment: SAMAGNES(ASCP) CT screening location: [place] [address] [place] [address] SEE NOTE [facility] Comment: EXPLANATORY NOTE: The [...] C TRAC RNA NOT DETECTED NOT DETECTED [facility] N.GONORRHOEAE RNA, TMA NOT DETECTED NOT DETECTED [facility] SEE NOTE [facility] Comment: The analytical performance characteristics of this assay, when used to test SurePath(TM) specimens have been determined by [facility]. The modifications have not been cleared or approved by the FDA. This assay has been validated pursuant to the CLIA regulations and is used for clinical purposes. For additional information, please refer to https://[employer]/faq/YFR432 (This link is being provided for information/ educational purposes only.) TRICHOMONAS VAGINALIS,QUALITAT LAYNE,PAP VIAL NOT DETECTED NOT DETECTED [facility] Comment: The analytical performance characteristics of this assay have been determined by [facility] [employer]. The modifications have not been cleared or approved by the FDA. This assay has been validated pursuant to the CLIA regulations and is used for clinical purposes. For additional information, please refer to [email or web address]/ faq/Trichomonastma (This link is being provided for information/ educational purposes only.) Test Performed at: [facility] [address] [place] [address] Andrea Mix D.O., MPH Genital SWAB OF ENDOCERVIX / Unknown 08/26/2021 10:22 AM CDT 08/27/2021 4:04 AM CDT Aba Gutierrez MD PATHOLOGY/CYTOLOGY ORDERABLES Final Result Performing Organization Address City/State/RUST Co de Phone Number [facility] [address] [place] [address] from Last 3 Months or Most Recently Relevant to Health Maintenance Insurance BCBS TRUE BLUE PPO EXCHANGE
[2025-01-31 11:51] LABS: Add Urine Microscopic? YES; Appearance Urine Clear (Clear); Glucose Urine UA Negative (Negative); Leukocyte Esterase Ur Trace LEU/UL (Negative); Nitrate Urine Negative (Negative); Non Pathogenic Casts 0-2; Specific Grav Ur 1.019 (1.001-1.035)
[2025-01-31 11:54] LABS: INR 1.0; Prothrombin Time 13.0 Seconds (11.1-14.7)
[2025-01-31 11:55] LABS: Partial Thromboplastin Time 26.4 Seconds (22.3-36.8)
[2025-01-31 12:08] LABS: Alanine Aminotransferase 18 U/L (6-35); Albumin Level 3.9 g/dL (3.5-5.1); Alkaline Phosphatase 57 U/L (38-126); Anion Gap 9 mmol/L (4-12); Aspartate Amino Transferase 25 U/L (14-36); Bilirubin,Total 0.2 mg/dL (0.2-1.3); Blood Urea Nitrogen 8 mg/dL (7-17); Calcium 9.6 mg/dL (8.4-10.2); Carbon Dioxide 20 mmol/L (22-30); Chloride 105 mmol/L (98-107); Estimated CRCL calculation 111 ml/min; Estimated Glomerular Filt Rate > 60; Glucose 82 mg/dL (65-110); Potassium 3.7 mmol/L (3.4-5.0); Sodium 134 mmol/L (137-145); Total Protein 7.0 g/dL (6.3-8.2)
[2025-01-31 13:18] LABS: Beta HCG Quantitative 46910.00 mIU/ML
[2025-01-31] MEDS: ONDANSETRON INJ 4 MG/2 ML VIAL IV PUSH (14:32)
[2025-01-31] MEDS: RHO(D) IMMUNE GLOBULIN 300 MCG/2 ML SYRINGE IM (14:34)
--- NOTE | 2025-01-31 14:37 | ED_ITS ---
HPI - General Chief complaint: Vaginal Bleeding Stated complaint: vag bleeding, 12 wks preg Time Seen by Provider: 01/31/25 11:08 Source: patient Mode of arrival: ambulatory Limitations: no limitations History of Present Illness HPI Narrative: Patient is a 29-year-old female who presents the ED with report of vaginal bleeding. Patient is and currently around 11 weeks gestation. She sees Courtney Beverly with [facility]. Reports she began having vaginal bleeding 2 days ago, which became slightly heavier today with clots. Reports lower abdominal and lower back cramping. Took Tylenol prior to arrival without improvement. Reports some nausea but denies vomiting. States this has been ongoing issue for her throughout her . Denies fevers. Related Data Home Medications ?Medication ?Instructions ?Recorded ?Confirmed ?Last Taken ?Type docosahexaenoic acid 200 mg mg PO 01/12/25 01/18/25 Un known History capsule ( DHA) Allergies Allergy/AdvReac Type Severity Reaction Status Date / Time Penicillins AdvReac edema Verified 01/31/25 10:47 Review of Systems 2 Review of Systems: All systems reviewed & are unremarkable except as noted in HPI. All systems reviewed & are unremarkable except as noted in HPI and below PMFSH Past Medical History Medical History Anxiety Healthy female adult Surgical History Surgical History History of dilatation and curettage Social History Social History Smoking status: Never smoker Exam 2 Narrative: GENERAL: Well appearing, well-nourished, non-toxic, in no acute distress. HEAD: Normocephalic, atraumatic. RESPIRATORY: Airway patent, respirations nonlabored. Clear to auscultation bilaterally, no rales, rhonchi, wheezing. CARDIOVASCULAR: Regular rate and rhythm without murmurs, rubs, or gallops. ABDOMINAL: Soft, mild diffuse tenderness throughout lower abdomen, nondistended. Normoactive BS. MUSCULOSKELETAL: Moves all extremities. No gross deformities. SKIN: Warm, dry, normal color. NEURO: A&O X3. Speech clear. PSYCHIATRIC: Appropriate mood and affect. Normal interaction. Course Vital Signs Vital signs: Vital Signs Temperature 97.6 F 01/31/25 10:44 Pulse Rate 83 01/31/25 10:44 Respiratory Rate 16 01/31/25 10:44 Blood Pressure 123/72 01/31/25 10:44 Pulse Oximetry 100 01/31/25 10:44 Oxygen Delivery Room Air 01/31/25 10:44 Temperature 97.6 F 01/31/25 10:44 Pulse Rate 83 01/31/25 10:44 Respiratory Rate 16 01/31/25 10:44 Blood Pressure 123/72 01/31/25 10:44 Pulse Oximetry 100 01/31/25 10:44 Oxygen Delivery Room Air 01/31/25 10:44 MDM - OB/Uterine Contractions MDM Narrative Medical decision making narrative: Patient currently 11 weeks gestation, reporting lower abdominal cramping and vaginal bleeding. Vital signs are stable upon arrival. Patient in no acute distress. Laboratory studies without leukocytosis. H&H is stable. CMP is [place] [address]. UA with trace amount of RBC. No signs of infection. Patient's blood type is B negative. Will give RhoGAM given acute episode of bleeding (> 1 month since last administration). ultrasound was obtained, showing live IUP with good heart tones. Sizing is concordant with previously estimated gestational age, 11 weeks 4 days. Does show small subchorionic hematoma with small amount of blood in the endometrial canal at the lower urine segment. Likely the source of patient's bleeding today. Discussed lab and imaging findings, overall fairly reassuring workup. Feel patient is safe for discharge home with outpatient OBGYN follow-up. I did discuss case with Dr. Alejandre OBGYN on-call for [facility], advised to call office to make appointment. Advised to continue to monitor symptoms, discussed possibility of threatened miscarriage. Given strict return precautions. Patient in agreement with plan. Patient did leave prior to receiving her discharge paperwork. She did not notify myself of her leaving the facility. Medical Records Attestation: I reviewed the patient's medical records. Lab Data Attestation: I reviewed the patient's lab results. 01/31/25 11:31 01/31/25 11:31 Labs: Lab Results 01/31/25 01/31/25 Range/Units 11:31 11:32 WBC 7.2 (4.5-10.0) K/mm3 RBC 4.47 (4.2-5.4) M/mm3 Hgb 11.9 L (12.0-15.0) g/dL Hct 36.7 L (37.0-47.0) % MCV 82.1 (80-100) fl MCH 26.6 (26-34) pg MCHC 32.4 (32-36) g/dl RDW 15.1 H (11.5-14.5) % Plt Count 217 (150-375) k/mm3 MPV 9.4 (7.4-10.4) fl Immature Gran % (Auto) 0.3 (0-0.5) % Neut % (Auto) 55.1 (45.5-73.1) % Lymph % (Auto) 31.9 (18.3-44.2) % [place] % (Auto) 8.6 H (2.6-8.5) % Eos % (Auto) 3.8 (0-4.4) % Baso % (Auto) 0.3 (0.2-1.2) % Lymph # (Auto) 2.29 (0.9-3.2) K/mm3 [place] # (Auto) 0.6 (0.1-0.6) K/mm3 Eos # (Auto) 0.3 (0-0.3) K/mm3 Baso # (Auto) 0.0 (0.0-0.1) K/mm3 Abs Immat Gran (auto) 0.02 (0.00-0.031) K/mm3 Absolute Neuts (auto) 4.0 (1.3-6.7) K/mm3 Absolute Nucleated RBC 0.000 (0.0-0.012) K/mm3 Nucleated RBC % 0.0 (0.0-0.2) % PT 13.0 (11.1-14.7) Seconds INR 1.0 APTT 26.4 (22.3-36.8) Seconds Sodium 134 L (137-145) mmol/L Potassium 3.7 (3.4-5.0) mmol/L Chloride 105 (98-107) mmol/L Carbon Dioxide 20 L (22-30) mmol/L Anion Gap 9 (4-12) mmol/L BUN 8 D (7-17) mg/dL Creatinine 0.55 L (0.7-1.0) mg/dL Estim Creat Clear Calc 111 ml/min Estimated GFR > 60 (59 - ) Glucose 82 (65-110) mg/dL Calcium 9.6 (8.4-10.2) mg/dL Total Bilirubin 0.2 (0.2-1.3) mg/dL AST 25 (14-36) U/L ALT 18 (6-35) U/L Alkaline Phosphatase 57 (38-126) U/L Total Protein 7.0 (6.3-8.2) g/dL Albumin 3.9 (3.5-5.1) g/dL Beta HCG, Quant 04046.00 mIU/ML Urine Color Yellow (Yellow) Urine Appearance Clear (Clear) Urine pH 6.0 (5.0-9.0) Ur Specific [place] 1.019 (1.001-1.035) Urine Protein Negative (Negative) mg/dL Urine Glucose (UA) Negative (Negative) mg/dL Urine Ketones Negative (Negative) mg/dL Ur Blood (Man) Trace (Negative) Urine Nitrate Negative (Negative) Urine Bilirubin Negative (Negative) Urine Urobilinogen 1.0 (<2.0) mg/dL Leukocyte Esterase Rfl Trace H (Negative) TYE/UL Urine RBC 3-5 H (0-2) /hpf Urine WBC 0-5 (0-3) /hpf Ur Squamous Epith Cells Few (Few) /hpf Urine Bacteria Rare /hpf Urine Casts 0-2 POC Urine HCG, Qual Positive (Negative) Blood Type B Negative Antibody Screen Positive Antibody Identification Passive Due to RH Imm Glob Antigen Identification Not Reportable RONALD, IgG Interpret Not Performed RONALD, Poly Interpret Neg RONALD, Complement Interp Not Performed Screen Not Reportable Baby's Blood Type Not Reportable Baby's RONALD Not Reportable Doses of RhIg Required 1 Imaging Data Attestation: I personally reviewed and interpreted this imaging study as follows: Radiologist's impression: ITS Impressions Ultrasound 01/31/25 13:08 IMPRESSION: 1. Single living fetus with heart of 143 bpm. 2. [place]-rump length of 5.2 cm which is concordant within 3 days of the previously estimated gestational age by ultrasound of 11 weeks 4 day(s) with ultrasound estimated date of delivery (DONTA) of 08/18/2025. 3. Small subchorionic hematoma versus small amount of blood within the endometrial canal at the lower uterine segment. 4. 2.0 cm uterine fibroid at the anterior uterine wall. Discharge Plan Discharge Clinical Impression: 11 weeks gestation of , Vaginal bleeding in Subchorionic hematoma in first trimester Qualifiers: Fetus number: single or unspecified fetus Qualified Code(s): O41.8X10 - Other specified disorders of amniotic fluid and membranes, first trimester, not applicable or unspecified Patient Disposition: Home Condition: Stable Instructions: Antibiotic Form, Threatened Miscarriage (ED), Subchorionic Hemorrhage (ED), at 11 to 14 Weeks (ED) Additional Instructions: Continue to monitor symptoms and bleeding very closely. Follow-up closely with your OBGYN for further evaluation. Call office to make appointment. You may continue Tylenol as needed for pain. Stay well-hydrated. Return to the ED if you experience worsening or severe symptoms, severe bleeding, severe pain, unable to keep down food or drink, fevers, dizziness, passing out, or any other symptoms of concern. Patient Language: Northern Irish Prescriptions: No Action DHA 200 mg capsule PO Follow-up/Referrals: Courtney Beverly CNM [Primary Care Provider, ASSOCIATE FIELD SERVICE ENGINEER] Time of Disposition: 15:15
--- NOTE | 2025-01-31 15:39 | PC.NURSE ---
this RN went to discharge patient when noticed pt was not in her room or bathroom. this RN asked triage nurses if they saw the pt leave and they did. this RN called pt to ask her to come back so this RN can take the IV out. pt started yelling at this RN saying I told you I needed to leave to bean picker my kid no one even gave me any food or water this RN told pt over the phone that we do not give anything to eat or drink until all results are back and asked if she hit her call light to voice these concerns, pt said no and kept yelling. this RN said we have 2 options at this point and the police could be called or she comes back to get the IV removed. pt said she pulled it out and put it in the trash can. there was a 20g IV in the trash can
== END 2025-01-31 15:46 | disposition home or self-care (01) ==
PROVIDERS: Emergency Provider Physician Assistant; PCP Advanced Practice Midwife
DX: O41.8X10 Other specified disorders of amniotic fluid and membranes, first trimester, not applicable or unspecified (principal); O46.91 Antepartum hemorrhage, unspecified, first trimester; Z3A.11 11 weeks gestation of pregnancy
CPT/HCPCS: 36415; 76801; 80053; 81001; 81025; 84702; 85025; 85461; 85610; 85730; 86850; 86880; 86900; 86901; 86902; 90384; 96372; 96374; 99284; J2405; J2790

== ENCOUNTER 2025-02-22 11:06 | Outpatient (CLI) | payer OTHER, SELFPAY ==
--- OUTSIDE RECORDS SUMMARY | 2016-09-04 06:30 | XMS_ITS | Continuity of Care Document ---
Author Organization [facility] Address [address] [place] [address] Phone Care Team Providers Care Skid Wrapper Name Role Phone Hernan Lloyd DMD [...] AN CARE, AT-RISK ENHANCED SERVICE PACKAGE (INCLUDES [id number]) OFFICE/OUTPATIENT VISIT, EST PRESCRIPTION DRUG, ORAL, NON CHEMOTHERAP EUTIC, NOS AZITHROMYCIN DIHYDRATE, ORAL, CAPSULES/P OWDER, 1 GRAM Wet beka, including preparations of va ginal, cervical or skin specimens COLLECTION OF VENOUS BLOOD BY VENIPUNCTU RE OFFICE/OUTPATIENT VISIT, EST CARE, AT-RISK ENHANCED SERVICE PACKAGE (INCLUDES [id number]) OFFICE/OUTPATIENT VISIT, EST COLLECTION OF VENOUS BLOOD BY VENIPUNCTU RE Voided Encounter care, at-risk assessment care, at-risk enhanced service; antepartum management MENTAL HEALTH ASSESSMENT, BY NON-PHYSICI AN SKIN TEST; TUBERCULOSIS, INTRADERMAL Dec OFFICE/OUTPATIENT VISIT, NEW Advance Directives Directive Yes / No Effective Date File Name No Information Encounters Encounter Description Practice Location Reason(s) For Visit Diagnoses Date Provider Providers Copied on Encounter [facility] , [address], [place], [place], [address], tel:[phone] [facility] [place] Encounter for dental exam and cleaning w abnormal findings 7 Gabino Becerra. [address], [place], [place], [address]. tel:[phone] Referring Provider: Hernan Lloyd, [address], [place], [address]. tel:[phone] [facility] , [address], [place], [place], [address], tel:[phone] [facility] [place] home visit (chief complaint) Routine follow-up Management [facility]. [address], [place], [place], [address], . tel:[phone] [facility] , [address], [place], [place], [address], tel:[phone] [facility] [place] No Information 2 Management [facility]. [address], [place], [place], [address], . tel:[phone] Consulting Provider: Arianne Samuels, [address], [place], [address]. tel:[phone] OFFICE/OUTPAT IENT VISIT, EST [facility] , [address], [place], [place], [address], [place] tel:[phone] [facility] [place] No Information 1 Bianca Bauman. [address], [place], [place], [address], . tel:[phone] OFFICE/OUTPAT IENT VISIT, EST [facility] , [address], [place], [place], [address], [place] tel:[phone] [facility] [place] Supervision of normal first 1 Rico Navas [address], [place], [place], [address], . tel:[phone] [facility] , [address], [place], [place], [address], tel:[phone] [facility] [place] No Information 1 [facility]. [address], [place], [place], [address] [place] [address], . tel:[phone] Consulting Provider: Arianne Samuels, [address], [place], [address]. tel:[phone] OFFICE/OUTPAT IENT VISIT, [facility] , [address], [place], [place], [address], tel:[phone] [facility] [place] Supervision of other normal 1 Rico Navas [address], [place], [place], [address], . tel:[phone] [facility] , [address], [place], [place], [address], [place] tel:[phone] [facility] [place] Supervision of normal first 1 Rico Navas [address], [place], [place], [address], . tel:[phone] [facility] , [address], [place], [place], [address], tel:[phone] [facility] [place] pn intake (chief complaint) No Information No Information OFFICE/OUTPAT IENT VISIT, [facility] , [address], [place], [place], [address], [place] tel:[phone] [facility] [place] Test (chief complaint)No te for school-Pregn italo (chief complaint) Irregular menstrual cycle Bianca Bauman. [address], [place], [place], [address], [place]. tel:[phone] Family History Family Member Type Diagnosis Age At Onset Father Problem (finding) hypertension Mother Problem (finding) hypertension Father Problem (finding) Maternal history of alice betes mellitus Payers Payer name Insurance type Covered libertarian ID Alpa pool(s) D Medicaid - Dental CI [id number] Social History Type Description Quantity Date Captured Comments Sex Female Smoking Status No Information Chief Complaint And Reason For Visit No Information Reason For Referral Reason For Referral No Information Plan Of Treatment Date Type Action Status Goal BMP fasting. Due on 011 due Referral Referred To: [facility] Radiology [address] [place], [phone] Ordered: Referral: [facility] [...]
[2025-02-22 11:47] LABS: Hematocrit 36.0 % (37.0-47.0); Hemoglobin 11.6 g/dL (12.0-15.0); Mean Corpuscular HGB Conc 32.2 g/dl (32-36); Mean Corpuscular Hemoglobin 26.9 pg (26-34); Mean Corpuscular Volume 83.3 fl (80-100); Platelet Count Result 230 k/mm3 (150-375); Red Blood Count 4.32 M/mm3 (4.2-5.4); White Blood Count 6.7 K/mm3 (4.5-10.0)
--- OUTSIDE RECORDS SUMMARY | 2025-02-22 11:57 | XMS_ITS | Clinical Summary ---
Author Organization [facility] Address [address] [place] [address] Care Team Providers Care Air Filler Name Role Phone [facility] Primary Care Pro vider Source Comments [facility],non-owned Affiliates and Associated Physician Practices is amultiple site organization consisting of ambulatory clinics and hospital sitesin [place], [place], [place] and [place]. This disclosure is being madepursuant to the Care Everywhere program and may not contain all information available regarding this patient. Last updated 18.[facility] Allergies Active Allergy Reactions Criticality Noted Date [...] fluticasone propionate (Flonase) 50 MCG/ACT nasal spray [place] 2 (two) sprays into each nostril once [...] ing 20 tablet 03/28/2024 Active HYDROcodone-lilian taminophen ([place]) 5-325 MG tabletIndicatio ns:Acute maxillary sinusitis, recurrence [...] Overview (11/11/2016): She sees Dr. Jean at [facility]. She discontinued Seroquel with positive test. [...] place to sleep or slept in a snf (including now)? No 05/11/2022 [place] Depression Scale Answer Date Recorded RETIRED: Total Score 0 05/08/2022 Last EPDS Self Harm Result Not on file 05/08 Comments No Sex and Gender Information Value Date Recorded Sex Assigned at Not on file Legal Sex Female 6:05 AM SENIOR ORACLE DATABASE ADMINISTRATOR Gender Identity Not on file Sexual Orientation Not on file Last Filed Vital Signs Vital Sign Reading Time Taken Comments Blood Pressure 147/96 05/28/2024 11:26 PM SENIOR ORACLE DATABASE ADMINISTRATOR Pulse 65 05/28/2024 11:26 PM SENIOR ORACLE DATABASE ADMINISTRATOR Temperature 36.7 C (98.1 F) 05/28/2024 11:26 PM SENIOR ORACLE DATABASE ADMINISTRATOR Respiratory Rate 18 05/28/2024 11:26 PM SENIOR ORACLE DATABASE ADMINISTRATOR Oxygen Saturation 95% 05/28/2024 11:26 PM SENIOR ORACLE DATABASE ADMINISTRATOR Inhaled Oxygen Concentration - - Weight 70.8 kg (156 lb) 05/28/2024 11:26 PM SENIOR ORACLE DATABASE ADMINISTRATOR Height 157.5 cm (5' 2) 05/28/2024 11:26 PM SENIOR ORACLE DATABASE ADMINISTRATOR Body Mass Index 28.53 05/28/2024 11:26 PM SENIOR ORACLE DATABASE ADMINISTRATOR Plan of Treatment Health Maintenance Due Date Last Done Comments HEPATITIS C SCREENING 05/29/2011 PNEUMOCOCCAL VACCINE (1 of 2 - PCV) 2012 PAP SMEAR 08/05/2019 08/05/2016 HPV VACCINE (1 - 3-dose SCDM series) 2020 DEPRESSION SCREENING 06/08/2024 COVID-19 VACCINE (2 - season) 2025 09/20/2020 INFLUENZA VACCINE (#1) 2025 , 02/26/2017, 06/20/2011 [...] RFLX HPV ASCU Routine 08/05/2016 12:37 PM SENIOR ORACLE DATABASE ADMINISTRATOR 10 weeks gestation of HIV-1 HIV-2 ANTIBODY + HIV P24 AG PANEL Routine 08/05/2016 12:35 PM SENIOR ORACLE DATABASE ADMINISTRATOR 10 weeks gestation of from Last 3 Months or Most Recently Relevant to Health Maintenance Results * PAP SMEAR IG RFLX HPV ASCU (PO REF LAB) (08/05/2016 12:37 PM SENIOR ORACLE DATABASE ADMINISTRATOR) Diagnosis Comment 08/06/2016 9:08 PM SENIOR ORACLE DATABASE ADMINISTRATOR [facility] Comment:NEGATIVE FOR INTRAEP ITHELIAL LESION AND MALIGNANCY. Specimen Adequacy Comment 017 9:08 PM SENIOR ORACLE DATABASE ADMINISTRATOR [facility] Comment: Satisfactory for evaluation. Endocervical and/or squamous metaplastic cells (endocervical component) are present. Performed by Comment 08/06/2016 9:08 PM SENIOR ORACLE DATABASE ADMINISTRATOR [facility] Comment:Rubi Medley [employer] hnologist (ASCP) Comment . 08/06/2016 9:08 PM SENIOR ORACLE DATABASE ADMINISTRATOR [facility] Note Comment 08/06/2016 9:08 PM SENIOR ORACLE DATABASE ADMINISTRATOR [facility] Comment: The Pap smear is a screening test designed to aid in the detection of premalignant and malignant conditions of the uterine cervix. It is not a diagnostic procedure and should not be used as the sole means of detecting cervical cancer. Both false-positive and false-negative reports do occur. IGL[facility] CPT Code Automation Comment 08/06/2016 9:08 PM SENIOR ORACLE DATABASE ADMINISTRATOR [facility] Comment: This liquid based ThinPrep(R) pap test was screened with the use of an image guided system. Note Comment 08/06/2016 9:08 PM SENIOR ORACLE DATABASE ADMINISTRATOR [facility] Comment: The HPV DNA reflex criteria were not met with this specimen result therefore, no HPV testing was performed. Pathology/Cytolo gy PART OF UTERINE CERVIX / Unknown 08/05/2016 12:37 PM SENIOR ORACLE DATABASE ADMINISTRATOR 08/05/2016 1:19 PM SENIOR ORACLE DATABASE ADMINISTRATOR Narrative [facility] - 08/06/2016 9:08 PM SENIOR ORACLE DATABASE ADMINISTRATOR Performed at: [address] [id number] Case Finisher: Rayna Cuevas MD, Phone: [phone] Specimen Comment: Source.............Cervix Specimen Comment: No. of containers..01 CYTYC Thin Prep Vial us Gaye Stephens MD LAB - PATHOLOGY/CYTOLOGY ORDE RABLES Final Result [facility] ([facility]) [address] [place] [address] * HIV-1 HIV-2 ANTIBODY + HIV P24 AG PANEL (08/05/2016 12:35 PM SENIOR ORACLE DATABASE ADMINISTRATOR) HIV1/2 Ab + P24 Ag Non Reactive Non Reactive 08/05/2016 6:49 PM SENIOR ORACLE DATABASE ADMINISTRATOR [facility] Blood BLOOD SPECIMEN / Unknown 08/05/2016 12:35 PM SENIOR ORACLE DATABASE ADMINISTRATOR 08/05/2016 1:10 PM SENIOR ORACLE DATABASE ADMINISTRATOR Narrative [facility] - 08/05/2016 6:49 PM SENIOR ORACLE DATABASE ADMINISTRATOR No Laboratory evidence of HIV infection. us Gaye Stephens MD LAB - CHEMISTRY ORDERABLES Fi nal Result [facility] [address] [place] [address] from Last 3 Months or Most Recently Relevant to Health Maintenance Insurance [place] [id number] [id number] [place] [id number] MED[place] - [...] 12:53 PM 02/27/2017 12:50 PM Care Teams Air Filler Relationship Specialty Start Date End Date [facility] [address] [place] [address] PCP - General Automatic Vulcanizing Operator 01/30/22
--- OUTSIDE RECORDS SUMMARY | 2025-02-22 11:58 | XMS_ITS | Clinical Summary ---
Author Organization [facility] Physician Office Building [address] [place] [id number] Care Team Providers Care Canvas Cutter Name Role Phone No, Physician Primary Care Provider [phone] Allergies Active Allergy Reactions Criticality Noted Date [...] with therapist. Her Referred to [facility] for trauma focused therapy. Start Prozac [...] Encounters Date Type Department Care Team Description 02/16/2025 10:17 AM [facility] - 02/16/2025 2:06 PM T Emergency [facility] Emergency Department [address] [place] [address] David Conner MD Dizziness (Primary Dx); Chronic back pain, unspecified back location, unspecified back pain laterality; Neck pain; , unspecified gestational age Discharge Disposition: Discharge to home or self care 12/24/2024 8:46 AM T - 12/24/2024 11:57 AM [facility] Emergency [facility] [place] Emergency Department [facility] [place] [address] Nausea and vomiting in (Primary Dx) Discharge Disposition: Discharge to home or self care 12/15/[address] [address] Shayna Dean RN 12/15/[address] [address] Shayna Dean RN 12/14/[address] [address] Shayna Dean RN 12/14/2024 Results Follow-Up [address] [address] Juan Samson PA Vaginitis panel Vaginal 12/13/2024 2:30 AM CDT - 12/13/2024 3:25 AM CDT Emergency [address] [address] Positive test (Primary Dx); Vaginal irritation Discharge [...] making you feel afraid or unsafe? Denies 02/16/2025 Comments Yes Sex and Gender Information Value Date Recorded Sex Assigned at Not on file Legal Sex Female 9:34 AM DEVELOPMENT INTERN Gender Identity Female 07/10/2020 2:40 PM DEVELOPMENT INTERN Sexual Orientation Straight 07/10/2020 2: 40 PM DEVELOPMENT INTERN Obstetrics History Para Term AB IAB SAB [...] WALKER ,BABY GIRL FRANCH ESCA Tara Delivery Location:[facility] 2013 AB 2016 IAB 2016 Term 39w 3d 0h 17m 0h 13m/0h 04m 2.91 kg (6 lb 6.7 oz) F Vag-S pont Epidur al N Livin g 8 9 WALKER ,BABY GIRL NIRANJAN HENSON Abhishek Nj MD Complications:None Delivery Location:[facility] 2018 IAB 2019 SAB 2021 Term 37w 4d 2.745 kg (6 lb 0.8 oz) F Vag-S pont Epidur al Livin bijan wood Complications: Karla yamileth Hypertension Delivery Location:[facility] 2021 Term 37w 4d 0h 07m 0h 07m 2.745 kg (6 lb 0.8 oz) F Vag-S pont Epidur al N Livin g 9 9 WALKER ,BABY GIRL NIRANJAN HENSON Salena wood MD Complications:None Delivery Location:[facility] ([facility]) Current Last Filed Vital Signs Vital Sign Reading Time Taken Comments Blood Pressure 111/71 02/16/2025 1:30 PM CDT Pulse 80 02/16/2025 1:30 PM CDT Temperature 36.7 C (98.1 F) 02/16/2025 9:00 AM CDT Respiratory Rate 16 02/16/2025 1:30 PM CDT Oxygen Saturation 100% 02/16/2025 1:30 PM CDT Inhaled Oxygen Concentration - - Weight 69.9 kg (154 lb 1.6 oz) 02/16/2025 9:00 AM CDT Height 156.2 cm (5' 1.5) 02/16/2025 9:00 AM CDT Body Mass Index 28.65 02/16/2025 9:00 AM CDT Plan of Treatment Health Maintenance Due Date Last Done Comments Cervical Cancer Screening 1993 Hepatitis C Screening 1993 Varicella Vaccines (2 of 2 - 2-dose childhood series) 04/15/1999 01/21/1999 Regular Well Visit/Exam 18-64 2011 Pneumococcal vaccine <65 (1 of 2 - PCV) 2012 Depression Screening 12/22/2019 12/21/2018 HPV Vaccines (1 - 3-dose SCD M series) 2020 Covid-19 Vaccine (2 - 2024-2 6 season) 2025 09/20/2020 Influenza Vaccine (#1) 2025 2, 02/26/2017, 06/20/2011 DTaP/Tdap/Td Vaccine (11 - T d or Tdap) 07/20/2031 07/20/2021, 12/10/2016, 06/20/2011, Additional history exists Hepatitis B Screening Completed 1993 , 1993, 1993 Procedures Procedure Name Priority Date/Time Associated Diagnosis Comments URINALYSIS AND REFLEX TO MICROSCOPIC AND CULTURE STAT 02/16/2025 11:45 AM CDT ECG 12-LEAD STAT 02/16/2025 10:59 AM CDT US OB 14 WEEKS OR OVER ED 10:57 AM CDT EGFR STAT 02/16/2025 9:13 AM CDT DIFFERENTIAL AUTO STAT 02/16/2025 9:1 3 AM CDT COMPREHENSIVE METABOLIC PANEL STAT 02/16/2025 9:13 AM CDT CBC WITH AUTO DIFFERENTIAL STAT 02/16/2025 9:13 AM CDT ED PELVIC ULTRASOUND Routine 12/24/2024 9:35 AM [...] CDT from Last 3 Months Results * Urinalysis reflex to microscopic and culture Urine (02/16/2025 11:45 AM CDT) Color, ur Yellow Yellow Comment:Testing performed by : [address] [address] Clarity, ur Clear Clear [facility] Comment:Testing performed by : [address] [address] Specific gravity, ur 1.014 1.003 - 1.030 [facility] Comment:Testing performed by : [address] [address] pH, urine 7.0 [facility] Comment: Interpretive Data U rine pH is affected by diet, medications, systemic acid-base disturbances, and renal tubular function. pH may affect urinary stone formation. For example, urine pH below 6.0 may help reduce the tendency for calcium phosphate stones and pH greater than 6.0 may reduce the tendency for uric acid stone formation. Source: [facility] Current Interpretive Data was last revised on 2017 Testing performed by: [facility], [address] [place] [address]., [address] Protein, ur ql Negative Negative OCNRADO BUCKLEY Comment:Testing performed by : [address] [address] Glucose, ur ql Negative Negative [facility] Comment:Testing performed by : [address], [place]., [address] Ketones, ur Negative Negative [facility] Comment:Testing performed by : [address] [address] Bilirubin, ur Negative Negative [facility] Comment:Testing performed by : [address], [place]., [address] Blood, ur Negative Negative [facility] Comment:Testing performed by : [address], [place]., [address] Urobilinogen, ur <2.0 <2.0 mg/dL [facility] Comment:Testing performed by : [address], [place]., [address] Nitrite, ur Negative Negative [facility] Comment:Testing performed by : [address] [address] Leukocyte esterase, ur Negative Negative [facility] Comment:Testing performed by : [address] [address] UA reflex comment Reflex conditions for microscopic UA and culture not met. [facility] Comment:Testing performed by : [address] [address] Urine 02/16/2025 11:4 5 AM CDT 02/16/2025 11:49 AM CDT us Rehab Ubal[facility] MICROBIOLOGY - GENERAL ORDE GABI Final Result CONRADO BUCKLEY [address] [facility] Department of Laboratories [place], [place] [id number] * ECG 12 lead (02/16/2025 10:59 AM CDT) Ventricular Rate EKG/Min 92 BPM [facility] Atrial Rate [address] [facility] MA-Interval (MSEC) [address] [facility] QRS-Interval (MSEC) [address] [facility] QT-Interval (MSEC) [address] [facility] QTc [address] [facility] P South Range [address] [facility] R South Range [address] [facility] T South Range [address] [facility] Diagnosis Normal sinus rhythm Normal ECG No previous ECGs available Confirmed by MD SIDHU FAYE ([id number]) on 02/16/2025 4:28:[address] [facility] 02/16/2025 10:5 9 AM CDT 02/16/2025 4:28 PM CDT us Adebowale Tolumarciede Adecoleenda PA ECG ORDERABLES Fi nal Result [facility] * US Ob 14 Weeks Or Over (02/16/2025 10:57 AM CDT) Anatomical Region Laterality Modality Abdomen N/A Ultrasound 02/16/2025 11:1 3 AM CDT Narrative 02/16/2025 11:16 AM CDT EXAM DESCRIPTION: US OB 14 WEEKS OR OVER REASON FOR STUDY: pain TECHNIQUE: Multiple static transabdominal images of the pelvis were submitted for review. COMPARISON: None. FINDINGS: Gestational age estimated by this US: 14 weeks 1 day EDC estimated by this US: 08/16/2025 Placenta is located: Fundal position: Cephalic heart rate: 150 bpm Maximum vertical pocket: 3.0 cm (normal range 2-8 cm). The cervix measures 5.4 cm in length incidental note is made of a likely small uterine fibroid involving the anterior uterine body measuring 2.3 x 2.1 x 1.5 cm. MEASUREMENTS: The measurements and ratios are grossly within normal limits. IMPRESSION: 1. Single live intrauterine gestation with gestational age by this ultrasound of 14 weeks 1 day and documentation of cardiac activity at 150 beats per minute. Routine follow-up anatomy scan is recommended as clinically indicated. THIS IS AN ELECTRONICALLY VERIFIED FINAL REPORT 02/16/2025 11:16 AM - Electronically signed by Nevaeh Hernandez D.O. PS: PS Report ID: [id number] Reading Location: [id number] Procedure Note Mary Nevaeh Garcia DO - 02/16/2025 EXAM DESCRIPTION: US OB 14 WEEKS OR OVER REASON FOR STUDY: pain TECHNIQUE: Multiple static transabdominal images of the pelvis weresubmitted for review. COMPARISON: None. FINDINGS: Gestational age estimated by this US: 14 weeks 1 day EDC estimated by this US: 08/16/2025 Placenta is located: Fundal position: Cephalic heart rate: 150 bpm Maximum vertical pocket: 3.0 cm (normal range 2-8 cm). The cervix measures 5.4 cm in length incidental note is made of a likelysmall uterine fibroid involving the anterior uterine body measuring 2.3 x 2.1 x1.5 cm. MEASUREMENTS: The measurements and ratios are grossly within normal limits. IMPRESSION: 1. Single live intrauterine gestation with gestational age by this ultrasound of 14 weeks 1 day and documentation of cardiac activityat 150 beats per minute. Routine follow-up anatomy scan is recommended as clinically indicated. THIS IS AN ELECTRONICALLY VERIFIED FINAL REPORT 02/16/2025 11:16 AM - Electronically signed by Nevaeh Hernandez D.O. PS: PS Report ID: [id number] Reading Location: [id number] us Puja COLIN IMG OB US PROCEDUR ES Final Result * eGFR (02/16/2025 9:13 AM CDT) eGFR >90 >=60 mL/min/1. 73 [...] was last reviewed 2021. Testing performed by: [address] [address] Blood 02/16/2025 9:13 AM CDT 02/16/2025 9:27 AM CDT us Rehab Ubaldo [facility] BLOOD ORDERABLES Final Resu lt [facility] [address] Department [place] [address] * Differential, auto (02/16/2025 9:13 AM CDT) Neutrophil abs 4.66 1.50 - 6.50 K/cumm Comment:Testing performed by : [address] [address] Imm gran abs 0.02 0.00 - 0.10 K/cumm CON[facility]O Comment:Testing performed by : [address] [address] Lymphocyte abs 1.87 0.80 - 3.30 K/cumm [facility] Comment:Testing performed by : [address] [address] Monocyte abs 0.37 0.20 - 0.80 K/cumm [facility] Comment:Testing performed by : [address] [address] Eosinophil abs 0.21 0.00 - 0.50 K/cumm CON[facility] Comment:Testing performed by : [address] [place]., [address] Basophil abs 0.02 0.00 - 0.10 K/cumm [facility] Comment:Testing performed by : [address] [address] Neutrophil pct 65.1 % [facility] [place] Comment: Interpretive Data Percent cell count reference ranges are not reported, since discordance with absolute values may lead to misinterpretation of CBC data. Current Interpretive Data was last revised on 2017. Testing performed by: [address] [address] Imm gran pct 0.3 % [facility] [place] Comment: Interpretive Data Percent cell count reference ranges are not reported, since discordance with absolute values may lead to misinterpretation of CBC data. Current Interpretive Data was last revised on 2017. Testing performed by: [address] [address] Lymphocyte pct 26.2 % [facility] Comment: Interpretive Data Percent cell count reference ranges are not reported, since discordance with absolute values may lead to misinterpretation of CBC data. Current Interpretive Data was last revised on 2017. Testing performed by: [address] [address] Monocyte pct 5.2 % [facility] Comment: Interpretive Data Percent cell count reference ranges are not reported, since discordance with absolute values may lead to misinterpretation of CBC data. Current Interpretive Data was last revised on 2017. Testing performed by: [address] [address] Eosinophil pct 2.9 % [facility] Comment: Interpretive Data Percent cell count reference ranges are not reported, since discordance with absolute values may lead to misinterpretation of CBC data. Current Interpretive Data was last revised on 2017. Testing performed by: [address] [address] Basophil pct 0.3 % [facility] Comment: Interpretive Data Percent cell count reference ranges are not reported, since discordance with absolute values may lead to misinterpretation of CBC data. Current Interpretive Data was last revised on 2017. Testing performed by: [address] [address] Blood 02/16/2025 9:13 AM CDT 02/16/2025 9:27 AM CDT us Rehab Ubal[facility] BLOOD ORDERABLES Final Resu lt [facility] [address] [facility] Department [place] [address] * (ABNORMAL) CBC with auto differential (02/16/2025 9:13 AM CDT) WBC 7.15 3.80 - 9.90 K/cumm Comment:Testing performed by : [address] [address] Hgb 11.8(L) 11.9 - 15.5 g/dL [facility] Comment:Testing performed by : [address] [address] Hct 35.7 35.6 - 45.5 % [facility] Comment:Testing performed by : [address] [address] Plt 219 150 - 400 K/cumm [facility] Comment:Testing performed by : [address] [address] MPV 9.4 9.1 - 12.3 fL [facility] Comment:Testing performed by : [address] [address] RBC 4.39 3.90 - 5.20 M/cumm [facility] Comment:Testing performed by : [address] [address] MCV 81.3 81.3 - 96.4 fL [facility] Comment:Testing performed by : [address] [address] MCH 26.9(L) 27.1 - 33.3 pg [facility] Comment:Testing performed by : [address] [address] MCHC 33.1 32.3 - 35.7 g/dL [facility] Comment:Testing performed by : [address] [place]., [address] RDW CV 14.4 11.1 - 14.9 % CON[facility]O BUCKLEY Comment:Testing performed by : [address] [address] RDW SD 42.9 35.7 - 48.1 fL CON[facility] BUCKLEY Comment:Testing performed by : [address] [address] NRBC abs 0.00 0.00 - 0.01 K/cumm [facility]O BUCKLEY Comment:Testing performed by : [address] [address] Blood 02/16/2025 9:13 AM CDT 02/16/2025 9:27 AM CDT us Rehab Ubaldo [facility] BLOOD ORDERABLES Final Resu lt CON[facility] Department [place] [address] * (ABNORMAL) Comprehensive metabolic panel (02/16/2025 9:13 AM CDT) Sodium 136 135 - 145 mmol/L Comment:Testing performed by : [address] [address] Potassium, pl 3.8 3.3 - 4.9 mmol/L [facility] BUCKLEY Comment:Testing performed by : [address] [address] Chloride 104 97 - 110 mmol/L [facility] Comment:Testing performed by : [address] [address] CO2 19(L) 22 - 32 mmol/L [facility] Comment:Testing performed by : [address] [address] Anion gap 13 2 - 15 mmol/L CON[facility] BUCKLEY Comment:Testing performed by : [address] [address] BUN 6 6 - 25 mg/dL CON[facility]O BUCKLEY Comment:Testing performed by : [address] [address] Creatinine 0.50(L) 0.60 - 1.10 mg/dL [facility] Comment:Testing performed by : [address] [address] Glucose 140 70 - 199 mg/dL [facility] Comment: Interpretive Data Fasting glucose >/= 126 [...] was last revised 2022. Testing performed by: [address] [address] Calcium 9.6 8.5 - 10.3 mg/dL [facility] Comment:Testing performed by : [address] [address] Bilirubin, total 0.2 0.1 - 1.2 mg/dL [facility] Comment:Testing performed by : [address] [address] Protein, pl 6.8 6.5 - 8.5 g/dL [facility] Comment:Testing performed by : [address] [address] Albumin 3.9 3.5 - 5.0 g/dL [facility] Comment:Testing performed by : [address] [address] Alk phos 69 40 - 130 Units/L [facility] Comment:Testing performed by : [address] [address] ALT 12 7 - 45 Units/L [facility] Comment:Testing performed by : [address] [address] AST 19 10 - 45 Units/L [facility] Comment:Testing performed by : [address] [address] Blood 02/16/2025 9:13 AM CDT 02/16/2025 9:27 AM CDT us David Conner MD LAB BLOOD ORDERABLES Final Resu lt [facility] [address] [facility] [place] [address] * US Pelvic (12/24/2024 9:35 AM CDT) [...] No pole or heartbeat seen on US. Yusra Wiseman NP IN CLINIC/BEDSIDE ORDER CHIKA [...] was last reviewed 2021. Testing performed by: [facility], [facility] [place] [address] Blood 12/24/2024 9:26 AM CDT 12/24/2024 9:32 AM CDT Yusra Wiseman NP LAB BLOOD ORDERABLES nal Result [facility] [address] Department [place] [address] * Differential, auto (12/24/2024 9:26 AM CDT) Neutrophil abs 3.98 1.50 - 6.50 K/cumm Comment:Testing performed by : [facility] [address] [address] Imm gran abs 0.02 0.00 - 0.10 K/cumm [facility] Comment:Testing performed by : [facility], [facility] [place] [address] Lymphocyte abs 2.09 0.80 - 3.30 K/cumm [facility] Comment:Testing performed by : [facility] [place] [address] Monocyte abs 0.63 0.20 - 0.80 K/cumm [facility] Comment:Testing performed by : [facility] [place] [address] Eosinophil abs 0.18 0.00 - 0.50 K/cumm [facility] Comment:Testing performed by : [place] [address] [place] [address] Basophil abs 0.01 0.00 - 0.10 K/cumm [facility] Comment:Testing performed by : [place] [address] [place] [address] Neutrophil pct 57.7 % [facility] Comment: Interpretive Data Percent cell count reference ranges are not reported, since discordance with absolute values may lead to misinterpretation of CBC data. Current Interpretive Data was last revised on 2017. Testing performed by: [place] [address] [place] [address] Imm gran pct 0.3 % CERNER Comment: Interpretive Data Percent cell count reference ranges are not reported, since discordance with absolute values may lead to misinterpretation of CBC data. Current Interpretive Data was last revised on 2017. Testing performed by: [facility], [address] [place] [address] Lymphocyte pct 30.2 % [facility] Comment: Interpretive Data Percent cell count reference ranges are not reported, since discordance with absolute values may lead to misinterpretation of CBC data. Current Interpretive Data was last revised on 2017. Testing performed by: [facility], [address] [place] [address] Monocyte pct 9.1 % [facility] Comment: Interpretive Data Percent cell count reference ranges are not reported, since discordance with absolute values may lead to misinterpretation of CBC data. Current Interpretive Data was last revised on 2017. Testing performed by: [facility], [address] [place] [address] Eosinophil pct 2.6 % [facility] Comment: Interpretive Data Percent cell count reference ranges are not reported, since discordance with absolute values may lead to misinterpretation of CBC data. Current Interpretive Data was last revised on 2017. Testing performed by: [facility], [address] [place] [address] Basophil pct 0.1 % C[facility]ER Comment: Interpretive Data Percent cell count reference ranges are not reported, since discordance with absolute values may lead to misinterpretation of CBC data. Current Interpretive Data was last revised on 2017. Testing performed by: [facility], [address] [place] [address] Blood 12/24/2024 9:26 AM CDT 12/24/2024 9:32 AM CDT us Yusra Wiseman NP LAB BLOOD ORDERABLES Fi nal Result [facility] RUSSELL [address] Department [place] [address] * (ABNORMAL) CBC with auto differential (12/24/2024 9:26 AM CDT) WBC 6.91 3.80 - 9.90 K/cumm Comment:Testing performed by : [facility] [address] [address] [place], [place] [address] Hgb 13.2 11.9 - 15.5 g/dL [facility] CH Comment:Testing performed by : [facility] [address] [place], [place] [address] Hct 40.0 35.6 - 45.5 % [facility] CH Comment:Testing performed by : [facility] [address] [place], [place] [address] Plt 259 150 - 400 K/cumm [facility] CH Comment:Testing performed by : [facility] [address] [place], [place] [address] MPV 9.1 9.1 - 12.3 fL [facility] CH Comment:Testing performed by : [facility] [address] [place] [address] RBC 4.93 3.90 - 5.20 M/cumm [facility] CH Comment:Testing performed by : [facility] [address] [place], [place] [address] MCV 81.1(L) 81.3 - 96.4 fL [facility] CH Comment:Testing performed by : [facility] [address] [place], [place] [address] MCH 26.8(L) 27.1 - 33.3 pg [facility] CH Comment:Testing performed by : [facility] [address] [place], [place] [address] MCHC 33.0 32.3 - 35.7 g/dL [facility] CH Comment:Testing performed by : [facility] [address] [place], [place] [address] RDW CV 16.1(H) 11.1 - 14.9 % [facility] CH Comment:Testing performed by : [facility] [address] [place], [place] [address] RDW SD 47.5 35.7 - 48.1 fL [facility] CH Comment:Testing performed by : [facility] [address] [place] [address] NRBC abs 0.00 0.00 - 0.01 K/cumm [facility] CH Comment:Testing performed by : [facility] [address] [place] [address] Blood Venous blood specimen / Unknown 12/24/2024 9:26 AM CDT 12/24/2024 9:32 AM CDT us Yusra Wiseman NP LAB BLOOD ORDERABLES Fi nal Result [facility] [address] [place] [address] * (ABNORMAL) hCG, blood, quantitative (12/24/2024 9:26 AM CDT) Pathologist [facility] hCG, quant 29,188.0( H) 0.0 - 5.0 IUnits/L Comment: Interpretive Data Male: < 5 IU/L Non- premenopausal Female: <5 IU/L The Karl hCG Beta Quant assay procedure was used. Results from different manufacturers or methods may not be comparable. Serial testing should be performed using the same method. Interpretive Data was last revised on 2023 Testing performed by: [facility], [facility] [place] [address] Blood 12/24/2024 9:26 AM CDT 12/24/2024 9:32 AM CDT Yusra Wiseman NP LAB BLOOD ORDERABLES Fi nal Result Performing Organization Address City/[facility] Co de Phone Number [facility] [address] [place] [address] * Lipase (12/24/2024 9:26 AM CDT) [facility] Lipase 14 10 - 99 Units/L Comment:Testing performed by : [facility], [place] [address] Blood 12/24/2024 9:26 AM CDT 12/24/2024 9:32 AM CDT Yusra Wiseman NP LAB BLOOD ORDERABLES Fi nal Result [facility] RUSSELL [address] [place] [address] * (ABNORMAL) Comprehensive metabolic panel (12/24/2024 9:26 AM CDT) [facility] Sodium 136 135 - 145 mmol/L Comment:Testing performed by : [facility], [facility] [place] [address] [address] Potassium, pl 3.7 3.3 - 4.9 mmol/L [facility] CH Comment:Testing performed by : [facility] [place] [address] Chloride 101 97 - 110 mmol/L [facility] CH Comment:Testing performed by : [facility] [place] [address] CO2 17(L) 22 - 32 mmol/L [facility] CH Comment:Testing performed by : [facility] [place] [address] [address] Anion gap 18(H) 2 - 15 mmol/L CERNER CH Comment:Testing performed by : [facility] [place] [address] BUN 7 6 - 25 mg/dL CERNER CH Comment:Testing performed by : [facility] [place] [address] Creatinine 0.57(L) 0.60 - 1.10 mg/dL CERNER CH Comment:Testing performed by : [facility] [address] [place], [place] [address]jcar[place] [address] Glucose 85 70 - 199 mg/dL CERNER Comment: Interpretive Data Fasting glucose >/= 126 [...] was last revised 2022. Testing performed by: [facility] [place] [address] Calcium 9.7 8.5 - 10.3 mg/dL CERNER CH Comment:Testing performed by : [facility] [place] [address] Bilirubin, total 0.4 0.1 - 1.2 mg/dL CERNER CH Comment:Testing performed by : [facility] [place] [address] Protein, pl 7.4 6.5 - 8.5 g/dL CERNER CH Comment:Testing performed by : [address], [place] [address] Albumin 4.0 3.5 - 5.0 g/dL CERNER CH Comment:Testing performed by : [facility] [address], [place] [address] Alk phos 76 40 - 130 Units/L CERNER CH Comment:Testing performed by : [facility] [address], [place] [address] ALT 18 7 - 45 Units/L CERNER CH Comment:Testing performed by : [facility] [address], [place] [address] AST 21 10 - 45 Units/L CERNER CH Comment:Testing performed by : [facility] [address], [place] [address] Blood 12/24/2024 9:26 AM CDT 12/24/2024 9:32 AM CDT Yusra Wiseman NP LAB BLOOD ORDERABLES Fi nal Result [facility] [address] Department [place] [address] * (ABNORMAL) POCT hCG, urine (12/24/2024 9:24 AM CDT) Pathologist [facility] HCG, ur, POC Positive(A) Negative Lot Number [id number] QC Backgroud Clear Acceptable QC Control Line Acceptable Urine 12/24/2024 9:24 AM CDT Yusra Wiseman NP POINT OF CARE TEST ORDE GABI Final Result * (ABNORMAL) Urinalysis reflex to microscopic and culture Urine (12/24/2024 9:06 AM CDT) Color, ur Yellow Yellow Comment:Testing performed by : [facility] [address], [place] [address] Clarity, ur Clear Clear CERNER CH Comment:Testing performed by : [facility] [address], [place] [address] Specific gravity, ur 1.026 1.003 - 1.030 CERNER CH Comment:Testing performed by : [facility], [address] [address] pH, urine 8.0 CERNER Comment: Interpretive Data U rine pH is affected by diet, medications, systemic acid-base disturbances, and renal tubular function. pH may affect urinary stone formation. For example, urine pH below 6.0 may help reduce the tendency for calcium phosphate stones and pH greater than 6.0 may reduce the tendency for uric acid stone formation. Source: [facility] [employer] Current Interpretive Data was last revised on 2017 Testing performed by: [facility], [place] [address] Protein, ur ql Trace Negative CERNER CH Comment:Testing performed by : [facility], [place] [address] Glucose, ur ql Negative Negative CERNER Comment:Testing performed by : [facility], [place] [address] Ketones, ur Trace Negative CERNER CH Comment:Testing performed by : [facility] [address], [place] [address] Bilirubin, ur Negative Negative CERNER Comment:Testing performed by : [facility], [place] [address] Blood, ur Negative Negative CERNER CH Comment:Testing performed by : [facility], [place] [address] Urobilinogen, ur 2.0(A) <2.0 mg/dL CERNER Comment:Testing performed by : [facility] [address], [place] [address] Nitrite, ur Negative Negative CERNER Comment:Testing performed by : [facility] [address], [place] [address] Leukocyte esterase, ur Negative Negative CERNER Comment:Testing performed by : [facility] [address] [address] UA reflex comment Reflex conditions for microscopic UA and culture not met. CERNER Comment:Testing performed by : [facility] [address], [place] [address] Urine 12/24/2024 9:06 AM CDT 12/24/2024 9:10 AM CDT Yusra Wiseman TECHNICAL BUYER LAB MICROBIOLOGY - GENE RAL ORDERABLES Final Result [facility] [address] [facility] Department [place] [address] * N. gonorrhoeae/C. trachomatis Amplification Vaginal (12/13/2024 2:30 AM CDT) C. trachomatis Not Detected Not Detected N. gonorrhoeae Not Detected Not Detected [facility] Comment: Interpretive Data This assay detects Chlamydia trachomatis and Neisseria gonorrhoeae by nucleic acid amplification testing (NAAT). This assay has been cleared by the [place] Food and Drug administration. The performance characteristics of this test have been verified by the [facility]. The performance characteristics of this test have not been evaluated in individuals less than 14 years of age. Current Interpretive Data last revised 2023. Vaginal (None) 12/13/2024 2: 30 AM CDT 12/13/2024 2:34 AM CDT Juan COLIN LAB MICROBIOLOGY - GENERAL O RDERABLES Final Result Performing Organization Address City/[facility] Co de Phone Number [facility] [address] [facility] Department [place] [address] * (ABNORMAL) Vaginitis panel Vaginal (12/13/2024 2:30 AM CDT) Bacterial Vaginosis Not Detected Not Detected Comment:A negative result do es not preclude a possible infection. Results should be considered in conjunction with clinical presentation to determine the disease status. Jada group Detected(A) Not Detected [facility] Comment:Jada species can be present as commensal organisms in women; results should be considered in conjunction with clinical presentation to determine the disease status. Jada glabrata/ krusei Not Detected Not Detected [facility] Trichomonas DNA Not Detected Not Detected [facility] Vaginal 12/13/2024 2:30 AM CDT 12/13/2024 2:34 AM CDT Narrative [facility] - 12/13/2024 3:34 AM CDT The [employer] Xpert Xpress MVP test detects DNA targets [...] this test have been verified by the [facility]. The [employer] Xpert Xpress MVP test detects DNA targets [...] this test have been verified by the [facility]. Juan COLIN LAB MICROBIOLOGY - GENERAL O RDERABLES Final Result [facility] [address] [facility] Department [place] [address] * (ABNORMAL) Urinalysis reflex to microscopic and culture Urine (12/13/2024 2:30 AM CDT) Color, ur Straw Yellow Clarity, ur Cloudy(A) Clear [facility] Specific gravity, ur 1.018 1.003 - 1.030 [facility] pH, urine 6.0 [facility] Comment: Interpretive Data U rine pH is affected by diet, medications, systemic acid-base disturbances, and renal tubular function. pH may affect urinary stone formation. For example, urine pH below 6.0 may help reduce the tendency for calcium phosphate stones and pH greater than 6.0 may reduce the tendency for uric acid stone formation. Source: [facility] Current Interpretive Data was last revised on 2017 Protein, ur ql Negative Negative [facility] Glucose, ur ql Negative Negative [facility] Ketones, ur Negative Negative [facility] Bilirubin, ur Negative Negative [facility] Blood, ur 1+(A) Negative [facility] Urobilinogen, ur <2.0 <2.0 mg/dL [facility] Nitrite, ur Negative Negative [facility] Leukocyte esterase, ur 4+(A) Negative [facility] UA reflex comment Reflex to microscopic UA will be performed. [facility] Urine 12/13/2024 2:30 AM CDT 12/13/2024 2:34 AM CDT [facility] MICROBIOLOGY - GENERAL ORDERABLES Final Result Performing Organization Address [facility] de Phone Number [address] [place] [address] * (ABNORMAL) Urinalysis, microscopic only (12/13/2024 2:30 AM CDT) WBC, ur 0-5 0 - 5 /HPF RBC, ur 11-20(A) 0 - 2 /HPF [facility] Epithelial cells, squamous, ur 11-20(A) 0 - 5 /HPF [facility] Comment:Suggestive of contam ination. Consider recollection by clean catch. Mucous, ur Present(A) [facility] Culture Reflex Comment Reflex conditions for urine culture (WBC >10) not met. [facility] Urine 12/13/2024 2:30 AM CDT 12/13/2024 2:34 AM CDT [facility] LAB URINE ORDERABLES Final Result Performing Organization Address [facility] de Phone Number [address] [place] [address] * Urine culture Urine (12/13/2024 2:30 AM CDT) Report Final Report: Growth indicative of contamination with periurethral slava. Please submit a new specimen with special attention given to the collection process and to prompt transport to the laboratory. Comment:Testing performed by : [facility], [address] [facility], [place]., [address] Organism GROWTH INDICATES CONTAM WITH PERIURETHRAL SLAVA. [facility] Urine 12/13/2024 2:30 AM CDT 12/13/2024 9:22 AM CDT Narrative [facility] - 12/14/2024 2:33 PM CDT Testing performed by [facility] Microbiology Laboratory ([phone]) Juan COLIN LAB MICROBIOLOGY - GENERAL O RDERABLES Final Result [facility] [address] [facility] [place] [address] * (ABNORMAL) POCT hCG, urine (12/13/2024 2:27 AM CDT) HCG, ur, POC Positive(A) Negative Lot Number [id number] QC Backgroud Clear Acceptable QC Control Line Acceptable Urine 12/13/2024 2:27 AM CDT Juan Manuel Avitia DO POINT OF CARE TEST ORDERABL ES Final Result from Last 3 Months Insurance BLUE PATHWAYS EXCHANGE IDPA IDPA Care Teams Canvas Cutter Relationship Specialty Start Date End Date No, Physician PCP - General 10/07/24
--- OUTSIDE RECORDS SUMMARY | 2025-02-22 11:58 | XMS_ITS | Clinical Summary ---
Author Organization [facility] Address [address] [place] [address] Care Team Providers Care Accounting Administrator Name Role Phone Unavailable Primary Care Provider [...] Date Last Done Comments HPV/Cotest (21-29) 2014 HPV VACCINES (1 - 3-dose SCD M series) 2020 HPV/Cotest (30-65) 2023 CERVICAL CANCER SCREENING 08/26/2024 [...] TRICH (08/26/2021 10:22 AM CDT) SEE NOTE [facility] Comment: This order for age-based cervical cancer and STI screening follows ACOG guidelines(PB 168, 140, HQY997). See individual assays for performing site location. CLINICAL INFORMATION [facility] Comment:Information not prov ided LAST MENSTRUAL PERIOD [...] ithelial lesion or malignancy. COMMENT (PAP TEST) [facility] Comment: This Pap test has been evaluated with computer assisted technology. SHAFTING WORKER: [facility] Comment: SAMAGNES(ASCP) CT screening location: [place] [address] [place] [address] SEE NOTE [facility] Comment: EXPLANATORY NOTE: [...] C TRAC RNA NOT DETECTED NOT DETECTED [facility] N.GONORRHOEAE RNA, TMA NOT DETECTED NOT DETECTED [facility] SEE NOTE [facility] Comment: The analytical performance characteristics of this assay, when used to test SurePath(TM) specimens have been determined by [facility]. The modifications have not been cleared or approved by the FDA. This assay has been validated pursuant to the CLIA regulations and is used for clinical purposes. For additional information, please refer to https://[employer]/faq/CDU987 (This link is being provided for information/ educational purposes only.) TRICHOMONAS VAGINALIS,QUALITAT LAYNE,PAP VIAL NOT DETECTED NOT DETECTED [facility] Comment: The analytical performance characteristics of this assay have been determined by [facility]. The modifications have not been cleared or approved by the FDA. This assay has been validated pursuant to the CLIA regulations and is used for clinical purposes. For additional information, please refer to http://[employer]/ faq/Trichomonastma (This link is being provided for information/ educational purposes only.) Test Performed at: [facility] [address] [place] [address] Andrea Mix D.O., MPH Genital SWAB OF ENDOCERVIX / Unknown 08/26/2021 10:22 AM CDT 08/27/2021 4:04 AM CDT Aba Gutierrez MD PATHOLOGY/CYTOLOGY ORDERABLES Final Result Performing Organization Address City/State/[facility] Co de Phone Number [facility] [address] [place] [address] from Last 3 Months or Most Recently Relevant to Health Maintenance Insurance BCBS TRUE BLUE PPO EXCHANGE
[2025-02-22 12:00] LABS: Add Urine Microscopic? NO; Appearance Urine Clear (Clear); Glucose Urine UA Negative (Negative); Leukocyte Esterase Ur Negative LEU/UL (Negative); Nitrate Urine Negative (Negative); Specific Grav Ur 1.014 (1.001-1.035)
[2025-02-22 12:47] LABS: HIV 1/2 Ab P24 Ag Result Negative (Negative); Hepatitis B Surface Antigen Negative (Negative); Syphilis IgG/IgM Antibody Non-Reactive (Nonreactive); Thyroid Stimulating Hormone 0.613 uIU/mL (0.465-4.680)
[2025-02-23 15:09] LABS: Varicella-Zoster Ab, IgG Reactive (Non Reactive); Varicella-Zoster Ab, IgM <0.91 index (0.00-0.90)
== END 2025-02-22 11:07 | disposition home or self-care (01) ==
PROVIDERS: Visit Provider Obstetrics & Gynecology
DX: Z34.90 Encounter for supervision of normal pregnancy, unspecified, unspecified trimester (principal)
CPT/HCPCS: 36415; 81003; 83020; 84443; 85027; 85660; 86593; 86703; 86762; 86787; 86803; 86850; 86880; 86900; 86901; 86902; 87340; G0432

== ENCOUNTER 2025-03-07 23:35 | Emergency (ER) | payer OTHER, SELFPAY ==
--- OUTSIDE RECORDS SUMMARY | 2016-09-04 06:30 | XMS_ITS | Continuity of Care Document ---
Author Organization [facility] Address [address] [place] [address] Phone Care Team Providers Care Bottle Tester Name Role Phone Hernan Lloyd DMD Unavailable [...] AN CARE, AT-RISK ENHANCED SERVICE PACKAGE (INCLUDES [id number]) OFFICE/OUTPATIENT VISIT, EST PRESCRIPTION DRUG, ORAL, NON CHEMOTHERAP EUTIC, NOS AZITHROMYCIN DIHYDRATE, ORAL, CAPSULES/P OWDER, 1 GRAM Wet beka, including preparations of va ginal, cervical or skin specimens COLLECTION OF VENOUS BLOOD BY VENIPUNCTU RE OFFICE/OUTPATIENT VISIT, EST CARE, AT-RISK ENHANCED SERVICE PACKAGE (INCLUDES [id number]) OFFICE/OUTPATIENT VISIT, EST COLLECTION OF VENOUS BLOOD BY VENIPUNCTU RE Voided Encounter care, at-risk assessment care, at-risk enhanced service; antepartum management MENTAL HEALTH ASSESSMENT, BY NON-PHYSICI AN SKIN TEST; TUBERCULOSIS, INTRADERMAL Dec OFFICE/OUTPATIENT VISIT, NEW Advance Directives Directive Yes / No Effective Date File Name No Information Encounters Encounter Description Practice Location Reason(s) For Visit Diagnoses Date Provider Providers Copied on Encounter [facility] , [address], [place], [place], [address], tel:[phone] [facility] [place] Encounter for dental exam and cleaning w abnormal findings 7 Gabino Becerra. [address], [place], [place], [address]. tel:[phone] Referring Provider: Hernan Lloyd, [address], [place], [address]. tel:[phone] [facility] , [address], [place], [place], [address], tel:[phone] [facility] [place] home visit (chief complaint) Routine follow-up Management [facility]. [address], [place], [place], [address], . tel:[phone] [facility] , [address], [place], [place], [address], tel:[phone] [facility] [place] No Information 2 [facility]. [address], [place], [place], [address], . tel:[phone] Consulting Provider: Arianne Samuels, [address], [place], [address]. tel:[phone] OFFICE/OUTPAT IENT VISIT, EST [facility] , [address], [place], [place], [address], [place] tel:[phone] [facility] [place] No Information 1 Bianca Bauman. [address], [place], [place], [address], . tel:[phone] OFFICE/OUTPAT IENT VISIT, EST [facility] , [address], [place], [place], [address], [place] tel:[phone] [facility] [place] Supervision of normal first 1 Rico Navas [address], [place], [place], [address], . tel:[phone] [facility] , [address], [place], [place], [address], tel:[phone] [facility] [place] No Information 1 [facility]. [address], [place], [address] [place] [address], . tel:[phone] Consulting Provider: Arianne Samuels, [address], [place], [address]. tel:[phone] OFFICE/OUTPAT IENT VISIT, [facility] , [address], [place], [place], [address], tel:[phone] [facility] [place] Supervision of other normal 1 Rico Navas [address], [place], [place], [address], . tel:[phone] [facility] , [address], [place], [place], [address], [place] tel:[phone] [facility] [place] Supervision of normal first 1 Rico Navas [address], [place], [place], [address], . tel:[phone] [facility] , [address], [place], [place], [address], tel:[phone] [facility] [place] pn intake (chief complaint) No Information No Information OFFICE/OUTPAT IENT VISIT, [facility] , [address], [place], [place], [address], [place] tel:[phone] [facility] [place] Test (chief complaint)No te for school-Pregn italo (chief complaint) Irregular menstrual cycle Bianca Bauman. [address], [place], [place], [address], [place]. tel:[phone] Family History Family Member Type Diagnosis Age At Onset Father Problem (finding) hypertension Mother Problem (finding) hypertension Father Problem (finding) Maternal history of alice betes mellitus Payers Payer name Insurance type Covered constitution party ID Alpa pool(s) D Medicaid - Dental CI [id number] Social History Type Description Quantity Date Captured Comments Sex Female Smoking Status No Information Chief Complaint And Reason For Visit No Information Reason For Referral Reason For Referral No Information Plan Of Treatment Date Type Action Status Goal BMP fasting. Due on 011 due Referral Referred To: [facility] Radiology [address] [place], [phone] Ordered: Referral: [facility] Radiology. Radiology. ordered Future Order: [...]
[2025-03-07 23:38] VITALS: BP 122/80; PULSE 88; RESP 20; TEMP 36.7; O2SAT 100
--- NOTE | 2025-03-08 02:14 | PC.NURSE ---
pt called out and verbalized being nauseated. PROCUREMENT OFFICER waiting for provider to be assigned and assess pt.
--- OUTSIDE RECORDS SUMMARY | 2025-03-08 03:06 | XMS_ITS | Clinical Summary ---
Author Organization [facility] Address [address] [place] [address] Care Team Providers Care Entry Level Lab Technician Name Role Phone [facility] Primary Care Pro vider Source Comments [facility],non-owned Affiliates and Associated Physician Practices is amultiple site organization consisting of ambulatory clinics and hospital sitesin [place], [place], [place] and [place]. This disclosure is being madepursuant to the Care Everywhere program and may not contain all information available regarding this patient. Last updated 18.[facility] Allergies Active Allergy Reactions Criticality Noted Date [...] fluticasone propionate (Flonase) 50 MCG/ACT nasal spray Tuttle 2 (two) sprays into each nostril once [...] ing 20 tablet 03/28/2024 Active HYDROcodone-lilian taminophen ([place]) 5-325 MG tabletIndicatio ns:Acute maxillary sinusitis, recurrence [...] 03/25/2022 Mild Polyhydramnios 03/25/2022 Bipolar Depression 12/24/2017 Estimated Date of Delivery Comme nts Yes 08/18/2025 Based on Ultraso und Resolved Problems Problem Noted Date Diagnosed Date Resolved Date GERD (gastroesophageal reflux disease) 04/23/2022 04/23/2022 Functional diarrhea 04/07/2022 05/05/20 22 Nausea and vomiting during 10/30/2021 04/23/2022 Viral [...] complete, rpt 4 wks GCT: 109 GBS: 18 Tdap:7/ Flu shot: Declined. Recently had influenza Feeding: Breast Contraception: Bipolar affective disorder 08/05/2016 1 06/08/2016 Overview (11/11/2016): She sees Dr. Jean at [facility]. She discontinued Seroquel with positive test. [...] to sleep or slept in a senior care (including now)? No 05/11/2022 [place] Depression Scale Answer Date Recorded RETIRED: Total Score 0 05/08/2022 Last EPDS Self Harm Result Not on file 05/08 Estimated Date of Delivery Comme nts Yes 08/18/2025 Based on Ultraso und Sex and Gender Information Value Date Recorded Sex Assigned at Not on file Legal Sex Female 6:05 AM PRACTICE MANAGER Gender Identity Not on file Sexual Orientation Not on file Last Filed Vital Signs Vital Sign Reading Time Taken Comments Blood Pressure 147/96 05/28/2024 11:26 PM PRACTICE MANAGER Pulse 65 05/28/2024 11:26 PM PRACTICE MANAGER Temperature 36.7 C (98.1 F) 05/28/2024 11:26 PM PRACTICE MANAGER Respiratory Rate 18 05/28/2024 11:26 PM PRACTICE MANAGER Oxygen Saturation 95% 05/28/2024 11:26 PM PRACTICE MANAGER Inhaled Oxygen Concentration - - Weight 70.8 kg (156 lb) 05/28/2024 11:26 PM PRACTICE MANAGER Height 157.5 cm (5' 2) 05/28/2024 11:26 PM PRACTICE MANAGER Body Mass Index 28.53 05/28/2024 11:26 PM PRACTICE MANAGER Plan of Treatment Upcoming Encounters Date Type Department Care Team (Late st Contact Info) Description 03/13/2025 1:45 PM CDT Hospital Encounter [facility] Women's Health Maternal & Care [address] [place], [place] [id number] Health Maintenance Due Date Last Done Comments HEPATITIS C SCREENING 05/29/2011 PNEUMOCOCCAL VACCINE (1 of 2 - PCV) 2012 PAP SMEAR 08/05/2019 08/05/2016 HPV VACCINE (1 - 3-dose SCDM series) 2020 DEPRESSION SCREENING 06/08/2024 COVID-19 VACCINE (2 - 2024- season) 2025 09/20/2020 INFLUENZA VACCINE (#1) 2025 , 02/26/2017, 06/20/2011 OB-ONE HOUR GLUCOSE 05/12/2025 12/10/2016 OB-TDAP CURRENT 05/19/20252021, 12/10/2016, 06/20/2011, Additional history exists OB-RHOGAM INJECTION 05/26/2025 09/28/2023, 04/28/2023, 05/13/2022, Additional history exists OB-GROUP B STREP SCREEN 07/14/2025 01/20/2017 DTAP/TDAP/TD VACCINES (11 - Td or Tdap) 07/20/2031 07/20/2021, 12/10/2016, 06/20/2011, Additional history exists ZOSTER VACCINE (1 of 2) 2043 Respiratory Syncytial Virus (RSV) Vaccine Pt: or over 60 yrs (1 - 1-dose 75+ series) 2068 HEPATITIS B VACCINE Completed 1993, 1993, 1993 HIB VACCINE Completed 11/20/1994, 11/08, 1993, Additional history exists MENINGOCOCCAL GROUPS A/C/Y/W VACCINE Completed 06/19/2010 HIV SCREENING Completed 08/05/2016 MENINGOCOCCAL (Group B) VACCINE SHARED DECISION-MAKING Aged Out No longer eligible based on patient's age to complete this topic Procedures Procedure Name Priority Date/Time Associated Diagnosis Comments CULTURE STREP B Routine 01/20/2017 2:51 AM CDT Supervision of other normal , antepartum GLUCOSE CHALLENGE Routine 12/10/2016 10: 00 AM CDT Supervision of other normal , antepartum PAP IG RFLX HPV ASCU Routine 08/05/2016 12:37 PM PRACTICE MANAGER 10 weeks gestation of HIV-1 HIV-2 ANTIBODY + HIV P24 AG PANEL Routine 08/05/2016 12:35 PM PRACTICE MANAGER 10 weeks gestation of from Last 3 Months or Most Recently Relevant to Health Maintenance Results * CULTURE STREP B (01/20/2017 2:51 AM CDT) Pathologist [facility] Culture Strep B Negative for beta-hemolytic Streptococcus Group B ALE 01/23/2017 9:48 AM CDT [facility] MICROBIOLOGY Microbiology MISCELLANEOUS SAMPLES / Unknown Collection / Unknown 01/20/2017 2:51 AM CDT 01/20/2017 2:58 AM CDT us Maryann Lynn MD LAB - MICROBIOLOGY ORDERABLES Final Result [facility] MICROBIOLOGY [address] [place] [address], [facility] [phone] * GLUCOSE CHALLENGE (12/10/2016 10:00 AM CDT) Glucose Challenge 109 64 - 140 mg/dL 12/10/2016 12:16 PM CDT [facility] Glucose Challenge Time 12/10/2016 12:16 PM CDT [facility] Blood BLOOD SPECIMEN / Unknown 12/10/2016 10:00 AM CDT 12/10/2016 11:48 AM CDT us Rochelle Velazquez EVENT OPERATIONS MANAGER-[place]ER LAB - CHEMISTRY ORDERABLE S Final Result [facility] [address] [place] [address] * PAP SMEAR IG RFLX HPV ASCU (PO REF LAB) (08/05/2016 12:37 PM PRACTICE MANAGER) Diagnosis Comment 08/06/2016 9:08 PM PRACTICE MANAGER [facility] Comment:NEGATIVE FOR INTRAEP ITHELIAL LESION AND MALIGNANCY. Specimen Adequacy Comment 017 9:08 PM PRACTICE MANAGER [facility] ([facility]) Comment: Satisfactory for evaluation. Endocervical and/or squamous metaplastic cells (endocervical component) are present. Performed by Comment 08/06/2016 9:08 PM PRACTICE MANAGER [facility] Comment:Rubi Medley, [employer]otec hnologist (ASCP) Comment . 08/06/2016 9:08 PM PRACTICE MANAGER [facility] Note Comment 08/06/2016 9:08 PM PRACTICE MANAGER [facility] ([facility]) Comment: The Pap smear is a screening test designed to aid in the detection of premalignant and malignant conditions of the uterine cervix. It is not a diagnostic procedure and should not be used as the sole means of detecting cervical cancer. Both false-positive and false-negative reports do occur. [facility] CPT Code Automation Comment 08/06/2016 9:08 PM PRACTICE MANAGER [facility]) Comment: This liquid based ThinPrep(R) pap test was screened with the use of an image guided system. Note Comment 08/06/2016 9:08 PM PRACTICE MANAGER [facility] Comment: The HPV DNA reflex criteria were not met with this specimen result therefore, no HPV testing was performed. Pathology/Cytolo gy PART OF UTERINE CERVIX / Unknown 08/05/2016 12:37 PM PRACTICE MANAGER 08/05/2016 1:19 PM PRACTICE MANAGER Narrative [facility] ([facility]) - 08/06/2016 9:08 PM PRACTICE MANAGER Performed at: - [facility] [place] [id number] Physician Extender: Rayna Cuevas MD, Phone: [phone] Specimen Comment: Source.............Cervix Specimen Comment: No. of containers..01 CYTYC Thin Prep Vial us Gaye Stephens MD LAB - PATHOLOGY/CYTOLOGY ORDE RABLES Final Result [facility] ([facility]) [address] [place] [address] * HIV-1 HIV-2 ANTIBODY + HIV P24 AG PANEL (08/05/2016 12:35 PM PRACTICE MANAGER) HIV1/2 Ab + P24 Ag Non Reactive Non Reactive 08/05/2016 6:49 PM PRACTICE MANAGER [facility] Blood BLOOD SPECIMEN / Unknown 08/05/2016 12:35 PM PRACTICE MANAGER 08/05/2016 1:10 PM PRACTICE MANAGER Narrative [facility] - 08/05/2016 6:49 PM PRACTICE MANAGER No Laboratory evidence of HIV infection. Gaye Stephens MD LAB - CHEMISTRY ORDERABLES Fi nal Result [facility] [place] [address] from Last 3 Months or Most Recently Relevant to Health Maintenance Insurance [facility] BRIAN FLORES [address] MEDICAID - [facility] COMMUNITY PLAN [facility] [place] MEDICAID - [employer] COMMUNITY PLAN MEDICAID [...] 12:53 PM 02/27/2017 12:50 PM Care Teams Entry Level Lab Technician Relationship Specialty Start Date End [facility] [address] [place] [address] PCP - General [employer] [place] 01/30/22
--- OUTSIDE RECORDS SUMMARY | 2025-03-08 03:06 | XMS_ITS | Clinical Summary ---
Author Organization [facility] [address] [place] [id number] Care Team Providers Care Salvationist Name Role Phone No, Physician Primary Care Provider [phone] Allergies Active Allergy Reactions Criticality Noted Date [...] linked with therapist. Her Referred to [facility] for trauma focused therapy. Start Prozac 20 [...] Department Care Team Description 02/16/2025 10:17 AM [facility] - 02/16/2025 2:06 PM T Emergency [facility] Emergency Department [address] [place] [address] David Conner MD Dizziness (Primary Dx); Chronic back pain, unspecified back location, unspecified back pain laterality; Neck pain; , unspecified gestational age Discharge Disposition: Discharge to home or self care 12/24/2024 8:46 AM T - 12/24/2024 11:57 AM [facility] Emergency [facility] Emergency Department [facility] [place] [address] Nausea and vomiting in (Primary Dx) Discharge Disposition: Discharge to home or self care 12/15/[address] [address] Shayna Dean RN 12/15/[address] [address] Shayna Dean RN 12/14/[address] [address] Shayna Dean RN 12/14/2024 Results Follow-Up [address] [address] Juan Samson PA Vaginitis panel Vaginal 12/13/2024 2:30 AM CDT - 12/13/2024 3:25 AM CDT Emergency [address] [address] Positive test (Primary Dx); Vaginal irritation Discharge [...] on file Legal Sex Female 9:34 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 Gender Identity Female 07/10/2020 2:40 PM CLIENT PORTFOLIO MANAGER Sexual Orientation Straight 07/10/2020 2: 40 PM CLIENT PORTFOLIO MANAGER Obstetrics History Para Term AB IAB [...] WALKER ,BABY GIRL FRANCH ESCA Tara Delivery Location:[facility] 2013 AB 2016 IAB 2016 Term 39w 3d 0h 17m 0h 13m/0h 04m 2.91 kg (6 lb 6.7 oz) F Vag-S pont Epidur al N Livin g 8 9 WALKER ,BABY GIRL NIRANJAN HENSON Abhishek Nj MD Complications:None Delivery Location:[facility] 2018 IAB 2019 SAB 2021 Term 37w 4d 2.745 kg (6 lb 0.8 oz) F Vag-S pont Epidur al Livin bijan wood Complications: Karla yamileth Hypertension Delivery Location:[facility] 2021 Term 37w 4d 0h 07m 0h 07m 2.745 kg (6 lb 0.8 oz) F Vag-S pont Epidur al N Livin g 9 9 WALKER ,BABY GIRL NIRANJAN HENSON Salena wood MD Complications:None Delivery Location:[facility] ([facility]) Current Last Filed Vital Signs Vital Sign [...] ur Yellow Yellow Comment:Testing performed by : [address] [address] Clarity, ur Clear Clear [facility] Comment:Testing performed by : [address] [address] Specific gravity, ur 1.014 1.003 - 1.030 [facility] Comment:Testing performed by : [address] [address] pH, urine 7.0 [facility] Comment: Interpretive Data U rine pH is affected by diet, medications, systemic acid-base disturbances, and renal tubular function. pH may affect urinary stone formation. For example, urine pH below 6.0 may help reduce the tendency for calcium phosphate stones and pH greater than 6.0 may reduce the tendency for uric acid stone formation. Source: [facility] Current Interpretive Data was last revised on 2017 Testing performed by: [facility], [address] [place] [address]., [address] Protein, ur ql Negative Negative [facility] BUCKLEY Comment:Testing performed by : [address] [address] Glucose, ur ql Negative Negative [facility] Comment:Testing performed by : [address], [place]., [address] Ketones, ur Negative Negative [facility] Comment:Testing performed by : [address] [address] Bilirubin, ur Negative Negative [facility] Comment:Testing performed by : [address], [place]., [address] Blood, ur Negative Negative [facility] Comment:Testing performed by : [address], [place]., [address] Urobilinogen, ur <2.0 <2.0 mg/dL [facility] Comment:Testing performed by : [address], [place]., [address] Nitrite, ur Negative Negative [facility] Comment:Testing performed by : [address] [address] Leukocyte esterase, ur Negative Negative [facility] Comment:Testing performed by : [address] [address] UA reflex comment Reflex conditions for microscopic UA and culture not met. [facility] Comment:Testing performed by : [address] [address] Urine 02/16/2025 11:4 5 AM CDT 02/16/2025 11:49 AM CDT us Rehab U[facility] MICROBIOLOGY - GENERAL ORDE GABI Final Result [facility] BUCKLEY [address] [facility] Department of Laboratories [place], [place] [id number] * ECG 12 lead (02/16/2025 10:59 AM CDT) Ventricular Rate EKG/Min 92 BPM [facility] Atrial Rate 92 BPM [facility] SD-Interval (MSEC) 138 ms [facility] QRS-Interval (MSEC) 60 ms [facility] QT-Interval (MSEC) 338 ms [facility] QTc 417 ms [facility] P [place] 43 degrees [facility] R [place] 41 degrees [facility] T [place] 31 degrees [facility] Diagnosis Normal sinus rhythm Normal ECG No previous ECGs available Confirmed by MD SIDHU FAYE ([id number]) on 02/16/2025 4:28:21 PM [facility] 02/16/2025 10:5 9 AM CDT 02/16/2025 4:28 PM CDT us Adebowale Tolumarciede Adecoleenda PA ECG ORDERABLES Fi nal Result [facility] * US Ob 14 Weeks Or Over [...] Nevaeh Hernandez D.O. PS: PS Report ID: [id number] Reading Location: [id number] Procedure Note Mary Nevaeh Garcia DO - [...] Nevaeh Hernandez D.O. PS: PS Report ID: [id number] Reading Location: [id number] us Puaj COLIN IMG OB US PROCEDUR ES Final [...] was last reviewed 2021. Testing performed by: [address] [address] Blood 02/16/2025 9:13 AM CDT 02/16/2025 9:27 AM CDT us Rehab Ubaldo [facility] BLOOD ORDERABLES Final Resu lt [facility] [address] Department [place] [address] * Differential, auto (02/16/2025 9:13 AM CDT) Neutrophil abs 4.66 1.50 - 6.50 K/cumm Comment:Testing performed by : [address] [address] Imm gran abs 0.02 0.00 - 0.10 K/cumm [facility]O Comment:Testing performed by : [address] [address] Lymphocyte abs 1.87 0.80 - 3.30 K/cumm [facility]O Comment:Testing performed by : [address] [address] Monocyte abs 0.37 0.20 - 0.80 K/cumm [facility] Comment:Testing performed by : [address] [address] Eosinophil abs 0.21 0.00 - 0.50 K/cumm CON[facility]O Comment:Testing performed by : [address] [place]., [address] Basophil abs 0.02 0.00 - 0.10 K/cumm [facility]O Comment:Testing performed by : [address] [address] Neutrophil pct 65.1 % [facility] Comment: Interpretive Data Percent cell count reference ranges are not reported, since discordance with absolute values may lead to misinterpretation of CBC data. Current Interpretive Data was last revised on 2017. Testing performed by: [address] [address] Imm gran pct 0.3 % [facility] Comment: Interpretive Data Percent cell count reference ranges are not reported, since discordance with absolute values may lead to misinterpretation of CBC data. Current Interpretive Data was last revised on 2017. Testing performed by: [address] [address] Lymphocyte pct 26.2 % [facility] Comment: Interpretive Data Percent cell count reference ranges are not reported, since discordance with absolute values may lead to misinterpretation of CBC data. Current Interpretive Data was last revised on 2017. Testing performed by: [address] [address] Monocyte pct 5.2 % [facility] Comment: Interpretive Data Percent cell count reference ranges are not reported, since discordance with absolute values may lead to misinterpretation of CBC data. Current Interpretive Data was last revised on 2017. Testing performed by: [address] [address] Eosinophil pct 2.9 % [facility] Comment: Interpretive Data Percent cell count reference ranges are not reported, since discordance with absolute values may lead to misinterpretation of CBC data. Current Interpretive Data was last revised on 2017. Testing performed by: [address] [address] Basophil pct 0.3 % [facility] Comment: Interpretive Data Percent cell count reference ranges are not reported, since discordance with absolute values may lead to misinterpretation of CBC data. Current Interpretive Data was last revised on 2017. Testing performed by: [address] [address] Blood 02/16/2025 9:13 AM CDT 02/16/2025 9:27 AM CDT us Rehab Ubaldo [facility] BLOOD ORDERABLES Final Resu lt [facility] [address] [facility] Department [place] [address] * (ABNORMAL) CBC with auto differential (02/16/2025 9:13 AM CDT) WBC 7.15 3.80 - 9.90 K/cumm Comment:Testing performed by : [address] [address] Hgb 11.8(L) 11.9 - 15.5 g/dL [facility] Comment:Testing performed by : [address] [address] Hct 35.7 35.6 - 45.5 % [facility] Comment:Testing performed by : [address] [address] Plt 219 150 - 400 K/cumm [facility]O Comment:Testing performed by : [address] [address] MPV 9.4 9.1 - 12.3 fL [facility] Comment:Testing performed by : [address] [address] RBC 4.39 3.90 - 5.20 M/cumm [facility] Comment:Testing performed by : [address] [address] MCV 81.3 81.3 - 96.4 fL [facility] Comment:Testing performed by : [address] [address] MCH 26.9(L) 27.1 - 33.3 pg [facility] Comment:Testing performed by : [address] [address] MCHC 33.1 32.3 - 35.7 g/dL [facility] Comment:Testing performed by : [address] [place] [address] RDW CV 14.4 11.1 - 14.9 % [facility] BUCKLEY Comment:Testing performed by : [address] [address] RDW SD 42.9 35.7 - 48.1 fL [facility] BUCKLEY Comment:Testing performed by : [address] [address] NRBC abs 0.00 0.00 - 0.01 K/cumm [facility]O BUCKLEY Comment:Testing performed by : [address] [address] Blood 02/16/2025 9:13 AM CDT 02/16/2025 9:27 AM CDT us Rehab Ubaldo [facility] BLOOD ORDERABLES Final Resu lt [facility] Department [place] [address] * (ABNORMAL) Comprehensive metabolic panel (02/16/2025 9:13 AM CDT) Sodium 136 135 - 145 mmol/L Comment:Testing performed by : [address] [address] Potassium, pl 3.8 3.3 - 4.9 mmol/L [facility] BUCKLEY Comment:Testing performed by : [address] [address] Chloride 104 97 - 110 mmol/L [facility] Comment:Testing performed by : [address] [address] CO2 19(L) 22 - 32 mmol/L [facility] Comment:Testing performed by : [address] [address] Anion gap 13 2 - 15 mmol/L [facility] BUCKLEY Comment:Testing performed by : [address] [address] BUN 6 6 - 25 mg/dL [facility] BUCKLEY Comment:Testing performed by : [address] [address] Creatinine 0.50(L) 0.60 - 1.10 mg/dL [facility] Comment:Testing performed by : [address] [address] Glucose 140 70 - 199 mg/dL CONRADO [...] was last revised 2022. Testing performed by: [address] [address] Calcium 9.6 8.5 - 10.3 mg/dL [facility] Comment:Testing performed by : [address] [address] Bilirubin, total 0.2 0.1 - 1.2 mg/dL [facility] Comment:Testing performed by : [address] [address] Protein, pl 6.8 6.5 - 8.5 g/dL [facility] Comment:Testing performed by : [address] [address] Albumin 3.9 3.5 - 5.0 g/dL [facility] Comment:Testing performed by : [address] [address] Alk phos 69 40 - 130 Units/L [facility] Comment:Testing performed by : [address] [address] ALT 12 7 - 45 Units/L [facility] Comment:Testing performed by : [address] [address] AST 19 10 - 45 Units/L [facility] Comment:Testing performed by : [address] [address] Blood 02/16/2025 9:13 AM CDT 02/16/2025 9:27 AM CDT us David Conner MD LAB BLOOD ORDERABLES Final Resu lt [facility] [address] [facility] Department [place] [address] * US Pelvic (12/24/2024 9:35 AM CDT) [...] was last reviewed 2021. Testing performed by: [facility], [facility] [place] [address] Blood 12/24/2024 9:26 AM CDT 12/24/2024 9:32 AM CDT Yusra Wiseman NP LAB BLOOD ORDERABLES nal Result [facility] [address] Department [place] [address] * Differential, auto (12/24/2024 9:26 AM CDT) Neutrophil abs 3.98 1.50 - 6.50 K/cumm Comment:Testing performed by : [facility] [address] Imm gran abs 0.02 0.00 - 0.10 K/cumm [facility] Comment:Testing performed by : [facility] [place] [address] Lymphocyte abs 2.09 0.80 - 3.30 K/cumm [facility] Comment:Testing performed by : [facility] [place] [address] Monocyte abs 0.63 0.20 - 0.80 K/cumm [facility] Comment:Testing performed by : [facility] [place] [address] Eosinophil abs 0.18 0.00 - 0.50 K/cumm [facility] Comment:Testing performed by : [address] [place] [address] [place] [address] Basophil abs 0.01 0.00 - 0.10 K/cumm [facility] Comment:Testing performed by : [address] [address] [place] [address] Neutrophil pct 57.7 % [facility] Comment: Interpretive Data Percent cell count reference ranges are not reported, since discordance with absolute values may lead to misinterpretation of CBC data. Current Interpretive Data was last revised on 2017. Testing performed by: [place] [address] [address] Imm gran pct 0.3 % CERNER Comment: Interpretive Data Percent cell count reference ranges are not reported, since discordance with absolute values may lead to misinterpretation of CBC data. Current Interpretive Data was last revised on 2017. Testing performed by: [facility], [address] [place] [address] Lymphocyte pct 30.2 % [facility] Comment: Interpretive Data Percent cell count reference ranges are not reported, since discordance with absolute values may lead to misinterpretation of CBC data. Current Interpretive Data was last revised on 2017. Testing performed by: [facility], [address] [place] [address] Monocyte pct 9.1 % [facility] Comment: Interpretive Data Percent cell count reference ranges are not reported, since discordance with absolute values may lead to misinterpretation of CBC data. Current Interpretive Data was last revised on 2017. Testing performed by: [facility], [address] [place] [address] Eosinophil pct 2.6 % [facility] Comment: Interpretive Data Percent cell count reference ranges are not reported, since discordance with absolute values may lead to misinterpretation of CBC data. Current Interpretive Data was last revised on 2017. Testing performed by: [facility], [address] [place] [address] Basophil pct 0.1 % [facility]ER Comment: Interpretive Data Percent cell count reference ranges are not reported, since discordance with absolute values may lead to misinterpretation of CBC data. Current Interpretive Data was last revised on 2017. Testing performed by: [facility], [address] [place] [address] Blood 12/24/2024 9:26 AM CDT 12/24/2024 9:32 AM CDT us Yusra Wiseman NP LAB BLOOD ORDERABLES Fi nal Result [facility] RUSSELL [address] Department [place] [address] * (ABNORMAL) CBC with auto differential (12/24/2024 9:26 AM CDT) WBC 6.91 3.80 - 9.90 K/cumm Comment:Testing performed by : [facility] [address] [address] [place], [place] [address] Hgb 13.2 11.9 - 15.5 g/dL C[facility]ER CH Comment:Testing performed by : [facility] [address] [place], [place] [address] Hct 40.0 35.6 - 45.5 % [facility] CH Comment:Testing performed by : [facility] [address] [place], [place] [address] Plt 259 150 - 400 K/cumm [facility] CH Comment:Testing performed by : [facility] [address] [place], [place] [address] MPV 9.1 9.1 - 12.3 fL [facility] CH Comment:Testing performed by : [facility] [address] [place] [address] RBC 4.93 3.90 - 5.20 M/cumm [facility] CH Comment:Testing performed by : [facility] [address] [place], [place] [address] MCV 81.1(L) 81.3 - 96.4 fL [facility] CH Comment:Testing performed by : [facility] [address] [place], [place] [address] MCH 26.8(L) 27.1 - 33.3 pg [facility]ER CH Comment:Testing performed by : [facility] [address] [place], [place] [address] MCHC 33.0 32.3 - 35.7 g/dL [facility] CH Comment:Testing performed by : [facility] [address] [place], [place] [address] RDW CV 16.1(H) 11.1 - 14.9 % [facility] CH Comment:Testing performed by : [facility] [address] [place], [place] [address] RDW SD 47.5 35.7 - 48.1 fL [facility] CH Comment:Testing performed by : [facility] [address] [place] [address] NRBC abs 0.00 0.00 - 0.01 K/cumm [facility] CH Comment:Testing performed by : [facility] [address] [place] [address] Blood Venous blood specimen / Unknown 12/24/2024 9:26 AM CDT 12/24/2024 9:32 AM CDT us Yusra Wiseman NP LAB BLOOD ORDERABLES Fi nal Result [facility] [address] [place] [address] * (ABNORMAL) hCG, blood, quantitative (12/24/2024 9:26 AM CDT) Pathologist [facility] hCG, quant 29,188.0( H) 0.0 - 5.0 IUnits/L Comment: Interpretive Data Male: < 5 IU/L Non- premenopausal Female: <5 IU/L The Karl hCG Beta Quant assay procedure was used. Results from different manufacturers or methods may not be comparable. Serial testing should be performed using the same method. Interpretive Data was last revised on 2023 Testing performed by: [facility] [place] [address] Blood 12/24/2024 9:26 AM CDT 12/24/2024 9:32 AM CDT Yusra Wiseman NP LAB BLOOD ORDERABLES Fi nal Result Performing Organization Address City/[facility] Co de Phone Number [facility] [address] [place] [address] * Lipase (12/24/2024 9:26 AM CDT) [facility] Lipase 14 10 - 99 Units/L Comment:Testing performed by : [facility], [place] [address] Blood 12/24/2024 9:26 AM CDT 12/24/2024 9:32 AM CDT Yusra Wiseman NP LAB BLOOD ORDERABLES Fi nal Result [facility] RUSSELL [address] [place] [address] * (ABNORMAL) Comprehensive metabolic panel (12/24/2024 9:26 AM CDT) [facility] Sodium 136 135 - 145 mmol/L Comment:Testing performed by : [facility], [facility] [place] [address] Potassium, pl 3.7 3.3 - 4.9 mmol/L [facility] CH Comment:Testing performed by : [facility] [address] Chloride 101 97 - 110 mmol/L [facility] CH Comment:Testing performed by : [facility] [place] [address] CO2 17(L) 22 - 32 mmol/L [facility] CH Comment:Testing performed by : [facility] [place] [address] Anion gap 18(H) 2 - 15 mmol/L [facility] CH Comment:Testing performed by : [facility] [place] [address] BUN 7 6 - 25 mg/dL [facility] CH Comment:Testing performed by : [facility] [address] Creatinine 0.57(L) 0.60 - 1.10 mg/dL [facility] CH Comment:Testing performed by : [facility] [address] [place], [place] [address] [place] [address] Glucose 85 70 - 199 mg/dL CERNER [...] was last revised 2022. Testing performed by: [facility] [place] [address] Calcium 9.7 8.5 - 10.3 mg/dL [facility] CH Comment:Testing performed by : [facility] [address] Bilirubin, total 0.4 0.1 - 1.2 mg/dL [facility] CH Comment:Testing performed by : [facility] [place] [address] Protein, pl 7.4 6.5 - 8.5 g/dL [facility] CH Comment:Testing performed by : [facility], [place] [address] Albumin 4.0 3.5 - 5.0 g/dL [facility] CH Comment:Testing performed by : [facility], [place] [address] Alk phos 76 40 - 130 Units/L [facility] CH Comment:Testing performed by : [facility], [place] [address] ALT 18 7 - 45 Units/L [facility] CH Comment:Testing performed by : [facility], [place] [address] AST 21 10 - 45 Units/L [facility] CH Comment:Testing performed by : [facility], [place] [address] Blood 12/24/2024 9:26 AM CDT 12/24/2024 9:32 AM CDT Yusra Wiseman NP LAB BLOOD ORDERABLES Fi nal Result [facility] [address] Department [place] [address] * (ABNORMAL) POCT hCG, urine (12/24/2024 9:24 AM CDT) Pathologist [facility] HCG, ur, POC Positive(A) Negative Lot Number [id number] QC Backgroud Clear Acceptable QC Control Line Acceptable Urine 12/24/2024 9:24 AM CDT Yusra Wiseman NP POINT OF CARE TEST ORDE GABI Final Result * (ABNORMAL) Urinalysis reflex to microscopic and culture Urine (12/24/2024 9:06 AM CDT) Color, ur Yellow Yellow Comment:Testing performed by : [facility], [place] [address] Clarity, ur Clear Clear [facility] CH Comment:Testing performed by : [facility], [place] [address] Specific gravity, ur 1.026 1.003 - 1.030 CERNER CH Comment:Testing performed by : [facility], [address] [address] pH, urine 8.0 CERNER Comment: Interpretive Data U rine pH is affected by diet, medications, systemic acid-base disturbances, and renal tubular function. pH may affect urinary stone formation. For example, urine pH below 6.0 may help reduce the tendency for calcium phosphate stones and pH greater than 6.0 may reduce the tendency for uric acid stone formation. Source: [facility] Current Interpretive Data was last revised on 2017 Testing performed by: [facility], [place] [address] Protein, ur ql Trace Negative CERNER CH Comment:Testing performed by : [facility], [place] [address] Glucose, ur ql Negative Negative CERNER Comment:Testing performed by : [facility], [place] [address] Ketones, ur Trace Negative CERN[facility] CH Comment:Testing performed by : [facility], [place] [address] Bilirubin, ur Negative Negative CERNER Comment:Testing performed by : [facility], [place] [address] Blood, ur Negative Negative CERNER CH Comment:Testing performed by : [facility], [place] [address] Urobilinogen, ur 2.0(A) <2.0 mg/dL [facility]ER Comment:Testing performed by : [facility], [place] [address] Nitrite, ur Negative Negative CERNER Comment:Testing performed by : [facility], [place] [address] Leukocyte esterase, ur Negative Negative CERNER Comment:Testing performed by : [facility] [address] [address] UA reflex comment Reflex conditions for microscopic UA and culture not met. CERNER Comment:Testing performed by : [facility], [place] [address] Urine 12/24/2024 9:06 AM CDT 12/24/2024 9:10 AM CDT Yusra Wiseman INTELLIGENCE RESEARCH SPECIALIST LAB MICROBIOLOGY - GENE RAL ORDERABLES Final Result [facility] [address] [facility] Department [place] [address] * N. gonorrhoeae/C. trachomatis Amplification Vaginal (12/13/2024 2:30 AM CDT) C. trachomatis Not Detected Not Detected N. gonorrhoeae Not Detected Not Detected [facility] Comment: Interpretive Data This assay detects Chlamydia trachomatis and Neisseria gonorrhoeae by nucleic acid amplification testing (NAAT). This assay has been cleared by the [place] Food and Drug administration. The performance characteristics of this test have been verified by the [facility]. The performance characteristics of this test have not been evaluated in individuals less than 14 years of age. Current Interpretive Data last revised 2023. Vaginal (None) 12/13/2024 2: 30 AM CDT 12/13/2024 2:34 AM CDT Juan [facility] MICROBIOLOGY - GENERAL O RDERABLES Final Result Performing Organization Address City/[facility] Co de Phone Number [facility] [address] [facility] Department [place] [address] * (ABNORMAL) Vaginitis panel Vaginal (12/13/2024 2:30 AM CDT) Bacterial Vaginosis Not Detected Not Detected Comment:A negative result do es not preclude a possible infection. Results should be considered in conjunction with clinical presentation to determine the disease status. Jada group Detected(A) Not Detected [facility] Comment:Jada species can be present as commensal organisms in women; results should be considered in conjunction with clinical presentation to determine the disease status. Jada glabrata/ krusei Not Detected Not Detected [facility] Trichomonas DNA Not Detected Not Detected [facility] Vaginal 12/13/2024 2:30 AM CDT 12/13/2024 2:34 AM CDT Narrative [facility] - 12/13/2024 3:34 AM CDT The [employer] Xpert Xpress MVP test detects DNA targets [...] the [facility]. The [employer] Xpert Xpress MVP test detects DNA targets [...] by the [facility]. [facility] MICROBIOLOGY - GENERAL O RDERABLES Final Result [facility] [address] [facility] Department [place] [address] * (ABNORMAL) Urinalysis reflex to microscopic and culture Urine (12/13/2024 2:30 AM CDT) Color, ur Straw Yellow Clarity, ur Cloudy(A) Clear [facility] Specific gravity, ur 1.018 1.003 - 1.030 [facility] pH, urine 6.0 [facility] Comment: Interpretive Data U rine pH is affected by diet, medications, systemic acid-base disturbances, and renal tubular function. pH may affect urinary stone formation. For example, urine pH below 6.0 may help reduce the tendency for calcium phosphate stones and pH greater than 6.0 may reduce the tendency for uric acid stone formation. Source: [facility] Current Interpretive Data was last revised on 2017 Protein, ur ql Negative Negative [facility] Glucose, ur ql Negative Negative [facility] Ketones, ur Negative Negative [facility] Bilirubin, ur Negative Negative [facility] Blood, ur 1+(A) Negative [facility] Urobilinogen, ur <2.0 <2.0 mg/dL [facility] Nitrite, ur Negative Negative [facility] Leukocyte esterase, ur 4+(A) Negative [facility] UA reflex comment Reflex to microscopic UA will be performed. [facility] Urine 12/13/2024 2:30 AM CDT 12/13/2024 2:34 AM CDT [facility] MICROBIOLOGY - GENERAL ORDERABLES Final Result Performing Organization Address [facility] de Phone Number [address] [place] [address] * (ABNORMAL) Urinalysis, microscopic only (12/13/2024 2:30 AM CDT) WBC, ur 0-5 0 - 5 /HPF RBC, ur 11-20(A) 0 - 2 /HPF [facility] Epithelial cells, squamous, ur 11-20(A) 0 - 5 /HPF [facility] Comment:Suggestive of contam ination. Consider recollection by clean catch. Mucous, ur Present(A) [facility] Culture Reflex Comment Reflex conditions for urine culture (WBC >10) not met. [facility] Urine 12/13/2024 2:30 AM CDT 12/13/2024 2:34 AM CDT [facility] LAB URINE ORDERABLES Final Result Performing Organization Address [facility] de Phone Number [address] [place] [address] * Urine culture Urine (12/13/2024 2:30 AM CDT) Report Final Report: Growth indicative of contamination with periurethral slava. Please submit a new specimen with special attention given to the collection process and to prompt transport to the laboratory. Comment:Testing performed by : [facility], [address], [place]., [address] Organism GROWTH INDICATES CONTAM WITH PERIURETHRAL SLAVA. [facility] Urine 12/13/2024 2:30 AM CDT 12/13/2024 9:22 AM CDT Narrative [facility] - 12/14/2024 2:33 PM CDT Testing performed by [facility] Laboratory ([phone]) [facility] MICROBIOLOGY - GENERAL O RDERABLES Final Result [facility] [address] [facility] Department [place] [address] * (ABNORMAL) POCT hCG, urine (12/13/2024 2:27 AM CDT) HCG, ur, POC Positive(A) Negative Lot Number [id number] QC Backgroud Clear Acceptable QC Control Line Acceptable Urine 12/13/2024 2:27 AM CDT Juan Manuel Avitia DO POINT OF CARE TEST ORDERABL ES Final Result from Last 3 Months Insurance BLUE PATHWAYS EXCHANGE IDPA IDPA Care Teams Salvationist Relationship Specialty Start Date End Date No, Physician PCP - General 10/07/24
--- OUTSIDE RECORDS SUMMARY | 2025-03-08 03:06 | XMS_ITS | Clinical Summary ---
Author Organization [facility] Address [address] [place] [address] Care Team Providers Care Sheriff Sergeant Name Role Phone Unavailable Primary Care Provider [...] STI screening follows ACOG guidelines(PB 168, 140, SWB283). See individual assays for performing site location. CLINICAL INFORMATION [facility] Comment:Information not prov ided LAST [...] ithelial lesion or malignancy. COMMENT (PAP TEST) [facility] Comment: This Pap test has been evaluated with computer assisted technology. COMPENSATION INTERN: [facility] Comment: SAMAGNES(ASCP) CT screening location: [place] [address] [place] [address] SEE NOTE [facility] Comment: EXPLANATORY NOTE: [...] C TRAC RNA NOT DETECTED NOT DETECTED [facility] N.GONORRHOEAE RNA, TMA NOT DETECTED NOT DETECTED [facility] SEE NOTE [facility] Comment: The analytical performance characteristics of this assay, when used to test SurePath(TM) specimens have been determined by [facility]. The modifications have not been cleared or approved by the FDA. This assay has been validated pursuant to the CLIA regulations and is used for clinical purposes. For additional information, please refer to https://Buzzient.Memoright/faq/XLD600 (This link is being provided for information/ educational purposes only.) TRICHOMONAS VAGINALIS,QUALITAT LAYNE,PAP VIAL NOT DETECTED NOT DETECTED [facility] Comment: The analytical performance characteristics of this assay have been determined by [facility]. The modifications have not been cleared or approved by the FDA. This assay has been validated pursuant to the CLIA regulations and is used for clinical purposes. For additional information, please refer to http://Buzzient.Memoright/ faq/Trichomonastma (This link is being provided for information/ educational purposes only.) Test Performed at: [facility] [address] [place] [address] Andrea Mix D.O., MPH Genital SWAB OF ENDOCERVIX / Unknown 08/26/2021 10:22 AM CDT 08/27/2021 4:04 AM CDT bAa Gutierrez MD PATHOLOGY/CYTOLOGY ORDERABLES Final Result Performing Organization Address City/State/[facility] Co de Phone Number [facility] [address] [place] [address] from Last 3 Months or Most Recently Relevant to Health Maintenance Insurance BCBS TRUE BLUE PPO EXCHANGE
--- OUTSIDE RECORDS SUMMARY | 2025-03-08 03:06 | XMS_ITS | Patient Health Record ---
Author Organization [facility] Address [address] [place], [place] [id number] Care Team Providers Care Engineer Soils Name Role Phone Melita German Primary Care Provider [phone] Rodrick Bauman Unavailable [phone] Allergies No Known Allergies Reason For Referral [...] Duration: 5 Not-Taking Vitamin D3 1.25 MG (98847 UT) Oral; Duration: 28 Not-Takin g Metoclopramide [...] Status Risk Notes Problem Finding related to (251653456) related conditions, unspecified, first trimester (O26.91) Active confirm Problem test equivocal (477719349) Encounter for test, result unknown (Z32.00) Active confirmed Problem care (regime/therap y) (479369406) Encntr for suprvsn of normal preg, unsp, second trimester (Z34.92) Active confirmed Problem test positive (675944872) test performed, confirmed (Z32.01) Active confirmed Plan Of Treatment Pending Test Test Name Order Date Ultrasound : (OB) First Trimester 2019 Ultrasound : OB/ Complete After 1st Trim es 03/11/2022 Insurance Providers Payer Name Payer Address Payer Phone Subscriber Number Group Number Insured Name Patient Relationship to Insured Coverage Start Date Coverage End Date [employer] Community Medicaid HMO [address] [place] [address] [id number] Nisha Millan Self - patient is the insured 9 [employer] [address] [place] [address] [id number] Nisha Chou Self - patient is the insured 2 DENTAL MEDICAID [employer] Medicaid Dental [address] [place] [phone] [id number] Nisha Chou Self - patient is the insured 9 Medications Administered Medication Instructions Date of Administration Dosage Notes RhoGAM Ultra-Filtered PLUS-300ug 02/27/2022 1 Medical (General) History Surgical History Surgery Date(Month/Year) vaginal delivery vaginal delivery
[2025-03-08] MEDS: SODIUM CHLORIDE 0.9% IV 100 ML (03:32)
[2025-03-08] MEDS: ACETAMINOPHEN 500 MG TABLET 1000 MG PO (03:32)
[2025-03-08] MEDS: METOCLOPRAMIDE HCL INJ 10 MG/2 ML VIAL 5 MG IV PUSH (03:32)
[2025-03-08 03:40] LABS: Hematocrit 31.7 % (37.0-47.0); Hemoglobin 10.4 g/dL (12.0-15.0); Immature Granulocyte Percent A 0.3 % (0-0.5); Lymphocytes Absolute Auto 2.59 K/mm3 (0.9-3.2); Mean Corpuscular HGB Conc 32.8 g/dl (32-36); Mean Corpuscular Hemoglobin 26.7 pg (26-34); Mean Corpuscular Volume 81.5 fl (80-100); Nucleated Red Blood Cells Absolute Auto 0.000 K/mm3 (0.0-0.012); Nucleated Red Blood Cells Perc 0.0 % (0.0-0.2); Platelet Count Result 216 k/mm3 (150-375); Red Blood Count 3.89 M/mm3 (4.2-5.4); White Blood Count 6.5 K/mm3 (4.5-10.0)
--- NOTE | 2025-03-08 03:41 | ED.FALL ---
HPI - Fall General Chief Complaint: Fall Stated Complaint: fall Time Seen by Provider: 03/08/25 02:49 History of Present Illness HPI Narrative: 29-year-old female approximately 16 weeks by last ultrasonography. Patient presents to the emergency department with a minor fall. Patient states she slipped while getting into the shower and struck her lower abdomen against the bathtub. Did not hit her head or lose consciousness. Very minor injury and she did not have any bruising or significant pain. She came to the ER for evaluation as she was having some lower abdominal cramping. Minor nauseousness but no vomiting. Denies any vaginal bleeding or gush of fluids. She sees Dr. Oh from [facility] and just had a visit 2 weeks ago with a normal ultrasound on the that just showed a subchorionic hemorrhage that was followed up with. She also has some abnormal fibroid growth and she is aware of this. Patient not any acute distress. Endorses minor intermittent cramping but also feels very vigorous activity for the baby and she is use to this level of activity. No decrease in activity or fluid leakage. Related Data Home Medications ?Medication ?Instructions ?Recorded ?Confirmed ?Last Taken ?Type docosahexaenoic acid 200 mg mg PO 01/12/25 01/18/25 Unknown History capsule ( DHA) Allergies Allergy/AdvReac Type Severity Reaction Status Date / Time Penicillins AdvReac edema Verified 03/07/25 23:41 Review of Systems Review of Systems: As reviewed above in HPI [facility] Past Medical History Medical History Anxiety Healthy female adult Surgical History Surgical History History of dilatation and curettage Social History Social History Smoking status: Never smoker Exam Narrative: GENERAL: [Well-appearing, well-nourished, and in no acute distress.] HEAD: [Normocephalic, atraumatic.] EYES: [PERRLA and EOMI.] ENT: Nares clear, no rhinorrhea or epistaxis. Mucous membranes moist. NECK: Supple. CHEST: [Clear to auscultation. No respiratory distress.] HEART: [Regular rate and rhythm]. No murmur heard. [Normal peripheral pulses.] ABDOMEN: Gravid abdomen, soft and nondistended, nontender to palpation with no overlying bruising, rigidity guarding or peritonitis. EXTREMITIES: Normal range of motion. [No edema.] SKIN: Warm, dry, no rash. NEURO: [No focal deficits]. Alert and oriented [x3.] PSYCH: [Normal mood and affect.] Course Vital Signs Vital signs: Vital Signs Temperature 36.7 C 03/07/25 23:38 Pulse Rate 88 03/07/25 23:38 Respiratory Rate 20 03/07/25 23:38 Blood Pressure 122/80 03/07/25 23:38 Pulse Oximetry 100 03/07/25 23:38 Oxygen Delivery Room Air 03/07/25 23:38 Temperature 36.7 C 03/08/25 05:50 Pulse Rate 67 03/08/25 05:50 Respiratory Rate 16 03/08/25 05:50 Blood Pressure 117/76 03/08/25 05:50 Pulse Oximetry 98 03/08/25 05:50 Oxygen Delivery Room Air 03/07/25 23:38 MDM - Fall MDM Narrative Medical decision making narrative: 29-year-old female approximately 16 weeks by last ultrasonography. Patient presents to the emergency department with a minor fall. Patient states she slipped while getting into the shower and struck her lower abdomen against the bathtub. Did not hit her head or lose consciousness. Very minor injury and she did not have any bruising or significant pain. She came to the ER for evaluation as she was having some lower abdominal cramping. Minor nauseousness but no vomiting. Denies any vaginal bleeding or gush of fluids. She sees Dr. Oh from OBGYN and just had a visit 2 weeks ago with a normal ultrasound on the that just showed a subchorionic hemorrhage that was followed up with. She also has some abnormal fibroid growth and she is aware of this. Patient not any acute distress. Endorses minor intermittent cramping but also feels very vigorous activity for the baby and she is use to this level of activity. No decrease in activity or fluid leakage. Patient is otherwise very well-appearing with normal vital signs. No tachypnea, tachycardia, hypoxia or blood pressure concerns. Placed on nuclear monitoring technician basic laboratory studies obtained to assess for any anemia or or acute concerning findings. Currently do not have ultrasound formal capabilities but a bedside ultrasound conducted by myself with multiple views of the uterus, baby, fast examination conducted. Able to visualize entire length of the uterus and multiple planes and see baby is vigorously active, not any acute distress with a heart rate of 143. No free fluid around the uterus, no free fluid in the adnexa, right upper quadrant, left upper quadrant or in the pelvis. Chronic subchorionic hematoma is evident and compared to prior imaging appears stable without any enlargement or signs or density changes concerning for any active bleeding. Final interpretation of bedside ultrasound and fast examination is no obvious traumatic injuries with appropriate heart rate activity. Patient was given Reglan Tylenol and basic laboratory studies pending. Patient is safe for discharge after observation here in the emergency department. Will have to follow up with her OBGYN on outpatient basis. Return precautions described and questions answered. Patient did require additional dose of RhoGAM here given the mild abdominal trauma in the setting of in eating 1 dose. Administered. Laboratory studies are largely unremarkable. Hemoglobin slightly lower than her baseline but no signs of active bleeding. Remains hemodynamically stable and felt better after treatments. Safe for discharge with OBGYN follow-up and strict return precautions. Medical Records Attestation: I reviewed the patient's medical records. Lab Data Attestation: I reviewed the patient's lab results. 03/08/25 03:27 03/08/25 03:27 Labs: Lab Results 03/08/25 Range/Units 03:27 WBC 6.5 (4.5-10.0) K/mm3 RBC 3.89 L (4.2-5.4) M/mm3 Hgb 10.4 L (12.0-15.0) g/dL Hct 31.7 L (37.0-47.0) % MCV 81.5 (80-100) fl MCH 26.7 (26-34) pg MCHC 32.8 (32-36) g/dl RDW 14.1 (11.5-14.5) % Plt Count 216 (150-375) k/mm3 MPV 9.2 (7.4-10.4) fl Immature Gran % (Auto) 0.3 (0-0.5) % Neut % (Auto) 47.8 (45.5-73.1) % Lymph % (Auto) 39.6 (18.3-44.2) % Fannin % (Auto) 6.6 (2.6-8.5) % Eos % (Auto) 5.4 H (0-4.4) % Baso % (Auto) 0.3 (0.2-1.2) % Lymph # (Auto) 2.59 (0.9-3.2) K/mm3 Fannin # (Auto) 0.4 (0.1-0.6) K/mm3 Eos # (Auto) 0.4 H (0-0.3) K/mm3 Baso # (Auto) 0.0 (0.0-0.1) K/mm3 Abs Immat Gran (auto) 0.02 (0.00-0.031) K/mm3 Absolute Neuts (auto) 3.1 (1.3-6.7) K/mm3 Absolute Nucleated RBC 0.000 (0.0-0.012) K/mm3 Nucleated RBC % 0.0 (0.0-0.2) % PT 12.4 (11.1-14.7) Seconds INR 0.9 APTT 26.2 (22.3-36.8) Seconds Sodium 134 L (137-145) mmol/L Potassium 4.0 (3.4-5.0) mmol/L Chloride 109 H (98-107) mmol/L Carbon Dioxide 18 L (22-30) mmol/L Anion Gap 7 (4-12) mmol/L BUN 4 L (7-17) mg/dL Creatinine 0.40 L (0.7-1.0) mg/dL Estim Creat Clear Calc 152 ml/min Estimated GFR > 60 (59 - ) Glucose 97 (65-110) mg/dL Calcium 8.6 (8.4-10.2) mg/dL Total Bilirubin 0.3 (0.2-1.3) mg/dL AST 28 (14-36) U/L ALT 20 (6-35) U/L Alkaline Phosphatase 62 (38-126) U/L Total Protein 6.4 (6.3-8.2) g/dL Albumin 3.3 L (3.5-5.1) g/dL Beta HCG, Quant 36968.00 mIU/ML Blood Type B Negative Antibody Screen Positive Antibody Identification Inconclusive Antigen Identification Cancelled RONALD, IgG Interpret Not Performed RONALD, Poly Interpret Negative RONALD, Complement Interp Not Performed Screen TNP Baby's Blood Type Not Reportable Baby's RONALD Not Reportable Doses of RhIg Required 1 Discharge Plan Discharge Clinical Impression: Second trimester , Fall Patient Disposition: Home Condition: Stable Instructions: Antibiotic Form Additional Instructions: The ultrasound of your Baby shows appropriate heart rate and activity. No signs of free blood or bleeding in the abdomen or pelvis. Vital signs and laboratory studies are stable. If you start noticing decreased activity or movement, starting having vaginal leakage or bleeding, worsening pain or cramping please return emergently to the ER otherwise follow-up with your regular OBGYN on a short-term outpatient basis in next 2 days if possible. Patient Language: Brazilian Prescriptions: No Action DHA 200 mg capsule PO Follow-up/Referrals: PHYSICIAN,CYBER SECURITY [Primary Care Provider, Internal Medicine] Time of Disposition: 05:22
[2025-03-08 03:58] LABS: INR 0.9; Partial Thromboplastin Time 26.2 Seconds (22.3-36.8); Prothrombin Time 12.4 Seconds (11.1-14.7)
[2025-03-08 03:59] LABS: Alanine Aminotransferase 20 U/L (6-35); Albumin Level 3.3 g/dL (3.5-5.1); Alkaline Phosphatase 62 U/L (38-126); Anion Gap 7 mmol/L (4-12); Aspartate Amino Transferase 28 U/L (14-36); Bilirubin,Total 0.3 mg/dL (0.2-1.3); Blood Urea Nitrogen 4 mg/dL (7-17); Calcium 8.6 mg/dL (8.4-10.2); Carbon Dioxide 18 mmol/L (22-30); Chloride 109 mmol/L (98-107); Estimated CRCL calculation 152 ml/min; Estimated Glomerular Filt Rate > 60; Glucose 97 mg/dL (65-110); Potassium 4.0 mmol/L (3.4-5.0); Sodium 134 mmol/L (137-145); Total Protein 6.4 g/dL (6.3-8.2)
[2025-03-08 04:16] LABS: Beta HCG Quantitative 14566.00 mIU/ML
[2025-03-08] MEDS: RHO(D) IMMUNE GLOBULIN 300 MCG/2 ML SYRINGE IM (05:45)
[2025-03-08 05:50] VITALS: BP 117/76; PULSE 67; RESP 16; TEMP 36.7; O2SAT 98
== END 2025-03-08 05:51 | disposition home or self-care (01) ==
PROVIDERS: Emergency Provider Student in an Organized Health Care Education/Training Program
DX: O9A.212 Injury, poisoning and certain other consequences of external causes complicating pregnancy, second trimester (principal); S39.91XA Unspecified injury of abdomen, initial encounter; R10.30 Lower abdominal pain, unspecified; Z3A.16 16 weeks gestation of pregnancy; W18.2XXA Fall in (into) shower or empty bathtub, initial encounter
CPT/HCPCS: 36415; 80053; 84702; 85025; 85461; 85610; 85730; 86850; 86880; 86900; 86901; 90384; 96372; 96374; 99284; A9270; J2765; J2790

== ENCOUNTER 2025-04-21 11:22 | Observation (INO) | payer OTHER, SELFPAY ==
--- OUTSIDE RECORDS SUMMARY | 2016-09-04 05:30 | XMS_ITS | Continuity of Care Document ---
Author Organization [facility] Address [address] [place] [address] Phone Care Team Providers Care Typewriter Repairer Name Role Phone Hernan Lloyd DMD Unavailable Unavailable Allergies, Adverse Reactions, Alerts Substance Reaction Status Criticality No Known allergies Medications Medication Instructions Dosage Effective Dates (start - stop) Status Comments acyclovir 400 mg Tab take 1 tablet (400MG) by oral route 2 times every day 400 MG - Active Monistat 7 2 % Vaginal Cream insert 1 applicatorful by vaginal route every day at bedtime 1.00 applicatorful - Active ferrous sulfate 325 mg (65 mg iron) Tab take 1 tablet (325MG) by ORAL route every day 325 MG - Active Prenatabs Rx 29 mg-1 mg Tab take 1 tablet by oral route every day 1.00 tablet - Active Vitamin D 2,000 unit Cap take one daily - Active pyridoxine 50 mg Tab take one tab three times every day as needed for nausea - Active promethazine 25 mg Tab take one three times daily as needed for vomiting - Active Procedures Procedure Date Voided Encounter care, at-risk enhanced service; antepartum management MENTAL HEALTH ASSESSMENT, BY NON-PHYSICI AN CARE, AT-RISK ENHANCED SERVICE PACKAGE (INCLUDES [id number]) OFFICE/OUTPATIENT VISIT, EST PRESCRIPTION DRUG, ORAL, NON CHEMOTHERAP EUTIC, NOS AZITHROMYCIN DIHYDRATE, ORAL, CAPSULES/P OWDER, 1 GRAM Wet beka, including preparations of va ginal, cervical or skin specimens COLLECTION OF VENOUS BLOOD BY VENIPUNCTU RE OFFICE/OUTPATIENT VISIT, EST CARE, AT-RISK ENHANCED SERVICE PACKAGE (INCLUDES [id number]) OFFICE/OUTPATIENT VISIT, EST COLLECTION OF VENOUS BLOOD BY VENIPUNCTU RE Voided Encounter care, at-risk assessment care, at-risk enhanced service; antepartum management MENTAL HEALTH ASSESSMENT, BY NON-PHYSICI AN SKIN TEST; TUBERCULOSIS, INTRADERMAL Dec OFFICE/OUTPATIENT VISIT, NEW Advance Directives Directive Yes / No Effective Date File Name No Information Encounters Encounter Description Practice Location Reason(s) For Visit Diagnoses Date Provider Providers Copied on Encounter [facility] , [address], [place], [place], [address], tel:[phone] [facility] [place] Encounter for dental exam and cleaning w abnormal findings 7 Gabino Becerra. [address], [place], [place], [address]. tel:[phone] Referring Provider: Hernan Lloyd, [address], [place], [address]. tel:[phone] [facility] , [address], [place], [place], [address], tel:[phone] [facility] [place] home visit (chief complaint) Routine follow-up Management [facility]. [address], [place], [place], [address], . tel:[phone] [facility] , [address], [place], [place], [address], tel:[phone] [facility] [place] No Information 2 [facility]. [address], [place], [place], [address], . tel:[phone] Consulting Provider: Arianen Samuels, [address], [place], [address]. tel:[phone] OFFICE/OUTPAT IENT VISIT, EST [facility] , [address], [place], [place], [address], [place] tel:[phone] [facility] [place] No Information 1 Bianca Bauman. [address], [place], [place], [address], . tel:[phone] OFFICE/OUTPAT IENT VISIT, EST [facility] , [address], [place], [place], [address], [place] tel:[phone] [facility] [place] Supervision of normal first 1 Rico Navas [address], [place], [place], [address], . tel:[phone] [facility] , [address], [place], [place], [address], tel:[phone] [facility] [place] No Information 1 [facility]. [address], [place], [address] [place] [address], . tel:[phone] Consulting Provider: Arianne Samuels, [address], [place], [address]. tel:[phone] OFFICE/OUTPAT IENT VISIT, [facility] , [address], [place], [place], [address], tel:[phone] [facility] [place] Supervision of other normal 1 Rico Navas [address], [place], [place], [address], . tel:[phone] [facility] , [address], [place], [place], [address], [place] tel:[phone] [facility] [place] Supervision of normal first 1 Rico Navas [address], [place], [place], [address], . tel:[phone] [employer] , [address], [place], [place], [address], tel:[phone] [facility] [place] pn intake (chief complaint) No Information No Information OFFICE/OUTPAT IENT VISIT, [facility] , [address], [place], [place], [address], [place] tel:[phone] [facility] [place] Test (chief complaint)No te for school-Pregn italo (chief complaint) Irregular menstrual cycle Bianca Bauman. [address], [place], [place], [address], [place]. tel:[phone] Family History Family Member Type Diagnosis Age At Onset Father Problem (finding) hypertension Mother Problem (finding) hypertension Father Problem (finding) Maternal history of alice betes mellitus Payers Payer name Insurance type Covered republican ID lApa pool(s) D Medicaid - Dental [place] [id number] Social History Type Description Quantity Date Captured Comments Sex Female Smoking Status No Information Chief Complaint And Reason For Visit No Information Reason For Referral Reason For Referral No Information Plan Of Treatment Date Type Action Status Goal BMP fasting. Due on 011 due Referral Referred To: [facility]iology [address] [place], [id number] Ordered: Referral: [facility] Radiology. Radiology. ordered Future Order: Lab Order Wet Prep (Wet Prep), Appointment on: Ordered History Of Present Illness Encounter Date Complaint History Of Prese nt Illness No Information Functional Status Date Functional Assessmen t No Information Instructions Date Instruction Additional Infor mation No Information Assessments Type Assessment Date No Information Patient Care Teams Name Effective Dates (start - stop) Status Members No Information
--- OUTSIDE RECORDS SUMMARY | 2016-09-04 05:30 | XMS_ITS | Continuity of Care Document ---
Author Organization [facility] Address [address] [place] [address] Phone Care Team Providers Care Outsole Splicer Name Role Phone Hernan Lloyd DMD Unavailable [...] AN CARE, AT-RISK ENHANCED SERVICE PACKAGE (INCLUDES [id number]) OFFICE/OUTPATIENT VISIT, EST PRESCRIPTION DRUG, ORAL, NON CHEMOTHERAP EUTIC, NOS AZITHROMYCIN DIHYDRATE, ORAL, CAPSULES/P OWDER, 1 GRAM Wet beka, including preparations of va ginal, cervical or skin specimens COLLECTION OF VENOUS BLOOD BY VENIPUNCTU RE OFFICE/OUTPATIENT VISIT, EST CARE, AT-RISK ENHANCED SERVICE PACKAGE (INCLUDES [id number]) OFFICE/OUTPATIENT VISIT, EST COLLECTION OF VENOUS BLOOD BY VENIPUNCTU RE Voided Encounter care, at-risk assessment care, at-risk enhanced service; antepartum management MENTAL HEALTH ASSESSMENT, BY NON-PHYSICI AN SKIN TEST; TUBERCULOSIS, INTRADERMAL Dec OFFICE/OUTPATIENT VISIT, NEW Advance Directives Directive Yes / No Effective Date File Name No Information Encounters Encounter Description Practice Location Reason(s) For Visit Diagnoses Date Provider Providers Copied on Encounter [facility] , [address], [place], [place], [address], tel:[phone] [facility] [place] Encounter for dental exam and cleaning w abnormal findings 7 Gabino Becerra. [address], [place], [place], [address]. tel:[phone] Referring Provider: Hernan Lloyd, [address], [place], [address]. tel:[phone] [facility] , [address], [place], [place], [address], tel:[phone] [facility] [place] home visit (chief complaint) Routine follow-up Management [facility]. [address], [place], [place], [address], . tel:[phone] [facility] , [address], [place], [place], [address], tel:[phone] [facility] [place] No Information 2 [facility]. [address], [place], [place], [address], . tel:[phone] Consulting Provider: Arianne Samuels, [address], [place], [address]. tel:[phone] OFFICE/OUTPAT IENT VISIT, EST [facility] , [address], [place], [place], [address], [place] tel:[phone] [facility] [place] No Information 1 Bianca Bauman. [address], [place], [place], [address], . tel:[phone] OFFICE/OUTPAT IENT VISIT, EST [facility] , [address], [place], [place], [address], [place] tel:[phone] [facility] [place] Supervision of normal first 1 Rico Navas [address], [place], [place], [address], . tel:[phone] [facility] , [address], [place], [place], [address], tel:[phone] [facility] [place] No Information 1 [facility]. [address], [place], [place], [address] [place] [address], . tel:[phone] Consulting Provider: Arianne Samuels, [address], [place], [address]. tel:[phone] OFFICE/OUTPAT IENT VISIT, [facility] , [address], [place], [place], [address], tel:[phone] [facility] [place] Supervision of other normal 1 Rico Navas [address], [place], [place], [address], . tel:[phone] [facility] , [address], [place], [place], [address], [place] tel:[phone] [facility] [place] Supervision of normal first 1 Rico Navas [address], [place], [place], [address], . tel:[phone] [employer] , [address], [place], [place], [address], tel:[phone] [facility] [place] pn intake (chief complaint) No Information No Information OFFICE/OUTPAT IENT VISIT, [facility] , [address], [place], [place], [address], [place] tel:[phone] [facility] [place] Test (chief complaint)No te for school-Pregn italo (chief complaint) Irregular menstrual cycle Bianca Bauman. [address], [place], [place], [address], [place]. tel:[phone] Family History Family Member Type Diagnosis Age At Onset Father Problem (finding) hypertension Mother Problem (finding) hypertension Father Problem (finding) Maternal history of alice betes mellitus Payers Payer name Insurance type Covered alliance party ID Alpa pool(s) D Medicaid - Dental CI [id number] Social History Type Description Quantity Date Captured Comments Sex Female Smoking Status No Information Chief Complaint And Reason For Visit No Information Reason For Referral Reason For Referral No Information Plan Of Treatment Date Type Action Status Goal BMP fasting. Due on 011 due Referral Referred To: [facility] [address] [place], [id number] Ordered: Referral: [facility]. Radiology. ordered Future Order: Lab Order [...]
--- OUTSIDE RECORDS SUMMARY | 2016-09-04 05:30 | XMS_ITS | Continuity of Care Document ---
Author Organization [facility] Address [address] [place] [address] Phone Care Team Providers Care Celery Wrapper Name Role Phone Hernan Lloyd DMD Unavailable [...] AN CARE, AT-RISK ENHANCED SERVICE PACKAGE (INCLUDES [id number]) OFFICE/OUTPATIENT VISIT, EST PRESCRIPTION DRUG, ORAL, NON CHEMOTHERAP EUTIC, NOS AZITHROMYCIN DIHYDRATE, ORAL, CAPSULES/P OWDER, 1 GRAM Wet beka, including preparations of va ginal, cervical or skin specimens COLLECTION OF VENOUS BLOOD BY VENIPUNCTU RE OFFICE/OUTPATIENT VISIT, EST CARE, AT-RISK ENHANCED SERVICE PACKAGE (INCLUDES [id number]) OFFICE/OUTPATIENT VISIT, EST COLLECTION OF VENOUS BLOOD BY VENIPUNCTU RE Voided Encounter care, at-risk assessment care, at-risk enhanced service; antepartum management MENTAL HEALTH ASSESSMENT, BY NON-PHYSICI AN SKIN TEST; TUBERCULOSIS, INTRADERMAL Dec OFFICE/OUTPATIENT VISIT, NEW Advance Directives Directive Yes / No Effective Date File Name No Information Encounters Encounter Description Practice Location Reason(s) For Visit Diagnoses Date Provider Providers Copied on Encounter [facility] , [address], [place], [place], [address], tel:[phone] [facility] [place] Encounter for dental exam and cleaning w abnormal findings 7 Gabino Becerra. [address], [place], [place], [address]. tel:[phone] Referring Provider: Hernan Lloyd, [address], [place], [address]. tel:[phone] [facility] , [address], [place], [place], [address], tel:[phone] [facility] [place] home visit (chief complaint) Routine follow-up Management Case. [address], [place], [place], [address], . tel:[phone] [facility] , [address], [place], [place], [address], tel:[phone] [facility] [place] No Information 2 Management [facility]. [address], [place], [place], [address], . tel:[phone] Consulting Provider: Arianne Samuels, [address], [place], [address]. tel:[phone] OFFICE/OUTPAT IENT VISIT, EST [facility] , [address], [place], [place], [address], [place] tel:[phone] [facility] [place] No Information 1 Bianca Bauman. [address], [place], [place], [address], . tel:[phone] OFFICE/OUTPAT IENT VISIT, EST [facility] , [address], [place], [place], [address], [place] tel:[phone] [facility] [place] Supervision of normal first 1 Rico Navas [address], [place], [place], [address], . tel:[phone] [facility] , [address], [place], [place], [address], tel:[phone] [facility] [place] No Information 1 Management Case. [address], [place], [place], [address] [place] [address], . tel:[phone] Consulting Provider: Arianne Samuels, [address], [place], [address]. tel:[phone] OFFICE/OUTPAT IENT VISIT, [facility] , [address], [place], [place], [address], tel:[phone] [facility] [place] Supervision of other normal 1 Rico Navas [address], [place], [place], [address], . tel:[phone] [facility] , [address], [place], [place], [address], [place] tel:[phone] [facility] [place] Supervision of normal first 1 Rico Navas [address], [place], [place], [address], . tel:[phone] [employer] , [address], [place], [place], [address], tel:[phone] [facility] [place] pn intake (chief complaint) No Information No Information OFFICE/OUTPAT IENT VISIT, [facility] , [address], [place], [place], [address], [place] tel:[phone] [facility] [place] Test (chief complaint)No te for school-Pregn italo (chief complaint) Irregular menstrual cycle Bianca Bauman. [address], [place], [place], [address], [place]. tel:[phone] Family History Family Member Type Diagnosis Age At Onset Father Problem (finding) hypertension Mother Problem (finding) hypertension Father Problem (finding) Maternal history of alice betes mellitus Payers Payer name Insurance type Covered alliance party ID Alpa pool(s) D Medicaid - Dental CI [id number] Social History Type Description Quantity Date Captured Comments Sex Female Smoking Status No Information Chief Complaint And Reason For Visit No Information Reason For Referral Reason For Referral No Information Plan Of Treatment Date Type Action Status Goal BMP fasting. Due on 011 due Referral Referred To: [facility] Radiology [address] [place], [id number] Ordered: Referral: [facility] Radiology. Radiology. ordered Future Order: Lab Order [...]
[2025-04-21] VITALS (8 sets, daily range): BP systolic 111–128; BP diastolic 65–76; PULSE 87–97; BMI 29.4
--- NOTE | 2025-04-21 12:19 | OBADM ---
This patient, Nisha Arambula, admitted to the OB room OB Post 113 for observation. Patient/family oriented to hospital policies and general routines including ID bracelet, bed and alarms, visiting hours, pain management, procedures, bathroom and other care routines, personal items, smoking policy, room service/diet, and visiting hours. Patient/Family are encouraged to report perceived risks to care and to ask questions if they do not understand what they are told or what they should do.
[2025-04-21 13:06] LABS: Add Urine Microscopic? YES; Appearance Urine Clear (Clear); Glucose Urine UA Negative (Negative); Leukocyte Esterase Ur Trace LEU/UL (Negative); Need Manual Microscopic Reviewed; Nitrate Urine Negative (Negative); Non Pathogenic Casts 0-2; Specific Grav Ur 1.029 (1.001-1.035)
--- OUTSIDE RECORDS SUMMARY | 2025-04-21 16:04 | XMS_ITS | Encounter Summary ---
Author Organization [facility] Address [address] [place] [address] Care Team Providers Care Light Technician Name Role Phone [facility] Primary Care Pro vider Encounter Details Date Type Department Care Team (Late st Contact Info) Description 04/16/2025 Hospital Encounter [facility] [address] [place], [place] [id number] Social History Tobacco Use Types Packs/Day Years Used Date Smoking Tobacco: Former Cigarettes 0 Q uit: 06/08/2018 Smokeless Tobacco: Never Alcohol [...] more drinks on one occasion? Never 02/10/2024 PRAPARE - Transportation Answer Date Re corded [...] place to sleep or slept in a usp (including now)? No 05/11/2022 Sumter Depression Scale Answer Date Recorded Sum[place] Depression Scale Total 0 05/08/2022 Last EPDS Self Harm Result Not on file 05/08 Overall Financial Resource Strain (CARDIA) Answe r Date Recorded How hard is it for you to pa y for the very basics like food, housing, medical care, and heating? Not hard at all 04/16/2025 [facility] [place] [facility] Occupat ional Health - Occupational Stress Questionnaire Answer Date Recorded Do you feel stress - tense, restless, nervous, or anxious, or unable to sleep at night because your mind is troubled all the time - these days? Not at all 04/16/2025 Hunger Vital Sign Answer Date Recorded Within the past 12 months, y ou worried that your food would run out before you got the money to buy more. Never true 04/16/20 25 Within the past 12 months, t he food you bought just didn't last and you didn't have money to get more. Never true 04/16/2025 PRAPARE - Transportation Answer Date Re corded In the past 12 months, has l ack of transportation kept you from medical appointments or from getting medications? No 02/2025 In the past 12 months, has l ack of transportation kept you from meetings, work, or from getting things needed for daily living? No 04/16/2025 Housing Stability Vital Sign Answer Balaji e Recorded In the last 12 months, was t here a time when you were not able to pay the mortgage or rent on time? No 04/16/2025 In the past 12 months, how m any times have you moved where you were living? 0 04/16/2025 At any time in the past 12 m [facility], were you homeless or living in a usp (including now)? 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 Answer Date of Assessment Author No 05/11/2022 11:26 AM Caty Barraza RN * Is person blind or have serious difficulty seeing? Answer Date of Assessment Author No 05/11/2022 11:26 AM Caty Barraza RN * Does person have serious difficulty walking/climbing stairs? Answer Date of Assessment Author No 05/11/2022 11:26 AM Caty Barraza RN * Does person have difficulty dressing/bathing? Answer Date of Assessment Author No 05/11/2022 11:26 AM Caty Barraza RN * Does person have difficulty doing errands alone? Answer Date of Assessment Author No 05/11/2022 11:26 AM Caty Barraza RN documented as of this encounter Mental Status * Does person have difficulty concentrating/remembering/making decisions? Answer Entry Date Author No 05/11/2022 11:26 AM Caty Barraza RN documented in this encounter Plan of Treatment Upcoming Encounters Date Type Department Care Team (Late st Contact Info) Description 05/01/2025 7:30 AM CINDER CRUSHER OPERATOR Appointment [facility] [address] [place], [place] [id number] documented as of this encounter Visit Diagnoses Not on filedocumented in this encounter Care Teams Light Technician Relationship Specialty Start Date End Date [facility] [address] [place] [address] PCP - General Audio Video Tech 01/30/22 documented as of this encounter
--- OUTSIDE RECORDS SUMMARY | 2025-04-21 16:04 | XMS_ITS | Clinical Summary ---
Author Organization [facility] Address [address] [place] [address] Care Team Providers Care Asphalt Blender Name Role Phone Unavailable Primary Care Provider [...] TRICH (08/26/2021 10:22 AM CDT) SEE NOTE [facility] Comment: This order for age-based cervical cancer and STI screening follows ACOG guidelines(PB 168, 140, GME266). See individual assays for performing site location. CLINICAL INFORMATION [facility] Comment:Information not prov ided LAST MENSTRUAL PERIOD [facility] Comment:INFORMATION NOT PROV IDED PREV PAP: [facility] Comment:INFORMATION NOT PROV IDED PREV BX: [facility] Comment:INFORMATION NOT PROV IDED SOURCE [facility] Comment:Endocervix ADEQUACY: [facility] Comment: Satisfactory for evaluation. Endocervical/transformation zone component present. Age and/or menstrual status not provided PAP INTERP [facility] Comment:Negative for intraep ithelial lesion or malignancy. COMMENT (PAP TEST) [facility] Comment: This Pap test has been evaluated with computer assisted technology. SPA HOST: [facility] Comment: SAMAGNES(ASCP) CT screening location: [place] [address] [place] [address] SEE NOTE [facility] Comment: EXPLANATORY NOTE: The Pap is a [...] C TRAC RNA NOT DETECTED NOT DETECTED [facility] N.GONORRHOEAE RNA, TMA NOT DETECTED NOT DETECTED [facility] SEE NOTE [facility] Comment: The analytical performance characteristics of this assay, when used to test SurePath(TM) specimens have been determined by [facility]. The modifications have not been cleared or approved by the FDA. This assay has been validated pursuant to the CLIA regulations and is used for clinical purposes. For additional information, please refer to https://[employer].GdeSlon/faq/XDG713 (This link is being provided for information/ educational purposes only.) TRICHOMONAS VAGINALIS,QUALITAT LAYNE,PAP VIAL NOT DETECTED NOT DETECTED [facility] Comment: The analytical performance characteristics of this assay have been determined by [facility]. The modifications have not been cleared or approved by the FDA. This assay has been validated pursuant to the CLIA regulations and is used for clinical purposes. For additional information, please refer to http://[employer]/ faq/Trichomonastma (This link is being provided for information/ educational purposes only.) Test Performed at: [facility] [address] [place] [address] Andrea Mix D.O., MPH Genital SWAB OF ENDOCERVIX / Unknown 08/26/2021 10:22 AM CDT 08/27/2021 4:04 AM CDT Aba Gutierrez MD PATHOLOGY/CYTOLOGY ORDERABLES Final Result Performing Organization Address City/State/[facility] Co de Phone Number [facility] [address] [place] [address] from Last 3 Months or Most Recently Relevant to Health Maintenance Insurance [employer] TRUE BLUE PPO EXCHANGE
--- OUTSIDE RECORDS SUMMARY | 2025-04-21 16:04 | XMS_ITS | Clinical Summary ---
Author Organization [facility] Address [address] [place] [address] Care Team Providers Care Technical Coordinator Name Role Phone [facility] Primary [facility] Pro vider Source Comments [facility],non-owned Affiliates and Associated Physician Practices is amultiple site organization consisting of ambulatory clinics and hospital sitesin [place], [place], [place] and [place]. This disclosure is being madepursuant to the Care Everywhere program and may not contain all information available regarding this patient. Last updated 18.[facility] Allergies Active Allergy Reactions Criticality Noted Date [...] fluticasone propionate (Flonase) 50 MCG/ACT nasal spray Gove 2 (two) sprays into each nostril once daily 1 Each 4 Active guaiFENesin ER 12hr (Mucinex) 600 MG tablet Take 1 (one) tablet by mouth every 12 hours 60 tablet 4 Active naproxen (Naprosyn) 500 MG tablet Take 1 (one) tablet by mouth 2 times daily 30 tablet 4 Active ondansetron (Zofran) 4 MG tablet Take 1 (one) tablet by mouth every 6 hours as needed for Nausea/Vomiting 20 tablet 10/21/202 4 Active HYDROcodone-ac etaminophen ([place]) 5-325 MG tabletIndicati ons:Acute maxillary sinusitis, recurrence not specified Take 1 (one) tablet by mouth every 6 hours as needed for Pain 12 tablet 4 Active diclofenac sodium EC (Voltaren) 75 MG tablet Take 1 (one) tablet by mouth every 12 hours as needed 20 tablet 4 Active cyclobenzaprin e (Flexeril) 10 MG tablet Take 1 (one) tablet by mouth every 12 hours as needed for Muscle Spasms 10 tablet 4 Active acetaminophen (Tylenol) 500 MG tablet Take 2 (two) tablets by mouth every 4 hours as needed for Fever or Pain Maximum allowable Acetaminophen amount = 4 Grams (4000 mg) / 24 hours. Active Vit-DSS-Fe Fum-FA ( vitamin with iron) tablet Take 1 (one) tablet by mouth once daily Active Active Problems Problem Noted Date Diagnosed Date Abdominal pain affecting 04/16/2025 Encounter for test, result unknown test positive [...] complete, rpt 4 wks GCT: 109 GBS: 818 Tdap:7/5 Flu shot: Declined. Recently had influenza Feeding: Breast Contraception: Bipolar affective disorder 08/05/2016 1 06/08/2016 Overview (11/11/2016): She sees Dr. Jean at [facility]. She discontinued Seroquel with positive test. [...] (08/05/2016): OB Triage evaluation, IV fluids, antiemetic Encounters Date Type Department Care Team Description 04/16/2025 11:15 AM WARRANT CLERK - 04/16/2025 5:19 PM WARRANT CLERK Hospital Encounter [address] [address] Tonny Mcarthur MD Discharge Disposition: Home or Self Care 04/16/2025 10:58 AM WARRANT CLERK - 04/16/2025 11:12 AM WARRANT CLERK Emergency ER at [address] [address] Discharge Disposition: ED Dismiss - Never Arrived 04/16/2025 Hospital Encounter [address] [address] 04/03/2025 2:30 PM CDT - 04/03/2025 11:59 PM CDT Hospital Encounter [facility] [address] [place] [id number] Vilma Neves MD Discharge Disposition: Home or Self Care 03/13/2025 1:45 PM CDT - 03/13/2025 11:59 PM CDT Hospital Encounter [facility] [address] [place] [id number] Vilma Neves MD Discharge Disposition: Home or Self Care from Last 3 Months Immunizations Immunization Administration Dates Next Due DTP, [...] 0 Q uit: 06/08/2018 Smokeless Tobacco: Never Tobacco Cessation:Counseling Given: Not [...] in a longterm (including now)? No 05/11/2022 [place] Depression Scale Answer Date Recorded [place] Depression Scale Total 0 05/08/2022 Last EPDS Self Harm Result Not on file 05/08 Overall Financial Resource Strain (CARDIA) Answe r Date Recorded How hard is it for you to pa y for the very basics like food, housing, medical care, and heating? Not hard at all 04/16/2025 [facility] Occupat ional Health - Occupational Stress [...] any time in the past [address] [facility], were you homeless or living in a longterm (including now)? No 04/16/2025 Estimated Date of Delivery Comme nts Yes 08/18/2025 Based on Ultraso und Sex and Gender Information Value Date Recorded Sex Assigned at Not on file Legal Sex Female 6:05 AM WARRANT CLERK Gender Identity Not on file Sexual Orientation Not on file Last Filed Vital Signs Vital Sign Reading Time Taken Comments Blood Pressure 97/53 04/16/2025 4:17 PM WARRANT CLERK Pulse 93 04/16/2025 4:17 PM WARRANT CLERK Temperature 36.7 C (98.1 F) 04/16/2025 11:32 AM WARRANT CLERK Respiratory Rate 18 04/16/2025 4:17 PM WARRANT CLERK Oxygen Saturation 95% 05/28/2024 11:26 PM WARRANT CLERK Inhaled Oxygen Concentration - - Weight 72.1 kg (159 lb) 04/16/2025 11:32 AM WARRANT CLERK Height 157.5 cm (5' 2) 04/16/2025 11:32 AM WARRANT CLERK Body Mass Index 29.08 04/16/2025 11:32 AM WARRANT CLERK Plan of Treatment Upcoming Encounters Date Type Department Care Team (Late st Contact Info) Description 05/01/2025 7:30 AM WARRANT CLERK Appointment [facility] [address] [place], [place] [id number] Health Maintenance Due Date Last Done Comments HEPATITIS C SCREENING 05/29/2011 PNEUMOCOCCAL VACCINE (1 of 2 - PCV) 2012 Cervical Cancer Screening 08/05/2019 PAP SMEAR 08/05/2019 08/05/2016 HPV VACCINE (1 - 3-dose SCDM series) 2020 PAP with HPV 2023 DEPRESSION SCREENING 06/08/2024 COVID-19 VACCINE (2 - 2024- season) 2025 09/20/2020 INFLUENZA VACCINE (#1) 2025 2, 02/26/2017, 06/20/2011 OB-ONE HOUR GLUCOSE 05/12/2025 12/10/2016 OB-TDAP CURRENT 05/19/20252021, 12/10/2016, 06/20/2011, Additional history exists OB-RHOGAM INJECTION 05/26/2025 09/28/2023, 04/28/2023, 05/13/2022, Additional history exists Respiratory Syncytial Virus (RSV) Vaccine Pt: or over 60 yrs (1 - Risk 1-dose series) 06/23/2025 OB-GROUP B STREP SCREEN 07/14/2025 01/20/2017 DTAP/TDAP/TD [...] Procedure Name Priority Date/Time Associated Diagnosis Comments TRICHOMONAS VAGINALIS ELEAZAR Routine 04/16/2025 5:10 PM WARRANT CLERK Abdominal pain affecting (HCC) CHLAMYDIA AND N. GONORRHOEAE ELEAZAR STAT 04/16/2025 5:10 PM WARRANT CLERK Abdominal pain affecting (HCC) MAGNESIUM BLOOD Routine 04/16/2025 12:29 PM WARRANT CLERK Abdominal pain affecting (HCC) PROTEIN CREATININE RATIO URINE RANDOM PNL STAT 04/16/2025 12:29 PM WARRANT CLERK Abdominal pain affecting (HCC) PHOSPHORUS BLOOD STAT 04/16/2025 12:2 9 PM WARRANT CLERK Abdominal pain affecting (HCC) COMPREHENSIVE METABOLIC PANEL STAT 04/16/2025 12:29 PM WARRANT CLERK Abdominal pain affecting (HCC) CBC W/O DIFFERENTIAL STAT 04/16/2025 12:29 PM WARRANT CLERK Abdominal pain affecting (HCC) URINALYSIS REFLEX MICROSCOPIC REFLEX CULTURE STAT 04/16/2025 12:29 PM WARRANT CLERK Abdominal pain affecting (HCC) CULTURE URINE STAT 04/16/2025 12:29 PM WARRANT CLERK Abdominal pain affecting (HCC) SONOGRAM - COMPLETE Routine 04/03/2025 3 :46 PM CDT Vaginal bleeding in , first trimester (HCC) Uterine fibroid during , antepartum (HCC) 19 weeks gestation of (HCC) Encounter for anatomic survey (HCC) SONOGRAM - COMPLETE Routine 03/13/2025 1 :57 PM CDT Encounter for anatomic survey (HCC) Vaginal bleeding in , first trimester (HCC) Uterine fibroid during , antepartum (HCC) 17 weeks gestation of (HCC) CULTURE STREP B Routine 01/20/2017 2:51 AM CDT Supervision of other normal , antepartum GLUCOSE CHALLENGE Routine 12/10/2016 10: 00 AM CDT Supervision of other normal , antepartum PAP IG RFLX HPV ASCU Routine 08/05/2016 12:37 PM WARRANT CLERK 10 weeks gestation of HIV-1 HIV-2 ANTIBODY + HIV P24 AG PANEL Routine 08/05/2016 12:35 PM WARRANT CLERK 10 weeks gestation of from Last 3 Months or Most Recently Relevant to Health Maintenance Results * TRICHOMONAS VAGINALIS ELEAZAR (04/16/2025 5:10 PM WARRANT CLERK) Trichomonas by ELEAZAR NEGATIVE NEGATIVE 04/17/2025 1:00 PM WARRANT CLERK [facility] MICROBIOLOGY Microbiology ENTIRE VAGINA / Unknown Collection / Unknown 04/16/2025 5:10 PM WARRANT CLERK 04/16/2025 5:15 PM WARRANT CLERK Narrative [facility] - 04/17/2025 1:00 PM WARRANT CLERK This test performed by Qualitative real-time Polymerase Chain Reaction (PCR). Tonny Mcarthur MD LAB - MICROBIOLOGY ORDERABLES Final Result Performing Organization Address [facility] [place]/[facility] Co de Phone Number [facility] [address] [place] [address], [facility] [phone] * CHLAMYDIA AND N. GONORRHOEAE ELEAZAR (04/16/2025 5:10 PM WARRANT CLERK) Chlamydia by ELEAZAR NEGATIVE NEGATIVE 04/17/2025 1:00 PM WARRANT CLERK [facility] Neisseria gonorrhoeae ELEAZAR NEGATIVE NEGATIVE 04/17/2025 1:00 PM WARRANT CLERK [facility] Microbiology ENTIRE VAGINA / Unknown Collection / Unknown 04/16/2025 5:10 PM WARRANT CLERK 04/16/2025 5:15 PM WARRANT CLERK [facility] MICROBIOLOGY - 04/17/2025 1:00 PM WARRANT CLERK This test performed by Qualitative real-time Polymerase Chain Reaction (PCR). Tonny Mcarthur MD LAB - MICROBIOLOGY ORDERABLES Final Result Performing Organization Address [facility] [place]/[facility] de Phone Number [facility] [address] [place] [address], [facility] [phone] * (ABNORMAL) URINALYSIS REFLEX MICROSCOPIC REFLEX CULTURE (04/16/2025 12:29 PM WARRANT CLERK) Color UA Yellow Yellow, Straw 04/16/2025 12:55 PM WARRANT CLERK [facility] Clarity UA Turbid(A) Clear 04/16/2025 12:55 PM WARRANT CLERK [facility] Glucose UA Normal Normal 04/16/2025 12:55 PM WARRANT CLERK [facility] Bilirubin UA Negative Negative 04/16/2025 12:55 PM WARRANT CLERK [facility] Ketone UA Trace(A) Negative 04/16/2025 12:55 PM WARRANT CLERK [facility] Specific Jadwin UA 1.034(H) 1.005 - 1.030 04/16/2025 12:55 PM WARRANT CLERK [facility] Blood UA Negative Negative 04/16/2025 12:55 PM WARRANT CLERK [facility] pH UA 6.0 5.0 - 8.0 04/16/2025 12:55 PM WARRANT CLERK [facility] Protein UA 1+(A) Negative 04/16/2025 12:55 PM WARRANT CLERK [facility] Urobilinogen UA Normal Normal mg/dL 04/16/2025 12:55 PM WARRANT CLERK [facility] Nitrite UA Negative Negative 04/16/2025 12:55 PM WARRANT CLERK [facility] Leukocyte Esterase UA 25 TYE/uL(A) Negative 04/16/2025 12:55 PM WARRANT CLERK [facility] RBC UA 6-10(A) 0 - 5 # /hpf 04/16/2025 12:55 PM WARRANT CLERK [facility] WBC UA 11-20(A) 0 - 5 # /hpf 04/16/2025 12:55 PM WARRANT CLERK [facility] Bacteria UA 3+(A) None Seen 04/16/2025 12:55 PM WARRANT CLERK [facility] Squamous Epithelial Cells 11-20(A) 0 - 5 /hpf 04/16/2025 12:55 PM WARRANT CLERK [facility] Mucus UA 4+ /LPF 04/16/2025 12:55 PM [facility] Reflex Status Culture to follow 04/16/2025 12:55 PM WARRANT CLERK [facility] Urine URINE SPECIMEN OBTAINED BY CLEAN CATCH PROCEDURE / Unknown Collection / Unknown 04/16/2025 12:29 PM WARRANT CLERK 04/16/2025 12:41 PM WARRANT CLERK us Tonny Mcarthur MD LAB - URINALYSIS ORDERABLES Fi nal Result Performing Organization Address [facility] [place]/[facility] de Phone Number [facility] [address] [place] [address] * CULTURE URINE (04/16/2025 12:29 PM WARRANT CLERK) Culture Urine 10,000-50,000 CFU/mL urogenital muriel ALE 04/17/2025 4:47 PM WARRANT CLERK [facility] Urine URINE SPECIMEN OBTAINED BY CLEAN CATCH PROCEDURE / Unknown Collection / Unknown 04/16/2025 12:29 PM WARRANT CLERK 04/16/2025 12:41 PM WARRANT CLERK Tonny Mcarthur MD LAB - MICROBIOLOGY ORDERABLES Final Result [facility] [address] [place] [address], [facility] [phone] * (ABNORMAL) CBC W/O DIFFERENTIAL (04/16/2025 12:29 PM WARRANT CLERK) Pathologist [facility] WBC 9.4 4.0 - 10.7 x10E9/L 04/16/2025 12:44 PM WARRANT CLERK [facility] RBC Count 4.13 3.90 - 5.20 x10E12/L 04/16/2025 12:44 PM WARRANT CLERK [facility] Hemoglobin 10.5(L) 11.9 - 15.8 g/dL 04/16/2025 12:44 PM [facility] Hematocrit 32.6(L) 34.8 - 46.1 % 04/16/2025 12:44 PM [facility] MCV 78.9(L) 80.0 - 98.0 fL 04/16/2025 12:44 PM [facility] MCH 25.4(L) 26.7 - 33.6 pg 04/16/2025 12:44 PM [facility] MCHC 32.2 31.7 - 36.3 g/dL 04/16/2025 12:44 PM [facility] RDW-CV 14.9(H) 11.3 - 14.8 % 04/16/2025 12:44 PM [facility] Platelet Count 269 150 - 420 x10E9/L 04/16/2025 12:44 PM [facility] MPV 9.3 7.8 - 11.4 fL 04/16/2025 12:44 PM [facility] Blood BLOOD SPECIMEN / Unknown Venipuncture / Unknown 04/16/2025 12:29 PM WARRANT CLERK 04/16/2025 12:41 PM WARRANT CLERK Tonny Mcarthur MD LAB - HEMATOLOGY ORDERABLES Fi nal Result [facility] [address] [place] [address] * (ABNORMAL) COMPREHENSIVE METABOLIC PANEL (04/16/2025 12:29 PM WARRANT CLERK) Pathologist [facility] Glucose 73 70 - 99 mg/dL 04/16/2025 12:58 PM [facility] Sodium 137 136 - 145 mmol/L 04/16/2025 12:58 PM [facility] Potassium 3.7 3.5 - 5.1 mmol/L 04/16/2025 12:58 PM [facility] Chloride 109(H) 98 - 107 mmol/L 04/16/2025 12:58 PM [facility] CO2 18(L) 22 - 29 mmol/L 04/16/2025 12:58 PM [facility] Calcium 9.1 8.4 - 10.4 mg/dL 04/16/2025 12:58 PM [facility] Anion Gap 10 6 - 16 mmol/L 04/16/2025 12:58 PM [facility] BUN 8 5.3 - 18.7 mg/dL 04/16/2025 12:58 PM [facility] Creatinine 0.52 0.50 - 1.00 mg/dL 04/16/2025 12:58 PM [facility] Alkaline Phosphatase 74 40 - 150 U/L 04/16/2025 12:58 PM [facility] ALT 12 6 - 57 U/L 04/16/2025 12:58 PM [facility] AST 18 10 - 48 U/L 04/16/2025 12:58 PM [facility] Protein Total 7.1 6.4 - 8.3 gm/dL 04/16/2025 12:58 PM [facility] Albumin 3.2 3.1 - 4.5 gm/dL 04/16/2025 12:58 PM [facility] Bilirubin Total 0.2 0.2 - 1.2 mg/dL 04/16/2025 12:58 PM [facility] eGFR by CKD-EPI >90 >=90 mL/min/1.7 3 m2 04/16/2025 12:58 PM [facility] Comment:Estimated Glomerular Filtration Rate (eGFR) calculated using the CKD-EPI Creatinine Equation (2020), per the National Kidney Foundation and [place] [employer] of Neph[employer] recommendations. Blood BLOOD SPECIMEN / Unknown Venipuncture / Unknown 04/16/2025 12:29 PM WARRANT CLERK 04/16/2025 12:41 PM WARRANT CLERK Tonny Mcarthur MD LAB - CHEMISTRY ORDERABLES Fin al Result Performing Organization Address [facility] [place]/[facility] Co de Phone Number [facility] [address] [place], [place] [id number] * (ABNORMAL) PROTEIN CREATININE RATIO URINE RANDOM PNL (04/16/2025 12:29 PM WARRANT CLERK) Protein Urine 12.2(H) <11.9 mg/dL 04/16/2025 1:01 PM WARRANT CLERK [facility] Creatinine Urine 160.95 mg/dL 04/16/2025 1:01 PM WARRANT CLERK [facility] Protein/Creatin ine Ratio Urine 0.08 04/16/2025 1:01 PM WARRANT CLERK [facility] Urine URINE SPECIMEN OBTAINED BY CLEAN CATCH PROCEDURE / Unknown Collection / Unknown 04/16/2025 12:29 PM WARRANT CLERK 04/16/2025 12:41 PM WARRANT CLERK Tonny Mcarthur MD LAB - URINE CHEMISTRY ORDERABL ES Final Result Performing Organization Address [facility] de Phone Number [facility] [address] [place] [address] * PHOSPHORUS BLOOD (04/16/2025 12:29 PM WARRANT CLERK) Phosphorus 3.3 2.5 - 4.5 mg/dL 04/16/2025 12:58 PM WARRANT CLERK [facility] Blood BLOOD SPECIMEN / Unknown Venipuncture / Unknown 04/16/2025 12:29 PM WARRANT CLERK 04/16/2025 12:41 PM WARRANT CLERK Tonny Mcarthur MD LAB - CHEMISTRY ORDERABLES Fin al Result Performing Organization Address [facility] [place]/[facility] Co de Phone Number [facility] [address] [place] [address] * MAGNESIUM BLOOD (04/16/2025 12:29 PM WARRANT CLERK) Magnesium 2.0 1.6 - 2.6 mg/dL 04/16/2025 1:38 PM WARRANT CLERK [facility] Blood BLOOD SPECIMEN / Unknown Venipuncture / Unknown 04/16/2025 12:29 PM WARRANT CLERK 04/16/2025 12:41 PM WARRANT CLERK Tonny Mcarthur MD LAB - CHEMISTRY ORDERABLES Alex al Result [facility] [address] [place] [address] * Sonogram - Complete (04/03/2025 3:46 PM CDT) Only the most recent of2 resultswithin the time period is included. Linked Results Indication ======== anatomy evaluation Fibroid uterus complicating History of preeclampsia Family history of Down syndrome Patient's brother History ====== OB History 7. Para 3 [id number] 1. live 2011. Gest. age 40 w + 2 d. Weight 3,121 g. Sex of child: female. Details: Vaginal delivery 2. live 2016. Gest. age 39 w + 3 d. Weight 2,910 g. Sex of child: female. Details: Vaginal delivery 3. live 2021. Gest. age 37 w + 4 d. Weight 2,745 g. Sex of child: female. Details: Vaginal delivery 4. miscarriage. Details: SAB x2; IAB x1 Maternal Assessment Physical Exam Height 155 cm, 5 ft 1 in. Weight 72 kg, 158 lb. Initial weight 68 kg, 150 lb. BMI 29.85 kg/m . Initial BMI 28.34 kg/m . Weight gain 4 kg, 8 lb Method ====== Transabdominal and transvaginal ultrasound. View: Sufficient ========= Hood . Number of fetuses: 1 Dating ====== Date Details Gest. age DONTA Stated DONTA 20 w + 3 d 08/18/2025 U/S 04/03/2025 based upon AC, BPD, Femur, HC 20 w + 3 d 08/18/2025 Assigned dating based on stated DONTA, selected on 03/13/2025 20 w + 3 d 08/18/2025 General Evaluation Cardiac activity present. FHR 151 bpm. Presentation: breech Placenta: Placental site: anterior. No previa seen Umbilical cord: Cord vessels: 3 vessel cord. Insertion site: normal insertion Amniotic fluid: Amount of AF: normal. MVP 6.3 cm Biometry BPD 46.0 mm 19w 6d 28% Hadlock HC 178.5 mm 20w 2d 36% Hadlock Cerebellum tr 21.1 mm 59% [place] Nuchal fold 3.8 mm AC 160.9 mm 21w 1d 69% Hadlock Femur 33.7 mm 20w 4d 47% Hadlock Humerus 34.9 mm 22w 0d 93% Raquel HC / AC 1.11 -/- 19% Hadlock Weight Calculation: EFW 379 g 65% Hadlock EFW (lb,oz) 0 lb 13 oz EFW by Hadlock ([id number]) Head / Face / Neck Biometry: CM 3.4 mm 7% Nicolaides appropriate Growth Overview Exam date GA BPD (mm) HC (mm) AC (mm) FL (mm) HL (mm) EFW (g) 03/13/2025 17w 3d 37.4 50% 140.5 38% 122.6 65% 26.9 74% 26.6 88% 218 76% 04/03/2025 20w 3d 46 28% 178.5 36% 160.9 69% 33.7 47% 34.9 93% 379 65% Anatomy The following structures appear normal: Head / Neck Cranium. Lateral ventricles. Choroid plexus. Midline falx. Cavum septi pellucidi. Cerebellum. Cisterna magna. Thalami. Nuchal fold. Face Orbits. Heart / Thorax 3-vessel view. Right lung. Left lung. Diaphragm. Abdomen Cord insertion. Stomach. Kidneys. Bladder. Bowel. Genitals. Spine Cervical spine. Thoracic spine. Lumbar spine. Sacral spine. Extremities / Skeleton Arms. Hands. Legs. Left foot. The following structures could not be adequately visualized: Face Lips. Profile. Nose. Nasal bone. Heart / Thorax 4-chamber view. RVOT view. LVOT view. 0-gddghj-unxntbs view. Situs. Aortic arch view. Bicaval view. Ductal arch view. Interventricular septum. Great vessels. Extremities / Skeleton Right foot. sex: male. Maternal Structures Uterus Fibroid(s) Size 13 mm x 19 mm x 12 mm. Mean 14.7 mm. Vol 1.552 cm . Anterior Cervix reassuring Approach - Transvaginal: Cervical length 4.30 cm Funneling absent Right Ovary Normal Left Ovary Normal Impression ========= Single, live, intrauterine at 20w 3d The size is appropriate. The amniotic fluid volume is normal. No major malformations were seen within the limitations of ultrasound Anterior placenta, not a previa. Follow-up ======== Follow up ultrasound in 4 weeks for growth and to complete anatomic survey Coding ====== Diagnoses Z36.3: Encounter for screening for malformations Procedures 44805: US Preg Uterus >14 weeks 44306: US Preg Uterus Transvaginal [facility] [place] PACS Anatomical Region Laterality Modality Other 04/03/2025 3:46 PM CDT Denis Clark MD [facility] ORDERABLES Edited Result - Final * CULTURE STREP B (01/20/2017 2:51 AM CDT) Culture Strep B Negative for beta-hemolytic Streptococcus Group B ALE 01/23/2017 9:48 AM CDT [facility] Microbiology MISCELLANEOUS SAMPLES / Unknown Collection / Unknown 01/20/2017 2:51 AM CDT 01/20/2017 2:58 AM CDT Maryann Lynn MD LAB - MICROBIOLOGY ORDERABLES Final Result [facility] [address] [place] [address], [facility] [phone] * GLUCOSE CHALLENGE (12/10/2016 10:00 AM CDT) Glucose Challenge 109 64 - 140 mg/dL 12/10/2016 12:16 PM CDT [facility] Glucose Challenge Time 12/10/2016 12:16 PM CDT [facility] Blood BLOOD SPECIMEN / Unknown 12/10/2016 10:00 AM CDT 12/10/2016 11:48 AM CDT Rochelle Velazquez STATISTICAL ANALYST-SENIOR INTERNATIONAL TAX MANAGER LAB - CHEMISTRY ORDERABLE S Final Result [facility] [address] [place] [address] * PAP SMEAR IG RFLX HPV ASCU (PO REF LAB) (08/05/2016 12:37 PM WARRANT CLERK) Diagnosis Comment 08/06/2016 9:08 PM WARRANT CLERK [facility] (DP) Comment:NEGATIVE FOR INTRAEP ITHELIAL LESION AND MALIGNANCY. Specimen Adequacy Comment 017 9:08 PM WARRANT CLERK [facility] (DP) Comment: Satisfactory for evaluation. Endocervical and/or squamous metaplastic cells (endocervical component) are present. Performed by Comment 08/06/2016 9:08 PM WARRANT CLERK [facility] ([facility]) Comment:Rubi Medley, [employer] hnologist (ASCP) Comment . 08/06/2016 9:08 PM WARRANT CLERK [facility] ([facility]) Note Comment 08/06/2016 9:08 PM WARRANT CLERK [facility] (DP) Comment: The Pap smear is a screening test designed to aid in the detection of premalignant and malignant conditions of the uterine cervix. It is not a diagnostic procedure and should not be used as the sole means of detecting cervical cancer. Both false-positive and false-negative reports do occur. IGLBP CPT Code Automation Comment 08/06/2016 9:08 PM WARRANT CLERK [facility] (DP) Comment: This liquid based ThinPrep(R) pap test was screened with the use of an image guided system. Note Comment 08/06/2016 9:08 PM WARRANT CLERK [facility] (DP) Comment: The HPV DNA reflex criteria were not met with this specimen result therefore, no HPV testing was performed. Pathology/Cytolo gy PART OF UTERINE CERVIX / Unknown 08/05/2016 12:37 PM WARRANT CLERK 08/05/2016 1:19 PM WARRANT CLERK Narrative [facility] ([facility]) - 08/06/2016 9:08 PM WARRANT CLERK Performed at: - [address] [id number] Fire Support Man: Rayna Cuevas MD, Phone: [phone] Specimen Comment: Source.............Cervix Specimen Comment: No. of containers..01 CYTYC Thin Prep Vial us Gaye Stephens MD LAB - PATHOLOGY/CYTOLOGY ORDE GABI Final [facility] [address] [place] [address] * HIV-1 HIV-2 ANTIBODY + HIV P24 AG PANEL (08/05/2016 12:35 PM WARRANT CLERK) HIV1/2 Ab + P24 Ag Non Reactive Non Reactive 08/05/2016 6:49 PM WARRANT CLERK [facility] Blood BLOOD SPECIMEN / Unknown 08/05/2016 12:35 PM WARRANT CLERK 08/05/2016 1:10 PM WARRANT CLERK Narrative [facility] - 08/05/2016 6:49 PM WARRANT CLERK No Laboratory evidence of HIV infection. us Gaye Stephens MD LAB - CHEMISTRY ORDERABLES Fi nal Result [facility] [place] [address] from Last 3 Months or Most Recently Relevant to Health Maintenance Insurance [facility] [place] MEDICAID - UHC COMMUNITY PLAN [...] 12:53 PM 02/27/2017 12:50 PM Care Teams Technical Coordinator Relationship Specialty Start Date End Date [facility] [address] [place] [address] PCP - General Nurse Instructor 01/30/22
--- OUTSIDE RECORDS SUMMARY | 2025-04-21 16:04 | XMS_ITS | Patient Health Record ---
Author Organization [facility] Address [address] [place], [place] [id number] Care Team Providers Care Soap Drier Operator Name Role Phone Melita German Primary Care Provider Rodrick Bauman Unavailable [phone] Allergies No Known Allergies Reason For Referral [...] Duration: 5 Not-Taking Vitamin D3 1.25 MG (55356 UT) Oral; Duration: 28 Not-Takin g Metoclopramide [...] Status Risk Notes Problem Finding related to (394466637) related conditions, unspecified, first trimester (O26.91) Active confirm Problem test equivocal (760021176) Encounter for test, result unknown (Z32.00) Active confirmed Problem care (regime/therap y) (939526071) Encntr for suprvsn of normal preg, unsp, second trimester (Z34.92) Active confirmed Problem test positive (870490806) test performed, confirmed (Z32.01) Active confirmed Plan Of Treatment Pending Test Test Name Order Date Ultrasound : (OB) First Trimester 2019 Ultrasound : OB/ Complete After 1st Trim es 03/11/2022 Insurance Providers Payer Name Payer Address Payer Phone Subscriber Number Group Number Insured Name Patient Relationship to Insured Coverage Start Date Coverage End Date UHC Community Medicaid HMO [address] [place] [address] [id number] Nisha Millan Self - patient is the insured 9 [employer] Ca[employer] [address] [place] [address] [id number] Nisha Chou Self - patient is the insured 2 DENTAL MEDICAID [employer] Medicaid Dental [address] [place] [id number] Nisha Chou Self - patient is the insured 9 Medications Administered Medication Instructions Date of Administration Dosage Notes RhoGAM Ultra-Filtered PLUS-300ug 02/27/2022 1 Medical (General) History Surgical History Surgery Date(Month/Year) vaginal delivery vaginal delivery
--- OUTSIDE RECORDS SUMMARY | 2025-04-21 16:05 | XMS_ITS | Clinical Summary ---
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 Her Referred to [facility] for trauma focused therapy. 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 Gender Identity Female 07/10/2020 2:40 PM LUNG GUN OPERATOR Sexual Orientation Straight 07/10/2020 2: 40 PM LUNG GUN OPERATOR Obstetrics History Para Term AB IAB [...] WALKER ,BABY GIRL FRANCH ESCA Tara Delivery Location:[facility] 2013 AB 2016 IAB 2016 Term 39w 3d 0h 17m 0h 13m/0h 04m 2.91 kg (6 lb 6.7 oz) F Vag-S pont Epidur al N Livin g 8 9 WALKER ,BABY GIRL NIRANJAN WALLACEA Abhishek Nj MD Complications:None Delivery Location:[facility] 2018 IA2019 Term 37w 4d 2.745 kg (6 lb 0.8 oz) F Vag-S pont Epidur al Livin g Ronal wood Complications: Karla yamileth Hypertension Delivery Location:[facility] 2021 Term 37w 4d 0h 07m 0h 07m 2.745 kg (6 lb 0.8 oz) F Vag-S pont Epidur al N Livin g 9 9 WALKER ,BABY GIRL NIRANJAN WALLACEA Salena wood MD Complications:None Delivery Location:[facility] ([facility] 5 R) Current Last Filed Vital Signs Vital Sign Reading Time Taken Comments Blood Pressure 111/71 02/16/2025 1:30 PM CDT Pulse 80 02/16/2025 1:30 PM CDT Temperature 36.7 C (98.1 F) 02/16/2025 9:00 AM CDT Respiratory Rate 16 02/16/2025 1:30 PM CDT Oxygen Saturation 100% 02/16/2025 1:30 PM CDT Inhaled Oxygen Concentration - - Weight 69.9 kg (154 lb 1.6 oz) 02/16/2025 9:00 A M CDT Height 156.2 cm (5' 1.5) 02/16/2025 [...] AUTO DIFFERENTIAL STAT 02/16/2025 9:13 AM CDT from Last 3 Months Results * Urinalysis reflex to microscopic and culture Urine (02/16/2025 11:45 AM CDT) Color, ur Yellow Yellow Comment:Testing performed by : [address] [address] Clarity, ur Clear Clear [facility] Comment:Testing performed by : [address] [address] Specific gravity, ur 1.014 1.003 - 1.030 [facility] Comment:Testing performed by : [address] [address] pH, urine 7.0 [facility] Comment: Interpretive Data U rine pH is affected by diet, medications, systemic acid-base disturbances, and renal tubular function. pH may affect urinary stone formation. For example, urine pH below 6.0 may help reduce the tendency for calcium phosphate stones and pH greater than 6.0 may reduce the tendency for uric acid stone formation. Source: [facility] [place] Current Interpretive Data was last revised on 2017 Testing performed by: [address] [address] Protein, ur ql Negative Negative [facility] Comment:Testing performed by : [address] [address] Glucose, ur ql Negative Negative [facility] Comment:Testing performed by : [address] [address] Ketones, ur Negative Negative [facility] Comment:Testing performed by : [address] [address] Bilirubin, ur Negative Negative [facility] Comment:Testing performed by : [address] [address] Blood, ur Negative Negative [facility] Comment:Testing performed by : [address] [address] Urobilinogen, ur <2.0 <2.0 mg/dL [facility]LEY Comment:Testing performed by : [facility], [address] [place] [address]., [address] Nitrite, ur Negative Negative [facility] Comment:Testing performed by : [address] [address] Leukocyte esterase, ur Negative Negative [facility] Comment:Testing performed by : [address] [address] UA reflex comment Reflex conditions for microscopic UA and culture not met. [facility] Comment:Testing performed by : [address] [address] Urine 02/16/2025 11:4 5 AM CDT 02/16/2025 11:49 AM CDT Rehab U[facility] MICROBIOLOGY - [facility]AL [facility] Final Result [facility] [address] [facility] [place] [address] * ECG 12 lead (02/16/2025 10:59 AM CDT) Ventricular Rate EKG/Min 92 BPM [facility] Atrial Rate 92 BPM [facility] LA-Interval (MSEC) 138 ms [facility] QRS-Interval (MSEC) 60 ms [facility] QT-Interval (MSEC) 338 ms [facility] QTc 417 ms [facility] P [place] 43 degrees [facility] R [place] 41 degrees [facility] T [place] 31 degrees [facility] Diagnosis Normal sinus rhythm Normal ECG No previous ECGs available Confirmed by MD NAHUM, BENNETT ([id number]) on 02/16/2025 4:28:21 PM [facility] 02/16/2025 10:5 9 AM CDT 02/16/2025 4:28 PM CDT Puja COLIN ECG ORDERABLES Fi nal Result [facility] * US Ob 14 Weeks Or Over [...] Electronically signed by Nevaeh Hernandez D.O. PS: KHURRAM Report ID: [id number] Reading Location: [id number] Procedure Note Nevaeh Hernandez, DO - 02/16/2025 EXAM DESCRIPTION: US OB [...] Nevaeh Hernandez D.O. PS: PS Report ID: [id number] Reading Location: [place] [address] us Adebowale [place] Adecoleenda PA IMG OB US PROCEDUR ES Final Result [...] of Race in Diagnosing Kidney Disease, JASN 202). The CKD-EPI equation should not be used for patients with unstable renal function and has not been validated in children and those over 70. Current interpretive data was last reviewed 2021. Testing performed by: [facility], [address] [place] [address]., [address] Blood 02/16/2025 9:13 AM CDT 02/16/2025 9:27 AM CDT us Joseab Ubal[facility] BLOOD ORDERABLES Final Resu lt [facility] [address] [facility] [place] [address] * Differential, auto (02/16/2025 9:13 AM CDT) Neutrophil abs 4.66 1.50 - 6.50 K/cumm Comment:Testing performed by : [address] [address] Imm gran abs 0.02 0.00 - 0.10 K/cumm [facility] Comment:Testing performed by : [address] [address] Lymphocyte abs 1.87 0.80 - 3.30 K/cumm [facility] Comment:Testing performed by : [address] [address] Monocyte abs 0.37 0.20 - 0.80 K/cumm [facility] Comment:Testing performed by : [address] [address] Eosinophil abs 0.21 0.00 - 0.50 K/cumm [facility] Comment:Testing performed by : [address] [address] Basophil abs 0.02 0.00 - 0.10 K/cumm [facility] Comment:Testing performed by : [address] [address] Neutrophil pct 65.1 % [facility] Comment: Interpretive Data Percent cell count reference ranges are not reported, since discordance with absolute values may lead to misinterpretation of CBC data. Current Interpretive Data was last revised on 2017. Testing performed by: [address] [address] Imm gran pct 0.3 % [facility] Comment: Interpretive Data Percent cell count reference ranges are not reported, since discordance with absolute values may lead to misinterpretation of CBC data. Current Interpretive Data was last revised on 2017. Testing performed by: [address] [address] Lymphocyte pct 26.2 % [facility] Comment: Interpretive Data Percent cell count reference ranges are not reported, since discordance with absolute values may lead to misinterpretation of CBC data. Current Interpretive Data was last revised on 2017. Testing performed by: [address] [address] Monocyte pct 5.2 % [facility] Comment: Interpretive Data Percent cell count reference ranges are not reported, since discordance with absolute values may lead to misinterpretation of CBC data. Current Interpretive Data was last revised on 2017. Testing performed by: [address] [address] Eosinophil pct 2.9 % [facility] Comment: Interpretive Data Percent cell count reference ranges are not reported, since discordance with absolute values may lead to misinterpretation of CBC data. Current Interpretive Data was last revised on 2017. Testing performed by: [address] [address] Basophil pct 0.3 % [facility] Comment: Interpretive Data Percent cell count reference ranges are not reported, since discordance with absolute values may lead to misinterpretation of CBC data. Current Interpretive Data was last revised on 2017. Testing performed by: [address] [address] Blood 02/16/2025 9:13 AM CDT 02/16/2025 9:27 AM CDT us Rehab U[facility] BLOOD ORDERABLES Final [facility]u lt [facility] [address] [facility] [place] [address] * (ABNORMAL) CBC with auto differential (02/16/2025 9:13 AM CDT) WBC 7.15 3.80 - 9.90 K/cumm Comment:Testing performed by : [address] [address] Hgb 11.8(L) 11.9 - 15.5 g/dL [facility] Comment:Testing performed by : [address] [address] Hct 35.7 35.6 - 45.5 % [facility] Comment:Testing performed by : [address] [address] Plt 219 150 - 400 K/cumm [facility] Comment:Testing performed by : [address] [address] MPV 9.4 9.1 - 12.3 fL [facility] Comment:Testing performed by : [address] [address] RBC 4.39 3.90 - 5.20 M/cumm [facility] Comment:Testing performed by : [address] [address] MCV 81.3 81.3 - 96.4 fL [facility] Comment:Testing performed by : [address], [address] MCH 26.9(L) 27.1 - 33.3 pg [facility] Comment:Testing performed by : [address] [address] MCHC 33.1 32.3 - 35.7 g/dL [facility] Comment:Testing performed by : [address], [address] RDW CV 14.4 11.1 - 14.9 % [facility] Comment:Testing performed by : [address], [address] RDW SD 42.9 35.7 - 48.1 fL [facility] Comment:Testing performed by : [address] [address] NRBC abs 0.00 0.00 - 0.01 K/cumm [facility] Comment:Testing performed by : [address], [address] Blood 02/16/2025 9:13 AM CDT 02/16/2025 9:27 AM CDT us Rehab Ubaldo [facility] BLOOD ORDERABLES Final Resu lt [facility] [address] [facility] [place] [address] * (ABNORMAL) Comprehensive metabolic panel (02/16/2025 9:13 AM CDT) Sodium 136 135 - 145 mmol/L Comment:Testing performed by : [facility], [address] [place] [address]., [address] Potassium, pl 3.8 3.3 - 4.9 mmol/L [facility] Comment:Testing performed by : [address], [place]., [address] Chloride 104 97 - 110 mmol/L [facility] Comment:Testing performed by : [address], [place]., [address] CO2 19(L) 22 - 32 mmol/L [facility] Comment:Testing performed by : [address], [place]., [address] Anion gap 13 2 - 15 mmol/L [facility] Comment:Testing performed by : [address], [place]., [address] BUN 6 6 - 25 mg/dL [facility] Comment:Testing performed by : [address], [place]., [address] Creatinine 0.50(L) 0.60 - 1.10 mg/dL [facility] Comment:Testing performed by : [address] [address] Glucose 140 70 - 199 mg/dL [facility] Comment: Interpretive Data Fasting glucose >/= [...] was last revised 2022. Testing performed by: [address] [address] Calcium 9.6 8.5 - 10.3 mg/dL [facility] Comment:Testing performed by : [address], [place]., [address] Bilirubin, total 0.2 0.1 - 1.2 mg/dL [facility] Comment:Testing performed by : [facility], [address] [place] [address]., [address] Protein, pl 6.8 6.5 - 8.5 g/dL [facility] Comment:Testing performed by : [facility], [address] [place] [address]., [address] Albumin 3.9 3.5 - 5.0 g/dL [facility] Comment:Testing performed by : [address] [address] Alk phos 69 40 - 130 Units/L [facility] Comment:Testing performed by : [address] [address] ALT 12 7 - 45 Units/L [facility] Comment:Testing performed by : [address] [address] AST 19 10 - 45 Units/L [facility] Comment:Testing performed by : [address] [address] Blood 02/16/2025 9:13 AM CDT 02/16/2025 9:27 AM CDT us Rehab Ubaldo [facility] BLOOD ORDERABLES Final Resu lt [facility] [address] [facility] [place] [address] from Last 3 Months Insurance [employer] EXCHANGE IDPA IDPA Care Teams Airport Operations Supervisor Relationship Specialty Start Date End Date No, Physician PCP - General 10/07/24
--- NOTE | 2025-05-08 09:10 | PM.OBTRLD ---
OB - Triage/Final Diagnosis Visit Information Comments/Additional reasons for admission: I have assessed the risk for this patient, Nisha Arambula, and determined that she would benefit from observation care. Evaluation Laboratory results: Laboratory Tests 04/21/25 12:04 Urine Color Yellow Urine Appearance Clear Urine pH 6.5 Ur Specific [place] 1.029 Urine Protein Trace Urine Glucose (UA) Negative Urine Ketones Negative Ur Blood (Man) Negative Urine Nitrate Negative Urine Bilirubin Negative Urine Urobilinogen 1.0 Ur Leukocyte Esterase Trace H Add Ur Microanalysis Reviewed Urine RBC 6-10 H Urine WBC 0-5 Ur Squamous Epith Cells Few Urine Bacteria 1+ H Urine Casts 0-2 Urine Mucus Present Final Diagnosis (1) Abdominal cramping affecting : Code(s): O26.899 - Other specified related conditions, unspecified trimester; R10.9 - Unspecified abdominal pain Status: Acute
== END 2025-04-21 13:48 | disposition home or self-care (01) ==
PROVIDERS: Admitting Provider Obstetrics & Gynecology; Visit Provider Obstetrics & Gynecology
DX: O26.892 Other specified pregnancy related conditions, second trimester (principal); Z3A.23 23 weeks gestation of pregnancy; R10.9 Unspecified abdominal pain
CPT/HCPCS: 81001; G0378; G0379

== ENCOUNTER 2025-05-02 11:06 | Observation (INO) | payer OTHER, SELFPAY ==
--- OUTSIDE RECORDS SUMMARY | 2025-05-01 07:30 | XMS_ITS | Encounter Summary ---
Author Organization [facility] Address [address] [facility] [place] [address] Care Team Providers Care Tractor Mechanic Name Role Phone [facility] Primary Care Pro vider Reason for Referral * BRICK CLEANER (Routine) - Open Specialty Diagnoses / Procedures Referred By Contac t Referred To Contact Maternal Medicine Diagnoses Uterine fibroid during , antepartum (HCC) 24 weeks gestation of ([facility]) Encounter for follow-up ultrasound of anatomy ([facility]) Encounter for ultrasound to assess growth ([facility]) Procedures Sonogram - Complete Denis Nguyen MD [address] [address] Phone: tel: fax: [facility] [address] [place], [place] [id number] Phone: tel: fax: Referral ID Status Reason Start Date Expiration Date Visits Re quested Visits Authorized [id number] Open 04/25/2025 04/25/2026 2 2 TROM TUBE TESTER Reason for Visit * Reason Comments Ultrasound * BRICK CLEANER (Routine) - Open Specialty Diagnoses / Procedures Referred By Contac t Referred To Contact Maternal Medicine Diagnoses Uterine fibroid during , antepartum (HCC) 24 weeks gestation of (HCC) Encounter for follow-up ultrasound of anatomy (HCC) Encounter for ultrasound to assess growth (HCC) Procedures Sonogram - Complete Denis Nguyen MD [address] [facility] [address] [place] [address] Phone: tel: fax: [facility] [address] [place] [address] Phone: tel: fax: Referral ID Status Reason Start Date Expiration Date Visits Re quested Visits Authorized [id number] Open 04/25/2025 04/25/2026 2 2 Encounter Details Date Type Department Care Team (Late st Contact Info) Description 05/01/2025 7:30 AM KLYSTROM TUBE TESTER Hospital Encounter [facility] [address] [place] [phone] Sam Ojeda DO [address] [facility] [address] [place] [address] BRICK CLEANER Social History Tobacco Use Types Packs/Day Years [...] place to sleep or slept in a detention (including now)? No 05/11/2022 [place] Depression Scale Answer Date Recorded [place] Depression Scale Total 0 05/08/2022 Last EPDS Self Harm Result Not on file 05/08 Overall Financial Resource Strain (CARDIA) Answe r Date Recorded How hard is it for you to pa y for the very basics like food, housing, medical care, and heating? Not hard at all 04/16/2025 [facility] - Occupational Stress [...] any time in the past 12 m [facility], were you homeless or living in a detention (including now)? No 04/16/2025 Estimated Date of Delivery Comme nts Yes 08/18/2025 Based on Ultraso und Sex and Gender Information Value Date Recorded Sex Assigned at Not on file Legal Sex Female 6:05 AM KLYSTROM TUBE TESTER Gender Identity Not on file Sexual Orientation [...] documented in this encounter Plan of Treatment Scheduled Orders Name Type Priority Associated Diagnoses Orde r Schedule Sonogram - Complete [facility] Routine Uterine fibroid during , antepartum (HCC) 24 weeks gestation of (HCC) Encounter for follow-up ultrasound of anatomy (HCC) Encounter for ultrasound to assess growth (HCC) 2 Occurrences starting 04/25/2025 until 04/25/2026 documented as of this encounter Visit Diagnoses Diagnosis Uterine fibroid during , antepartum (HCC)- Primary 24 weeks gestation of (HCC) state, incidental Encounter for follow-up ultrasound of anatomy (HCC) Encounter for ultrasound to assess growth (HCC) documented in this encounter Care Teams Tractor Mechanic Relationship Specialty Start Date End Date [facility] [address] [place] [address] PCP - General Accounting Manager Assistant Controller 01/30/22 documented as of this encounter
[2025-05-02 11:22] VITALS: BP 117/64; PULSE 94
[2025-05-02 11:31] VITALS: BP 121/80; PULSE 86
[2025-05-02 11:46] VITALS: BP 109/75; PULSE 107
[2025-05-02 12:01] VITALS: BP 95/71; PULSE 89
[2025-05-02 12:16] VITALS: BP 115/90; PULSE 55
--- OUTSIDE RECORDS SUMMARY | 2025-05-02 13:01 | XMS_ITS | Clinical Summary ---
Author Organization [facility] Physician Office Building [address] [place] [id number] Care Team Providers Care Computational Chemist Name Role Phone No, Physician Primary Care Provider [phone] Allergies Active Allergy Reactions Criticality Noted Date [...] be linked with therapist. Her Referred to [facility] for trauma focused therapy. 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 Gender Identity Female 07/10/2020 2:40 PM MOLASSES COLORING OPERATOR Sexual Orientation Straight 07/10/2020 2: 40 PM MOLASSES COLORING OPERATOR Obstetrics History Para Term AB IAB [...] WALKER ,BABY GIRL FRANCH ESCA Tara Delivery Location:[facility] 2013 AB 2016 IAB 2016 Term [...] Ronal wood Complications: Karla yamileth Hypertension Delivery Location:[facility] 2021 Term 37w 4d 0h 07m 0h 07m 2.745 kg (6 lb 0.8 oz) F Vag-S pont Epidur al N Livin g 9 9 WALKER ,BABY GIRL NIRANJAN WALLACEA Salena wood MD Complications:None Delivery Location:[facility] ([facility] 5 R) Current Last Filed [...] Yellow Yellow Comment:Testing performed by : [address] [address] Clarity, ur Clear Clear [facility] Comment:Testing performed by : [address] [address] Specific gravity, ur 1.014 1.003 - 1.030 [facility] Comment:Testing performed by : [address] [address] pH, urine 7.0 [facility] Comment: Interpretive Data U rine pH is affected by diet, medications, systemic acid-base disturbances, and renal tubular function. pH may affect urinary stone formation. For example, urine pH below 6.0 may help reduce the tendency for calcium phosphate stones and pH greater than 6.0 may reduce the tendency for uric acid stone formation. Source: [facility] [employer] Current Interpretive Data was last revised on 2017 Testing performed by: [address] [address] Protein, ur ql Negative Negative [facility] Comment:Testing performed by : [address] [address] Glucose, ur ql Negative Negative [facility] Comment:Testing performed by : [address] [address] Ketones, ur Negative Negative [facility] Comment:Testing performed by : [address] [address] Bilirubin, ur Negative Negative [facility] Comment:Testing performed by : [address] [address] Blood, ur Negative Negative [facility] Comment:Testing performed by : [address] [address] Urobilinogen, ur <2.0 <2.0 mg/dL [facility] BUCKLEY Comment:Testing performed by : [facility], [address] [place] [address]., [address] Nitrite, ur Negative Negative [facility] Comment:Testing performed by : [address] [address] Leukocyte esterase, ur Negative Negative [facility] Comment:Testing performed by : [address] [address] UA reflex comment Reflex conditions for microscopic UA and culture not met. [facility] Comment:Testing performed by : [address] [address] Urine 02/16/2025 11:4 5 AM CDT 02/16/2025 11:49 AM CDT Rehab [facility] MICRO[facility]OLOG[facility] - [facility]ise [facility] Final Result [facility] [address] [facility] Department [place] [address] * ECG 12 lead (02/16/2025 10:59 AM CDT) Ventricular Rate EKG/Min 92 BPM [facility] Atrial Rate [address] [facility] IN-Interval (MSEC) [address] [facility] QRS-Interval (MSEC) [address] [facility] QT-Interval (MSEC) [address] [facility] QTc [address] [facility] P [place] [address] [facility] R [place] [address] [facility] T [place] [address] [facility] Diagnosis Normal sinus rhythm Normal ECG No previous ECGs available Confirmed by MD NAHUM, BENNETT ([id number]) on 02/16/2025 4:28:21 PM [facility] 02/16/2025 10:5 9 AM CDT 02/16/2025 4:28 PM CDT Puja COLIN ECG ORDERABLES Fi nal Result [facility] * US Ob 14 Weeks Or Over [...] Nevaeh Hernandez D.O. PS: KHURRAM Report ID: [id number] Reading Location: [id number] Procedure Note Nevaeh Hernandez, DO - 02/16/2025 [...] Nevaeh Hernandez D.O. PS: PS Report ID: [id number] Reading Location: [place] [address] us [place] Adecoleenda PA IMG OB [...] was last reviewed 2021. Testing performed by: [facility], [address] [place] [address]., [address] Blood 02/16/2025 9:13 AM CDT 02/16/2025 9:27 AM CDT us Joseab Ubaldo [facility] BLOOD ORDERABLES Final Resu lt [facility] [address] [facility] Department [place] [address] 127 * Differential, auto (02/16/2025 9:13 AM CDT) Neutrophil abs 4.66 1.50 - 6.50 K/cumm Comment:Testing performed by : [address] [address] Imm gran abs 0.02 0.00 - 0.10 K/cumm [facility] Comment:Testing performed by : [address] [address] Lymphocyte abs 1.87 0.80 - 3.30 K/cumm [facility] Comment:Testing performed by : [address] [address] Monocyte abs 0.37 0.20 - 0.80 K/cumm [facility] Comment:Testing performed by : [address] [address] Eosinophil abs 0.21 0.00 - 0.50 K/cumm [facility] Comment:Testing performed by : [address] [address] Basophil abs 0.02 0.00 - 0.10 K/cumm [facility] Comment:Testing performed by : [address] [address] Neutrophil pct 65.1 % [facility] Comment: Interpretive Data Percent cell count reference ranges are not reported, since discordance with absolute values may lead to misinterpretation of CBC data. Current Interpretive Data was last revised on 2017. Testing performed by: [address] [address] Imm gran pct 0.3 % [facility] Comment: Interpretive Data Percent cell count reference ranges are not reported, since discordance with absolute values may lead to misinterpretation of CBC data. Current Interpretive Data was last revised on 2017. Testing performed by: [address] [address] Lymphocyte pct 26.2 % [facility] Comment: Interpretive Data Percent cell count reference ranges are not reported, since discordance with absolute values may lead to misinterpretation of CBC data. Current Interpretive Data was last revised on 2017. Testing performed by: [address] [address] Monocyte pct 5.2 % [facility] Comment: Interpretive Data Percent cell count reference ranges are not reported, since discordance with absolute values may lead to misinterpretation of CBC data. Current Interpretive Data was last revised on 2017. Testing performed by: [address] [address] Eosinophil pct 2.9 % [facility] Comment: Interpretive Data Percent cell count reference ranges are not reported, since discordance with absolute values may lead to misinterpretation of CBC data. Current Interpretive Data was last revised on 2017. Testing performed by: [address] [address] Basophil pct 0.3 % [facility] Comment: Interpretive Data Percent cell count reference ranges are not reported, since discordance with absolute values may lead to misinterpretation of CBC data. Current Interpretive Data was last revised on 2017. Testing performed by: [address] [address] Blood 02/16/2025 9:13 AM CDT 02/16/2025 9:27 AM CDT us Re[facility] B[facility] ORDERABLES Final [facility] lt [facility] [address] [facility] Department [place] [address] * (ABNORMAL) CBC with auto differential (02/16/2025 9:13 AM CDT) WBC 7.15 3.80 - 9.90 K/cumm Comment:Testing performed by : [address] [address] Hgb 11.8(L) 11.9 - 15.5 g/dL [facility] BUCKLEY Comment:Testing performed by : [address] [address] Hct 35.7 35.6 - 45.5 % [facility] Comment:Testing performed by : [address] [address] Plt 219 150 - 400 K/cumm [facility] BUCKLEY Comment:Testing performed by : [address] [address] MPV 9.4 9.1 - 12.3 fL [facility] BUCKLEY Comment:Testing performed by : [address] [address] RBC 4.39 3.90 - 5.20 M/cumm [facility] BUCKLEY Comment:Testing performed by : [address] [address] MCV 81.3 81.3 - 96.4 fL [facility] Comment:Testing performed by : [address], [address] MCH 26.9(L) 27.1 - 33.3 pg [facility] Comment:Testing performed by : [address] [address] MCHC 33.1 32.3 - 35.7 g/dL [facility] Comment:Testing performed by : [address], [address] RDW CV 14.4 11.1 - 14.9 % [facility] Comment:Testing performed by : [address], [address] RDW SD 42.9 35.7 - 48.1 fL [facility] Comment:Testing performed by : [address] [address] NRBC abs 0.00 0.00 - 0.01 K/cumm [facility] Comment:Testing performed by : [address], [address] Blood 02/16/2025 9:13 AM CDT 02/16/2025 9:27 AM CDT us Rehab U[facility] BLOOD ORDERABLES Final Resu lt [facility] [address] [facility] Department [place] [address] * (ABNORMAL) Comprehensive metabolic panel (02/16/2025 9:13 AM CDT) Sodium 136 135 - 145 mmol/L Comment:Testing performed by : [facility], [address] [place] [address]., [address] Potassium, pl 3.8 3.3 - 4.9 mmol/L [facility] Comment:Testing performed by : [address], [place]., [address] Chloride 104 97 - 110 mmol/L [facility] Comment:Testing performed by : [address], [place]., [address] CO2 19(L) 22 - 32 mmol/L [facility] Comment:Testing performed by : [address], [place]., [address] Anion gap 13 2 - 15 mmol/L [facility] Comment:Testing performed by : [address], [place]., [address] BUN 6 6 - 25 mg/dL [facility] Comment:Testing performed by : [address], [place]., [address] Creatinine 0.50(L) 0.60 - 1.10 mg/dL [facility] Comment:Testing performed by : [address] [address] Glucose 140 70 - 199 mg/dL [facility] Comment: Interpretive Data Fasting glucose >/= [...] last revised 2022. Testing performed by: [address] [address] Calcium 9.6 8.5 - 10.3 mg/dL [facility] Comment:Testing performed by : [address], [place]., [address] Bilirubin, total 0.2 0.1 - 1.2 mg/dL [facility] BUCKLEY Comment:Testing performed by : [facility], [address] [place] [address]., [address] Protein, pl 6.8 6.5 - 8.5 g/dL [facility] BUCKELY Comment:Testing performed by : [facility], [address] [place] [address]., [address] Albumin 3.9 3.5 - 5.0 g/dL [facility] BUCKLEY Comment:Testing performed by : [address] [address] Alk phos 69 40 - 130 Units/L [facility] BUCKLEY Comment:Testing performed by : [address] [address] ALT 12 7 - 45 Units/L [facility] Comment:Testing performed by : [address] [address] AST 19 10 - 45 Units/L [facility] Comment:Testing performed by : [address] [address] Blood 02/16/2025 9:13 AM CDT 02/16/2025 9:27 AM CDT us Rehab U[facility] BLOOD ORDERABLES Final Resu lt [facility] [address] [facility] Department [place] [address] from Last 3 Months Insurance [employer] EXCHANGE IDPA IDPA Care Teams Computational Chemist Relationship Specialty Start Date End Date No, Physician PCP - General 10/07/24
--- OUTSIDE RECORDS SUMMARY | 2025-05-02 13:01 | XMS_ITS | Encounter Summary ---
Author Organization [facility] Address [address] [facility] [place] [address] Care Team Providers Care Mule Operator Name Role Phone [facility] Primary Care Pro vider Encounter Details Date Type Department Care Team (Late st Contact Info) Description 04/16/2025 Hospital Encounter [facility] [address] [place], [place] [id number] Social History Tobacco Use Types Packs/Day Years [...] place to sleep or slept in a long term (including now)? No 05/11/2022 [place] Depression Scale Answer Date Recorded [place] Depression Scale Total 0 05/08/2022 Last EPDS Self Harm Result Not on file 05/08 Overall Financial Resource Strain (CARDIA) Answe r Date Recorded How hard is it for you to pa y for the very basics like food, housing, medical care, and heating? Not hard at all 04/16/2025 [facility] [place] [facility] - Occupational Stress [...] any time in the past 12 m [facility], were you homeless or living in a long term (including now)? 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
--- OUTSIDE RECORDS SUMMARY | 2025-05-02 13:01 | XMS_ITS | Clinical Summary ---
Author Organization [facility] Address [address] [place] [address] Care Team Providers Care Voltage Tester Name Role Phone [facility] Primary Care Pro vider Source Comments [facility],non-owned Affiliates and Associated Physician Practices is amultiple site organization consisting of ambulatory clinics and hospital sitesin [place], [place], [place] and [place]. This disclosure is being madepursuant to the Care Everywhere program and may not contain all information available regarding this patient. Last updated 18.[facility] Allergies Active Allergy Reactions Criticality Noted Date [...] fluticasone propionate (Flonase) 50 MCG/ACT nasal spray Hurt 2 (two) sprays into each nostril once [...] 20 tablet 10/21/202 4 Active HYDROcodone-ac etaminophen (Vancourt) 5-325 MG tabletIndicati ons:Acute maxillary sinusitis, recurrence [...] Overview (11/11/2016): She sees Dr. Jean at [facility]. She discontinued Seroquel with positive test. [...] Encounters Date Type Department Care Team Description 05/01/2025 7:30 AM POT HOLDER BINDER Hospital Encounter Formerly [facility] [address] [place] [id number] Sam Ojeda DO SERVER DEVELOPER 04/16/2025 11:15 AM POT HOLDER BINDER - 04/16/2025 5:19 PM POT HOLDER BINDER Hospital Encounter [address] [address] Tonny Mcarthur MD Discharge Disposition: Home or Self Care 04/16/2025 10:58 AM POT HOLDER BINDER - 04/16/2025 11:12 AM POT HOLDER BINDER Emergency ER at [address] [address] Discharge Disposition: ED Dismiss - Never Arrived 04/16/2025 Hospital Encounter [address] [address] 04/03/2025 2:30 PM CDT - 04/03/2025 11:59 PM CDT Hospital Encounter [facility]ly [facility] [address] [place] [address] Vilma Neves MD Discharge Disposition: Home or Self Care 03/13/2025 1:45 PM CDT - 03/13/2025 11:59 PM CDT Hospital Encounter [facility] [address] [place] [address] [place] [address] Vilma Neves MD Discharge Disposition: Home or [...] in a halfway (including now)? No 05/11/2022 [place] Depression Scale Answer Date Recorded [place] Depression Scale Total 0 05/08/2022 Last EPDS Self Harm Result Not on file 05/08 Overall Financial Resource Strain (CARDIA) Answe r Date Recorded How hard is it for you to pa y for the very basics like food, housing, medical care, and heating? Not hard at all 04/16/2025 [facility] - Occupational Stress [...] any time in the [facility] were you homeless or living in a halfway (including now)? No 04/16/2025 Estimated Date of Delivery Comme nts Yes 08/18/2025 Based on Ultraso und Sex and Gender Information Value Date Recorded Sex Assigned at Not on file Legal Sex Female 6:05 AM POT HOLDER BINDER Gender Identity Not on file Sexual Orientation Not on file Last Filed Vital Signs Vital Sign Reading Time Taken Comments Blood Pressure 97/53 04/16/2025 4:17 PM POT HOLDER BINDER Pulse 93 04/16/2025 4:17 PM POT HOLDER BINDER Temperature 36.7 C (98.1 F) 04/16/2025 11:32 AM POT HOLDER BINDER Respiratory Rate 18 04/16/2025 4:17 PM POT HOLDER BINDER Oxygen Saturation 95% 05/28/2024 11:26 PM POT HOLDER BINDER Inhaled Oxygen Concentration - - Weight 72.1 kg (159 lb) 04/16/2025 11:32 AM POT HOLDER BINDER Height 157.5 cm (5' 2) 04/16/2025 11:32 AM POT HOLDER BINDER Body Mass Index 29.08 04/16/2025 11:32 AM POT HOLDER BINDER Plan of Treatment Health Maintenance Due Date [...] TRICHOMONAS VAGINALIS ELEAZAR Routine 04/16/2025 5:10 PM POT HOLDER BINDER Abdominal pain affecting (HCC) CHLAMYDIA AND N. GONORRHOEAE ELEAZAR STAT 04/16/2025 5:10 PM POT HOLDER BINDER Abdominal pain affecting (HCC) MAGNESIUM BLOOD Routine 04/16/2025 12:29 PM POT HOLDER BINDER Abdominal pain affecting (HCC) PROTEIN CREATININE RATIO URINE RANDOM PNL STAT 04/16/2025 12:29 PM POT HOLDER BINDER Abdominal pain affecting (HCC) PHOSPHORUS BLOOD STAT 04/16/2025 12:2 9 PM POT HOLDER BINDER Abdominal pain affecting (HCC) COMPREHENSIVE METABOLIC PANEL STAT 04/16/2025 12:29 PM POT HOLDER BINDER Abdominal pain affecting (HCC) CBC W/O DIFFERENTIAL STAT 04/16/2025 12:29 PM POT HOLDER BINDER Abdominal pain affecting (HCC) URINALYSIS REFLEX MICROSCOPIC REFLEX CULTURE STAT 04/16/2025 12:29 PM POT HOLDER BINDER Abdominal pain affecting (HCC) CULTURE URINE STAT 04/16/2025 12:29 PM POT HOLDER BINDER Abdominal pain affecting (HCC) SONOGRAM - COMPLETE [...] RFLX HPV ASCU Routine 08/05/2016 12:37 PM POT HOLDER BINDER 10 weeks gestation of HIV-1 HIV-2 ANTIBODY + HIV P24 AG PANEL Routine 08/05/2016 12:35 PM POT HOLDER BINDER 10 weeks gestation of from Last 3 Months or Most Recently Relevant to Health Maintenance Results * TRICHOMONAS VAGINALIS ELEAZAR (04/16/2025 5:10 PM POT HOLDER BINDER) Trichomonas by ELEAZAR NEGATIVE NEGATIVE 04/17/2025 1:00 PM POT HOLDER BINDER [facility] MICROBIOLOGY Microbiology ENTIRE VAGINA / Unknown Collection / Unknown 04/16/2025 5:10 PM POT HOLDER BINDER 04/16/2025 5:15 PM POT HOLDER BINDER Narrative [facility] MICROBIOLOGY - 04/17/2025 1:00 PM POT HOLDER BINDER This test performed by Qualitative real-time Polymerase Chain Reaction (PCR). Tonny Mcarthur MD LAB - MICROBIOLOGY ORDERABLES Final Result Performing Organization Address [facility]/ZIP Co de Phone Number [facility] [address] [place] [address], [facility] [phone] * CHLAMYDIA AND N. GONORRHOEAE ELEAZAR (04/16/2025 5:10 PM POT HOLDER BINDER) Chlamydia by ELEAZAR NEGATIVE NEGATIVE 04/17/2025 1:00 PM POT HOLDER BINDER [facility] MICROBIOLOGY Neisseria gonorrhoeae ELEAZAR NEGATIVE NEGATIVE 04/17/2025 1:00 PM POT HOLDER BINDER [facility] MICROBIOLOGY Microbiology ENTIRE VAGINA / Unknown Collection / Unknown 04/16/2025 5:10 PM POT HOLDER BINDER 04/16/2025 5:15 PM POT HOLDER BINDER [facility] MICROBIOLOGY - 04/17/2025 1:00 PM POT HOLDER BINDER This test performed by Qualitative real-time Polymerase Chain Reaction (PCR). Tonny Mcarthur MD LAB - MICROBIOLOGY ORDERABLES Final Result Performing Organization Address [facility] Co de Phone Number [facility] [address] [place] [address], [facility] [phone] * (ABNORMAL) URINALYSIS REFLEX MICROSCOPIC REFLEX CULTURE (04/16/2025 12:29 PM POT HOLDER BINDER) Color UA Yellow Yellow, Straw 04/16/2025 12:55 PM POT HOLDER BINDER [facility] Clarity UA Turbid(A) Clear 04/16/2025 12:55 PM POT HOLDER BINDER [facility] Glucose UA Normal Normal 04/16/2025 12:55 PM POT HOLDER BINDER [facility] Bilirubin UA Negative Negative 04/16/2025 12:55 PM POT HOLDER BINDER [facility] Ketone UA Trace(A) Negative 04/16/2025 12:55 PM POT HOLDER BINDER [facility] Specific Portal UA 1.034(H) 1.005 - 1.030 04/16/2025 12:55 PM POT HOLDER BINDER [facility] Blood UA Negative Negative 04/16/2025 12:55 PM POT HOLDER BINDER [facility] pH UA 6.0 5.0 - 8.0 04/16/2025 12:55 PM [address]OT HOLDER BIND[address] [facility] Protein UA 1+(A) Negative 04/16/2025 12:55 PM POT HOLDER BINDER [facility] Urobilinogen UA Normal Normal mg/dL 04/16/2025 12:55 PM POT HOLDER BINDER [facility] Nitrite UA Negative Negative 04/16/2025 12:55 PM POT HOLDER BINDER [facility] Leukocyte Esterase UA 25 TYE/uL(A) Negative 04/16/2025 12:55 PM POT HOLDER BINDER [facility] RBC UA 6-10(A) 0 - 5 # /hpf 04/16/2025 12:55 PM POT HOLDER BINDER [facility] WBC UA 11-20(A) 0 - 5 # /hpf 04/16/2025 12:55 PM POT HOLDER BINDER [facility] Bacteria UA 3+(A) None Seen 04/16/2025 12:55 PM POT HOLDER BINDER [facility] Squamous Epithelial Cells 11-20(A) 0 - 5 /hpf 04/16/2025 12:55 PM POT HOLDER BINDER [facility] Mucus UA 4+ /LPF 04/16/2025 12:55 PM POT HOLDER BINDER [facility] Reflex Status Culture to follow 04/16/2025 12:55 PM POT HOLDER BINDER [facility] Urine URINE SPECIMEN OBTAINED BY CLEAN CATCH PROCEDURE / Unknown Collection / Unknown 04/16/2025 12:29 PM POT HOLDER BINDER 04/16/2025 12:41 PM POT HOLDER BINDER Tonny Mcarthur MD LAB - URINALYSIS ORDERABLES Fi nal Result Performing Organization Address [facility]/ZIP Co vt Phone Number [facility] [address] [place], [place] [id number] * CULTURE URINE (04/16/2025 12:29 PM POT HOLDER BINDER) Culture Urine 10,000-50,000 CFU/mL urogenital muriel ALE 04/17/2025 4:47 PM POT HOLDER BINDER [facility] MICROBIOLOGY Urine URINE SPECIMEN OBTAINED BY CLEAN CATCH PROCEDURE / Unknown Collection / Unknown 04/16/2025 12:29 PM POT HOLDER BINDER 04/16/2025 12:41 PM POT HOLDER BINDER Tonny Mcarthur MD LAB - MICROBIOLOGY ORDERABLES Final Result [facility] [address] [place] [address], [facility] [phone] * (ABNORMAL) CBC W/O DIFFERENTIAL (04/16/2025 12:29 PM POT HOLDER BINDER) Pathologist [facility] [place] WBC 9.4 4.0 - 10.7 x10E9/L 04/16/2025 12:44 PM POT HOLDER BINDER [facility] RBC Count 4.13 3.90 - 5.20 x10E12/L 04/16/2025 12:44 PM [facility] Hemoglobin 10.5(L) 11.9 - 15.8 g/dL 04/16/2025 12:44 PM [facility] Hematocrit 32.6(L) 34.8 - 46.1 % 04/16/2025 12:44 PM [facility] MCV 78.9(L) 80.0 - 98.0 fL 04/16/2025 12:44 PM [facility] MCH 25.4(L) 26.7 - 33.6 pg 04/16/2025 12:44 PM [facility] MCHC 32.2 31.7 - 36.3 g/dL 04/16/2025 12:44 PM [facility] RDW-CV 14.9(H) 11.3 - 14.8 % 04/16/2025 12:44 PM [facility] Platelet Count 269 150 - 420 x10E9/L 04/16/2025 12:44 PM [facility] MPV 9.3 7.8 - 11.4 fL 04/16/2025 12:44 PM [facility] Blood BLOOD SPECIMEN / Unknown Venipuncture / Unknown 04/16/2025 12:29 PM POT HOLDER BINDER 04/16/2025 12:41 PM POT HOLDER BINDER Tonny Mcarthur MD LAB - HEMATOLOGY ORDERABLES Fi nal Result [facility] [address] [place] [address] * (ABNORMAL) COMPREHENSIVE METABOLIC PANEL (04/16/2025 12:29 PM POT HOLDER BINDER) Pathologist [facility] [place] Glucose 73 70 - 99 mg/dL 04/16/2025 12:58 PM [facility] Sodium 137 136 - 145 mmol/L 04/16/2025 12:58 PM [facility] Potassium 3.7 3.5 - 5.1 mmol/L 04/16/2025 12:58 PM [facility] Chloride 109(H) 98 - 107 mmol/L 04/16/2025 12:58 PM [facility] CO2 18(L) 22 - 29 mmol/L 04/16/2025 12:58 PM [facility] Calcium 9.1 8.4 - 10.4 mg/dL 04/16/2025 12:58 PM [facility] Anion Gap 10 6 - 16 mmol/L 04/16/2025 12:58 PM [facility] BUN 8 5.3 - 18.7 mg/dL 04/16/2025 12:58 PM [facility] Creatinine 0.52 0.50 - 1.00 mg/dL 04/16/2025 12:58 PM [facility] Alkaline Phosphatase 74 40 - 150 U/L 04/16/2025 12:58 PM [facility] ALT 12 6 - 57 U/L 04/16/2025 12:58 PM [facility] AST 18 10 - 48 U/L 04/16/2025 12:58 PM [facility] Protein Total 7.1 6.4 - 8.3 gm/dL 04/16/2025 12:58 PM [facility] Albumin 3.2 3.1 - 4.5 gm/dL 04/16/2025 12:58 PM [facility] Bilirubin Total 0.2 0.2 - 1.2 mg/dL 04/16/2025 12:58 PM [facility] eGFR by CKD-EPI >90 >=90 mL/min/1.7 3 m2 04/16/2025 12:58 PM [facility] Comment:Estimated Glomerular Filtration Rate (eGFR) calculated using the CKD-EPI Creatinine Equation (2020), per the National Kidney Foundation and [place] Society of Nephrology recommendations. Blood BLOOD SPECIMEN / Unknown Venipuncture / Unknown 04/16/2025 12:29 PM POT HOLDER BINDER 04/16/2025 12:41 PM [facility] us Tonny Mcarthur MD LAB - CHEMISTRY ORDERABLES Fin al Result Performing Organization Address [facility] Co de Phone Number [facility] [address] [place], [place] [phone] * (ABNORMAL) PROTEIN CREATININE RATIO URINE RANDOM PNL (04/16/2025 12:29 PM POT HOLDER BINDER) Protein Urine 12.2(H) <11.9 mg/dL 04/16/2025 1:01 PM [address] HOLDER BIND[facility] Creatinine Urine 160.95 mg/dL 04/16/2025 1:01 PM POT HOLDER BINDER [facility] Protein/Creatin ine Ratio Urine 0.08 04/16/2025 1:01 PM POT HOLDER BINDER [facility] Urine URINE SPECIMEN OBTAINED BY CLEAN CATCH PROCEDURE / Unknown Collection / Unknown 04/16/2025 12:29 PM POT HOLDER BINDER 04/16/2025 12:41 PM POT HOLDER BINDER Tonny Mcarthur MD LAB - URINE CHEMISTRY ORDERABL ES Final Result Performing Organization Address [facility] Co de Phone Number [facility] [address] [place] [address] * PHOSPHORUS BLOOD (04/16/2025 12:29 PM POT HOLDER BINDER) Phosphorus 3.3 2.5 - 4.5 mg/dL 04/16/2025 12:58 PM POT HOLDER BINDER [facility] Blood BLOOD SPECIMEN / Unknown Venipuncture / Unknown 04/16/2025 12:29 PM POT HOLDER BINDER 04/16/2025 12:41 PM POT HOLDER BINDER Tonny Mcarthur MD LAB - CHEMISTRY ORDERABLES Fin al Result Performing Organization Address City/[facility] Co de Phone Number [facility] [address] [place] [address] * MAGNESIUM BLOOD (04/16/2025 12:29 PM POT HOLDER BINDER) Magnesium 2.0 1.6 - 2.6 mg/dL 04/16/2025 1:38 PM POT HOLDER BINDER [facility] Blood BLOOD SPECIMEN / Unknown Venipuncture / Unknown 04/16/2025 12:29 PM POT HOLDER BINDER 04/16/2025 12:41 PM POT HOLDER BINDER Tonny Mcarthur MD LAB - CHEMISTRY ORDERABLES Alex vaca Result [facility] [address] [place] [address] * Sonogram - Complete (04/03/2025 3:46 PM CDT) Only the most recent of2 resultswithin the time period is included. Linked Results Indication ======== anatomy evaluation Fibroid uterus complicating History of preeclampsia Family history of Down syndrome Patient's brother History ====== OB History 7. Para 3 [id number] 1. live 2011. Gest. age 38 w [...] 0 lb 13 oz EFW by Hadlock ([id number]) Head / Face / Neck Biometry: CM [...] Thorax 4-chamber view. RVOT view. LVOT view. [id number] view. Situs. Aortic arch view. Bicaval view. [...] Z36.3: Encounter for screening for malformations Procedures 84054: US Preg Uterus >14 weeks [address]: US Preg Uterus Transvaginal [facility] Planet[facility]an PACS Anatomical Region Laterality Modality Other 04/03/2025 3:46 PM CDT Denis Clark MD [facility] ORDERABLES Edited Result - Final * CULTURE STREP B (01/20/2017 2:51 AM CDT) Culture Strep B Negative for beta-hemolytic Streptococcus Group B ALE 01/23/2017 9:48 AM CDT [facility] Microbiology MISCELLANEOUS SAMPLES / Unknown Collection / Unknown 01/20/2017 2:51 AM CDT 01/20/2017 2:58 AM CDT Maryann Lynn MD LAB - MICROBIOLOGY ORDERABLES Final Result [facility] [address] [place] [address], [facility] [phone] * GLUCOSE CHALLENGE (12/10/2016 10:00 AM CDT) Glucose Challenge 109 64 - 140 mg/dL 12/10/2016 12:16 PM CDT [facility] Glucose Challenge Time 12/10/2016 12:16 PM CDT [facility] Blood BLOOD SPECIMEN / Unknown 12/10/2016 10:00 AM CDT 12/10/2016 11:48 AM CDT us Rochelle Velazquez [employer] LIBRARY DIRECTOR-COST REPORT CLERK LAB - CHEMISTRY ORDERABLE S Final Result [facility] [address] [place] [address] * PAP SMEAR IG RFLX HPV ASCU (PO REF LAB) (08/05/2016 12:37 PM POT HOLDER BINDER) Diagnosis Comment 08/06/2016 9:08 PM POT HOLDER BINDER [facility] (DP) Comment:NEGATIVE FOR INTRAEP ITHELIAL LESION AND MALIGNANCY. Specimen Adequacy Comment 017 9:08 PM POT HOLDER BINDER [facility] (DP) Comment: Satisfactory for evaluation. Endocervical and/or squamous metaplastic cells (endocervical component) are present. Performed by Comment 08/06/2016 9:08 PM POT HOLDER BINDER [facility] ([facility]) Comment:Rubi Medley, Cytotec hnologist (ASCP) Comment . 08/06/2016 9:08 PM POT HOLDER BINDER [facility] ([facility]) Note Comment 08/06/2016 9:08 PM POT HOLDER BINDER [facility] ([facility]) Comment: The Pap smear is a screening test designed to aid in the detection of premalignant and malignant conditions of the uterine cervix. It is not a diagnostic procedure and should not be used as the sole means of detecting cervical cancer. Both false-positive and false-negative reports do occur. IGLBP CPT Code Automation Comment 08/06/2016 9:08 PM POT HOLDER BINDER [facility] ([facility]) Comment: This liquid based ThinPrep(R) pap test was screened with the use of an image guided system. Note Comment 08/06/2016 9:08 PM POT HOLDER BINDER [facility] ([facility]) Comment: The HPV DNA reflex criteria were not met with this specimen result therefore, no HPV testing was performed. Pathology/Cytolo gy PART OF UTERINE CERVIX / Unknown 08/05/2016 12:37 PM POT HOLDER BINDER 08/05/2016 1:19 PM POT HOLDER BINDER Narrative [facility] ([facility]) - 08/06/2016 9:08 PM POT HOLDER BINDER Performed at: - Lab[address]Andrew [address] [id number] Air Export Agent: Rayna Cuevas MD, Phone: [phone] Specimen Comment: Source.............Cervix Specimen Comment: No. of containers..01 CYTYC Thin Prep Vial us Gaye Stephens MD LAB - PATHOLOGY/CYTOLOGY ORDE RABILIANA Final Result [facility] ([facility]) [address] [place] [address] * HIV-1 HIV-2 ANTIBODY + HIV P24 AG PANEL (08/05/2016 12:35 PM POT HOLDER BINDER) HIV1/2 Ab + P24 Ag Non Reactive Non Reactive 08/05/2016 6:49 PM POT HOLDER BINDER [facility] Blood BLOOD SPECIMEN / Unknown 08/05/2016 12:35 PM POT HOLDER BINDER 08/05/2016 1:10 PM POT HOLDER BINDER Narrative [facility] - 08/05/2016 6:49 PM POT HOLDER BINDER No Laboratory evidence of HIV infection. us Gaye Stephens MD LAB - CHEMISTRY ORDERABLES Fi nal Result [facility] [address] [place] [address] from Last 3 Months or Most Recently Relevant to Health Maintenance Insurance [facility] [facility] [employer] MED[place] - [place] MEDICAID [...] 12:53 PM 02/27/2017 12:50 PM Care Teams Voltage Tester Relationship Specialty Start Date End Date [facility] [address] [place] [address] PCP - General Technology Sales Specialist 01/30/22
--- OUTSIDE RECORDS SUMMARY | 2025-05-02 13:01 | XMS_ITS | Clinical Summary ---
Author Organization [facility] Address [address] [place] [address] Care Team Providers Care Department [employer] Name Role Phone Unavailable Primary Care Provider [...] TRICH (08/26/2021 10:22 AM CDT) SEE NOTE [facility] Comment: This order for age-based cervical cancer and STI screening follows ACOG guidelines(PB 168, 140, DNQ496). See individual assays for performing site location. CLINICAL INFORMATION [facility] Comment:Information not prov ided LAST MENSTRUAL PERIOD [facility] Comment:INFORMATION NOT PROV IDED PREV PAP: [facility] Comment:INFORMATION NOT PROV IDED PREV BX: [facility] Comment:INFORMATION NOT PROV IDED SOURCE [facility] Comment:Endocervix ADEQUACY: [facility] Comment: Satisfactory for evaluation. Endocervical/transformation zone component present. Age and/or menstrual status not provided PAP INTERP [facility] Comment:Negative for intraep ithelial lesion or malignancy. COMMENT (PAP TEST) [facility] Comment: This Pap test has been evaluated with computer assisted technology. DIGITAL AD TRAFFICKER: [facility] Comment: SAMAGNES(ASCP) CT screening location: [place] [address] [place] [address] SEE NOTE [facility] Comment: EXPLANATORY NOTE: The Pap is a [...] N.GONORRHOEAE RNA, TMA NOT DETECTED NOT DETECTED [facility] SEE NOTE [facility] Comment: The analytical performance characteristics of this assay, when used to test SurePath(TM) specimens have been determined by [facility]. The modifications have not been cleared or approved by the FDA. This assay has been validated pursuant to the CLIA regulations and is used for clinical purposes. For additional information, please refer to [email or web address] My Info.[employer] [email or web address]/faq/RVN271 (This link is being provided for information/ educational purposes only.) TRICHOMONAS VAGINALIS,QUALITAT LAYNE,PAP VIAL NOT DETECTED NOT DETECTED [facility] Comment: The analytical performance characteristics of this assay have been determined by [facility]. The modifications have not been cleared or approved by the FDA. This assay has been validated pursuant to the CLIA regulations and is used for clinical purposes. For additional information, please refer to [email or web address]/ [email or web address] (This link is being provided for information/ educational purposes only.) Test Performed at: [facility] [address] [place] [address] Andrea Mix D.O., MPH Genital SWAB OF ENDOCERVIX / Unknown 08/26/2021 10:22 AM CDT 08/27/2021 4:04 AM CDT Aba Gutierrez MD PATHOLOGY/CYTOLOGY ORDERABLES Final Result Performing Organization Address City/State/[facility] Co de Phone Number [facility] [address] [place] [address] from Last 3 Months or Most Recently Relevant to Health Maintenance Insurance [employer] TRUE BLUE PPO EXCHANGE
--- OUTSIDE RECORDS SUMMARY | 2025-05-02 13:01 | XMS_ITS | Patient Health Record ---
Author Organization [facility] Address [address] [place], [place] [id number] Care Team Providers [employer] Name Role Phone Melita German Primary Care Provider Rodrick Bauman Unavailable [phone] Allergies No Known Allergies Reason For Referral [...] Duration: 5 Not-Taking Vitamin D3 1.25 MG (71355 UT) Oral; Duration: 28 Not-Takin g Metoclopramide [...] Status Risk Notes Problem Finding related to (893202054) related conditions, unspecified, first trimester (O26.91) Active confirm Problem test equivocal (199956844) Encounter for test, result unknown (Z32.00) Active confirmed Problem care (regime/therap y) (089931092) Encntr for suprvsn of normal preg, unsp, second trimester (Z34.92) Active confirmed Problem test positive (709724249) test performed, confirmed (Z32.01) Active confirmed Plan Of Treatment Pending Test Test Name Order Date Ultrasound : (OB) First Trimester 2019 Ultrasound : OB/ Complete After 1st Trim es 03/11/2022 Insurance Providers Payer Name Payer Address Payer Phone Subscriber Number Group Number Insured Name Patient Relationship to Insured Coverage Start Date Coverage End Date [employer] Community [employer] HMO [address] [place] [address] [id number] Nisha Millan Self - patient is the insured 9 [employer] [address] [place] [address] [id number] Nisha Chou Self - patient is the insured 2 DENTAL MEDICAID [employer] Medicaid Dental [address] [place] [phone] [id number] Nisha Chou Self - patient is the insured 9 Medications Administered Medication Instructions Date of Administration Dosage Notes RhoGAM Ultra-Filtered PLUS-300ug 02/27/2022 1 Medical (General) History Surgical History Surgery Date(Month/Year) vaginal delivery vaginal delivery
--- NOTE | 2025-05-03 09:25 | PM.OBTRLD ---
OB - Triage/Final Diagnosis Visit Information Comments/Additional reasons for admission: I have assessed the risk for this patient, Nisha Arambula, and determined that she would benefit from observation care. Evaluation Vital signs: Vital Signs - 24 hr 05/02/25 11:22 05/02/25 11:31 05/02/25 11:46 Pulse Rate 94 86 107 H Blood Pressure 117/64 121/80 109/75 05/02/25 12:01 05/02/25 12:16 Pulse Rate 89 55 L Blood Pressure 95/71 L 115/90 Final Diagnosis (1) Anxiety: Code(s): F41.9 - Anxiety disorder, unspecified Status: Acute
== END 2025-05-02 12:47 | disposition home or self-care (01) ==
PROVIDERS: Admitting Provider Obstetrics & Gynecology; Visit Provider Obstetrics & Gynecology
DX: O99.342 Other mental disorders complicating pregnancy, second trimester (principal); F41.9 Anxiety disorder, unspecified; Z3A.24 24 weeks gestation of pregnancy
CPT/HCPCS: G0378; G0379

== ENCOUNTER 2025-06-02 00:42 | Observation (INO) | payer OTHER, SELFPAY ==
[2025-06-02] VITALS (21 sets, daily range): BP systolic 137–144; BP diastolic 91–108; PULSE 90–117; TEMP 36.8; O2SAT 98–100; BMI 31.6
--- NOTE | 2025-06-02 00:42 | PC.NURSE ---
Pt arrives to unit from home with abdominal tightening, headache 8 out of 10, nausea, vomiting, right upper quadrant pain, and swelling.
[2025-06-02 02:16] LABS: Hematocrit 31.0 % (37.0-47.0); Hemoglobin 9.8 g/dL (12.0-15.0); Immature Granulocyte Percent A 0.7 % (0-0.5); Lymphocytes Absolute Auto 2.19 K/mm3 (0.9-3.2); Mean Corpuscular HGB Conc 31.6 g/dl (32-36); Mean Corpuscular Hemoglobin 23.9 pg (26-34); Mean Corpuscular Volume 75.6 fl (80-100); Nucleated Red Blood Cells Absolute Auto 0.000 K/mm3 (0.0-0.012); Nucleated Red Blood Cells Perc 0.0 % (0.0-0.2); Platelet Count Result 256 k/mm3 (150-375); Red Blood Count 4.10 M/mm3 (4.2-5.4); White Blood Count 9.1 K/mm3 (4.5-10.0)
[2025-06-02 02:27] LABS: Total Protein Urine Random 13 mg/dL; Ur Ttl Prot Creatinine Ratio 0.24 mg/mg (0-0.20)
[2025-06-02 02:28] LABS: Add Urine Microscopic? YES; Alanine Aminotransferase 14 U/L (6-35); Albumin Level 3.4 g/dL (3.5-5.1); Alkaline Phosphatase 83 U/L (38-126); Anion Gap 6 mmol/L (4-12); Appearance Urine Clear (Clear); Aspartate Amino Transferase 20 U/L (14-36); Bilirubin,Total 0.2 mg/dL (0.2-1.3); Blood Urea Nitrogen 10 mg/dL (7-17); Calcium 9.2 mg/dL (8.4-10.2); Carbon Dioxide 18 mmol/L (22-30); Chloride 110 mmol/L (98-107); Estimated CRCL calculation 117 ml/min; Estimated Glomerular Filt Rate > 60; Glucose 104 mg/dL (65-110); Glucose Urine UA Negative (Negative); Leukocyte Esterase Ur Trace LEU/UL (Negative); Need Manual Microscopic Reviewed; Nitrate Urine Negative (Negative); Non Pathogenic Casts 0-2; Potassium 3.8 mmol/L (3.4-5.0); Sodium 134 mmol/L (137-145); Specific Grav Ur 1.011 (1.001-1.035); Total Protein 6.7 g/dL (6.3-8.2); Uric Acid 3.0 mg/dL (2.5-7.5)
--- NOTE | 2025-06-02 02:37 | PC.NURSE ---
Called Dr. Wolff, update on pt, abdominal tightening, headache 8 out of 10 unresolved by Tylenol, nausea, vomiting, right upper quadrant pain, swelling, labs, blood pressure, and tracing. Orders received to offer pt LR bolus and zofran and discharge with instructions to increase periods of rest, keep next scheduled appointment, and when to return to the unit.
--- NOTE | 2025-06-02 02:50 | PC.NURSE ---
Pt offered LR bolus and zofran, pt requests both at this time.
--- NOTE | 2025-06-02 02:53 | OBADM ---
This patient, Nisha Arambula, admitted to the OB room OB Post 117 for observation. Patient/family oriented to hospital policies and general routines including ID bracelet, bed and alarms, visiting hours, pain management, procedures, bathroom and other care routines, personal items, smoking policy, room service/diet, and visiting hours. Patient/Family are encouraged to report perceived risks to care and to ask questions if they do not understand what they are told or what they should do.
--- NOTE | 2025-06-02 03:18 | PC.NURSE ---
RN at bedside to initiate IV, pt refuses LR bolus and zofran at this time.
--- NOTE | 2025-06-02 03:28 | PC.NURSE ---
Pt discharged with instructions to increase periods of rest, keep next scheduled appointment, and when to return to the unit, pt verbalizes understanding.
--- NOTE | 2025-06-05 15:09 | P.PNOB_ITS ---
OB - Triage/Final Diagnosis Visit Information Date of evaluation: 06/02/25 Reason for evaluation: threatened labor Comments/Additional reasons for admission: I have assessed the risk for this patient, Nisha Arambula, and determined that she would benefit from observation care. Evaluation Laboratory results: Laboratory Tests 06/02/25 01:46 WBC 9.1 RBC 4.10 L Hgb 9.8 L Hct 31.0 L MCV 75.6 L MCH 23.9 L MCHC 31.6 L RDW 16.4 H Plt Count 256 MPV 9.9 Immature Gran % (Auto) 0.7 H Neut % (Auto) 64.7 Lymph % (Auto) 24.0 [place] % (Auto) 8.9 H Eos % (Auto) 1.6 Baso % (Auto) 0.1 L Lymph # (Auto) 2.19 [place] # (Auto) 0.8 H Eos # (Auto) 0.2 Baso # (Auto) 0.0 Abs Immat Gran (auto) 0.06 H Absolute Neuts (auto) 5.9 Absolute Nucleated RBC 0.000 Nucleated RBC % 0.0 Sodium 134 L Potassium 3.8 Chloride 110 H Carbon Dioxide 18 L Anion Gap 6 BUN 10 D Creatinine 0.54 L Estim Creat Clear Calc 117 Estimated GFR > 60 Glucose 104 Uric Acid 3.0 Calcium 9.2 Total Bilirubin 0.2 AST 20 ALT 14 Alkaline Phosphatase 83 Total Protein 6.7 Albumin 3.4 L Urine Color Yellow Urine Appearance Clear Urine pH 6.5 Ur Specific [place] 1.011 Urine Protein Negative Urine Glucose (UA) Negative Urine Ketones Negative Ur Blood (Man) Negative Urine Nitrate Negative Urine Bilirubin Negative Urine Urobilinogen 1.0 Add Ur Microanalysis Reviewed Leukocyte Esterase Rfl Trace H Urine RBC 0-2 Urine WBC 6-10 H Ur Squamous Epith Cells Occasional Urine Bacteria 4+ H Urine Casts 0-2 U Random Total Protein 13 Urine Creatinine 54.8 Protein/Creat Ratio 2 0.24 H
== END 2025-06-02 03:28 | disposition home or self-care (01) ==
PROVIDERS: Admitting Provider Student in an Organized Health Care Education/Training Program; Visit Provider Student in an Organized Health Care Education/Training Program
DX: O47.03 False labor before 37 completed weeks of gestation, third trimester (principal); Z3A.29 29 weeks gestation of pregnancy; R82.90 Unspecified abnormal findings in urine
CPT/HCPCS: 36415; 59025; 80053; 81001; 82570; 84156; 84550; 85025; 87086; G0378; G0379